=== PATIENT | female | born 1955 | race African-American/Black ===

== ENCOUNTER 2018-07-20 06:11 | Day surgery (SDC) | payer MEDICARE ==
--- NOTE | 2018-07-17 10:44 | HP ---
HISTORY OF PRESENT ILLNESS: A 63-year-old black female, dialyzes at [facility] on Friday, Friday, and Friday. She was dialyzed utilizing a right IJ hemodialysis catheter. In 2016, I placed a right arm fistula on 05/24/2016 and subsequently, a graft 10/30/2016. This worked a short while and thrombosed. She went to [place], interventions performed, could not salvage it. She had a left arm graft placed that failed. Her veins were too small. She had a hemodialysis catheter placed in right IJ in [place]. She is here to see me regarding peritoneal dialysis. MEDICATIONS: 1. Trazodone 50 mg a day. 2. Tramadol p.r.n. 3. Carvedilol 12.5 mg a day. 4. Calcium daily. 5. Atorvastatin daily. 6. Magnesium oxide daily. 7. Sensipar with meals. 8. Vitamin D3 supplements. PAST MEDICAL HISTORY: End-stage renal disease, chronic anemia, hypertension, and insulin-dependent diabetes mellitus, takes insulin 4 times a day. PAST SURGICAL HISTORY: Hysterectomy, infraumbilical midline incision, bilateral salpingo-oophorectomy, right arm fistula, right arm graft, left arm graft, and hemodialysis catheter placement. FAMILY HISTORY: Noncontributory. SOCIAL HISTORY: Tobacco, none. Alcohol, none. ALLERGIES: SULFA. REVIEW OF SYSTEMS: Noncontributory. PHYSICAL EXAMINATION: VITAL SIGNS: Weight 202 pounds, 5 feet 6 inches. 141/67, 74 heart rate, 97 degrees, followed by Dr. Jose G Stapleton in [place] and Dr. Barreto. The patient is , lives with her son. She dialyzes Friday, Friday, and Friday at 1:30 p.m. [facility]. HEAD, EARS, EYES, NOSE, AND THROAT: Unremarkable. LUNGS: Clear to auscultation. CARDIAC: Regular rate and rhythm without murmur or gallop. ABDOMEN: Soft and nontender. Infraumbilical scar without hernias. No umbilical hernias. No groin hernias. ABDOMEN: Soft and nontender, without masses. EXTREMITIES: Without edema. Venous stasis changes both legs with the wound right leg chronic venous stasis. NEUROLOGIC: No neurological Deficits. Neurologically intact. GCS 15. No lymphadenopathy. ASSESSMENT AND PLAN: 1. Inadequate veins to support dialysis fistulas or grafts, both arm grafts failed. Currently dialyzing right IJ hemodialysis catheter. We will plan placement of a laparoscopic peritoneal dialysis catheter as an outpatient. She understands risks and benefits and consents. She understands she will need to see the peritoneal dialysis nurse in 3 to 7 days post peritoneal dialysis catheter placement to have that nurse flush the catheter, change the dressings, and begin instruction. She can begin using her PD catheter 2 to 3 weeks postoperatively. She understands risks and benefits of the procedure and consents. 2. Diabetes mellitus. 3. Hypertension. 4. Obesity. Job ID: [id number]
[2018-07-17 11:03] VITALS: BMI 33.3
[2018-07-20] MEDS ORDERED: Bupivacaine HCl 0.5%/Epinephrine 1:200,000/PF 30 ml Vial ONE (06:39)
[2018-07-20] MEDS ORDERED: Bupivacaine/Epinephrine 0.25% 30 ML VIAL ONE (06:39)
[2018-07-20] MEDS ORDERED: Heparin 10,000 UNITS/1 ML VIAL ONE (06:39)
[2018-07-20] MEDS ORDERED: Lidocaine 2% PF 5 ML VIAL ONE ×2 (06:39→06:54)
[2018-07-20] MEDS ORDERED: Fentanyl 100 MCG/2 ML VIAL ONE ×2 (06:49→09:34)
[2018-07-20 07:25] LABS: Anion Gap 15 mmol/L (10-20); BUN (Urea Nitrogen) 47 mg/dL (9.8-20.1); Calc. Creatinine Clearance 14 mL/min (70-130); Calcium 8.9 mg/dL (7.8-10.44); Carbon Dioxide 27 mmol/L (23-31); Chloride 101 mmol/L (98-107); Estimated GFR-MDRD 9; Glucose 173 mg/dL (80-115); Potassium 3.6 mmol/L (3.5-5.1); Sodium 139 mmol/L (136-145)
[2018-07-20 07:43] LABS: #Eosinphils 0.4 thou/uL (0.0-0.7); #Monocytes 0.6 thou/uL (0.11-0.59); #Neutrophils 5.5 thou/uL (1.40-6.50); %Basophils 0.5 % (0.0-1.0); %Eosinophils 4.7 % (0.0-10.0); %Lymphocytes 13.4 % (21.0-51.0); %Monocytes 8.3 % (0.0-10.0); %Neutrophils 73.1 % (42.0-75.0); Hemoglobin 11.4 g/dL (12.0-16.0); Mean Corpuscular HGB CONC 31.3 g/dL (32.0-36.0); Mean Corpuscular Hemoglobin 29.2 pg (27.0-31.0); Mean Corpuscular Volume 93.3 fL (78.0-98.0); Mean Platelet Volume 8.6 fL (7.4-10.4); Platelet Count 302 thou/uL (130-400); RBC Distribution Width 13.1 % (11.5-14.5); Red Blood Cell (RBC) Count 3.89 mill/uL (4.20-5.40); White Blood Cell (WBC) Count 7.5 thou/uL (4.8-10.8)
[2018-07-20] MEDS ORDERED: hydrALAZINE 20 MG/ML VIAL ONE (09:06)
[2018-07-20] MEDS ORDERED: Lidocaine 1% PF 5 ML VIAL ONE (09:56)
[2018-07-20] MEDS ORDERED: ePHEDrine 50 MG/ML VIAL ONE (09:56)
[2018-07-20] MEDS ORDERED: Glycopyrrolate 0.2 MG/ML 5 ML SYRINGE ONE (09:56)
[2018-07-20] MEDS ORDERED: Ondansetron PF 4 MG/2 ML Vial ONE (09:56)
[2018-07-20] MEDS ORDERED: PROPOFOL 200 MG/20 ML VIAL ONE (09:56)
[2018-07-20] MEDS ORDERED: Rocuronium Bromide 10 MG/ML (10ML VIAL) ONE (09:56)
[2018-07-20] MEDS ORDERED: Heparin 10,000 UNITS/ 10 ML VIAL ONE (10:45)
--- NOTE | 2018-07-20 12:37 | OP ---
DATE OF PROCEDURE: 07/20/2018 PREOPERATIVE DIAGNOSIS: End-stage renal disease, exhausted dialysis access upper extremities due to too small veins depending on hemodialysis catheter currently. POSTOPERATIVE DIAGNOSIS: End-stage renal disease, exhausted dialysis access upper extremities due to too small veins depending on hemodialysis catheter currently. PROCEDURES PERFORMED: 1. Laparoscopic adhesiolysis (omentum adherent to the sigmoid colon and to the suprapubic area from previous hysterectomy). 2. Laparoscopic omentopexy. 3. Laparoscopic double-cuffed pigtail peritoneal dialysis catheter. ANESTHESIA: General, local of 0.5% Marcaine with epinephrine 30 mL mixed with 2% Xylocaine 10 mL, total volume mixture used. DESCRIPTION OF PROCEDURE: The patient was taken to the operating room, where under general anesthesia, abdomen was prepared with ChloraPrep and draped in routine fashion. Local anesthetic mixture was infiltrated into the skin and subcutaneous tissue about all port sites. Bilateral subcostal far lateral incision was made. Pneumoperitoneum to 15 mmHg obtained with a Veress needle, replacing the Veress needle with a 5 mm port, and video laparoscope inserted and the contralateral 5 mm port placed under laparoscopic visualization. There were omental adhesions in the pelvis adjacent to the sigmoid colon and lower abdominal wall to the pubis. For this reason, another 5 mm port was placed in left lateral abdomen. A left lateral mid abdominal incision was made under laparoscopic visualization and another 5 mm port was placed. Omental adhesions into the pelvis from prior hysterectomy noted with omentum adherent to the sigmoid colon and suprapubic midline area from previous hysterectomy. Adhesions were taken down with LigaSure, mobilizing the lower portion of the adhesions, leaving adhesions in the supraumbilical area intact. Incision was made in the left lower quadrant at the planned exit site and a counter incision was made at left paraumbilical. An 8-mm port was placed through this paraumbilical incision and the subcutaneous tissue was directed caudally, visualized laparoscopically passed through the rectus sheath and caudally the catheter penetrated the abdominal cavity toward the pelvis and a double-cuffed pigtail catheter was passed. This port was placed in the internal cuff in the rectus sheath, grasping the catheter, stabilizing it and removing the port. [place] dissector was placed through the planned exit site. Small incision was directed towards the counterincision, grasping the catheter and stabilizing the catheter intraperitoneally with a grasper. Catheter was placed such that the external cuff was in the subcutaneous tissue beneath the skin exit site. The catheter was then flushed with heparinized saline solution and cap applied. Omentopexy then performed with a GraNee needle pexing the omentum with 2-0 Vicryl suture to the upper abdomen, left upper quadrant with a transabdominal wall fixation, suture visualized laparoscopically. Once this was completed, omentum was well out of the pelvis and would not interfere with the catheter. As all counts were correct, pneumoperitoneum reduced. All instruments removed as good hemostasis noted. All skin incisions were approximated with interrupted subdermal 4-0 Monocryl and at the counter incision, the subcutaneous tissues were approximated with an extra subcutaneous tissue approximation of 4-0 Monocryl. Dermabond, Mastisol, and sterile dressings were applied. The patient tolerated the procedure well. Job ID: [id number]
--- NOTE | 2018-07-21 09:32 | EKG ---
Test Reason : PREOP Blood Pressure : / mmHG Vent. Rate : 073 BPM Atrial Rate : 073 BPM P-R Int : 244 ms QRS Dur : 092 ms QT Int : 448 ms P-R-T Axes : 083 002 011 degrees QTc Int : 493 ms Sinus rhythm with 1st degree A-V block with Premature atrial complexes Prolonged QT Abnormal ECG Confirmed by DR. Diogenes MUNSON ([id number]) on 07/21/2018 9:32:24 AM Referred By: MICHAEL Confirmed By:DR. Diogenes MUNSON
== END 2018-07-20 11:18 | disposition home or self-care (01) ==
LOC: SDC 06:11
PROVIDERS: ATTEND Specialist
PROC: 0WHG43Z Insertion of Infusion Device into Peritoneal Cavity, Percutaneous Endoscopic Approach (ICD-10-PCS; principal; 2018-07-20)
PROC: 0DUU47Z Supplement Omentum with Autologous Tissue Substitute, Percutaneous Endoscopic Approach (ICD-10-PCS; 2018-07-20)
DX: I12.0 Hypertensive chronic kidney disease with stage 5 chronic kidney disease or end stage renal disease (principal); E11.22 Type 2 diabetes mellitus with diabetic chronic kidney disease; N18.6 End stage renal disease; D63.1 Anemia in chronic kidney disease; E66.9 Obesity, unspecified; Z68.33 Body mass index [BMI] 33.0-33.9, adult; Z99.2 Dependence on renal dialysis; Z79.4 Long term (current) use of insulin; Z79.899 Other long term (current) drug therapy; Z88.2 Allergy status to sulfonamides; Z91.040 Latex allergy status
CPT/HCPCS: 36416; 80048; 85025; 93005; 93010; J0131; J0360; J0670; J1644; J2001; J2405; J2704; J3010; J3490

== ENCOUNTER 2019-01-14 23:15 | Inpatient (IN) | payer MEDICARE ==
[2019-01-15] MEDS ORDERED: Acetaminophen 325 MG TAB ONE (00:17)
[2019-01-15] MEDS ORDERED: Ondansetron PF 4 MG/2 ML Vial IVP PRN (00:53)
[2019-01-15 00:56] LABS: Troponin I 0.109 ng/mL (< 0.028)
--- NOTE | 2019-01-15 01:16 | PDOC.EVN ---
Event Note - Event Note Event Note: [facility] dictated [id number]
[2019-01-15 02:04] VITALS: BMI 33.3
[2019-01-15] MEDS: cefTRIAXone\\ROCEPHIN 1 GM in Sodium Chloride 0.9% 100 ML IVPB SCH (02:34)
--- NOTE | 2019-01-15 05:19 | HP ---
CHIEF COMPLAINT: Nausea and vomiting. HISTORY OF PRESENT ILLNESS: Ms. Earl is a 63-year-old female with past medical history of end-stage renal disease, on peritoneal dialysis; diabetes; hypertension; seizures; bronchitis. Transferred from [facility] after she presented there with nausea and vomiting that started around noon. The patient also has been feeling weak for the last 2 days. The patient also is feeling lightheaded, which has been going on for the last few days. Workup in [facility]; the patient had elevated WBC count of 13,000. The patient was also found to have urinary tract infection. Initial lactic acid was 3, but after fluid bolus, her lactic acid is 1.8. The patient was given IV Zosyn. The patient is usually tired after block. Troponin is 0.1, but she denies chest pain. The patient has been admitted to the hospital for further management. PAST MEDICAL HISTORY: 1. End-stage renal disease, on peritoneal dialysis. 2. Diabetes. 3. Hypertension. 4. Seizures. PAST SURGICAL HISTORY: 1. Dialysis catheter replacement. 2. Hysterectomy. SOCIAL HISTORY: Denies smoking, alcohol drinking, or drug abuse. ALLERGIES: THE PATIENT IS ALLERGIC TO BACTRIM, POTASSIUM, SULFA, AND TRIMETHOPRIM. FAMILY HISTORY: Reviewed and noncontributory. HOME MEDICATIONS: Please see home medication reconciliation form for updated medications. REVIEW OF SYSTEMS: Review of 14-systems negative except what was mentioned in the history of present illness. PHYSICAL EXAMINATION: GENERAL: The patient is awake, alert, does not appear to be in acute distress. VITAL SIGNS: Blood pressure 108/80, pulse rate 82, respiratory rate is 16, temperature is 98.2, pulse oximetry is 100% on room air. HEAD AND NECK: Normocephalic and atraumatic. Neck is supple. CHEST: Fair bilateral air entry. HEART: S1 and S2, regular. ABDOMEN: Obese, soft. Peritoneal catheter also is present. NEURO: Awake, alert, and oriented x3. PSYCH: Normal mood. EXTREMITIES: Both legs are wrapped in dressing. LABORATORY DATA: As mentioned above in the history of present illness. ASSESSMENT: 1. Nausea and vomiting. 2. Acute urinary tract infection. 3. Elevated troponin, denies chest pain. 4. End-stage renal disease, on peritoneal dialysis. 5. Diabetes mellitus. 6. Hypertension. 7. Seizures. PLAN: 1. Admit. 2. Septic workup including urine cultures. 3. IV antibiotics. 4. We will get serial cardiac enzymes. 5. Consult the patient's sound printer for evaluation and further management. 6. Reconcile home medications. 7. DVT prophylaxis, low-dose heparin. Job ID: [id number]
[2019-01-15 05:25] LABS: #Eosinphils 0.3 thou/uL (0.0-0.7); #Lymphocytes 1.2 thou/uL (1.20-3.40); #Monocytes 0.7 thou/uL (0.11-0.59); #Neutrophils 8.3 thou/uL (1.40-6.50); %Basophils 0.4 % (0.0-1.0); %Eosinophils 3.1 % (0.0-10.0); %Lymphocytes 11.2 % (21.0-51.0); %Monocytes 6.9 % (0.0-10.0); %Neutrophils 78.4 % (42.0-75.0); Hemoglobin 7.6 g/dL (12.0-16.0); Mean Corpuscular HGB CONC 31.8 g/dL (32.0-36.0); Mean Corpuscular Hemoglobin 27.9 pg (27.0-31.0); Mean Corpuscular Volume 87.9 fL (78.0-98.0); Mean Platelet Volume 7.6 fL (7.4-10.4); Platelet Count 274 thou/uL (130-400); RBC Distribution Width 14.6 % (11.5-14.5); Red Blood Cell (RBC) Count 2.73 mill/uL (4.20-5.40); White Blood Cell (WBC) Count 10.6 thou/uL (4.8-10.8)
[2019-01-15 05:38] LABS: Anion Gap 23 mmol/L (10-20); BUN (Urea Nitrogen) 67 mg/dL (9.8-20.1); Calc. Creatinine Clearance 7 mL/min (70-130); Calcium 8.3 mg/dL (7.8-10.44); Carbon Dioxide 21 mmol/L (23-31); Chloride 94 mmol/L (98-107); Estimated GFR-MDRD 4; Glucose 141 mg/dL (80-115); Potassium 3.5 mmol/L (3.5-5.1); Sodium 134 mmol/L (136-145)
[2019-01-15 05:55] LABS: Troponin I 0.104 ng/mL (< 0.028)
[2019-01-15] MEDS: Heparin 5,000 UNITS/ML VIAL SC SCH ×3 (09:09→21:06)
[2019-01-15] MEDS: Acetaminophen 325 MG TAB PO PRN ×3 (09:09→21:14)
[2019-01-15] MEDS: Famotidine/PF 20 mg/2ml Vial SLOW IVP SCH ×2 (09:09→21:06)
--- NOTE | 2019-01-15 10:48 | CON ---
DATE OF CONSULTATION: 01/15/2019 REASON FOR CONSULTATION: End-stage renal disease, on maintenance dialysis. HISTORY OF PRESENTING ILLNESS: This is a very pleasant 63-year-old female, who presented to the hospital with nausea and vomiting. The patient denies any headache, numbness, tingling, or weakness. Denies any chest pain. PAST MEDICAL HISTORY: Significant for end-stage renal disease, diabetes mellitus, hypertension, peritoneal dialysis, AV fistula, tunneled catheter, and hysterectomy. SOCIAL HISTORY: No alcohol or drug use. ALLERGIES: REVIEWED. HOME MEDICATIONS: List reviewed. HOSPITAL MEDICATIONS: Reviewed. REVIEW OF SYSTEMS: Fifteen-point review of system was performed, negative except for positives noted above. GENERAL: HEAD: NECK: No swelling or lumps. NOSE: No epistaxis or discharge. EYES: No diplopia or pain. 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 NEUROPSYCHIATIC SYSTEMS: No suicidal ideation. No ideation. SKIN: Denies any rash or ulcer. CONSTITUTIONAL: No fever or chills. PHYSICAL EXAMINATION: See above. The patient is awake and alert. VITAL SIGNS: Afebrile, pulse 75, breathing 16, and blood pressure 123/58. GENERAL APPEARANCE AND MENTAL STATUS: Fair. HEAD/NECK: Normocephalic. Atraumatic. EYES: EOMI. No deformity. EARS: Clear. No ulcers. NOSE: Intact. No lesions. MOUTH: Clear. No discharge. THROAT: Clear. No exudate. LUNGS: Clear. No crackles. CARDIAC: S1, S2. No rub. ABDOMEN: Benign. Bowel sounds positive. GENITALIA/RECTUM: Childers absent. BACK/EXTREMITIES: Edema 0+. NEUROLOGICAL: Alert and motor intact. SKIN: LYMPHATICS: LABORATORY DATA: Reviewed. ASSESSMENT AND PLAN: 1. Stage 6 chronic kidney disease. Continue peritoneal dialysis. 2. Anemia. Recommend transfusion. 3. Medication based on GFR appropriate. Job ID: [id number]
[2019-01-15] MEDS ORDERED: Dextrose 50% Abboject 50 ML SYRINGE SLOW IVP PRN (11:31)
[2019-01-15] MEDS ORDERED: Dextrose 5% in Water 1,000 ML IV PRN (11:31)
--- NOTE | 2019-01-15 11:40 | PDOC.HOSPP ---
- Subjective Encounter Date: 01/15/19 Encounter Time: 11:00 Subjective: Patient reports mild discomfort in her heels. Otherwise, states she feels slightly better than yesterday. Denies chest pain, SOB. Patient states she is hungry and is waiting on lunch. - Objective Vital Signs & Weight: Vital Signs (12 hours) Temp Pulse Resp BP Pulse Ox 01/15/19 07:36 97.9 F 74 16 123/58 L 98 01/15/19 03:28 98.1 F 77 16 122/60 98 01/15/19 01:45 98.2 F 80 20 139/65 100 Weight Weight 93.6 kg I&O: 01/14/19 01/15/19 01/16/19 06:59 06:59 06:59 Intake Total 680 Balance 680 Result Diagrams: 01/15/19 05:12 01/15/19 05:12 Additional Labs: Accuchecks 01/15/19 01/15/19 04:58 01:59 POC Glucose 156 H 60 L Hospitalist ROS - Review of Systems Constitutional: reports: weakness, malaise Eyes: denies: pain, vision change, conjunctivae inflammation, eyelid inflammation, redness, other ENT: denies: ear pain, ear discharge, nose pain, nose discharge, nose congestion , mouth pain, mouth swelling, throat pain, throat swelling, other Respiratory: reports: SOB with excertion Cardiovascular: reports: edema, light headedness Gastrointestinal: denies: nausea, vomiting, abdominal pain, diarrhea, constipation, melena, hematochezia, other Genitourinary: denies: dysuria, frequency, incontinence, hematuria, retention, other Skin: reports: other (bilateral heel pain) Neurological: reports: weakness. denies: change in speech, confusion - Medication Medications: Active Medications Generic Name Dose Route Start Last Admin Trade Name Freq PRN Reason Stop Dose Admin Acetaminophen 650 mg 01/15/19 00:53 01/15/19 09:09 Tylenol PO 650 mg Q4H PRN Administration Headache/Fever/Mild Pain (1-3) Famotidine 20 mg 01/15/19 09:00 01/15/19 09:09 Pepcid SLOW IVP 20 mg Q12HR ANURAG Administration Heparin Sodium (Porcine) 5,000 units 01/15/19 09:00 01/15/19 09:09 Heparin SC 5,000 units TID ANURAG Administration Ceftriaxone Sodium 1 gm/ 100 mls @ 200 mls/hr 01/15/19 02:00 01/15/19 02:34 Sodium Chloride IVPB 100 mls Q24HR ANURAG Administration - Exam Eye: PERRL ENT: normocephalic atraumatic, moist mucosa Neck: supple, no lymphadenopathy Heart: RRR, normal peripheral pulses Respiratory: CTAB, normal chest expansion Gastrointestinal: soft, non-tender, normal bowel sounds Extremities: 2+ LE edema Skin: normal turgor Neurological: cranial nerve grossly intact Musculoskeletal: normal strength, generalized weakness Musculoskeletal - other findings: tenderness to bilateral heels, no S/S of infection, mild erythema, Hosp A/P (1) CHF (congestive heart failure) Code(s): I50.9 - HEART FAILURE, UNSPECIFIED Status: Chronic (2) Volume overload Code(s): E87.70 - FLUID OVERLOAD, UNSPECIFIED Status: Acute (3) Microcytic anemia Code(s): D50.9 - IRON DEFICIENCY ANEMIA, UNSPECIFIED Status: Chronic (4) DM2 (diabetes mellitus, type 2) Status: Chronic Qualifiers: 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 insulin use: with skilled nursing use Diabetes mellitus complication status: with kidney complications Diabetes mellitus complication detail: with chronic kidney disease Chronic kidney disease stage : stage 4 (severe) Qualified Code(s): E11.22 - Type 2 diabetes mellitus with diabetic chronic kidney disease; N18.4 - Chronic kidney disease, stage 4 (severe ); Z79.4 - [facility] (current) use of insulin (5) HTN (hypertension) Code(s): I10 - ESSENTIAL (PRIMARY) HYPERTENSION Status: Chronic Qualifiers: Hypertension type: essential hypertension Qualified Code(s): I10 - Essential (primary) hypertension (6) Hyponatremia Code(s): E87.1 - HYPO-OSMOLALITY AND HYPONATREMIA Status: Acute (7) Symptomatic anemia Code(s): D64.9 - ANEMIA, UNSPECIFIED Status: Acute (8) ESRD on peritoneal dialysis Code(s): N18.6 - END STAGE RENAL DISEASE; Z99.2 - DEPENDENCE ON RENAL DIALYSIS Status: Chronic - Plan old records reviewed/req, continue antibiotics, DVT proph w/heparin Will continue IV ABX, await culture results Dr. Mensah recommended blood transfusion, Hbg 7.6, has symptomatic anemia He will set up peritoneal dialysis for tonight Will recheck labs in AM Wound care ordered for wounds to bilateral legs, heel pain Further recommendations per Nephrology, will DC when cleared
[2019-01-15] MEDS: Insulin Glargine 10 UNITS in Pre-Filled Syringe 1 EACH SC SCH (12:40)
[2019-01-15] MEDS: Atorvastatin Calcium 20 MG TAB PO SCH (21:05)
[2019-01-15] MEDS: traZODone HCl 50 MG TAB PO SCH (21:05)
[2019-01-15] MEDS: Cinacalcet HCl 30 MG TAB PO SCH (21:06)
[2019-01-15] MEDS: Carvedilol 25 MG TAB PO SCH (21:06)
[2019-01-15] MEDS: Insulin Regular 300 UNITS/3 ML VIAL SC PRN (21:13)
[2019-01-16] MEDS: Acetaminophen 325 MG TAB PO PRN ×4 (00:55→21:01)
[2019-01-16] MEDS: cefTRIAXone\\ROCEPHIN 1 GM in Sodium Chloride 0.9% 100 ML IVPB SCH (02:07)
[2019-01-16 04:39] LABS: #Eosinphils 0.3 thou/uL (0.0-0.7); #Lymphocytes 1.4 thou/uL (1.20-3.40); #Monocytes 0.7 thou/uL (0.11-0.59); #Neutrophils 8.2 thou/uL (1.40-6.50); %Basophils 0.2 % (0.0-1.0); %Eosinophils 3.2 % (0.0-10.0); %Lymphocytes 12.9 % (21.0-51.0); %Monocytes 6.4 % (0.0-10.0); %Neutrophils 77.4 % (42.0-75.0); Hemoglobin 8.6 g/dL (12.0-16.0); Mean Corpuscular HGB CONC 32.5 g/dL (32.0-36.0); Mean Corpuscular Hemoglobin 28.1 pg (27.0-31.0); Mean Corpuscular Volume 86.4 fL (78.0-98.0); Mean Platelet Volume 7.6 fL (7.4-10.4); Platelet Count 291 thou/uL (130-400); RBC Distribution Width 14.3 % (11.5-14.5); Red Blood Cell (RBC) Count 3.06 mill/uL (4.20-5.40); White Blood Cell (WBC) Count 10.5 thou/uL (4.8-10.8)
[2019-01-16 05:05] LABS: Anion Gap 19 mmol/L (10-20); BUN (Urea Nitrogen) 58 mg/dL (9.8-20.1); Calc. Creatinine Clearance 8 mL/min (70-130); Calcium 7.4 mg/dL (7.8-10.44); Carbon Dioxide 22 mmol/L (23-31); Chloride 96 mmol/L (98-107); Estimated GFR-MDRD 4; Glucose 230 mg/dL (80-115); Sodium 134 mmol/L (136-145)
[2019-01-16] MEDS: Insulin Regular 300 UNITS/3 ML VIAL SC PRN (05:26)
[2019-01-16] MEDS: Carvedilol 25 MG TAB PO SCH ×2 (08:55→21:01)
[2019-01-16] MEDS: Escitalopram Oxalate 10 mg Tablet PO SCH (08:55)
[2019-01-16] MEDS: Insulin Glargine 10 UNITS in Pre-Filled Syringe 1 EACH SC SCH (08:55)
[2019-01-16] MEDS: Famotidine/PF 20 mg/2ml Vial SLOW IVP SCH (08:55)
[2019-01-16] MEDS: Heparin 5,000 UNITS/ML VIAL SC SCH ×3 (08:56→21:01)
[2019-01-16] MEDS ORDERED: Non-Formulary Item 1 EACH (Insulin Glargine,Hum.Rec.Anlog [Lantus Solostar] 10 UNIT) SQ SCH (09:00)
[2019-01-16 10:54] LABS: Troponin I 0.097 ng/mL (< 0.028)
[2019-01-16] MEDS ORDERED: Potassium Chloride 20 MEQ TAB PO SCH (11:00)
--- NOTE | 2019-01-16 11:08 | PRG ---
DATE OF SERVICE: 01/16/2019 SUBJECTIVE: The patient is seen and examined at the bedside. She complains about the left heel pain. Otherwise, she feels okay. OBJECTIVE: VITAL SIGNS: Blood pressure is 147/64, pulse is 73, temperature is 98.1, respirations are 16, O2 saturation is 99% on room air. HEENT: Head is atraumatic and normocephalic. Eyes are PERRLA. Sclerae are nonicteric. Oral mucosa is moist. NECK: Supple. LUNGS: Clear. HEART: S1, S2 normal. No S3. No S4. ABDOMEN: Soft, nontender, obese. EXTREMITIES: Both lower extremities about the ankles, below the knees, wrapped in the Mik wraps. NEUROLOGICAL: She follows my commands. She moves all 4 extremities. There are no any motor deficits. LABORATORY DATA: Labs showed a white count of 10.5, hemoglobin is 8.6, hematocrit is 26.4, platelet count is 291,000. Sodium is 134, potassium is 3.0, chloride is 96, CO2 is 22, creatinine is 10.7, BUN is 58, glycemia is ranging from 130 to 292, calcium is 7.4. Troponin 0.104 from yesterday. IMPRESSION: 1. Suspected urinary tract infection. We will obtain urine culture from [place] [facility]. We will continue Rocephin. 2. Left heel pain. We will obtain the 2-view x-ray of the left foot. 3. Diabetes mellitus type 2. 4. Anemia. 5. Nausea and vomiting, resolved. 6. Elevated troponin x1. The patient denied any chest pain. We will recheck her troponin this morning. 7. End-stage renal disease, on peritoneal dialysis. 8. Hypokalemia. We will talk to product lead regarding the dose of KCl, she wants to use. 9. History of seizures. 10. Bilateral lower extremities venous stasis ulcers on Mik wraps. The plan is to obtain left foot x-ray. Continue her peritoneal dialysis. Check with [facility] about her urine cultures and continue PT. She should be able to go home in the next 24 hours. Job ID: [id number]
--- NOTE | 2019-01-16 13:01 | RAD ---
LEFT FOOT 2 VIEWS: Date: 01/16/19 HISTORY: Heel pain. FINDINGS: Tarsals, metatarsals, and phalanges appear intact. There is mild osteopenia and degenerative change. Prominent arterial calcification. No lytic or destructive process. IMPRESSION: No acute abnormality identified. POS: OFF
--- NOTE | 2019-01-16 13:31 | PRG ---
DATE OF SERVICE: 01/16/2019 SUBJECTIVE: This is a 63-year-old female being seen for end-stage renal disease. The patient denied any nausea, vomiting, or chest pain. OBJECTIVE: GENERAL: The patient is awake and alert. VITAL SIGNS: Afebrile, pulse 72, breathing 16, and blood pressure 109/52. GENERAL APPEARANCE AND MENTAL STATUS: Fair. HEAD/NECK: Normocephalic. Atraumatic. EYES: EOMI. No deformity. EARS: Clear. No ulcers. NOSE: Intact. No lesions. MOUTH: Clear. No discharge. THROAT: Clear. No exudate. LUNGS: Clear. No crackles. CARDIAC: S1, S2. No rub. ABDOMEN: Benign. Bowel sounds positive. GENITALIA/RECTUM: Childers absent. BACK/EXTREMITIES: Edema 0+. NEUROLOGICAL: Alert and motor intact. SKIN: LYMPHATICS: LABORATORY DATA: Reviewed. ASSESSMENT: 1. Chronic kidney disease, stage 6. 2. Stable hypertension. 3. Stable anemia. 4. Stable hypokalemia. Recommend 20 mEq of potassium. Job ID: [id number]
[2019-01-16] MEDS: Cinacalcet HCl 30 MG TAB PO SCH (21:01)
[2019-01-16] MEDS: traZODone HCl 50 MG TAB PO SCH (21:01)
[2019-01-16] MEDS: Atorvastatin Calcium 20 MG TAB PO SCH (21:01)
[2019-01-17] MEDS: cefTRIAXone\\ROCEPHIN 1 GM in Sodium Chloride 0.9% 100 ML IVPB SCH (01:30)
[2019-01-17] MEDS: Acetaminophen 325 MG TAB PO PRN ×2 (03:28→20:59)
[2019-01-17] MEDS: HumaLOG 300 UNITS/3 ML VIAL SC PRN (06:21)
[2019-01-17 06:29] LABS: #Eosinphils 0.3 thou/uL (0.0-0.7); #Lymphocytes 1.3 thou/uL (1.20-3.40); #Monocytes 0.6 thou/uL (0.11-0.59); #Neutrophils 7.6 thou/uL (1.40-6.50); %Basophils 0.2 % (0.0-1.0); %Eosinophils 2.8 % (0.0-10.0); %Lymphocytes 13.2 % (21.0-51.0); %Monocytes 6.2 % (0.0-10.0); %Neutrophils 77.6 % (42.0-75.0); Hemoglobin 8.5 g/dL (12.0-16.0); Mean Corpuscular HGB CONC 32.5 g/dL (32.0-36.0); Mean Corpuscular Hemoglobin 28.4 pg (27.0-31.0); Mean Corpuscular Volume 87.2 fL (78.0-98.0); Mean Platelet Volume 7.4 fL (7.4-10.4); Platelet Count 283 thou/uL (130-400); RBC Distribution Width 14.2 % (11.5-14.5); Red Blood Cell (RBC) Count 2.99 mill/uL (4.20-5.40); White Blood Cell (WBC) Count 9.8 thou/uL (4.8-10.8)
[2019-01-17 06:49] LABS: Anion Gap 16 mmol/L (10-20); BUN (Urea Nitrogen) 57 mg/dL (9.8-20.1); Calc. Creatinine Clearance 8 mL/min (70-130); Carbon Dioxide 23 mmol/L (23-31); Chloride 96 mmol/L (98-107); Estimated GFR-MDRD 4; Glucose 297 mg/dL (80-115); Potassium 3.3 mmol/L (3.5-5.1); Sodium 132 mmol/L (136-145)
[2019-01-17] MEDS: Insulin Glargine 10 UNITS in Pre-Filled Syringe 1 EACH SC SCH (09:34)
[2019-01-17] MEDS: Heparin 5,000 UNITS/ML VIAL SC SCH ×3 (09:34→21:01)
[2019-01-17] MEDS: Escitalopram Oxalate 10 mg Tablet PO SCH (09:34)
[2019-01-17] MEDS: Carvedilol 25 MG TAB PO SCH ×2 (09:34→20:59)
[2019-01-17] MEDS: Famotidine/PF 20 mg/2ml Vial SLOW IVP SCH (09:34)
--- NOTE | 2019-01-17 13:09 | PRG ---
DATE OF SERVICE: 01/17/2019 SUBJECTIVE: A 63-year-old female being seen for end-stage kidney disease. The patient denied any nausea, vomiting, or chest pain. OBJECTIVE: CONSTITUTIONAL: On exam, the patient is awake and alert. VITAL SIGNS: Afebrile, pulse 70, breathing 16, and blood pressure 137/60. GENERAL APPEARANCE AND MENTAL STATUS: Fair. HEAD/NECK: Normocephalic. Atraumatic. EYES: EOMI. No deformity. EARS: Clear. No ulcers. NOSE: Intact. No lesions. MOUTH: Clear. No discharge. THROAT: Clear. No exudate. LUNGS: Clear. No crackles. CARDIAC: S1, S2. No rub. ABDOMEN: Benign. Bowel sounds positive. GENITALIA/RECTUM: Childers absent. BACK/EXTREMITIES: Edema 0+. NEUROLOGICAL: Alert and motor intact. SKIN: LYMPHATICS: LABORATORY DATA: Hemoglobin 8.5. Potassium is 3.3. ASSESSMENT AND PLAN: 1. Chronic kidney disease, stage 6. Continue peritoneal dialysis. Hypokalemia, recommend high potassium diet. 1. Anemia, stable. 2. Medications based on glomerular filtration rate are appropriate. Job ID: [id number]
[2019-01-17] MEDS ORDERED: Potassium Chloride 20 MEQ TAB PO SCH (15:45)
--- NOTE | 2019-01-17 16:23 | PRG ---
DATE OF SERVICE: 01/17/2019 SUBJECTIVE: The patient is seen and examined at the bedside. She seems to be doing better. We just received a fax from her wound cultures done in the [facility], which is growing MRSA from her right buttock. OBJECTIVE: VITAL SIGNS: Blood pressure is 137/60, pulse is 70, temperature is 97.7, respirations 20, and O2 saturation is 98% on room air. HEENT: Her sclerae are nonicteric. Oral mucosa is moist. NECK: Supple. LUNGS: Clear. HEART: S1 and S2, somewhat irregular. No S3. No S4. ABDOMEN: Obese and nontender. There is a peritoneal catheter in place. EXTREMITIES: No clubbing or cyanosis. There is 1+ peripheral edema similar bilaterally on the lower extremities. PELVIC: She has several wounds that are labially and on the right buttock area, which are not looking to be ready for any debridement. NEUROLOGIC: She follows my commands. She moves all 4 extremities, but she is very immobile, I would say. LABORATORY DATA: Labs showed a white count of 9.8, hemoglobin 8.5, hematocrit 26.1, and platelet count 283. Sodium of 132, potassium 3.3, chloride 96, CO2 of 23, BUN 57, creatinine 10.55, and glucose 297. Wound culture from her right buttock/thigh came back positive 4+ for Staphylococcus aures MRSA, which is sensitive to tetracycline, trimethoprim sulfa, and vancomycin and resistant to clindamycin and erythromycin. We are still waiting for urine culture to come from the previous facility. The place was contacted, but they are not able to give us good answers. IMPRESSION: 1. Suspect urinary tract infection, still waiting for the urine culture. 2. Methicillin-resistant Staphylococcus aureus of wounds of her right buttock. 3. Left heel pain, resolved. X-ray negative. 4. Diabetes mellitus type 2. We will put her back on her full dose of insulin, which is long-acting insulin 50 units twice a day since she is still running in her 200s and 300s. 5. Anemia. 6. Nausea and vomiting, resolved. 7. End-stage renal disease, on peritoneal dialysis managed by Dr. Mensah. 8. Hypokalemia. She will have additional KCl 20 mEq x1 today. 9. History of seizures. 10. Bilateral lower extremity venous stasis ulcers on the Mik wraps. PLAN: So, plan is to continue her peritoneal dialysis. We will start her on Bactroban topically for her wounds. We will get ID consult since there is high-risk of infection for peritoneal dialysis catheter, which is seen in abdominal cavity and some proximity to the infected once. We are going to hold her discharge for now until we address all those issues. Job ID: [id number]
[2019-01-17] MEDS: Cinacalcet HCl 30 MG TAB PO SCH (20:59)
[2019-01-17] MEDS: Insulin Regular 300 UNITS/3 ML VIAL SC PRN (20:59)
[2019-01-17] MEDS: traZODone HCl 50 MG TAB PO SCH (20:59)
[2019-01-17] MEDS: Atorvastatin Calcium 20 MG TAB PO SCH (21:01)
[2019-01-17] MEDS: Mupirocin 2% Ointment 22 GM Tube TOP SCH (21:11)
[2019-01-18] MEDS: Acetaminophen 325 MG TAB PO PRN ×3 (01:36→10:21)
[2019-01-18] MEDS: cefTRIAXone\\ROCEPHIN 1 GM in Sodium Chloride 0.9% 100 ML IVPB SCH (01:36)
[2019-01-18 04:53] LABS: Anion Gap 17 mmol/L (10-20); BUN (Urea Nitrogen) 48 mg/dL (9.8-20.1); Calc. Creatinine Clearance 9 mL/min (70-130); Calcium 7.1 mg/dL (7.8-10.44); Carbon Dioxide 22 mmol/L (23-31); Chloride 97 mmol/L (98-107); Estimated GFR-MDRD 5; Glucose 232 mg/dL (80-115); Potassium 3.5 mmol/L (3.5-5.1); Sodium 132 mmol/L (136-145)
[2019-01-18] MEDS: HumaLOG 300 UNITS/3 ML VIAL SC PRN (05:58)
[2019-01-18] MEDS: Escitalopram Oxalate 10 mg Tablet PO SCH (10:19)
[2019-01-18] MEDS: Carvedilol 25 MG TAB PO SCH ×2 (10:19→21:34)
[2019-01-18] MEDS: Famotidine/PF 20 mg/2ml Vial SLOW IVP SCH (10:20)
[2019-01-18] MEDS: Heparin 5,000 UNITS/ML VIAL SC SCH ×3 (10:20→21:36)
[2019-01-18] MEDS: Mupirocin 2% Ointment 22 GM Tube TOP SCH ×3 (10:21→21:36)
[2019-01-18] MEDS: Insulin Glargine 10 UNITS in Pre-Filled Syringe 1 EACH SC SCH (10:30)
--- NOTE | 2019-01-18 14:11 | PRG ---
DATE OF SERVICE: 01/18/2019 SUBJECTIVE: The patient is seen and examined at the bedside. She complains about the pain in her both lower extremities, where her legs are wrapped with Mik wraps. Apparently, her dressings were changed by Wound Care Team today, and she is asking for something more than Tylenol for the pain. OBJECTIVE: VITAL SIGNS: Blood pressure is 173/69, pulse is 83, temperature is 98.6, respirations 16, O2 saturation is 100% on room air. HEENT: Her head is atraumatic and normocephalic. Eyes are PERRLA. Sclerae are nonicteric. Oral mucosa is moist. LUNGS: Clear. HEART: S1 and S2 normal. No S3. No S4. No any murmur. ABDOMEN: Soft, nontender, and nondistended. EXTREMITIES: 1+ peripheral edema. Both calves are wrapped with Mik wraps. Skin changes present as described before. NEUROLOGIC: She follows my commands. She moves her all 4 extremities, but she is very deconditioned and not able to even sit up by herself in the bed. LABORATORY DATA: Showed sodium of 132, potassium 3.5, chloride 97, CO2 of 22, creatinine 9.42, calcium 7.1. Glycemia is ranging from 134 to 248. IMPRESSION: 1. Suspect urinary tract infection. We contacted [facility] yesterday, and they were not able to provide us with culture results yesterday. We will try to get this information today. We will continue her Rocephin coverage for now until we have final report on this. 2. Methicillin-resistant Staphylococcus aureus positive growth on her wounds from her right buttock from previous facility she came from, but surprisingly, our wound cultures are growing gram-negative rods. We will continue Bactroban for now until we have final report, and Infectious Disease specialist, Dr. Lamb was consulted for further recommendation. 3. Left heel pain, resolved. X-ray is negative. 4. Diabetes mellitus, type 2, uncontrolled. Her glycemia is still elevated despite of high dose of long-acting and short-acting insulin. We will make some additional recommendation to improve her glycemia. 5. Anemia, that is most likely secondary to her renal failure. 6. End-stage renal disease, on peritoneal dialysis managed by Dr. Mensah. 7. Hypokalemia, resolved with supplementation. 8. History of seizures. 9. Bilateral lower extremity venous stasis ulcers, on Mik wraps. DISCUSSION: The Wound Care Team recommends surgical debridement of some of those skin wounds. We will get general surgeon. We will continue Bactroban for now until we have ID consultant intern's recommendations. As I mentioned above, we are going to get [facility] to finally send us a report on her urinalysis, and in the meantime, we are going to continue her Rocephin. We will continue also PT on her, and I think she would qualify to be full admission at this point. She is very deconditioned. She is not able to sit up in the bed by herself, and she will need most likely some skilled and prolonged PT. Job ID: [id number]
[2019-01-18] MEDS: Acetaminophen/Codeine 30-300mg Tablet PO PRN ×2 (16:04→21:35)
--- NOTE | 2019-01-18 17:22 | PRG ---
DATE OF SERVICE: 01/18/2019 SUBJECTIVE: Patient was seen and examined at bedside and overnight events noted. Patient denies any shortness of breath or chest pain or palpitation. No history of nausea or vomiting or diarrhea or fever or chills or cramps. OBJECTIVE: GENERAL: This is a well-built female, in no acute distress. VITAL SIGNS: Temperature 97.9. Heart rate 73. Respiratory rate 16. Blood pressure 148/81. HEENT: Atraumatic, normocephalic. Oral mucosa is moist NECK: Supple. CARDIOVASCULAR: S1, S2 heard. Rate and rhythm regular. RESPIRATORY: Clear to auscultation. GASTROINTESTINAL: Abdomen is soft. MUSCULOSKELETAL: No tenderness. No edema. DERMATOLOGIC: No skin rash. NEUROLOGIC: Alert and awake and oriented X3. No focal neurologic deficits. Moving all the extremities. PSYCHIATRIC: Mood and affect normal. LABORATORY DATA: Potassium 3.5, BUN is 48, and creatinine is 9.4. ASSESSMENT AND PLAN: 1. End-stage renal disease. Continue on peritoneal dialysis as tolerated. 2. Hypokalemia, monitor. 3. Anemia. 4. Edema, controlled. PLAN: To continue on peritoneal dialysis as tolerated. Job ID: [id number]
--- NOTE | 2019-01-18 20:14 | CON ---
DATE OF CONSULTATION: 01/18/2019 GENERAL SURGEON: Dr. Hester. CONSULTING PROVIDER: HECTOR Grewal HISTORY OF PRESENT ILLNESS: The patient is a 63-year-old female, who presented on January 15 to the emergency department, complaining of nausea and vomiting. The patient was also found to have UTI and elevated lactic acid. She was admitted to the Hospitalist Service. The patient was also noted to have bilateral lower extremity venous stasis ulcers as well as a chronic lower buttock wound. Surgery was consulted today for concern for a gluteal abscess with drainage. At the time of my evaluation, the patient reported that she had had drainage from her wounds for over a year and she is not currently seeing any coding and reimbursement specialist. The patient has been afebrile, hemodynamically stable, and not tachycardic. Cultures completed from the wound have grown back gram-negative rods. REVIEW OF SYSTEMS: All additional 10-point review of systems negative except as indicated above. PAST MEDICAL HISTORY: End-stage renal disease, on dialysis; diabetes; hypertension; seizures. PAST SURGICAL HISTORY: Dialysis catheter placement and hysterectomy. SOCIAL HISTORY: The patient denies drug, alcohol, or tobacco use. MEDICATIONS: 1. Januvia. 2. Lipitor. 3. Carvedilol. 4. Sensipar. 5. Lexapro. 6. NovoLog. 7. Lantus. 8. Protonix. 9. Trazodone. ALLERGIES: LATEX AND BACTRIM. PHYSICAL EXAMINATION: VITAL SIGNS: Temperature 98 degrees, pulse 69, respirations 16, oxygen saturation 100% on room air, blood pressure 148/79. GENERAL: Well-appearing, elderly female, sitting up in bed with no signs of acute distress. PULMONARY: Equal chest rise and fall, clear breath sounds bilaterally. No signs of acute respiratory distress. CARDIAC: Regular rate and rhythm. No murmurs, gallops, or rubs. GI: Abdomen is soft, nontender, nondistended. EXTREMITIES: Bilateral lower extremities with dressings in place for chronic venous stasis ulcers. BUTTOCK/SKIN: The patient has a chronic wound on her lower buttock, which was dry at the time of my evaluation. There are also other healed chronic wounds that do not have any drainage or signs of purulence. NEUROLOGIC: GCS is 15. LABORATORY FINDINGS: White count 9.8, hemoglobin 8.5, hematocrit 26.1, platelets 283. Sodium 134, potassium 3.5, chloride 97, carbon dioxide 22, BUN 48, creatinine 9.42, glucose 232, calcium 7.1. DIAGNOSTIC FINDINGS: There are no diagnostic findings to report. ASSESSMENT AND PLAN: The patient has a chronic wound to her buttock area for the past year. There is no surgical indication for this chronic wound. Surgery will sign off at this time. If you have new concerns, please reconsult Dr. Hester. The patient was seen and examined by Dr. Hesetr and myself this afternoon. Job ID: [id number] MTDD
[2019-01-18] MEDS: Cinacalcet HCl 30 MG TAB PO SCH (21:34)
[2019-01-18] MEDS: Atorvastatin Calcium 20 MG TAB PO SCH (21:35)
[2019-01-18] MEDS: traZODone HCl 50 MG TAB PO SCH (21:35)
[2019-01-18] MEDS: Insulin Regular 300 UNITS/3 ML VIAL SC PRN (21:36)
--- NOTE | 2019-01-19 00:22 | CON ---
DATE OF CONSULTATION: 01/18/2019 REASON FOR CONSULTATION: Fever and hidradenitis. HISTORY OF PRESENT ILLNESS: This is a 63-year-old patient, whom I had seen a few years ago, when she presented with a history of hidradenitis suppurativa in axillary, groin, and thigh regions, associated with type 2 diabetes. She also had a progression of her CKD and ended up with end-stage renal disease. When I saw her in May 2016, she was being readied for Humira treatment, but she does not recall having ever been started on Humira, but she may have had treatment because now her lesions are for the most part resolved with the exception of one or two spots in her perineal and thigh region. In May, she presented with fever, had some respiratory symptoms. Her hidradenitis was not very active at the time. My followup note in June 21 was not clear as to the origin of the fever. She was continued on ciprofloxacin. Then, she has not had any admission since, she was started on peritoneal dialysis, had an AV fistula placed for hemodialysis just in case, she has been on PD now for 2.5 months and is doing by herself without any difficulty. At this time, she developed nausea, vomiting, weakness, was seen at [facility] in [place] and was transferred over here because of neutrophilia. She had a slightly elevated lactic acid as well, given IV Zosyn. Initial findings here in the hospital with BP 108/80, pulse rate 82, respirations 16, and temperature 98.2. The exam was remarkable for those ulcerated areas in the legs. She had a peritoneal dialysis catheter exit site, which appeared within normal limits, and there was a perineal area of hidradenitis, which was pretty much healed, quite superficial, nothing really very active. She has remained afebrile through the hospital stay. BP has remained slightly elevated, systolic, and the white cell count remained stable, now is 9.8. Currently, Ms. Earl is feeling well. 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 She is able to see images with the right. She denies headaches. No sore throat, odynophagia or dysphagia. No cough, sputum production or chest pain. No abdominal pain. She does not have urinary output. No diarrhea. No bleeding. No problems with the peritoneal dialysis. PAST MEDICAL HISTORY: Hidradenitis suppurativa; type 2 diabetes; end-stage renal disease, on peritoneal dialysis; hypertension; seizure activity. PAST SURGICAL HISTORY: Dialysis catheter placement for peritoneal dialysis, AV fistula placement, and hysterectomy. SOCIAL HISTORY: Never smoker. ALLERGIES: BACTRIM. FAMILY HISTORY: Noncontributory. CURRENT MEDICATIONS: 1. Tylenol. 2. Lipitor. 3. Coreg. 4. Ceftriaxone. 5. Dextrose. 6. Pepcid. 7. Insulin. 8. Zofran. 9. Pantoprazole. PHYSICAL EXAMINATION: VITAL SIGNS: T-max 99.1. Other vital signs are normal except slight elevation of systolic blood pressure. SKIN: She has this area of shallow ulcerated area which corresponds to one of the previous hidradenitis lesions in the medial aspect of the right thigh close to the perineal area, and she had shallow ulcerations in the legs, which have fresh red tissue at the base, irregular shaped, measuring about 8 cm x 2. No inflammatory changes or significant drainage noted. The patient has no lymphadenopathy. HEENT: Ocular movements are conjugate. She has no light perception in left eye. In the right eye, she can count fingers. Oral cavity was not remarkable. NECK: Supple. LUNGS: Symmetric. Clear breath sounds. HEART: S1 and S2, regular rate. No S3 or S4. ABDOMEN: Soft, not distended or tender. Peritoneal dialysis exit site appears normal. No organomegaly. No bladder distention. EXTREMITIES: No joint inflammatory activity. Pulses are 1+ in popliteal and dorsalis pedis. The ulcerated areas in the leg are quite painful. They have been there for a few weeks according to the patient. NEUROLOGIC: She is able to move extremities. Cognitive function appears to be quite well or good. Recollection is good. Speech is good. LABORATORY DATA: White cell count is 9.8, hemoglobin 8.5, MCV 87, and platelets 283. Sodium 132, creatinine 9.42, and carbon dioxide 22. We have cultures from the thigh with gram-negative delilah identified. ASSESSMENT: 1. Chronic hidradenitis suppurativa. 2. Type 2 diabetes. 3. End-stage renal disease, on peritoneal dialysis. DISCUSSION: Her lesions of hidradenitis for most part are in remission and the ones in the perineal area are quite shallow. I think that the organisms isolated are colonization of the surface and do not merit with antimicrobial therapy treatment. I will go ahead and discontinue antimicrobials at this point in time. The ulcers in the leg are probably of different pathophysiology, most likely vascular in nature, a combination of arterial and venous insufficiency. I would start workup with vascular ultrasound evaluating the arterial supply to the extremities. Another possibility would be calciphylaxis, but typically in those cases there is evidence of skin necrosis which is not obvious in her case. Job ID: [id number] MTDD
[2019-01-19] MEDS: Acetaminophen/Codeine 30-300mg Tablet PO PRN ×4 (02:05→20:36)
[2019-01-19] MEDS: Insulin Regular 300 UNITS/3 ML VIAL SC PRN (06:09)
[2019-01-19] MEDS: Heparin 5,000 UNITS/ML VIAL SC SCH ×3 (08:42→20:33)
[2019-01-19] MEDS: Carvedilol 25 MG TAB PO SCH ×2 (08:42→20:31)
[2019-01-19] MEDS: Escitalopram Oxalate 10 mg Tablet PO SCH (08:42)
[2019-01-19] MEDS: Mupirocin 2% Ointment 22 GM Tube TOP SCH (08:43)
[2019-01-19] MEDS: Famotidine/PF 20 mg/2ml Vial SLOW IVP SCH (08:43)
[2019-01-19] MEDS: Insulin Glargine 10 UNITS in Pre-Filled Syringe 1 EACH SC SCH (08:43)
--- NOTE | 2019-01-19 11:15 | ULT ---
BILATERAL LOWER EXTREMITY ARTERIAL DOPPLER ULTRASOUND: 01/19/2019 HISTORY: Leg ulcers. Diminished pulses. COMPARISON: None. TECHNIQUE: Multiplanar bejarano-scale sonographic imaging of the arterial structures of the bilateral lower extremit ies obtained with color-flow and spectral analysis. FINDINGS: Bilateral common femoral arteries are patent and demonstrate an abnormal monophasic wave-form. The p rofunda femoral artery is patent bilaterally, demonstrating a biphasic wave-form on the right and a monophasic wave-form on the left. There is an abnormal monophasic wave-form within the proximal SFA bilaterally and in the distal SFA b ilaterally with a biphasic wave-form noted within the mid SFA bilaterally. There is a monophasic wave-form noted within the popliteal artery, HOT ROLL INSPECTOR and DPA bilaterally. Neither anterior tibial artery is visualized, suggesting occlusion. RIGHT LOWER EXTREMITY: VESSEL PEAK SYSTOLIC VELOCITY (cm per second) UNCLAIMED PROPERTY MANAGER 99 PROFUNDA FEMORAL ARTERY 76 SFA PROXIMAL 92 SFA MID 92 SFA DISTAL 85 POPLITEAL ARTERY 80 JANELLE Nonvisualized HOT ROLL INSPECTOR 55 DPA 145 LEFT LOWER EXTREMITY: VESSEL PEAK SYSTOLIC VELOCITY (cm per second) UNCLAIMED PROPERTY MANAGER 86 PROFUNDA FEMORAL ARTERY 70 SFA PROXIMAL 103 SFA MID 85 SFA DISTAL 134 POPLITEAL ARTERY 95 JANELLE Nonvisualized HOT ROLL INSPECTOR 75 DPA 12 IMPRESSION: Extensive abnormal arterial wave-forms throughout the bilateral lower extremities, suggesting multifo willa hemodynamically significant disease, which includes probable hemodynamically significant disease proximally, either within the pelvis and/or involving the abdominal aorta. Bilateral anterio r tibial arteries are likely occluded. Recommend further assessment with CT angiogram of the abdomen, pelvis, and bilateral lower extremitie s utilizing a runoff protocol. Transcribed Date/Time: 01/19/2019 12:00 PM
--- NOTE | 2019-01-19 15:30 | PRG ---
DATE OF SERVICE: 01/19/2019 SUBJECTIVE: The patient is seen and examined at bedside. She does not have much complaints to offer. Only some on and off pains in her calves. Her appetite is fair. She continues her peritoneal dialysis daily. OBJECTIVE: VITAL SIGNS: Blood pressure is 110/68, pulse is 67, temperature is 98.1, respirations 18, O2 saturation is 98% on room air. HEENT: Head is atraumatic and normocephalic. Eyes are PERRLA. Sclerae are nonicteric. Oral mucosa is moist. NECK: Supple. LUNGS: Clear. HEART: S1 and S2 normal. No S3. No S4. ABDOMEN: Obese, soft, nontender. The peritoneal dialysis catheter is in place. EXTREMITIES: 1+ peripheral edema similar on both lower extremities. NEUROLOGICAL: She follows my commands. She moves her all 4 extremities, but her decondition is profound. She is not even able to sit up by herself in the bed. LABORATORY DATA: Labs showed glycemia is ranging from 94 to 304. Microbiology is growing E. coli from skin wounds, which is sensitive to levofloxacin, ceftriaxone, and Bactrim along with meropenem, Zosyn, gentamicin, and ciprofloxacin. IMAGING STUDIES: Bilateral lower extremity arterial Doppler ultrasound showed so extensive abnormal arterial waveforms throughout the bilateral lower extremities suggesting multifocal hemodynamically significant disease and bilateral anterior tibial arteries likely occluded. Recommendation from radiologist was to do CT angiogram of the abdomen, pelvis, and bilateral with lower extremities utilizing a run of protocol, but the patient is a renal failure patient, which would be devastating probably for her kidney function. IMPRESSION: 1. Suspected urinary tract infection based on urinalysis, and apparently there was no urine culture done. The patient received several days of IV Rocephin, which should be enough for her treatment. 2. Conflicting findings. The wound cultures from [facility] came back positive for methicillin-resistant Staphylococcus aureus, but our wound cultures came back positive for gram-negative organisms, which is Escherichia coli, and ID specialist, Dr. Lamb thinks this is just a contamination, so Bactroban is stopped. 3. Left heel pain, resolved. 4. Diabetes mellitus type 2, uncontrolled, improving. 5. Anemia, most likely secondary to renal disease. 6. End-stage renal disease, on peritoneal dialysis managed by Dr. Ruth and Dr. Barreto. 7. Hypokalemia, resolved with supplementation. 8. History of seizures. 9. Perineal ulcers, felt to be form of a hidradenitis suppurativa per ID diagnosis and several chronic ulcers on both legs. The patient was seen by general surgeon and they did not recommend any debridement. Arterial Doppler showed significant blockages in her both lower extremities, but because of her poor kidney function and very advanced process, most likely she would not be able to gain any value from additional diagnostic workup. We will try to get her to longterm unit for PT since she is very deconditioned and wound care since she has bilateral venous stasis ulcers. Job ID: [id number]
--- NOTE | 2019-01-19 18:26 | PRG ---
DATE OF SERVICE: 01/19/2019 SUBJECTIVE: Patient was seen and examined at bedside and overnight events noted. Patient denies any shortness of breath or chest pain or palpitation. No history of nausea or vomiting or diarrhea or fever or chills or cramps. OBJECTIVE: GENERAL: This is a well-built female, in no acute distress. VITAL SIGNS: Temperature 98.1. Heart rate 67. Respiratory rate 18. Blood pressure 110/68. HEENT: Atraumatic, normocephalic. Oral mucosa is moist NECK: Supple. CARDIOVASCULAR: S1, S2 heard. Rate and rhythm regular. RESPIRATORY: Clear to auscultation. GASTROINTESTINAL: Abdomen is soft. MUSCULOSKELETAL: No tenderness. No edema. DERMATOLOGIC: No skin rash. NEUROLOGIC: Alert and awake and oriented X3. No focal neurologic deficits. Moving all the extremities. PSYCHIATRIC: Mood and affect normal. LABORATORY DATA: Not done today. ASSESSMENT AND PLAN: 1. End-stage renal disease. Continue on peritoneal dialysis as tolerated. 2. Hypokalemia. 3. Anemia. 4. Edema. 5. History of hypertension. We will continue on peritoneal dialysis as tolerated. Job ID: [id number]
[2019-01-19] MEDS: traZODone HCl 50 MG TAB PO SCH (20:31)
[2019-01-19] MEDS: Cinacalcet HCl 30 MG TAB PO SCH (20:31)
[2019-01-19] MEDS: Atorvastatin Calcium 20 MG TAB PO SCH (20:31)
[2019-01-20] MEDS: Acetaminophen/Codeine 30-300mg Tablet PO PRN ×3 (01:18→20:46)
[2019-01-20] MEDS: HumaLOG 300 UNITS/3 ML VIAL SC PRN (06:15)
[2019-01-20] MEDS: Carvedilol 25 MG TAB PO SCH ×2 (08:44→20:47)
[2019-01-20] MEDS: Heparin 5,000 UNITS/ML VIAL SC SCH ×3 (08:45→20:48)
[2019-01-20] MEDS: Escitalopram Oxalate 10 mg Tablet PO SCH (08:45)
[2019-01-20] MEDS: Insulin Glargine 10 UNITS in Pre-Filled Syringe 1 EACH SC SCH (09:49)
--- NOTE | 2019-01-20 14:10 | PRG ---
DATE OF SERVICE: 01/20/2019 SUBJECTIVE: Patient was seen and examined at bedside and overnight events noted. Patient denies any shortness of breath or chest pain or palpitation. No history of nausea or vomiting or diarrhea or fever or chills or cramps. OBJECTIVE: GENERAL: This is a well-built female, in no apparent distress. VITAL SIGNS: Temperature 98.0. Pulse 73. Respiratory rate 20. Blood pressure 131/61. HEENT: Atraumatic, normocephalic. Oral mucosa is moist NECK: Supple. CARDIOVASCULAR: S1, S2 heard. Rate and rhythm regular. RESPIRATORY: Clear to auscultation. GASTROINTESTINAL: Abdomen is soft. MUSCULOSKELETAL: No tenderness. No edema. DERMATOLOGIC: No skin rash. NEUROLOGIC: Alert and awake and oriented X3. No focal neurologic deficits. Moving all the extremities. PSYCHIATRIC: Mood and affect normal. LABORATORY DATA: Not done today. ASSESSMENT AND PLAN: 1. End-stage renal disease. Continue on peritoneal dialysis as tolerated. No issues reported. 2. Hypokalemia. Replace and monitor. 3. Anemia. 4. Edema. 5. Hypertension, stable. 6. Tolerating peritoneal dialysis well. We will continue on dialysis as tolerated. Job ID: [id number]
--- NOTE | 2019-01-20 17:58 | PRG ---
DATE OF SERVICE: 01/20/2019 SUBJECTIVE: The patient was seen and examined at bedside. She does not have much complaints to offer. She feels better. Her appetite is fair. OBJECTIVE: VITAL SIGNS: Blood pressure is 131/68, pulse is 73, respirations 20, O2 saturation is 99%, and temperature is 98.0. HEENT: Head is atraumatic and normocephalic. Sclerae are nonicteric. Oral mucosa is moist. NECK: Supple, obese. LUNGS: Clear. HEART: S1 and S2, normal. No S3. No S4. ABDOMEN: Obese, soft, nontender, nondistended. EXTREMITIES: 1+ peripheral edema. Both calves are wrapped in Mik wraps. NEUROLOGIC: She follows my commands. She moves her all 4 extremities. There are no any sensory or motor deficits present. Cranial nerves are intact. LABORATORY DATA: None today. IMPRESSION: 1. Presumed urinary tract infection based on urinalysis without any urine culture. The patient received IV Rocephin and the treatment is completed. 2. Several skin ulcerations, felt to be superficial and not required any debridement per General Surgery. 3. Diabetes mellitus, type 2, uncontrolled, improved. 4. Anemia, most likely renal etiology. 5. End-stage renal disease, on peritoneal dialysis. 6. Hypokalemia, resolved. 7. History of seizures. 8. Hidradenitis suppurativa. 9. Chronic venous stasis ulcers on both lower extremities. 10. Possible peripheral vascular disease. The patient is continuing on her peritoneal dialysis without any complications. She seems to be doing well. We are waiting for fpc acceptance and transfer for her generalized weakness. At this point, we will continue her PT and continue current regimen. Job ID: [id number]
[2019-01-20] MEDS: traZODone HCl 50 MG TAB PO SCH (20:46)
[2019-01-20] MEDS: Cinacalcet HCl 30 MG TAB PO SCH (20:46)
[2019-01-20] MEDS: Atorvastatin Calcium 20 MG TAB PO SCH (20:47)
[2019-01-21] MEDS: Carvedilol 25 MG TAB PO SCH ×2 (09:33→20:12)
[2019-01-21] MEDS: Escitalopram Oxalate 10 mg Tablet PO SCH (09:33)
[2019-01-21] MEDS: Acetaminophen/Codeine 30-300mg Tablet PO PRN ×3 (09:34→20:13)
[2019-01-21] MEDS: Heparin 5,000 UNITS/ML VIAL SC SCH ×3 (09:34→20:20)
[2019-01-21] MEDS: Insulin Glargine 10 UNITS in Pre-Filled Syringe 1 EACH SC SCH (09:38)
[2019-01-21] MEDS: HumaLOG 300 UNITS/3 ML VIAL SC PRN ×3 (12:39→20:23)
--- NOTE | 2019-01-21 16:49 | PRG ---
DATE OF SERVICE: 01/21/2019 SUBJECTIVE: The patient is seen and examined at the bedside. The patient is doing well. She does not have much complaints to offer. She is getting physical therapy. She is able to sit on the edge of the bed, that is the most she could do so far. OBJECTIVE: VITAL SIGNS: Blood pressure is 100/64, pulse is 82, temperature is 97.8, respiratory rate is 20, O2 saturation is 100% on room air. HEENT: Her head is atraumatic and normocephalic. Eyes are PERRLA. Sclerae are nonicteric. Oral mucosa is moist. NECK: Supple. LUNGS: Clear. HEART: S1 and S2 are normal. ABDOMEN: Obese. EXTREMITIES: No clubbing, cyanosis, or edema. She has both calves wrapped with Mik wraps. NEUROLOGICAL: She follows my commands. She moves her all 4 extremities, but she is still very weak. LABORATORY DATA: Glycemia is ranging from 135 to 269. IMPRESSION: 1. Presumed urinary tract infection, status post complete treatment with antibiotic. 2. Several skin ulcerations, felt to be superficial and not requiring any debridement per General Surgery. 3. Diabetes mellitus, type 2, improved. 4. Anemia, most likely renal etiology. 5. End-stage renal disease, on peritoneal dialysis. 6. Hypokalemia, resolved. 7. History of seizures. 8. Hidradenitis suppurativa. 9. Chronic venous stasis ulcers on both lower extremities. 10. Possible peripheral vascular disease. PLAN: To continue her peritoneal dialysis. Continue PT. Transfer to half-way facility when this is arranged for PT. Job ID: [id number]
--- NOTE | 2019-01-21 18:34 | PRG ---
DATE OF SERVICE: 01/21/2019 SUBJECTIVE: Patient was seen and examined at bedside and overnight events noted. Patient denies any shortness of breath or chest pain or palpitation. No history of nausea or vomiting or diarrhea or fever or chills or cramps. OBJECTIVE: GENERAL: This is a well-built female, in no apparent distress. VITAL SIGNS: Temperature 97.8. Heart rate 82. Respiratory rate 20. Blood pressure 100/64. HEENT: Atraumatic, normocephalic. Oral mucosa is moist NECK: Supple. CARDIOVASCULAR: S1, S2 heard. Rate and rhythm regular. RESPIRATORY: Clear to auscultation. GASTROINTESTINAL: Abdomen is soft. MUSCULOSKELETAL: No tenderness. No edema. DERMATOLOGIC: No skin rash. NEUROLOGIC: Alert and awake and oriented X3. No focal neurologic deficits. Moving all the extremities. PSYCHIATRIC: Mood and affect normal. LABORATORY DATA: Not done today. ASSESSMENT AND PLAN: 1. End-stage renal disease. Continue on peritoneal dialysis as tolerated. 2. Hypokalemia. Replace and monitor. 3. Edema, controlled. 4. Anemia of chronic disease. 5. Hypertension. We will recheck labs in the morning and continue peritoneal dialysis as tolerated. Job ID: [id number]
[2019-01-21] MEDS: Atorvastatin Calcium 20 MG TAB PO SCH (20:13)
[2019-01-21] MEDS: Cinacalcet HCl 30 MG TAB PO SCH (20:13)
[2019-01-22] MEDS: traZODone HCl 50 MG TAB PO SCH (00:36)
[2019-01-22] MEDS: Acetaminophen/Codeine 30-300mg Tablet PO PRN ×2 (05:49→12:47)
[2019-01-22] MEDS: HumaLOG 300 UNITS/3 ML VIAL SC PRN ×2 (05:52→12:42)
[2019-01-22 06:52] LABS: #Eosinphils 0.3 thou/uL (0.0-0.7); #Lymphocytes 1.3 thou/uL (1.20-3.40); #Monocytes 0.7 thou/uL (0.11-0.59); #Neutrophils 6.8 thou/uL (1.40-6.50); %Basophils 0.1 % (0.0-1.0); %Eosinophils 3.1 % (0.0-10.0); %Lymphocytes 14.2 % (21.0-51.0); %Monocytes 7.9 % (0.0-10.0); %Neutrophils 74.7 % (42.0-75.0); Hemoglobin 8.7 g/dL (12.0-16.0); Mean Corpuscular HGB CONC 32.1 g/dL (32.0-36.0); Mean Corpuscular Hemoglobin 28.2 pg (27.0-31.0); Mean Corpuscular Volume 87.9 fL (78.0-98.0); Mean Platelet Volume 7.4 fL (7.4-10.4); Platelet Count 296 thou/uL (130-400); RBC Distribution Width 13.8 % (11.5-14.5); Red Blood Cell (RBC) Count 3.09 mill/uL (4.20-5.40); White Blood Cell (WBC) Count 9.1 thou/uL (4.8-10.8)
[2019-01-22 07:12] LABS: Anion Gap 19 mmol/L (10-20); BUN (Urea Nitrogen) 45 mg/dL (9.8-20.1); Calc. Creatinine Clearance 10 mL/min (70-130); Calcium 7.4 mg/dL (7.8-10.44); Carbon Dioxide 22 mmol/L (23-31); Chloride 98 mmol/L (98-107); Estimated GFR-MDRD 5; Glucose 292 mg/dL (80-115); Potassium 3.6 mmol/L (3.5-5.1); Sodium 135 mmol/L (136-145)
[2019-01-22] MEDS ORDERED: EPOETIN ALFA-EPBX (ESRD) 10,000 UNIT/ML VIAL SC SCH (09:15)
[2019-01-22] MEDS: Carvedilol 25 MG TAB PO SCH (09:29)
[2019-01-22] MEDS: Escitalopram Oxalate 10 mg Tablet PO SCH (09:30)
[2019-01-22] MEDS: Heparin 5,000 UNITS/ML VIAL SC SCH ×2 (09:33→15:00)
[2019-01-22] MEDS: Insulin Glargine 10 UNITS in Pre-Filled Syringe 1 EACH SC SCH (09:40)
--- NOTE | 2019-01-22 11:15 | PRG ---
DATE OF SERVICE: 01/22/2019 SUBJECTIVE: Patient was seen and examined at bedside and overnight events noted. Patient denies any shortness of breath or chest pain or palpitation. No history of nausea or vomiting or diarrhea or fever or chills or cramps. OBJECTIVE: GENERAL: This is a well-built female, in no apparent distress. VITAL SIGNS: Temperature . Heart rate 69. Respiratory rate 16. Blood pressure 159/67. HEENT: Atraumatic, normocephalic. Oral mucosa is moist NECK: Supple. CARDIOVASCULAR: S1, S2 heard. Rate and rhythm regular. RESPIRATORY: Clear to auscultation. GASTROINTESTINAL: Abdomen is soft. MUSCULOSKELETAL: No tenderness. No edema. DERMATOLOGIC: No skin rash. NEUROLOGIC: Alert and awake and oriented X3. No focal neurologic deficits. Moving all the extremities. PSYCHIATRIC: Mood and affect normal. LABORATORY DATA: Potassium is 3.6, BUN is 45, and creatinine is 9. ASSESSMENT AND PLAN: 1. End-stage renal disease. Continue on peritoneal dialysis. 2. Anemia of chronic disease. We will have Epogen dose one dose today. 3. Hyperkalemia, stable. 4. Edema, controlled. 5. History of hypertension. Labs are stable, and I will continue PD as tolerated. Job ID: [id number]
[2019-01-22 15:45] VITALS: BP 121/71; TEMP 98
--- NOTE | 2019-01-24 12:33 | DIS ---
DATE OF ADMISSION: 01/19/2019 DATE OF DISCHARGE: 01/22/2019 DIAGNOSES AT THE TIME OF DISCHARGE: 1. Urinary tract infection, status post completion of antibiotic treatment. 2. Diabetes mellitus not controlled, type 2. 3. Anemia, most likely renal etiology. 4. End-stage renal disease, on peritoneal dialysis. 5. Hypokalemia. 6. Profound deconditioning. 7. History of seizures. 8. Hidradenitis suppurativa. 9. Skin ulcerations. 10. Chronic venous stasis ulcers on both lower extremities. 11. Possible peripheral vascular disease. CONSULTANTS: 1. Bibiana Barreto MD, Nephrology Service. 2. Zen Mensah MD, Nephrology Service. HOSPITAL COURSE: The patient is a 63-year-old female, who was sent from [facility] Emergency Room, where she presented with nausea and vomiting and feeling weak for approximately couple of days, also she felt [place]. [place] [address]. She was found to have urinary tract infection. Lactic acid was up to 3. She was given IV fluid bolus and lactic acid went down to 1.8. She was started on IV Zosyn and she was transferred to [facility], where she was evaluated and admitted to the hospital for further workup and treatment. Her hemoglobin at the time of admission was 7.6, hematocrit 24.0, platelet count 274. Sodium of 134, potassium 3.5, chloride 94, CO2 of 21, BUN 67, creatinine was 12.49. Her troponin was 0.109 and another one was 0.104. The patient was treated with IV antibiotics. She was started on peritoneal dialysis and hat measurer was called to supervise that. She was transfused with 1 unit of packed red blood cells and her followup hemoglobin level was 8.6. Also, it turned out that [facility] did not do urine cultures and we ended up on treating her for presumed UTI without urine cultures, but cultures on her leg wounds came back positive for MRSA, which was different because our cultures showed E coli from wounds on her thighs. She was treated with Mik wraps for her both calves since she has venous stasis ulcers. She completed her antibiotic for urinary tract infection. Ultrasound of the lower extremity was done, which showed possible peripheral vascular disease but because of her renal failure and peritoneal dialysis, we chose not to do any other diagnostic workup. The patient started physical therapy, but she was very deconditioned and we [facility] for continuation of her PT and wound care. She is discharged to penitent[facility] unit. Her blood pressure at the time of discharge is 159/67, pulse is 69, temperature is 97.6, respirations 16, O2 saturation is 100% on room air. She is seen and examined before she is discharged. She is going to stay on diabetic diet. MEDICATIONS: At the time of discharge: 1. Atorvastatin 20 mg at bedtime. 2. Lexapro 5 mg once a day. 3. Sensipar 30 mg at bedtime. 4. Carvedilol 12.5 mg twice a day. 5. Sitagliptin, which is Januvia 25 mg once a day. 6. Pantoprazole 40 mg daily. 7. Lantus 10 mg every morning. 8. Trazodone 50 mg at bedtime. 9. Tylenol p.r.n. for pain. 10. Cocoa Powder Mixer Operator recommends Retacrit, which is epoetin 10,000 units every 7 days. FOLLOWUP: She is going to follow up with the primary care physician after discharge from [facility]. She will receive PT once there and she will also follow up with hat measurer after she is discharged. While in the penitentiary facility, she will continue her peritoneal dialysis as she always does daily and she will have Accu-Cheks done. Job ID: [id number]
--- NOTE | 2019-01-26 04:47 | PQF ---
SAP Grease Renderer Crystal Reports Winform ViewerDONNA MCNEAL MOHAMED S MD [id number] [id number] CLINICAL DOCUMENTATION CLARIFICATION FORM: POST DISCHARGE Addendum to original discharge summary date: ____ Late entry note date: __ DATE: 01/26/19 ATTN: Mike White Please exercise your independent, professional judgment in responding to the clarification form. Clinical indicators are provided on the bottom of this form for your review Kindly clarify regarding ruled in/ruled out sepsis Please check appropriate box(s) to clarify if the following diagnosis has been ruled in or ruled out: Sepsis [ ] Ruled in diagnosis [ ] Continue to treat [ ] Resolved [ ] Ruled out diagnosis [ ] Cannot rule out diagnosis [ ] Other diagnosis [ ] Unable to determine In addition, please specify: Present on Admission (POA): [ ] Yes [ ] No [ ] Unable to determine For continuity of documentation, please document condition throughout progress notes and discharge summary. Thank You. CLINICAL INDICATORS - SIGNS / SYMPTOMS / LABS ED impression is sepsis - ED report Septic workup including urine cultures - H and P Lactic acid was up to 3. She was given IV fluids bolus and lactic acid went down to 1.8 - discharge summary RISK FACTORS UTI - Discharge summary ESRD, on pertineal dialysis - discharge summary Chronic venous stasis ulcers - Discharge summary TREATMENTS IV Rocephin - from 01/15 to 01/18 Septic workup - H and P SAP Grease Renderer Crystal Reports Winform Viewer (This form is maintained as a part of the permanent medical record) 2014 [employer]. All Rights Reserved [email or web address] [phone] [email or web address]
== END 2019-01-22 16:10 | DRG 871 ==
LOC: ERS 23:15 → 2SW 01-15 00:18 → T4-A 01-18 13:43 → OBSVTOIN 01-19 08:21
PROVIDERS: ADMIT Internal Medicine; ATTEND Internal Medicine
PROC: 30233N1 Transfusion of Nonautologous Red Blood Cells into Peripheral Vein, Percutaneous Approach (ICD-10-PCS; principal; 2019-01-15)
PROC: 3E1M39Z Irrigation of Peritoneal Cavity using Dialysate, Percutaneous Approach (ICD-10-PCS; 2019-01-21)
DX: A41.9 Sepsis, unspecified organism (principal); N18.6 End stage renal disease; N39.0 Urinary tract infection, site not specified; E87.1 Hypo-osmolality and hyponatremia; I12.0 Hypertensive chronic kidney disease with stage 5 chronic kidney disease or end stage renal disease; E11.22 Type 2 diabetes mellitus with diabetic chronic kidney disease; E87.70 Fluid overload, unspecified; D50.9 Iron deficiency anemia, unspecified; M79.672 Pain in left foot; R79.89 Other specified abnormal findings of blood chemistry; E87.6 Hypokalemia; B95.62 Methicillin resistant Staphylococcus aureus infection as the cause of diseases classified elsewhere; I87.2 Venous insufficiency (chronic) (peripheral); D63.1 Anemia in chronic kidney disease; L73.2 Hidradenitis suppurativa; I73.9 Peripheral vascular disease, unspecified; R53.81 Other malaise; G40.909 Epilepsy, unspecified, not intractable, without status epilepticus; Z99.2 Dependence on renal dialysis; Z90.710 Acquired absence of both cervix and uterus; Z88.1 Allergy status to other antibiotic agents; Z88.2 Allergy status to sulfonamides; Z88.8 Allergy status to other drugs, medicaments and biological substances
CPT/HCPCS: 36415; 36416; 36430; 80048; 84484; 85025; 86850; 86870; 86880; 86900; 86901; 86922; 87070; 87077; 87186; 87205; 90945; 93923; 99285; G0257; J0696; J1610; J1644; J1815; J3490; P9016; Q5105; S0028

== ENCOUNTER 2019-02-11 15:22 | Inpatient (IN) | payer MEDICARE ==
[2019-02-11] MEDS ORDERED: Acetaminophen 500 MG TAB ONE (16:31)
--- NOTE | 2019-02-11 17:49 | CON ---
DATE OF CONSULTATION: REASON FOR CONSULTATION: Stage 6 chronic kidney disease for maintenance hemodialysis. HISTORY OF PRESENT ILLNESS: A very pleasant 63-year-old female, who was recently discharged from the hospital, presented to the hospital for sudden onset of seizures. The patient did not do peritoneal dialysis last night. The patient denies any nausea, vomiting, or chest pain. PAST MEDICAL HISTORY: Significant for hypertension, anemia, end-stage renal disease, history of hidradenitis suppurativa, history of PD, AV fistula, tunneled dialysis catheter, hysterectomy, and diabetes mellitus. PAST SURGICAL HISTORY: Reviewed. SOCIAL HISTORY: No alcohol or drug use. FAMILY HISTORY: Negative for ESRD. ALLERGIES: REVIEWED. HOME MEDICATIONS: List reviewed. REVIEW OF SYSTEMS: Fifteen-point review of systems was performed, negative, except for positives noted above. GENERAL: HEAD: NECK: No swelling or lumps. NOSE: No epistaxis or discharge. EYES: No diplopia or pain. RESPIRATORY: CARDIOVASCULAR: GASTROINTESTINAL: /KIER HAND: MUSCULOSKELETAL: No joint pain. NEUROPSYCHIATIC SYSTEMS: No suicidal ideation. No ideation. SKIN: Denies any rash or ulcer. CONSTITUTIONAL: No fever or chills. PHYSICAL EXAMINATION: CONSTITUTIONAL: The patient is awake and alert. VITAL SIGNS: Afebrile, pulse 75, breathing 16, and blood pressure 124/77. GENERAL APPEARANCE AND MENTAL STATUS: Fair. HEAD/NECK: Normocephalic. Atraumatic. EYES: EOMI. No deformity. EARS: Clear. No ulcers. NOSE: Intact. No lesions. MOUTH: Clear. No discharge. THROAT: Clear. No exudate. LUNGS: Clear. No crackles. CARDIAC: S1, S2. No rub. ABDOMEN: Benign. Bowel sounds positive. GENITALIA/RECTUM: Childers absent. BACK/EXTREMITIES: Edema 0+. NEUROLOGICAL: Alert and motor intact. SKIN: LYMPHATICS: LABORATORY DATA: Labs reviewed. ASSESSMENT AND PLAN: Stage 6 chronic kidney disease, continue peritoneal dialysis. Hypertension, stable. Anemia, stable. Seizure disorder, management per primary team. Job ID: [id number]
[2019-02-11] MEDS ORDERED: Dextrose 50% Abboject 50 ML SYRINGE SLOW IVP PRN (21:14)
[2019-02-11] MEDS ORDERED: hydrALAZINE 20 MG/ML VIAL SLOW IVP PRN (21:14)
[2019-02-11] MEDS ORDERED: Lorazepam 2 MG/ML VIAL SLOW IVP PRN (21:14)
[2019-02-11] MEDS ORDERED: HumaLOG 300 UNITS/3 ML VIAL SC PRN (21:14)
[2019-02-11] MEDS ORDERED: Dextrose 5% in Water 1,000 ML IV PRN (21:14)
[2019-02-11 21:24] VITALS: BMI 29.7
[2019-02-11] MEDS: Acetaminophen 325 MG TAB PO PRN (21:41)
[2019-02-11] MEDS: Heparin 5,000 UNITS/ML VIAL SC SCH ×2 (21:41→21:52)
[2019-02-11] MEDS ORDERED: cefTRIAXone\\ROCEPHIN 1 GM in Sodium Chloride 0.9% 100 ML IVPB SCH ×2 (21:45→22:00)
[2019-02-11] MEDS ORDERED: FLU VACC QS2019-20(6MOS UP)/PF 60 MCG/0.5 ML SYRINGE IM ONE (22:00)
--- NOTE | 2019-02-11 22:07 | HP ---
PRIMARY CARE PHYSICIAN: Dr. Ledesma. CHIEF COMPLAINT: "Someone found me on the floor." HISTORY OF PRESENT ILLNESS: Ms. Earl is a pleasant 63-year-old female who has a history of diabetes mellitus, end-stage renal disease, and seizures. She was brought to the hospital after she was found by family on the ground. There is concern that she may have suffered a seizure. She does have a history of seizure disorder and she says she is not really sure what her seizures are like when she has one, but she had been on medications well in the past when she was in her "20s." She says since then she has not had a recurrent seizure and is currently not on any medications for seizures. She says prior to this event, she does not remember having any illnesses such as feeling sick; she denies any fevers, chills, cough, congestion; and again as stated, she is currently not on any seizure medication. After she was found on the floor, she admits that she was kind of foggy and disoriented and does not remember anything until after noontime. Currently, she is a little bit irritable and at times does not want to answer questions and feels like these have already been asked of her. Her only other complaint is that of some pain on her leg and her buttocks region. She also does have some chronic wounds, which she says are being treated by a home health nurse who comes out to visit her. REVIEW OF SYSTEMS: Essentially unobtainable as the patient does not really feel like talking about her symptoms. PAST MEDICAL HISTORY: Significant for diabetes mellitus, end-stage renal disease on peritoneal dialysis, anemia and renal disease, hidradenitis, seizure disorder and peripheral vascular disease. PAST SURGICAL HISTORY: She has had a hysterectomy and a dialysis catheter placed. ALLERGIES: TO BACTRIM AND TRIMETHOPRIM. SOCIAL HISTORY: She is a nonsmoker and nondrinker. She is . She lives with her son, Jaqui. I am not able to reliably get a code status; therefore, we will make her a full code for now, this will need to be clarified with family later. FAMILY HISTORY: Significant for diabetes and hypertension. CURRENT MEDICATIONS: Unobtainable. She says her son has these and will bring them with him. PHYSICAL EXAMINATION: GENERAL: She is alert, but she is little bit disoriented when it comes to place and time. VITAL SIGNS: The blood pressure was 106/72, heart rate 69, respiratory rate of 18, temperature is 98.3, and O2 saturation 96% on room air. HEENT: Pupils are equal, round, and reactive. Extraocular muscles are intact. Throat, she has poor dentition. There is no erythema. NECK: There is no adenopathy, no bruits. LUNGS: Essentially clear to auscultation with some decreased breath sounds at the bases. CARDIOVASCULAR: She has a normal S1, S2. There was a grade 2/6 systolic murmur. No clicks, no rubs. ABDOMEN: Obese. It is soft, nontender, and nondistended. Positive for bowel sounds. There is no rebound, no guarding, no organomegaly. EXTREMITIES: She has no calf tenderness. No joint effusions. NEUROLOGIC: Her cranial nerves are grossly intact. Muscle strength is intact. SKIN AND INTEGUMENT: She does have a stage II decubitus in the sacral region right above the rectal vault. She also has some ulcerative lesions on both lower extremities with some area of surrounding hyperpigmentation. She does have 1+ dorsalis pedis pulses. LABORATORY RESULTS: White blood cell count is 18, hemoglobin is 9.8, hematocrit is 31.5, and platelet count is 380. Sodium is 139, potassium 4.6, chloride is 93, CO2 is 28, BUN of 51, creatinine 12.86. She had a CT scan of the brain which was negative. Her chest x-ray was read as showing no evidence of pleural effusions. The lungs are grossly clear. ASSESSMENT: This is a pleasant 63-year-old female who presents to the emergency room after having a fall. It is unclear whether or not this was a seizure or if it was a syncopal episode. We will need to talk with family to see whether or not this was witnessed. She also has an elevated white blood cell count, the source of which is unknown. It could be related to the seizure; however, since she is a dialysis patient and a peritoneal dialysis, she is at risk for potentially having peritonitis and she also has open wounds on her legs which could have become infected. 1. With regard to the seizure disorder, she will be placed in the hospital. We will place her on Ativan p.r.n. We will hold off on any antiseizure medication for now as she has already been loaded with Cerebyx at the [facility] and await further recommendations from Neurology in the a.m. Should she have any further seizures through the night, then we may start her on Keppra. 2. Elevated white blood cell count. This will need to be repeated again in the a.m. We will get blood cultures as well as ask the PD nurse to aspirate and obtain a peritoneal sample to send for culture to rule out peritonitis. We will go ahead and place her on empiric antibiotics and we will treat with Rocephin empirically. 3. End-stage renal disease, on peritoneal dialysis. We will consult her endodontist for continued peritoneal dialysis. 4. Diabetes mellitus. We will need to reconcile and restart her home medications and place her on a sliding scale. 5. Sacral decubitus and open lower extremity wounds. We will be consulting Wound Care for continued treatment and additional recommendations. 6. She will be placed on deep venous thrombosis and gastrointestinal prophylaxis. Job ID: [id number]
[2019-02-12 06:04] LABS: #Eosinphils 0.5 thou/uL (0.0-0.7); #Lymphocytes 1.5 thou/uL (1.20-3.40); #Monocytes 1.1 thou/uL (0.11-0.59); %Basophils 0.2 % (0.0-1.0); %Eosinophils 3.9 % (0.0-10.0); %Lymphocytes 12.1 % (21.0-51.0); %Monocytes 9.3 % (0.0-10.0); %Neutrophils 74.6 % (42.0-75.0); Mean Corpuscular Hemoglobin 28.1 pg (27.0-31.0); Mean Corpuscular Volume 87.8 fL (78.0-98.0); Mean Platelet Volume 6.8 fL (7.4-10.4); Platelet Count 334 thou/uL (130-400); RBC Distribution Width 13.3 % (11.5-14.5); White Blood Cell (WBC) Count 12.1 thou/uL (4.8-10.8)
[2019-02-12 06:35] LABS: Anion Gap 22 mmol/L (10-20); BUN (Urea Nitrogen) 50 mg/dL (9.8-20.1); Calc. Creatinine Clearance 7 mL/min (70-130); Calcium 7.1 mg/dL (7.8-10.44); Carbon Dioxide 22 mmol/L (23-31); Chloride 93 mmol/L (98-107); Estimated GFR-MDRD 4; Glucose 125 mg/dL (80-115); Potassium 3.6 mmol/L (3.5-5.1); Sodium 133 mmol/L (136-145)
[2019-02-12] MEDS: Heparin 5,000 UNITS/ML VIAL SC SCH ×3 (09:51→21:19)
[2019-02-12] MEDS: Acetaminophen 325 MG TAB PO PRN (10:12)
--- NOTE | 2019-02-12 11:01 | PRG ---
DATE OF SERVICE: 02/12/2019 SUBJECTIVE: This is a 63-year-old female being seen for end-stage renal disease. The patient denied nausea, vomiting or chest pain. OBJECTIVE: See above. The patient is awake, alert. VITAL SIGNS: Pulse 75, breathing 16, blood pressure 100/49 GENERAL APPEARANCE AND MENTAL STATUS: Fair. HEAD/NECK: Normocephalic. Atraumatic. EYES: EOMI. No deformity. EARS: Clear. No ulcers. NOSE: Intact. No lesions. MOUTH: Clear. No discharge. THROAT: Clear. No exudate. LUNGS: Clear. No crackles. CARDIAC: S1, S2. No rub. ABDOMEN: Benign. Bowel sounds positive. GENITALIA/RECTUM: Childers absent. BACK/EXTREMITIES: Edema 0+. NEUROLOGICAL: Alert and motor intact. SKIN: LYMPHATICS: LABORATORY DATA: Reviewed. ASSESSMENT AND PLAN: 1. Stage 6 chronic kidney disease. Continue peritoneal dialysis. 2. Hypertension, stable. 3. Anemia, stable. 4. Medication based on GFR appropriate. Job ID: [id number]
--- NOTE | 2019-02-12 12:11 | CON ---
DATE OF CONSULTATION: 02/12/2019 CONSULTING PHYSICIAN: Hospitalist Service. IMPRESSION: Seizure, probably induced by tramadol. PLAN: 1. Discontinue tramadol. 2. Tylenol with Codeine as needed for pain. HISTORY OF PRESENT ILLNESS: Ms. Earl is a 63-year-old black female with a past history of diabetes and end-stage renal disease. She had been suffering from some wounds on her lower legs. She reports she has been taking about 8 tramadol a day for the pain. She suddenly lost consciousness without any warning. When she awoke, she was in the emergency room. She reports having history of seizures when she was in her 20s, but has not had any problems for many years. Upon arrival to the ER, vital signs have been stable and she has been afebrile. Her laboratory studies show azotemia secondary to a renal failure. White blood cell count was 12.1, hemoglobin was 9. Prolactin level was 79. She is back to her baseline today. She denies any lateralized weakness or numbness. PAST MEDICAL HISTORY: As listed above. ALLERGIES: CEPHALEXIN, LATEX, POTASSIUM, AND SULFA. SOCIAL HISTORY: No tobacco or alcohol. FAMILY HISTORY: Unremarkable. REVIEW OF SYSTEMS: Ten-system review of systems is otherwise negative. MEDICATIONS: Reviewed. PHYSICAL EXAMINATION: VITAL SIGNS: Blood pressure 100/49, pulse 66, respirations 16, and temperature 98.6. HEENT: Pupils are equal. Conjunctivae are clear. Oropharynx clear. Cranium; normocephalic and atraumatic. EXTREMITIES: No cyanosis or edema. She has wounds on both lower legs that are wrapped. NEUROLOGIC: She was alert and cooperative. Her speech is fluent and clear. Cranial nerves were intact throughout. Motor exam showed good antigravity strength in all 4 extremities. She had some asterixis on postural extension. Gait was not tested. Sensations intact to light touch. SUMMARY: This is a 63-year-old woman, who has been taking fairly high doses of tramadol, which can reduce thresholds for seizures. She more than likely had an unwitnessed seizure. Given her history, I would switch around to Tylenol with Codeine. She can be discharged at your discretion. Job ID: [id number]
[2019-02-12] MEDS ORDERED: Polyethylene Glycol 3350 17 GM Packet PO PRN (17:20)
[2019-02-12] MEDS: HumaLOG 300 UNITS/3 ML VIAL SC PRN (18:24)
--- NOTE | 2019-02-12 18:41 | RAD ---
EXAM: Left knee 4 views: HISTORY: Left lower extremity pain, unable to move COMPARISON: None FINDINGS: Bony demineralization. Marked vascular calcifications. Degenerative changes. No acute fracture or dislocation or other significant acute osseous abnormality. IMPRESSION: No significant acute process.
--- NOTE | 2019-02-12 18:42 | RAD ---
EXAM: Left hip 2 views: HISTORY: Left lower extremity pain, unable to move COMPARISON: None FINDINGS: Prominent bony demineralization. Arthrosis changes left hip joint. Prominent vascular calcifications. Degenerative changes. No acute fracture or dislocation or other significant acute osseous abnormality. IMPRESSION: No significant acute process.
[2019-02-12] MEDS ORDERED: Promethazine 25 MG TAB PO PRN (20:52)
[2019-02-12] MEDS: Atorvastatin Calcium 20 MG TAB PO SCH (21:17)
[2019-02-12] MEDS: traZODone HCl 50 MG TAB PO SCH (21:19)
[2019-02-12] MEDS: Cinacalcet HCl 30 MG TAB PO SCH (21:19)
--- NOTE | 2019-02-12 21:33 | PRG ---
DATE OF SERVICE: 02/12/2019 SUBJECTIVE: A 63-year-old female with end-stage renal disease, on peritoneal dialysis with recent hospitalization for UTI, presented to the hospital with a syncopal episode. She has a history of seizure disorder. However, she is currently not on antiepileptic drugs. Her prolactin in the emergency room was 79.4. She denies any headache, double vision, blurring of vision, or facial asymmetry. She complains of inability to move her left leg due to pain. OBJECTIVE: VITAL SIGNS: Temperature 97.9, pulse 71, respirations 18, blood pressure 111/57, O2 saturation 96% on room air. Telemetry monitoring by my review showed sinus rhythm. GENERAL: A 63-year-old female, in no apparent distress. LUNGS: Show diminished air entry at bilateral bases. No wheezing, rales, or rhonchi. HEART: S1 and S2 present. Regular rate and rhythm. No rubs or gallops. ABDOMEN: Soft, nontender. Bowel sounds present. Peritoneal dialysis catheter noted. EXTREMITIES: No calf tenderness. NEUROLOGIC: Grossly nonfocal. Power was 5/5 in all extremities. PSYCHIATRIC: Alert, awake, and oriented x3. Normal affect. MEDICATIONS: Current medications were reviewed. The patient is currently on ciprofloxacin as well as heparin for DVT prophylaxis. LABORATORY FINDINGS: Sodium 133, potassium 3.6 with a chloride of 93, BUN 50, creatinine 11.7. Hemoglobin 9.0. DIAGNOSTIC DATA: Chest x-ray was negative for infiltrate. IMPRESSION: 1. Syncopal episode, probably precipitated by tramadol use per Dr. Romeo. 2. Toxic-metabolic encephalopathy secondary to syncopal episode. 3. Diabetes mellitus, type 2. 4. End-stage renal disease, on peritoneal dialysis. 5. Physical deconditioning. 6. Chronic venous stasis ulceration. 7. Recent hospitalization for urinary tract infection. 8. Anemia secondary to renal insufficiency. 9. Hyponatremia. PLAN: EEG has been ordered. Blood culture so far has been negative. Peritoneal dialysis fluid Gram stain is negative. We will recheck labs in a.m. We will consult Physical Therapy. Due to leg pain, we will get an x-ray of the leg to rule out fractures. Nephrology is following for peritoneal dialysis maintenance. We will discontinue ciprofloxacin. We will resume all other home medications. Plan of care was discussed with the patient in detail. She stated understanding. Job ID: [id number]
[2019-02-13 04:37] LABS: #Eosinphils 0.5 thou/uL (0.0-0.7); #Lymphocytes 1.7 thou/uL (1.20-3.40); #Monocytes 1.1 thou/uL (0.11-0.59); #Neutrophils 8.4 thou/uL (1.40-6.50); %Basophils 0.4 % (0.0-1.0); %Eosinophils 4.2 % (0.0-10.0); %Lymphocytes 14.2 % (21.0-51.0); %Monocytes 9.4 % (0.0-10.0); %Neutrophils 71.7 % (42.0-75.0); Hemoglobin 9.7 g/dL (12.0-16.0); Mean Corpuscular Hemoglobin 27.1 pg (27.0-31.0); Mean Corpuscular Volume 87.3 fL (78.0-98.0); Mean Platelet Volume 6.8 fL (7.4-10.4); Platelet Count 301 thou/uL (130-400); RBC Distribution Width 13.2 % (11.5-14.5); Red Blood Cell (RBC) Count 3.57 mill/uL (4.20-5.40); White Blood Cell (WBC) Count 11.7 thou/uL (4.8-10.8)
[2019-02-13 04:56] LABS: Anion Gap 23 mmol/L (10-20); BUN (Urea Nitrogen) 44 mg/dL (9.8-20.1); Calc. Creatinine Clearance 7 mL/min (70-130); Calcium 7.2 mg/dL (7.8-10.44); Carbon Dioxide 24 mmol/L (23-31); Chloride 93 mmol/L (98-107); Estimated GFR-MDRD 4; Glucose 161 mg/dL (80-115); Potassium 3.8 mmol/L (3.5-5.1); Sodium 136 mmol/L (136-145)
[2019-02-13] MEDS: HumaLOG 300 UNITS/3 ML VIAL SC PRN (06:46)
[2019-02-13] MEDS: Sevelamer Carbonate 800 MG TAB PO SCH ×3 (09:02→17:46)
[2019-02-13] MEDS: Escitalopram Oxalate 10 mg Tablet PO SCH (09:02)
[2019-02-13] MEDS: Heparin 5,000 UNITS/ML VIAL SC SCH ×3 (09:05→21:08)
--- NOTE | 2019-02-13 11:48 | PRG ---
DATE OF SERVICE: 02/13/2019 SUBJECTIVE: A 63-year-old female is being seen for end-stage renal disease. The patient denied nausea, vomiting, or chest pain. OBJECTIVE: GENERAL: The patient is awake and alert. VITAL SIGNS: Pulse 75, breathing 16, blood pressure 113/60. GENERAL APPEARANCE AND MENTAL STATUS: Fair. HEAD/NECK: Normocephalic. Atraumatic. EYES: EOMI. No deformity. EARS: Clear. No ulcers. NOSE: Intact. No lesions. MOUTH: Clear. No discharge. THROAT: Clear. No exudate. LUNGS: Clear. No crackles. CARDIAC: S1, S2. No rub. ABDOMEN: Benign. Bowel sounds positive. GENITALIA/RECTUM: Childers absent. BACK/EXTREMITIES: Edema 0+. NEUROLOGICAL: Alert and motor intact. LABORATORY DATA: Hemoglobin 9.7. ASSESSMENT: 1. Stage 6 chronic kidney disease. Continue PD. 2. Hypertension, stable. 3. Anemia, stable. 4. Medication based on GFR appropriate. Job ID: [id number]
[2019-02-13] MEDS: HYDROcodone/Acetaminophen 5/325 mg Tablet PO PRN (13:16)
--- NOTE | 2019-02-13 16:24 | PDOC.HOSPP ---
- Subjective Encounter Date: 02/13/19 Encounter Time: 14:00 Subjective: Patient seen and examined for syncope vs seizure. Hypoglycemic earlier. RN reported positive orthostatic vitals. Feels gen weak. No CP or SOB. No new focal deficits. No other complaints. No overnight events - Objective Vital Signs & Weight: Vital Signs (12 hours) Temp Pulse Pulse Pulse Pulse Resp BP 02/13/19 15:47 98.4 F 76 16 02/13/19 11:53 98 F 81 17 02/13/19 10:45 02/13/19 10:30 65 75 86 101/56 L 02/13/19 10:16 02/13/19 07:43 98.2 F 69 16 BP BP BP BP BP BP Pulse Ox 02/13/19 15:47 95/51 L 96 02/13/19 11:53 101/66 98 02/13/19 10:45 121/85 101/66 101/56 L 02/13/19 10:30 121/84 101/66 02/13/19 10:16 113/60 02/13/19 07:43 83/54 L 98 Weight Admit Weight 184 lb 6.4 oz Weight 184 lb 6.4 oz I&O: 02/12/19 02/13/19 02/14/19 06:59 06:59 06:59 Intake Total 872 850 600 Output Total 0 100 Balance 872 750 600 Result Diagrams: 02/13/19 04:30 02/13/19 04:30 Additional Labs: Accuchecks 02/13/19 02/13/19 02/13/19 11:43 10:43 05:46 POC Glucose 107 57 L* 171 H 02/12/19 02/12/19 19:16 16:50 POC Glucose 137 H 163 H Microbiology 02/12/19 11:57 Dialysate fluid Body Fluid Culture - Preliminary 02/11/19 21:48 Venous blood - Right Hand Blood Culture - Preliminary NO GROWTH AT 48 HOURS 02/11/19 21:47 Venous blood - Left Hand Blood Culture - Preliminary NO GROWTH AT 48 HOURS Laboratory Tests 02/13/19 02/13/19 10:43 11:43 POC Glucose 57 L* 107 EKG Reviewed by me: Yes (Tele SR) Hospitalist ROS - Review of Systems Respiratory: denies: cough, dry, shortness of breath, hemoptysis, SOB with excertion, pleuritic pain, sputum, wheezing, other Cardiovascular: denies: chest pain, palpitations, orthopnea, paroxysmal noc. dyspnea, edema, light headedness, other Gastrointestinal: denies: nausea, vomiting, abdominal pain, diarrhea, constipation, melena, hematochezia, other - Medication Medications: Active Medications Generic Name Dose Route Start Last Admin Trade Name Freq PRN Reason Stop Dose Admin Acetaminophen 650 mg 02/11/19 21:14 02/12/19 10:12 Tylenol PO 650 mg Q4H PRN Administration Headache/Fever/Mild Pain (1-3) Hydrocodone Bitart/Acetaminophen 1 tab 02/12/19 20:52 02/13/19 13:16 [place] 5/325 PO 1 tab Q8HR PRN Administration Moderate Pain (4-6) Atorvastatin Calcium 20 mg 02/12/19 21:00 02/12/19 21:17 Lipitor PO 20 mg HS ANURAG Administration Cinacalcet 30 mg 02/12/19 21:00 02/12/19 21:19 Sensipar PO 30 mg HS ANURAG Administration Escitalopram Oxalate 5 mg 02/13/19 09:00 02/13/19 09:02 Lexapro PO 5 mg DAILY ANURAG Administration Heparin Sodium (Porcine) 5,000 units 02/11/19 21:00 02/13/19 09:05 Heparin SC Not Given TID ANURAG Pantoprazole Sodium 40 mg 02/13/19 09:00 02/13/19 09:04 Protonix PO 40 mg DAILY ANURAG Administration Promethazine HCl 25 mg 02/12/19 20:52 02/12/19 21:19 Phenergan PO 25 mg Q6HR PRN Administration Nausea Sevelamer Carbonate 800 mg 02/13/19 08:00 02/13/19 13:16 Renvela PO 800 mg TID-WM ANURAG Administration Trazodone HCl 50 mg 02/12/19 21:00 02/12/19 21:19 Desyrel PO 50 mg HS ANURAG Administration - Exam General Appearance: NAD Neck: supple Heart: RRR, no gallops, no rubs Respiratory: CTAB, no wheezes, no ronchi Respiratory - other findings: dec AE at bases Gastrointestinal: soft, non-tender, non-distended, normal bowel sounds Extremities: no cyanosis Neurological: no new deficit Psychiatric: normal affect, A&O x 3 Hosp A/P - Plan PT/OT, DVT proph w/heparin IMPRESSION: 1. Syncope probably due to Orthostatic hypotension vs Seizure. Orthostatic vitals positive today 2. Toxic-metabolic encephalopathy secondary to syncopal episode. 3. Diabetes mellitus, type 2 with hypoglycemia - r/o adrenal insufficiency 4. End-stage renal disease, on peritoneal dialysis. 5. Physical deconditioning. 6. Chronic venous stasis ulceration. 7. Recent hospitalization for urinary tract infection. 8. Anemia secondary to renal insufficiency. 9. Hyponatremia. PLAN: Await Echo DC Sliding scale Check Cortisol Monitor Orthostatic vitals Cont PT AM labs LLE XR - negative for fracture Cont other meds
[2019-02-13] MEDS: Acetaminophen 325 MG TAB PO PRN (21:06)
[2019-02-13] MEDS: traZODone HCl 50 MG TAB PO SCH (21:07)
[2019-02-13] MEDS: Cinacalcet HCl 30 MG TAB PO SCH (21:07)
[2019-02-13] MEDS: Atorvastatin Calcium 20 MG TAB PO SCH (21:07)
[2019-02-13] MEDS: Insulin Regular 300 UNITS/3 ML VIAL SC PRN (21:17)
[2019-02-14 03:00] LABS: #Basophils 0.1 thou/uL (0.0-0.2); #Eosinphils 0.5 thou/uL (0.0-0.7); #Lymphocytes 1.6 thou/uL (1.20-3.40); #Monocytes 1.2 thou/uL (0.11-0.59); #Neutrophils 8.4 thou/uL (1.40-6.50); %Basophils 0.5 % (0.0-1.0); %Eosinophils 4.1 % (0.0-10.0); %Lymphocytes 13.5 % (21.0-51.0); %Monocytes 9.9 % (0.0-10.0); Hemoglobin 9.1 g/dL (12.0-16.0); Mean Corpuscular HGB CONC 32.2 g/dL (32.0-36.0); Mean Corpuscular Hemoglobin 28.2 pg (27.0-31.0); Mean Corpuscular Volume 87.6 fL (78.0-98.0); Mean Platelet Volume 6.9 fL (7.4-10.4); Platelet Count 281 thou/uL (130-400); RBC Distribution Width 12.9 % (11.5-14.5); Red Blood Cell (RBC) Count 3.23 mill/uL (4.20-5.40); White Blood Cell (WBC) Count 11.6 thou/uL (4.8-10.8)
[2019-02-14 03:17] LABS: Magnesium 1.8 mg/dL (1.6-2.6)
[2019-02-14 03:22] LABS: Albumin 2.3 g/dL (3.4-4.8); Anion Gap 22 mmol/L (10-20); BUN (Urea Nitrogen) 45 mg/dL (9.8-20.1); BUN/Creatinine Ratio 3.88; Calc. Creatinine Clearance 7 mL/min (70-130); Carbon Dioxide 24 mmol/L (23-31); Chloride 93 mmol/L (98-107); Estimated GFR-MDRD 4; Glucose 138 mg/dL (80-115); Potassium 3.9 mmol/L (3.5-5.1); Sodium 135 mmol/L (136-145)
[2019-02-14] MEDS: Sevelamer Carbonate 800 MG TAB PO SCH ×3 (08:51→18:02)
[2019-02-14] MEDS: Heparin 5,000 UNITS/ML VIAL SC SCH ×3 (08:51→21:55)
[2019-02-14] MEDS: Escitalopram Oxalate 10 mg Tablet PO SCH (08:51)
[2019-02-14] MEDS: HYDROcodone/Acetaminophen 5/325 mg Tablet PO PRN ×2 (08:52→19:50)
[2019-02-14] MEDS: Insulin Regular 300 UNITS/3 ML VIAL SC PRN (11:22)
--- NOTE | 2019-02-14 13:04 | PRG ---
DATE OF SERVICE: 02/14/2019 SUBJECTIVE: A 63-year-old lady being seen for end-stage renal disease. The patient denied nausea, vomiting, or chest pain. OBJECTIVE: CONSTITUTIONAL: The patient is awake and alert. VITAL SIGNS: Pulse 75, breathing 16, and blood pressure was 118/56. GENERAL APPEARANCE AND MENTAL STATUS: Fair. HEAD/NECK: Normocephalic. Atraumatic. EYES: EOMI. No deformity. EARS: Clear. No ulcers. NOSE: Intact. No lesions. MOUTH: Clear. No discharge. THROAT: Clear. No exudate. LUNGS: Clear. No crackles. CARDIAC: S1, S2. No rub. ABDOMEN: Benign. Bowel sounds positive. GENITALIA/RECTUM: Childers absent. BACK/EXTREMITIES: Edema 0+. NEUROLOGICAL: Alert and motor intact. SKIN: LYMPHATICS: LABORATORY DATA: Labs reviewed. ASSESSMENT AND PLAN: Stage 6 chronic kidney disease, continue peritoneal dialysis. Hypertension, stable. Anemia, stable. Medications based on GFR appropriate. Job ID: [id number]
--- NOTE | 2019-02-14 15:27 | PDOC.HOSPP ---
- Subjective Encounter Date: 02/14/19 Encounter Time: 15:20 Subjective: f/u for syncope/seizure and hypoglycemia in context of ESRD with PD. Feels ok overall and thinks near baseline. Appetite improved. - Objective Vital Signs & Weight: Vital Signs (12 hours) Temp Pulse Resp BP BP Pulse Ox 02/14/19 11:36 99.4 F 79 20 91/53 L 100 02/14/19 08:00 98.2 F 76 20 118/56 L 95 02/14/19 05:06 95/51 L 02/14/19 04:00 98.3 F 74 14 82/53 L 100 Weight Admit Weight 184 lb 6.4 oz Weight 184 lb 6.4 oz I&O: 02/13/19 02/14/19 02/15/19 06:59 06:59 06:59 Intake Total 850 1210 240 Output Total 100 51 Balance 750 1210 189 Result Diagrams: 02/14/19 02:43 02/14/19 02:44 Additional Labs: Accuchecks 02/14/19 02/14/19 02/13/19 10:31 06:37 19:53 POC Glucose 168 H 147 H 240 H 02/13/19 17:09 POC Glucose 238 H Microbiology 02/12/19 11:57 Dialysate fluid Body Fluid Culture - Preliminary 02/11/19 21:48 Venous blood - Right Hand Blood Culture - Preliminary NO GROWTH AT 48 HOURS 02/11/19 21:47 Venous blood - Left Hand Blood Culture - Preliminary NO GROWTH AT 48 HOURS Laboratory Tests 02/12/19 02/13/19 02/14/19 05:47 04:30 02:44 WBC 12.1 H 11.7 H Phosphorus 7.0 H Magnesium Albumin 2.3 L 02/14/19 02:44 WBC Phosphorus Magnesium 1.8 Albumin Radiology Reviewed by me: Yes (2D echo - EF 65-70%) EKG Reviewed by me: Yes (Tele - SR) Hospitalist ROS - Medication Medications: Active Medications Generic Name Dose Route Start Last Admin Trade Name Freq PRN Reason Stop Dose Admin Acetaminophen 650 mg 02/11/19 21:14 02/13/19 21:06 Tylenol PO 650 mg Q4H PRN Administration Headache/Fever/Mild Pain (1-3) Hydrocodone Bitart/Acetaminophen 1 tab 02/12/19 20:52 02/14/19 08:52 [place] 5/325 PO 1 tab Q8HR PRN Administration Moderate Pain (4-6) Atorvastatin Calcium 20 mg 02/12/19 21:00 02/13/19 21:07 Lipitor PO 20 mg HS ANURAG Administration Cinacalcet 30 mg 02/12/19 21:00 02/13/19 21:07 Sensipar PO 30 mg HS ANURAG Administration Escitalopram Oxalate 5 mg 02/13/19 09:00 02/14/19 08:51 Lexapro PO 5 mg DAILY ANURAG Administration Heparin Sodium (Porcine) 5,000 units 02/11/19 21:00 02/14/19 14:56 Heparin SC Not Given TID ANURAG Insulin Human Regular 0 units 02/13/19 21:08 02/14/19 11:22 Humulin R SC 2 unit .MILD SLIDING SCALE PRN Administration Mild Correctional Scale Pantoprazole Sodium 40 mg 02/13/19 09:00 02/14/19 08:51 Protonix PO 40 mg DAILY ANURAG Administration Promethazine HCl 25 mg 02/12/19 20:52 02/12/19 21:19 Phenergan PO 25 mg Q6HR PRN Administration Nausea Sevelamer Carbonate 800 mg 02/13/19 08:00 02/14/19 13:01 Renvela PO 800 mg TID-WM ANURAG Administration Trazodone HCl 50 mg 02/12/19 21:00 02/13/19 21:07 Desyrel PO 50 mg HS ANURAG Administration - Exam General Appearance: NAD, awake alert Eye: PERRL, anicteric sclera ENT: normocephalic atraumatic, no oropharyngeal lesions Neck: supple, symmetric, no JVD, no thyromegaly, no lymphadenopathy Heart: RRR, no gallops, no rubs, normal peripheral pulses Respiratory: CTAB, no wheezes, no rales, no ronchi Gastrointestinal: soft, non-tender, non-distended, normal bowel sounds, no palpable masses Extremities: no cyanosis Extremities - other findings: mild LE edema, heel protectors in place Skin: normal turgor Neurological: cranial nerve grossly intact, no new deficit Musculoskeletal: normal tone, generalized weakness Psychiatric: normal affect, A&O x 3 Hosp A/P (1) Toxic metabolic encephalopathy Code(s): G92 - TOXIC ENCEPHALOPATHY Status: Acute Plan: Likely multifactorial given hypoglycemia, hypotension and ESRD, stable currently (2) Orthostatic hypotension Code(s): I95.1 - ORTHOSTATIC HYPOTENSION Status: Acute Plan: Multifactorial, hold BP regimen, modify BP meds for home (3) Hypoglycemia Code(s): E16.2 - HYPOGLYCEMIA, UNSPECIFIED Status: Acute Plan: Resume home insulin regimen except for meal coverage, serial accuchecks (4) ESRD (end stage renal disease) on dialysis Code(s): N18.6 - END STAGE RENAL DISEASE; Z99.2 - DEPENDENCE ON RENAL DIALYSIS Status: Chronic Plan: Continue peritioneal dialysis per Renal service (5) Physical deconditioning Code(s): R53.81 - OTHER MALAISE Status: Chronic Plan: PT for mobilization, may benefit from home PT - Plan PT/OT, 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
[2019-02-14] MEDS: Cinacalcet HCl 30 MG TAB PO SCH (21:55)
[2019-02-14] MEDS: traZODone HCl 50 MG TAB PO SCH (21:55)
[2019-02-14] MEDS: Atorvastatin Calcium 20 MG TAB PO SCH (21:55)
[2019-02-14] MEDS: Acetaminophen 325 MG TAB PO PRN (23:55)
[2019-02-15 05:50] LABS: ALT (SGPT) 7 U/L (8-55); AST (SGOT) 16 U/L (5-34); Albumin 2.3 g/dL (3.4-4.8); Alkaline Phosphatase 172 U/L (40-110); Anion Gap 21 mmol/L (10-20); BUN (Urea Nitrogen) 29 mg/dL (9.8-20.1); Bilirubin, Total 0.4 mg/dL (0.2-1.2); Calc. Creatinine Clearance 7 mL/min (70-130); Calcium 7.2 mg/dL (7.8-10.44); Carbon Dioxide 23 mmol/L (23-31); Chloride 94 mmol/L (98-107); Estimated GFR-MDRD 4; Globulin 6.1 g/dL (2.4-3.5); Glucose 155 mg/dL (80-115); Magnesium 1.6 mg/dL (1.6-2.6); Phosphorus 6.1 mg/dL (2.3-4.7); Potassium 3.9 mmol/L (3.5-5.1); Protein, Total 8.4 g/dL (6.0-8.3); Sodium 134 mmol/L (136-145)
[2019-02-15] MEDS: Insulin Regular 300 UNITS/3 ML VIAL SC PRN (07:08)
--- NOTE | 2019-02-15 08:48 | EEG ---
Referring Physician: Richard CHURCHILL EEG # [id number] TEST TYPE: ROUTINE PORTABLE INPATIENT REPORT: AN EEG USING THE INTERNATIONAL TEN-TWENTY SYSTEM OF ELECTRODE PLACEMENT WAS PERFORMED. The best waking background is an 8 hertz alpha frequency. There is intermixed medium to high amplitude theta frequencies and some delta frequencies seen over both hemispheres. Photic stimulation was unremarkable. No epileptiform features were present. IMPRESSION: THIS IS AN ABNORMAL STUDY FOR THE FINDINGS OF SOME DIFFUSE SLOWING WITHOUT EPILEPTIFORM FEATURES, Slat Basket Maker Machine: GUSTAVO Business Controller: [email or web address] TAYLOR
[2019-02-15] MEDS: Sevelamer Carbonate 800 MG TAB PO SCH ×3 (08:51→17:29)
[2019-02-15] MEDS: Heparin 5,000 UNITS/ML VIAL SC SCH (08:52)
[2019-02-15] MEDS: Escitalopram Oxalate 10 mg Tablet PO SCH (08:52)
[2019-02-15] MEDS: HYDROcodone/Acetaminophen 5/325 mg Tablet PO PRN ×2 (08:56→18:00)
[2019-02-15] MEDS ORDERED: Insulin Glargine 100 UNITS in Pre-Filled Syringe 1 EACH SC SCH (09:00)
[2019-02-15] MEDS ORDERED: Calcium Carbonate 600 MG TAB PO SCH (09:00)
[2019-02-15] MEDS ORDERED: Non-Formulary Item 1 EACH (Insulin Degludec [Tresiba Flextouch U-100] 100 UNIT) SQ SCH (09:00)
[2019-02-15] MEDS ORDERED: EPOETIN ALFA-EPBX (ESRD) 10,000 UNIT/ML VIAL SC SCH (10:45)
--- NOTE | 2019-02-15 10:58 | PRG ---
DATE OF SERVICE: 02/15/2019 SUBJECTIVE: Patient was seen and examined at bedside and overnight events noted. Patient denies any shortness of breath or chest pain or palpitation. No history of nausea or vomiting or diarrhea or fever or chills or cramps. OBJECTIVE: GENERAL: This is a well-built female, in no apparent distress. VITAL SIGNS: Temperature 98.4. Heart rate 74. Respiratory rate 16. Blood pressure 125/65. HEENT: Atraumatic, normocephalic. Oral mucosa is moist NECK: Supple. CARDIOVASCULAR: S1, S2 heard. Rate and rhythm regular. RESPIRATORY: Clear to auscultation. GASTROINTESTINAL: Abdomen is soft. MUSCULOSKELETAL: No tenderness. No edema. DERMATOLOGIC: No skin rash. NEUROLOGIC: Alert and awake and oriented X3. No focal neurologic deficits. Moving all the extremities. PSYCHIATRIC: Mood and affect normal. LABORATORY DATA: Potassium 3.9, BUN is 29, and creatinine is 11.2. ASSESSMENT AND PLAN: 1. End-stage renal disease, currently on peritoneal dialysis, tolerating well. 2. Hypocalcemia. We will add calcium and stop Sensipar. 3. Hypertension, stable. 4. Anemia, monitor hemoglobin. We will give a dose of Epogen while she is here and we will stop Sensipar for now. Continue calcium and vitamin D. We will check PTH if she is here. We change heparin to 5000 b.i.d. Job ID: [id number]
[2019-02-15] MEDS ORDERED: Insulin Glargine 50 UNITS in Pre-Filled Syringe 1 EACH SC SCH (11:00)
[2019-02-15] MEDS: Acetaminophen 325 MG TAB PO PRN (14:21)
[2019-02-15 16:08] VITALS: BP 126/69; TEMP 98.2
[2019-02-15] MEDS ORDERED: Heparin 5,000 UNITS/ML VIAL SC SCH (21:00)
--- NOTE | 2019-02-16 07:59 | DIS ---
DATE OF ADMISSION: 02/13/2019 DATE OF DISCHARGE: 02/15/2019 DISCHARGE DIAGNOSES: 1. Toxic metabolic encephalopathy, multifactorial including hypoglycemia, hypotension, and end-stage renal disease. 2. Orthostatic hypotension, mild, improved. 3. Hypoglycemia, iatrogenic. 4. End-stage renal disease, on peritoneal dialysis. 5. Physical deconditioning. 6. Diabetes mellitus, type 2, insulin requiring. 7. Decubitus ulceration of the sacrum, buttocks, and bilateral heels. CONSULTATIONS: 1. Dr. Barreto and Dr. Mensah with Nephrology Service. 2. Dr. Romeo with Neurology Service. PERTINENT LABORATORY AND X-RAY FINDINGS: Creatinine ranged between 11.21 to 11.78. Estimated GFR 4. Phosphorus ranged between 6.1 to 7.0, magnesium 1.6, AST 16, ALT of 7, alkaline phosphatase 172, and albumin 2.3. Prolactin level 79.5. Serum cortisol level 6.8. CBC showed a white blood cell count ranging between 11.6 to 12.1, hemoglobin ranged between 9.0 to 9.7. Blood cultures x2 dated 02/11/2019, showed no growth at 48 hours. Peritoneal fluid culture dated 02/12/2019, showed no growth at 3 days. Two views of the left hip dated 02/12/2019, showed no acute process. Four views of the left knee dated 02/12/2019, showed no acute process. 2D transthoracic echocardiogram dated 02/13/2019, showed ejection fraction of 65% to 70%. Moderate left atrial enlargement. No aortic stenosis. HOSPITAL COURSE: The patient was initially admitted after being found down. Questionable seizure activity versus syncopal event. The patient underwent extensive evaluation with mild orthostatic changes noted on orthostatic vital sign assessment. The patient was held on all antihypertensive medications and monitored for clinical response. The patient also underwent CT imaging of the brain showing no acute intracranial process and portable chest imaging showed no evidence of an acute process. Metabolic workup showed multiple derangements including metabolic acidosis in the context of end-stage renal disease on peritoneal dialysis. The patient was also noted with hypoglycemia, improving with adjustments to her diabetic regimen and holding insulin. The patient's mental status improved with correction of electrolyte abnormalities in addition to hypoglycemia. The patient was also evaluated by the Neurology Service with recommendations to undergo EEG monitoring, which did not show any evidence of seizure activity. No epileptiform features were noted; however, the overall study was interpreted as abnormal due to diffuse slowing of the tracing. Questionable seizure activity was suspicious given the patient's presentation and using home tramadol. No specific seizure activity was identified on EEG monitoring and the patient exhibited no recurrent seizure-like activity during the hospital course. No anti-seizure medication was recommended per Neurology evaluation. The patient continued to receive peritoneal dialysis through the remainder of the hospital course, tolerating without difficulty. I have examined the patient at the time of discharge and discussed followup instructions. The patient overall clinically stable and ready for discharge on 02/15/2019. The patient did receive local wound care services for multiple skin breakdown of the buttocks, sacrum and perineal area as well as bilateral heels. Current recommendations are for ongoing home health care with wound care services and offloading the sites with frequent turning and more mobility at home. DISCHARGE MEDICATIONS: 1. Lipitor 20 mg p.o. at bedtime. 2. Carvedilol 12.5 mg p.o. b.i.d. 3. Vitamin D3 of 2000 units p.o. daily. 4. Lexapro 5 mg p.o. daily. 5. Hydralazine 50 mg p.o. t.i.d. 6. [place] 5/325 mg one tablet p.o. q.8 hours p.r.n. pain. 7. Bactroban 2% ointment apply to affected area t.i.d. 8. Protonix 40 mg p.o. daily. 9. Phenergan 25 mg p.o. q.6 hours p.r.n. nausea and vomiting. 10. Renvela 800 mg p.o. t.i.d. 11. Trazodone 50 mg p.o. at bedtime. 12. NovoLog 5 units subcutaneously t.i.d. with meals. 13. Tresiba FlexTouch 20 units subcutaneously daily. FOLLOWUP: The patient may follow up with her primary care provider, Dr. Anselmo Ledesma within 7 days of discharge. The patient may follow up with Dr. Barreto with Nephrology Service. CONDITION ON DISCHARGE: Fair. ACTIVITY: Ad emi, rolling walker with standby/contact guard assistance with high fall risk precautions. DIET: ADA and renal. CODE STATUS: Full. DISPOSITION: Home with [facility] including physical therapy, wound care, and jail on 02/15/2019. TIME SPENT: Total time preparing and coordinating discharge, 37 minutes. Job ID: [id number]
[2019-02-16] MEDS ORDERED: Insulin Glargine 50 UNITS in Pre-Filled Syringe 1 EACH SC SCH (09:00)
== END 2019-02-15 19:05 | disposition home health service (06) | DRG 682 ==
LOC: ERS 15:22 → 2SE 16:25 → OBSVTOIN 02-13 23:33
PROVIDERS: ADMIT Internal Medicine; ATTEND Internal Medicine
PROC: 3E1M39Z Irrigation of Peritoneal Cavity using Dialysate, Percutaneous Approach (ICD-10-PCS; principal; 2019-02-11)
PROC: 5A1D70Z Performance of Urinary Filtration, Intermittent, Less than 6 Hours Per Day (ICD-10-PCS; 2019-02-11)
DX: I12.0 Hypertensive chronic kidney disease with stage 5 chronic kidney disease or end stage renal disease (principal); G92 Toxic encephalopathy; L89.323 Pressure ulcer of left buttock, stage 3; N18.6 End stage renal disease; E87.2 Acidosis; E87.1 Hypo-osmolality and hyponatremia; I95.1 Orthostatic hypotension; E11.649 Type 2 diabetes mellitus with hypoglycemia without coma; R53.81 Other malaise; E11.51 Type 2 diabetes mellitus with diabetic peripheral angiopathy without gangrene; E11.22 Type 2 diabetes mellitus with diabetic chronic kidney disease; L89.622 Pressure ulcer of left heel, stage 2; L89.612 Pressure ulcer of right heel, stage 2; T40.4X5A Adverse effect of other synthetic narcotics, initial encounter; W18.30XA Fall on same level, unspecified, initial encounter; L89.152 Pressure ulcer of sacral region, stage 2; G40.909 Epilepsy, unspecified, not intractable, without status epilepticus; Z90.710 Acquired absence of both cervix and uterus; Z79.4 Long term (current) use of insulin; Z99.2 Dependence on renal dialysis; Z79.84 Long term (current) use of oral hypoglycemic drugs; Z88.2 Allergy status to sulfonamides; Z88.8 Allergy status to other drugs, medicaments and biological substances; Z88.1 Allergy status to other antibiotic agents; Z91.040 Latex allergy status; E83.51 Hypocalcemia
CPT/HCPCS: 36415; 36416; 80048; 80053; 80069; 82533; 83735; 84100; 84146; 85025; 87040; 87070; 87205; 90471; 90732; 90945; 93005; 93306; 95816; 95819; G0009; G0257; J0744; J1644; J1815; Q0169; Q5105

== ENCOUNTER 2019-03-10 14:19 | Inpatient (IN) | payer MEDICARE ==
[~2019-03-10 14:19] MED LIST: Heparin 10,000 UNITS/ 10 ML VIAL ONE
--- NOTE | 2019-03-10 15:10 | RAD ---
EXAM: Chest one view: HISTORY: Shortness of breath COMPARISON: 11/14/2016 FINDINGS: Bilateral alveolar parenchymal changes in the perihilar regions and lower lobe somewhat more confluen t in the right lower lobe. Possibilities include that of asymmetric edema versus bilateral pneumonia. No significant pleural effusion. Heart size: Borderline cardiomegaly. No significant pleural effusion or pneumothorax. IMPRESSION: Borderline cardiomegaly with bilateral perihilar and infrahilar alveolar parenchymal changes with [place] ewhat more prominent confluence in the right lower lobe with concern for pneumonia versus asymmetric edema.
[2019-03-10 16:02] LABS: #Eosinphils 0.1 thou/uL (0.0-0.7); #Lymphocytes 1.2 thou/uL (1.20-3.40); #Monocytes 0.7 thou/uL (0.11-0.59); #Neutrophils 15.8 thou/uL (1.40-6.50); %Basophils 0.1 % (0.0-1.0); %Eosinophils 0.4 % (0.0-10.0); %Lymphocytes 6.6 % (21.0-51.0); %Monocytes 3.9 % (0.0-10.0); Hemoglobin 9.4 g/dL (12.0-16.0); Mean Corpuscular HGB CONC 31.2 g/dL (32.0-36.0); Mean Corpuscular Hemoglobin 27.6 pg (27.0-31.0); Mean Corpuscular Volume 88.5 fL (78.0-98.0); Mean Platelet Volume 7.6 fL (7.4-10.4); Platelet Count 317 thou/uL (130-400); RBC Distribution Width 13.7 % (11.5-14.5); Red Blood Cell (RBC) Count 3.39 mill/uL (4.20-5.40); White Blood Cell (WBC) Count 17.8 thou/uL (4.8-10.8)
[2019-03-10 16:11] LABS: INR-International Normal Ratio 1.3; Prothrombin Time 15.7 SEC (12.0-14.7)
[2019-03-10 16:12] LABS: PTT 46.2 SEC (22.9-36.1)
[2019-03-10 16:34] LABS: ALT (SGPT) 36 U/L (8-55); AST (SGOT) 69 U/L (5-34); Albumin 2.5 g/dL (3.4-4.8); Alkaline Phosphatase 422 U/L (40-110); Anion Gap 18 mmol/L (10-20); BUN (Urea Nitrogen) 54 mg/dL (9.8-20.1); Bilirubin, Total 0.4 mg/dL (0.2-1.2); CK (CPK) 135 U/L (29-168); Calc. Creatinine Clearance 0 mL/min (70-130); Calcium 7.7 mg/dL (7.8-10.44); Carbon Dioxide 25 mmol/L (23-31); Chloride 100 mmol/L (98-107); Estimated GFR-MDRD 5; Globulin 6.2 g/dL (2.4-3.5); Potassium 4.2 mmol/L (3.5-5.1); Protein, Total 8.7 g/dL (6.0-8.3); Sodium 139 mmol/L (136-145)
[2019-03-10 16:40] LABS: Glucose 50 mg/dL (80-115)
[2019-03-10 17:00] LABS: CKMB 9.5 ng/mL (0-6.6)
[2019-03-10] MEDS ORDERED: Dextrose 5% in Water 1,000 ML IV PRN (18:56)
[2019-03-10] MEDS ORDERED: Dextrose 50% Abboject 50 ML SYRINGE SLOW IVP PRN (18:56)
[2019-03-10 19:22] LABS: Troponin I 3.171 ng/mL (< 0.028)
--- NOTE | 2019-03-10 19:51 | CON ---
DATE OF CONSULTATION: REASON FOR CONSULTATION: Congestive heart failure and pulmonary edema. HISTORY OF PRESENT ILLNESS: This is a 64-year-old female presented to the hospital with increasing dyspnea. The patient does peritoneal dialysis at home, but recently has been rehospitalized on multiple occasions for volume overload. The patient has had an elevated white count as well. The patient denies any nausea, vomiting, or chest pain. PAST MEDICAL HISTORY: Significant for hypertension, anemia, end-stage renal disease, history of hidradenitis suppurativa, history of diabetes mellitus, PD, seizure disorder, tunneled dialysis catheter, AV fistula, and PD catheter. SOCIAL HISTORY: No alcohol or drug use. FAMILY HISTORY: Negative for ESRD. ALLERGIES: REVIEWED. HOME MEDICATION: List reviewed. HOSPITAL MEDICATION: List reviewed. REVIEW OF SYSTEMS: Fifteen point review of system was performed, negative except as noted above. PHYSICAL EXAMINATION: GENERAL: The patient is awake and alert. VITAL SIGNS: Afebrile, pulse 75, breathing 16, in [id number] distress. GENERAL APPEARANCE AND MENTAL STATUS: Fair. HEAD/NECK: Normocephalic. Atraumatic. EYES: EOMI. No deformity. EARS: Clear. No ulcers. NOSE: Intact. No lesions. MOUTH: Clear. No discharge. THROAT: Clear. No exudate. LUNGS: Clear. No crackles. CARDIAC: S1, S2. No rub. ABDOMEN: Benign. Bowel sounds positive. GENITALIA/RECTUM: Childers absent. BACK/EXTREMITIES: Edema 0+. NEUROLOGICAL: Alert and motor intact. SKIN: LYMPHATICS: LABORATORY DATA: Labs show potassium 4.3, creatinine 9.9. Hemoglobin is 9.4. ASSESSMENT AND PLAN: 1. Chronic kidney disease, stage 6. We will plan urgent hemodialysis. 2. Hypertension, stable. 3. Anemia, stable. 4. Congestive heart failure, plan dialysis. 5. Elevated troponins. 6. Non-ST myocardial infarction, management per primary team. Overall prognosis is poor. Job ID: [id number]
--- NOTE | 2019-03-10 20:39 | HP ---
CHIEF COMPLAINT: Shortness of breath. HISTORY OF PRESENT ILLNESS: This patient is a 64-year-old female, who presented via the emergency department. The patient originally presented to the [facility] in [place]. The patient presented there with fairly abrupt onset of shortness of breath. Workup there was consistent with some pulmonary edema and acute hypoxic respiratory failure. She was placed on BiPAP. She was given 90 mg of Lovenox and aspirin suppository, Lasix 40 mg, and started on a nitroglycerin drip, and subsequently transferred here. The patient reports she is feeling substantially better being on the BiPAP. The patient's workup there also was notable for an EKG concerning for possible atrial fibrillation with rapid ventricular response of 156 beats per minute. Subsequent EKG appears to show an irregular rhythm and read out as atrial fibrillation, but appears to have some intermittent P-waves. Also of note, at that facility, her troponin was 2.02, and BNP was 1248. Initial blood pressure was 177/131. Other labs notable for a BUN of 55, creatinine of 9.71, CO2 is 21, calcium 7.8, alkaline phosphatase 430, AST 83, ALT 43, albumin 2.4. Lipase was normal. Magnesium 1.5, phosphorus 6.0. Lactic acid was 3.1. INR 1.2. White count 17.6, hemoglobin 9.4, platelets 338. Chest x-ray showed vascular congestion and small pleural effusions. The patient has been seen in consultation here by Dr. Mensah, who believes that the patient is essentially failing peritoneal dialysis for her end-stage renal disease and has become significantly volume overloaded and will have a catheter placed tonight to start peritoneal dialysis. Dr. Espinosa was made aware of the patient's troponins. It is suspected she has a type 2 NSTEMI. He will continue to follow the patient as well. Again, currently the patient reports she is feeling significantly better on the BiPAP. PAST MEDICAL HISTORY: Notable for coronary artery disease; hypertension; hyperlipidemia; congestive heart failure; anemia; prior TIA; obesity; prior NSTEMI in 2017; end-stage renal disease, on peritoneal dialysis; hyperparathyroidism due to renal failure; type 2 diabetes; history of hidradenitis suppurativa. PAST SURGICAL HISTORY: Appendectomy, inguinal hidradenitis excision, prior eye surgery, hysterectomy, tubal ligation, and peritoneal dialysis catheter placement. SOCIAL HISTORY: The patient is a nonsmoker, nondrinker, nondrug user. FAMILY HISTORY: Reviewed and noncontributory. ALLERGIES: BACTRIM, CEPHALEXIN, POTASSIUM. HOME MEDICATIONS: 1. Aspirin 81 mg p.o. daily. 2. Atorvastatin 20 mg daily. 3. Carvedilol 12.5 b.i.d. 4. Calcium with vitamin D 2000 units daily. 5. Sensipar 30 mg daily. 6. Lexapro 5 mg daily. 7. Monurol 3 g x1 given previously. 8. Hydralazine 50 mg p.o. t.i.d. 9. [facility] p.r.n. 5/325. 10. Tresiba and NovoLog sliding scale t.i.d. 11. Pantoprazole 40 mg daily. 12. Phenergan 25 mg q.6 p.r.n. 13. Renvela 800 mg t.i.d. 14. Januvia 25 mg daily. 15. Trazodone 50 mg at bedtime. PHYSICAL EXAMINATION: VITAL SIGNS: Blood pressure 147/83, pulse 96, respirations 23, O2 saturation 100% on BiPAP. GENERAL APPEARANCE: Age-appropriate female, obese, in no distress. Awake, alert, oriented, pleasant, cooperative. HEENT: PERRL. No OP lesions. NECK: Supple and symmetric. HEART: Currently is regular rate and rhythm without murmurs. Monitor reveals a regular rhythm with P waves present. LUNGS: Diminished bilaterally. Exam somewhat compromised by body habitus and via BiPAP. ABDOMEN: Soft, nontender, and nondistended with positive bowel sounds. No masses. No organomegaly. EXTREMITIES: 1+ to 2+ pitting edema pretibially bilaterally to the level of the knee. PSYCH: Very pleasant, normal affect and behavior. NEUROLOGIC: Appears to have normal cognition, cranial nerve function, and spontaneous movement of all extremities. LABORATORY DATA: White count 17.8, hemoglobin 9.4, platelets 317. INR is 1.3, PTT 46.2. Sodium 139, potassium 4.2, chloride 100, CO2 of 25, BUN 54, creatinine 9.95, glucose was 50, lactic acid 1.4, calcium 7.7. AST 69, ALT 36, alkaline phosphatase 422. Troponin 2.8. Albumin 2.5. TSH 1.59. Chest x-ray shows borderline cardiomegaly with bilateral perihilar and hilar alveolar parenchymal changes with somewhat more prominent confluence in the right lower lobe with concern for pneumonia versus asymmetric edema. IMPRESSION AND PLAN: 1. Acute hypoxic respiratory failure, likely due to volume overload. She is currently on BiPAP. We will continue that as needed and wean down to nasal cannula oxygen when possible. 2. Volume overload. Again, discussed with Dr. Mensah. He believes the patient is failing peritoneal dialysis. She is to have a Trialysis catheter placed tonight, and we will get hemodialysis for some volume removal. 3. End-stage renal disease as above. We will convert to hemodialysis from peritoneal dialysis. 4. Uam-PG-jqnuefgyh myocardial infarction. Dr. Espinosa was made aware by the ER physician, she has had a dose of Lovenox in [place]. She is on a nitroglycerin drip, which we will continue. 5. Possible atrial fibrillation. Her initial EKG at the other facility appeared to be consistent with some atrial fibrillation, although it does appear that some P waves may have been present. She is currently anticoagulated appropriately. She will have a cardiology consult. At this time, she appears to be in sinus rhythm. 6. Pneumonia. Chest x-ray is equivocal for pneumonia versus congestive heart failure. She does have a leukocytosis concerning for possible pneumonia. Therefore, we will cover with Levaquin. 7. Possible urinary tract infection. The patient reported she was recently diagnosed with that. We will check UA, however, should be covered with Levaquin. 8. Anemia of chronic kidney disease, stable at her baseline hemoglobin. 9. Hypoglycemia. The patient did receive a dose of dextrose in the emergency department. We will need to continue with Accu-Cheks. Job ID: [id number]
--- NOTE | 2019-03-10 22:10 | PDOC.OP ---
Operative Note - Operative Note Operative Note: After informed consent was obtained the patient was prepped and draped in standard sterile fashion and placed in supine position. A sterile ultrasound probe was used to identify the patent femoral vein and local anesthesia was infused the skin and subcutaneous tissues overlying this. The vein was accessed under direct ultrasound guidance and a wire threaded through the needle. The needle was removed leaving the wire in place which was confirmed by ultrasound to be within the patent compressible vein. The skin was incised and the tract was dilated. A hemodialysis catheter was placed over the wire and secured to the skin with suture. A Biopatch and Tegaderm dressing was placed. All ports easily aspirated dark venous nonpulsatile blood and easily flushed without resistance. There were no immediate complications. Estimated blood loss is minimal. There were no specimens. The inpatient dialysis nurse was alerted that the patient had dialysis access in place.
[2019-03-11 00:34] LABS: BF Color Yellow; Body Fluid Source Peritoneal Fluid; Clarity Clear (Clear); RBC Count-Automated (BF) 0 /cumm; Tube # EDTA; WBC/Nucleated-Auto (BF) 114 uL
[2019-03-11 00:36] LABS: BF Segmented Neutrophils 41 %; Cell Count Non Hematic 7 %; Lymphocytes 52 %
[2019-03-11] MEDS: Acetaminophen 325 MG TAB PO PRN ×2 (01:18→12:52)
[2019-03-11] MEDS: hydrALAZINE 25 MG TAB PO SCH ×4 (01:19→21:59)
[2019-03-11 03:51] LABS: #Eosinphils 0.2 thou/uL (0.0-0.7); #Lymphocytes 1.2 thou/uL (1.20-3.40); #Monocytes 0.8 thou/uL (0.11-0.59); #Neutrophils 9.5 thou/uL (1.40-6.50); %Basophils 0.3 % (0.0-1.0); %Eosinophils 2.1 % (0.0-10.0); %Lymphocytes 9.8 % (21.0-51.0); %Neutrophils 80.9 % (42.0-75.0); Hemoglobin 8.3 g/dL (12.0-16.0); Mean Corpuscular HGB CONC 31.8 g/dL (32.0-36.0); Mean Corpuscular Hemoglobin 27.9 pg (27.0-31.0); Mean Corpuscular Volume 87.7 fL (78.0-98.0); Mean Platelet Volume 7.9 fL (7.4-10.4); Platelet Count 243 thou/uL (130-400); RBC Distribution Width 13.9 % (11.5-14.5); Red Blood Cell (RBC) Count 2.98 mill/uL (4.20-5.40); White Blood Cell (WBC) Count 11.7 thou/uL (4.8-10.8)
[2019-03-11 04:07] LABS: Anion Gap 12 mmol/L (10-20); BUN (Urea Nitrogen) 25 mg/dL (9.8-20.1); Calc. Creatinine Clearance 16 mL/min (70-130); Calcium 7.7 mg/dL (7.8-10.44); Carbon Dioxide 29 mmol/L (23-31); Chloride 99 mmol/L (98-107); Estimated GFR-MDRD 9; Glucose 139 mg/dL (80-115); Potassium 3.9 mmol/L (3.5-5.1); Sodium 136 mmol/L (136-145)
--- NOTE | 2019-03-11 08:42 | ULT ---
EXAM: US Vessel Mapping Dialysis Acc PROVIDED CLINICAL HISTORY: End-stage renal disease. Patient needs dialysis access. COMPARISON: None FINDINGS: Grayscale and spectral Doppler evaluation of the bilateral internal jugular, subclavian, and axillary veins is performed. There is normal flow demonstrated within these venous structures. Incidental note is made of calcified atherosclerotic plaque within the common carotid arteries bilaterally much greater on the left. Partially thrombosed bilateral upper extremity arteriovenous dialysis fistula are seen in each upper arm partially imaged. Right upper extremity cephalic vein diameters: Upper arm-3.8 mm Mid arm-3 mm Left forearm-2.4 mm Antecubital fossa-2.3 mm Proximal forearm-3.2 mm Mid forearm-2.3 mm Distal forearm 1 mm Right upper extremity basilic vein diameters: Upper arm-5 mm Mid arm-4.8 mm Distal arm-5.3 mm Antecubital fossa-4.3 mm Proximal forearm-3.8 mm Mid forearm-2 mm Distal forearm-2 mm Left upper extremity cephalic vein diameters: Upper arm-2.9 mm Mid arm-2.5 mm Distal arm-2.7 mm Antecubital fossa-1.6 mm Proximal forearm-2.3 mm Mid forearm-2.5 mm Distal forearm-1.6 mm Left upper extremity basilic vein diameters: Upper arm-1.5 mm Mid arm-1.5 mm Distal arm-1.9 mm Antecubital fossa-3.5 mm Proximal forearm-1.6 mm Mid forearm-1.5 mm Distal forearm-1.4 mm Right upper extremity arterial diameters: Brachial artery-3.7 mm Radial artery-3.1 mm Ulnar artery-2.8 mm Left upper extremity arterial diameters: Brachial artery-3.9 mm Radial artery-1.1 mm Ulnar artery-1.2 mm IMPRESSION: 1. Venous diameters of the cephalic and basilic veins are as described above. 2. Partial imaging of thrombosed arteriovenous dialysis fistula in each upper arm.
[2019-03-11] MEDS: Sevelamer Carbonate 800 MG TAB PO SCH ×3 (09:03→17:28)
[2019-03-11] MEDS: Carvedilol 6.25 MG TAB PO SCH ×2 (09:07→17:28)
--- NOTE | 2019-03-11 10:04 | PDOC.HOSPP ---
- Subjective Encounter Date: 03/11/19 Encounter Time: 10:00 Subjective: Doing much better. Breathing comfortably. No SOB, CP. Tolerated HD well. - Objective Vital Signs & Weight: Vital Signs (12 hours) Temp Pulse BP 03/11/19 09:07 143/80 H 03/11/19 09:03 84 143/80 H 03/11/19 04:00 98.7 F 03/11/19 00:00 98.9 F Weight Weight 210 lb 8.663 oz Most Recent Monitor Data Heart Rate from ECG 86 NIBP 96/47 NIBP BP-Mean 63 Respiration from ECG 17 SpO2 98 I&O: 03/10/19 03/11/19 03/12/19 06:59 06:59 06:59 Intake Total 440 Output Total 405 Balance 35 Result Diagrams: 03/11/19 03:38 03/11/19 03:38 Additional Labs: Accuchecks 03/11/19 03/11/19 07:57 03:40 POC Glucose 122 H 134 H Hospitalist ROS - Medication Medications: Active Medications Generic Name Dose Route Start Last Admin Trade Name Freq PRN Reason Stop Dose Admin Acetaminophen 650 mg 03/10/19 18:47 03/11/19 01:18 Tylenol PO 650 mg Q4H PRN Administration Headache/Fever/Mild Pain (1-3) Carvedilol 12.5 mg 03/11/19 08:00 03/11/19 09:07 Coreg PO 12.5 mg BID-WM ANURAG Administration Hydralazine HCl 50 mg 03/10/19 21:00 03/11/19 09:03 Apresoline PO 50 mg TID ANURAG Administration Levofloxacin 500 mg/ Device 100 mls @ 100 mls/hr 03/10/19 20:00 03/10/19 21: 07 IVPB Not Given Q2DAYS ANURAG Sevelamer Carbonate 800 mg 03/11/19 08:00 03/11/19 09:03 Renvela PO 800 mg TID-WM ANURAG Administration - Exam General Appearance: NAD, awake alert Heart: RRR, no murmur, no gallops, no rubs, normal peripheral pulses Respiratory: CTAB, no wheezes, no rales, no ronchi, normal chest expansion, no tachypnea, normal percussion Gastrointestinal: soft, non-tender, non-distended, normal bowel sounds, no palpable masses, no hepatomegaly, no splenomegaly, no bruit Skin: normal turgor Musculoskeletal: normal tone Psychiatric: normal affect, normal behavior, A&O x 3 Hosp A/P (1) Acute respiratory failure with hypoxia Code(s): J96.01 - ACUTE RESPIRATORY FAILURE WITH HYPOXIA Status: Acute (2) Myocardial infarction Code(s): I21.9 - ACUTE MYOCARDIAL INFARCTION, UNSPECIFIED Status: Acute Qualifiers: Myocardial infarction type: type 2 Qualified Code(s): I21.A1 - Myocardial infarction type 2 (3) Secondary hyperparathyroidism of renal origin Code(s): N25.81 - SECONDARY HYPERPARATHYROIDISM OF RENAL ORIGIN Status: Acute (4) CHF (congestive heart failure) Code(s): I50.9 - HEART FAILURE, UNSPECIFIED Status: Chronic (5) Volume overload Code(s): E87.70 - FLUID OVERLOAD, UNSPECIFIED Status: Acute (6) Chronic anemia Code(s): D64.9 - ANEMIA, UNSPECIFIED Status: Chronic (7) DM2 (diabetes mellitus, type 2) Status: Chronic Qualifiers: Diabetes mellitus manager terminal insulin use: with manager terminal use Diabetes mellitus complication status: with kidney complications Diabetes mellitus complication detail: with chronic kidney disease Chronic kidney disease stage : stage 4 (severe) Qualified Code(s): E11.22 - Type 2 diabetes mellitus with diabetic chronic kidney disease; N18.4 - Chronic kidney disease, stage 4 (severe ); Z79.4 - assisted (current) use of insulin (8) HTN (hypertension) Code(s): I10 - ESSENTIAL (PRIMARY) HYPERTENSION Status: Chronic Qualifiers: Hypertension type: essential hypertension Qualified Code(s): I10 - Essential (primary) hypertension (9) Obesity (BMI 30.0-34.9) Code(s): E66.9 - OBESITY, UNSPECIFIED Status: Chronic - Plan Volume overload due to failure of PD. Converted to HD after catheter placed last night. Had resp failure and hypoxia which resulted in NSTEMI II. Much improved. Cardiology consulted. Nephrology following. Looks look better.
[2019-03-11] MEDS ORDERED: Communication Order-Pharmacy FS SCH (10:30)
--- NOTE | 2019-03-11 11:20 | CON ---
DATE OF CONSULTATION: HISTORY: Belinda Earl is a pleasant 64-year-old black female with end-stage renal disease, who presented to the [facility] with shortness of breath and was transferred here. She does state that in the , she underwent cardiac catheterization at [facility] and was told that she had some coronary artery disease, but apparently no intervention was performed. She has had multiple admissions here related to her renal failure. She is on home peritoneal dialysis, but has had problems with difficulty controlling volume and apparently will be switched over to hemodialysis. She presented to [facility] on March 10, 2019, with increased shortness of breath. She had chest x-ray findings consistent with pulmonary edema and she had acute hypoxic respiratory failure and was placed on BiPAP. She was given 90 mg of Lovenox, and aspirin, Lasix 40 mg IV, and started on nitroglycerin drip. Initial EKG showed a heart rate of 156 per minute, probable atrial fibrillation. Followup EKG showed sinus rhythm with PACs. She has had elevated troponin-I and Cardiology consultation was requested. She denies any chest discomfort with any of this episode. She also denied any palpitations. She has undergone hemodialysis for volume removal and has had improvement in her symptoms. PAST MEDICAL HISTORY: Coronary artery disease from catheterization in the at [facility]; hypertension; hyperlipidemia; diastolic heart failure; history of TIA; obesity; end-stage renal disease, on peritoneal dialysis, switching to hemodialysis; hyperparathyroidism; diabetes; and hidradenitis suppurativa. PAST SURGICAL HISTORY: Appendectomy, hysterectomy, tubal ligation, peritoneal dialysis catheter placement, inguinal hidradenitis excision. MEDICATIONS: 1. Aspirin 81 daily. 2. Atorvastatin 20 mg daily. 3. Carvedilol 12.5 b.i.d. 4. Sensipar 30 mg daily. 5. Lexapro 5 mg daily. 6. Hydralazine 50 t.i.d. 7. [place] p.r.n. 8. Tresiba sliding scale t.i.d. 9. Pantoprazole 40 daily. 10. Phenergan 25 mg q.6 hours p.r.n. 11. Renvela 800 mg t.i.d. 12. Januvia 25 mg daily. 13. Trazodone 50 at bedtime. ALLERGIES: BACTRIM, CEPHALEXIN, AND POTASSIUM. SOCIAL HISTORY: She does not smoke or drink. REVIEW OF SYSTEMS: A 12-point review of systems is otherwise unremarkable. PHYSICAL EXAMINATION: VITAL SIGNS: Blood pressure 143/80, pulse of 84 (nitroglycerin drip has been weaned and discontinued). HEENT: PERRL. NECK: Supple. CHEST: Fairly clear. CARDIAC: S1 and S2 are normal without any S3, S4, or murmurs. ABDOMEN: Normal bowel sounds without tenderness or organomegaly. EXTREMITIES: Reveal 1+ pretibial edema. NEUROLOGIC: Grossly intact. SKIN: Warm and dry. LABORATORY DATA: EKG on presentation in [place] revealed atrial fibrillation with rate of 156 per minute. EKG here reveals sinus rhythm with premature atrial complexes, nonspecific ST and T-wave changes. Echocardiogram revealed moderate concentric left ventricular hypertrophy with ejection fraction of 65% to 70%, moderate left atrial enlargement, mild mitral regurgitation, aortic valvular sclerosis. Hemoglobin 8.3, hematocrit 26.2, white count 11,700, platelets 243, 000. INR 1.3. Sodium 139, potassium 4.2, chloride 100, carbon dioxide 25, BUN 54, creatinine 9.95. CK-MB 9.5, troponin-I is up to 3.340. TSH is normal. AST 69 , ALT 36, alkaline phosphatase 422. IMPRESSION: 1. Probable dqa-TO-[id number] myocardial infarction, type 1, although this certainly could be type 2. She did not have any chest discomfort, but has history of diabetes. 2. History of coronary artery disease from catheterization in the . 3. Acute hypoxic respiratory failure, secondary to volume overload and diastolic heart failure. 4. End-stage renal disease, transitioning from peritoneal dialysis to hemodialysis. 5. Atrial fibrillation on presentation in [place], which since converted to sinus rhythm. 6. Possible pneumonia - chest x-ray reveals somewhat of a mid right lung infiltrate. This also could be due to pulmonary edema. 7. Anemia of chronic disease. 8. Hypertension. 9. Diabetes. 10. Hypercholesterolemia. PLAN: Fasting lipid profile will be performed. It is recommended that she undergo cardiac catheterization with her current troponin-I levels. Risks of catheterization were discussed with the patient including , myocardial infarction, dye reaction, vascular injury, CVA, transfusion, limb loss, etc. She already is on dialysis. Risks of intervention with stent placement were discussed including , myocardial infarction, emergent CABG, restenosis, stent thrombosis, vessel perforation, etc. With her chronic illnesses as well as chronic anemia, I would only place a bare-metal stent if needed. She has no history of gastrointestinal bleeding. Job ID: [id number] [facility] HOSPITALGuillermina
--- NOTE | 2019-03-11 11:51 | PRG ---
DATE OF SERVICE: 03/11/2019 SUBJECTIVE: A 64-year-old female is being seen for end-stage renal disease. The patient denied any nausea, vomiting, or chest pain. OBJECTIVE: See above. The patient is awake and alert. VITAL SIGNS: Afebrile, breathing 16, and blood pressure 151/61. GENERAL APPEARANCE AND MENTAL STATUS: Fair. HEAD/NECK: Normocephalic. Atraumatic. EYES: EOMI. No deformity. EARS: Clear. No ulcers. NOSE: Intact. No lesions. MOUTH: Clear. No discharge. THROAT: Clear. No exudate. LUNGS: Clear. No crackles. CARDIAC: S1, S2. No rub. ABDOMEN: Benign. Bowel sounds positive. GENITALIA/RECTUM: Childers absent. BACK/EXTREMITIES: Edema 0+. NEUROLOGICAL: Alert and motor intact. SKIN: LYMPHATICS: LABORATORY DATA: Labs reviewed. ASSESSMENT AND PLAN: 1. Stage 6 chronic kidney disease. Continue peritoneal dialysis. 2. Hypertension, stable. 3. Anemia, stable. 4. Modality changes. If the patient does not have any ultrafiltration with 2% solution, we will change to permanent hemodialysis. Job ID: [id number]
--- NOTE | 2019-03-11 14:46 | CON ---
DATE OF CONSULTATION: HISTORY OF PRESENT ILLNESS: Ms. Earl is a 64-year-old female. She presented with complaints of shortness of breath. She had originally presented at [facility]. She had pulmonary edema there and was placed on BiPAP. She was given Lovenox, aspirin, and Lasix, started on nitroglycerin and transferred here. She was noted to be in atrial fibrillation with a rate of 150 plus. Chest radiograph showed pulmonary edema. She is a peritoneal dialysis patient. Her gospel worker, Dr. Mensah, has been made aware of her presence. She says she feels 100% better. PAST MEDICAL HISTORY: 1. Remarkable for coronary artery disease. 2. Hypertension. 3. Lipid disorder. 4. History of TIA. 5. History of anemia of chronic disease. 6. History of [id number] NM in 2017. 7. End-stage renal disease, on peritoneal dialysis, failing this. 8. Hyperparathyroidism, secondary. Secondary to renal failure. 9. Diabetes. 10. History of an appendectomy. 11. History of hidradenitis surgery. 12. History of a hysterectomy. 13. History of vascular access procedures in the past. SOCIAL HISTORY: Nonsmoker, nondrinker, and nondrug user. FAMILY HISTORY: Negative for lung disease in early age. She says she feels great, feels like she is back to her baseline. PHYSICAL EXAMINATION: GENERAL: She is in no distress. VITAL SIGNS: Blood pressure 114/64, heart rate 82, respiratory rate is 20, oximetry is 100% on room air. HEENT: Pupils are equal. Sclerae are anicteric. She has a left exotropia. NECK: Supple. No lymphadenopathy. LUNGS: Remarkable for fine crackles at her bases. HEART: Regular rhythm. S1 and S2 are normal. ABDOMEN: Soft and nontender. EXTREMITIES: Without clubbing, cyanosis, or edema. IMPRESSION: Volume overload, failing peritoneal dialysis, resolved with hemodialysis. She has been worked up for vascular access placement. She is stable at this time and back to her baseline on room air per her report. Job ID: [id number]
[2019-03-11] MEDS: HumaLOG 300 UNITS/3 ML VIAL SC PRN ×2 (17:29→22:30)
[2019-03-11] MEDS ORDERED: Vancomycin HCl 1 GM in Premix Bag 1 BAG IVPB SCH (23:15)
[2019-03-12] MEDS: Acetaminophen 325 MG TAB PO PRN (06:05)
[2019-03-12] MEDS: Carvedilol 6.25 MG TAB PO SCH ×2 (06:05→17:46)
[2019-03-12] MEDS ORDERED: Lidocaine 1% (PF) 30 ML VIAL ONE (06:33)
[2019-03-12] MEDS ORDERED: Heparin 10,000 UNITS/1 ML VIAL ONE (06:33)
[2019-03-12] MEDS ORDERED: Heparin (Artline) 1,000 ML ONE (06:33)
[2019-03-12 06:47] LABS: Cardiac Risk 3.5 (Less than 4.5)
[2019-03-12] MEDS ORDERED: Fentanyl 100 MCG/2 ML VIAL ONE (07:15)
[2019-03-12] MEDS ORDERED: Midazolam HCl 2 mg/2 ml Vial ONE (07:15)
[2019-03-12] MEDS ORDERED: Protamine Sulfate 50 MG/5 ML VIAL ONE (07:41)
[2019-03-12] MEDS ORDERED: Nitroglycerin 0.4 MG TAB (25 Tab Bottle) SL PRN (07:59)
[2019-03-12] MEDS ORDERED: Sodium Chloride 0.9% 200 ML IV PRN (07:59)
--- NOTE | 2019-03-12 08:14 | PRG ---
DATE OF SERVICE: 03/12/2019 SUBJECTIVE: Belinda Earl did well overnight. She had no complaints of shortness of breath. She was being peritoneal dialyzed when I evaluated earlier this morning. OBJECTIVE: VITAL SIGNS: Blood pressure is 146/76, heart rate is in the 80s, respiratory rates in the teens. She is on room air, oximetry is in the high 90s. LUNGS: Clear. HEART: Regular rhythm. ABDOMEN: Soft. IMPRESSION: Volume overload. Initially, was told that she was failing peritoneal dialysis, but it has been relayed to me that her peritoneal dialysis machine is malfunctioning, so this may have contributed to her shortness of breath. Rapid atrial fibrillation likely contributed to this as well. She has coronary artery disease. She is tentatively on the schedule until for cardiac catheterization. We will follow with the other physicians as long as she is in the Critical Care Unit. Job ID: [id number]
[2019-03-12] MEDS: hydrALAZINE 25 MG TAB PO SCH ×3 (09:37→21:00)
[2019-03-12] MEDS: Sevelamer Carbonate 800 MG TAB PO SCH ×3 (09:37→17:46)
[2019-03-12] MEDS ORDERED: Heparin 10,000 UNITS/ 10 ML VIAL ONE (10:00)
[2019-03-12] MEDS ORDERED: Aspirin 81 mg Enteric Coated Tablet PO SCH (10:15)
--- NOTE | 2019-03-12 12:11 | PRG ---
DATE OF SERVICE: 03/12/2019 SUBJECTIVE: A 64-year-old female being seen for end-stage renal disease. The patient denied any nausea, vomiting, chest pain. OBJECTIVE: GENERAL: The patient is awake and alert. VITAL SIGNS: Pulse 77, breathing 16, blood pressure 128/51. GENERAL APPEARANCE AND MENTAL STATUS: Fair. HEAD/NECK: Normocephalic. Atraumatic. EYES: EOMI. No deformity. EARS: Clear. No ulcers. NOSE: Intact. No lesions. MOUTH: Clear. No discharge. THROAT: Clear. No exudate. LUNGS: Clear. No crackles. CARDIAC: S1, S2. No rub. ABDOMEN: Benign. Bowel sounds positive. GENITALIA/RECTUM: Childers absent. BACK/EXTREMITIES: Edema 0+. NEUROLOGICAL: Alert and motor intact. SKIN: LYMPHATICS: LABORATORY DATA: Labs reviewed. ASSESSMENT AND PLAN: 1. Stage 6 chronic kidney disease. Plan hemodialysis. 2. Hypertension, stable. 3. Anemia, stable. 4. Medication based on GFR is appropriate. 5. Peritonitis. We will consult Infectious Disease and we will plan removal of catheter. Job ID: [id number]
--- NOTE | 2019-03-12 13:56 | CON ---
DATE OF CONSULTATION: 03/12/2019 REASON FOR CONSULTATION: Possible CAPD associated peritonitis. HISTORY OF PRESENT ILLNESS: A 64-year-old, familiar to me from prior visits, who has a history of type 2 diabetes, hidradenitis suppurativa, and end-stage renal disease, previously on peritoneal dialysis. Last admission was in January because of fever and hidradenitis. We felt that the hidradenitis was in remission, and antimicrobial therapy was discontinued at that time. Now, she presents with worsening dyspnea and signs of volume overload. She has been receiving hemodialysis since admission through a dialysis catheter in the groin, placed by Dr. Lovelace. We were asked to see the patient, because she had a positive culture from a PD fluid sample. Currently, Ms. Earl is not in distress. She denies any headaches. No change in visual symptoms. She is blind in the left eye. She has no sore throat. Mild dyspnea. No chest pain. No abdominal pain. She has had some dysuria lately and has had episodes of cystitis in the past. No joint symptoms or back pain. The patient denies any abdominal pain again. PAST MEDICAL HISTORY: Type 2 diabetes, end-stage renal disease, hidradenitis suppurativa, CHF, hypertension, coronary artery disease, blindness left eye due to glaucoma. PAST SURGICAL HISTORY: Appendectomy, dialysis, AV fistula placement in the left upper extremity which is nonfunctional, peritoneal dialysis placement which is still functional, prior hysterectomy. SOCIAL HISTORY: Never smoker. Lives with family in [place]. No alcoholic beverage use. She is not employed at this time. ALLERGIES: BACTRIM, CEPHALEXIN, LATEX, SULFA DRUGS. CURRENT MEDICATIONS: 1. Tylenol. 2. Ecotrin. 3. Coreg. 4. Apresoline. 5. Insulin. 6. Imdur. 7. Levofloxacin. PHYSICAL EXAMINATION: VITAL SIGNS: Temperature has been normal. Blood pressure 120/60, pulse 91. SKIN: Skin exam shows the groin Trialysis catheter. She has one area of breakdown of the skin in the thigh and in the left heel and in the right perineal area. Hyperkeratosis noted in the ankle. Peripheral IV access. HEENT: No lymphadenopathy. Dysconjugate eye movements. No light perception in left eye. She is able to count fingers in the right. Oral cavity with artificial dentures, otherwise normal. No jugular vein distention. LUNGS: Symmetric. Clear breath sounds. HEART: S1 and S2. Regular rate. Diminished heart sounds. Soft aortic murmur. [place] impulse is not displaced. ABDOMEN: Not distended, not tender, and no ascites. Peritoneal dialysis catheter with normal exit site appearance. No evidence of tunnel inflammatory change. EXTREMITIES: 1+ edema in the lower extremities. Pulses are diminished in dorsalis pedis. The patient is able to move all extremities equally. NEUROLOGIC: Sensory perception is intact. She is awake and oriented. Follows commands. Recall is normal. Speech appears to be normal. LABORATORY STUDIES: White cell count 17.8 and now 11.7, hemoglobin 9.4, platelets 317, with 89% neutrophils. Bilirubin 0.4, AST 69, ALT 36, alkaline phosphatase 42, albumin 2.5. Peritoneal fluid with 114 wbc's with predominance of lymphocytes. The peritoneal fluid culture with gram-positive delilah. This is in VersaTREK bottle only. ASSESSMENT: 1. Type 2 diabetes with end-stage renal disease, on peritoneal dialysis. 2. Volume overload, having been switched to hemodialysis through catheter for this admission. 3. Findings in the peritoneal dialysis fluid effluent with concern for peritonitis. DISCUSSION: The clinical exam and cell count in the PD fluid argue against peritonitis at this point in time. The organism retrieved is growing only in the VersaTREK bottle, which is the more nutritious fluid culture media, and could reflect contamination of the sample rather than a true pathogen. The patient has been given vancomycin, and we will go ahead and discontinue levofloxacin. Wait for final identification of the organism, probably we will not have to treat this finding. Job ID: [id number] [facility]
[2019-03-12] MEDS ORDERED: Iopamidol 370 76% 100 ML VIAL ONE (15:24)
[2019-03-12] MEDS ORDERED: Iopamidol 370 76% 50 ML VIAL FS ONE (15:24)
--- NOTE | 2019-03-12 16:36 | PDOC.HOSPP ---
- Subjective Subjective: Feels ok. No complaints. - Objective Vital Signs & Weight: Vital Signs (12 hours) Temp Pulse BP Pulse Ox 03/12/19 14:53 79 119/65 03/12/19 12:00 97.8 F 03/12/19 10:14 98 03/12/19 09:37 91 114/61 03/12/19 08:00 98.1 F 96 03/12/19 06:05 146/76 H Weight Admit Weight 210 lb Weight 218 lb 14.704 oz Most Recent Monitor Data Heart Rate from ECG 80 NIBP 119/65 NIBP BP-Mean 83 Respiration from ECG 12 SpO2 98 I&O: 03/11/19 03/12/19 03/13/19 06:59 06:59 06:59 Intake Total 440 445 320 Output Total 405 201 51 Balance 35 244 269 Result Diagrams: 03/11/19 03:38 03/11/19 03:38 Additional Labs: Accuchecks 03/12/19 03/12/19 03/11/19 11:22 06:15 22:27 POC Glucose 144 H 134 H 229 H 03/11/19 17:20 POC Glucose 249 H Hospitalist ROS - Medication Medications: Active Medications Generic Name Dose Route Start Last Admin Trade Name Freq PRN Reason Stop Dose Admin Acetaminophen 650 mg 03/10/19 18:47 03/12/19 06:05 Tylenol PO 650 mg Q4H PRN Administration Headache/Fever/Mild Pain (1-3) Carvedilol 12.5 mg 03/11/19 08:00 03/12/19 06:05 Coreg PO 12.5 mg BID-WM ANURAG Administration Hydralazine HCl 50 mg 03/10/19 21:00 03/12/19 14:53 Apresoline PO 50 mg TID ANURAG Administration Levofloxacin 500 mg/ Device 100 mls @ 100 mls/hr 03/12/19 16:00 03/12/19 16: 26 IVPB 100 mls Q2DAYS ANURAG Administration Insulin Human Lispro 0 units 03/10/19 18:56 03/11/19 22:30 Humalog SC 3 unit .MILD SLIDING SCALE PRN Administration Mild Correctional Scale Isosorbide Mononitrate 60 mg 03/12/19 09:00 03/12/19 09:42 Imdur PO 60 mg DAILY ANURAG Administration Sevelamer Carbonate 800 mg 03/11/19 08:00 03/12/19 11:16 Renvela PO 800 mg TID- ANURAG Administration - Exam General Appearance: NAD, awake alert Heart: RRR, no murmur, no gallops, no rubs, normal peripheral pulses Respiratory: CTAB, no wheezes, no rales, no ronchi, normal chest expansion, no tachypnea, normal percussion Gastrointestinal: soft, non-tender, non-distended, normal bowel sounds, no palpable masses, no hepatomegaly, no splenomegaly, no bruit Skin: normal turgor, no lesions, no rashes Musculoskeletal: normal tone, normal strength, no muscle wasting Psychiatric: normal affect, normal behavior Hosp A/P (1) Acute respiratory failure with hypoxia Code(s): J96.01 - ACUTE RESPIRATORY FAILURE WITH HYPOXIA Status: Acute (2) Myocardial infarction Code(s): I21.9 - ACUTE MYOCARDIAL INFARCTION, UNSPECIFIED Status: Acute Qualifiers: Myocardial infarction type: type 2 Qualified Code(s): I21.A1 - Myocardial infarction type 2 (3) Secondary hyperparathyroidism of renal origin Code(s): N25.81 - SECONDARY HYPERPARATHYROIDISM OF RENAL ORIGIN Status: Acute (4) CHF (congestive heart failure) Code(s): I50.9 - HEART FAILURE, UNSPECIFIED Status: Chronic (5) Volume overload Code(s): E87.70 - FLUID OVERLOAD, UNSPECIFIED Status: Acute (6) Chronic anemia Code(s): D64.9 - ANEMIA, UNSPECIFIED Status: Chronic (7) DM2 (diabetes mellitus, type 2) Status: Chronic Qualifiers: Diabetes mellitus nursing home insulin use: with adjunct faculty for medical terminology use Diabetes mellitus complication status: with kidney complications Diabetes mellitus complication detail: with chronic kidney disease Chronic kidney disease stage : stage 4 (severe) Qualified Code(s): E11.22 - Type 2 diabetes mellitus with diabetic chronic kidney disease; N18.4 - Chronic kidney disease, stage 4 (severe ); Z79.4 - adjunct faculty for medical terminology (current) use of insulin (8) HTN (hypertension) Code(s): I10 - ESSENTIAL (PRIMARY) HYPERTENSION Status: Chronic Qualifiers: Hypertension type: essential hypertension Qualified Code(s): I10 - Essential (primary) hypertension (9) Obesity (BMI 30.0-34.9) Code(s): E66.9 - OBESITY, UNSPECIFIED Status: Chronic (10) Atrial fibrillation with rapid ventricular response Code(s): I48.91 - UNSPECIFIED ATRIAL FIBRILLATION Status: Resolved - Plan Volume overload due to failure of PD. Converted to HD after catheter placed. Had resp failure and hypoxia which resulted in NSTEMI II. Baseline respiratory status now. Cardiology performed cath today. - No occlusive dz. Had episode of afib with RVR at outside ER. Converted to NSR. Did receive Lovenox at that time, but did not receive repeat dosing as she need the dialysis catheter placed. Subsequently converted to NSR. Nephrology following. Transfer to floor.
[2019-03-12] MEDS: Acetaminophen/Codeine 30-300mg Tablet PO PRN (21:01)
[2019-03-13] MEDS ORDERED: Loperamide HCl 2 MG CAP PO SCH (01:00)
[2019-03-13] MEDS: Acetaminophen/Codeine 30-300mg Tablet PO PRN ×2 (01:26→12:40)
[2019-03-13] MEDS ORDERED: Ondansetron PF 4 MG/2 ML Vial SLOW IVP PRN (05:42)
[2019-03-13] MEDS: Sevelamer Carbonate 800 MG TAB PO SCH ×3 (09:11→17:48)
[2019-03-13] MEDS: hydrALAZINE 25 MG TAB PO SCH ×3 (09:11→20:55)
[2019-03-13] MEDS: Aspirin 81 mg Enteric Coated Tablet PO SCH (09:11)
[2019-03-13] MEDS: Carvedilol 6.25 MG TAB PO SCH ×2 (09:11→17:48)
--- NOTE | 2019-03-13 12:38 | PRG ---
DATE OF SERVICE: 03/13/2019 SUBJECTIVE: This is a 64-year-old female being seen for end-stage renal disease. The patient denied any nausea, vomiting, chest pain. OBJECTIVE: CONSTITUTIONAL: The patient is awake and alert. VITAL SIGNS: Pulse 75, breathing 16, and blood pressure 130/70. GENERAL APPEARANCE AND MENTAL STATUS: Fair. HEAD/NECK: Normocephalic. Atraumatic. EYES: EOMI. No deformity. EARS: Clear. No ulcers. NOSE: Intact. No lesions. MOUTH: Clear. No discharge. THROAT: Clear. No exudate. LUNGS: Clear. No crackles. CARDIAC: S1, S2. No rub. ABDOMEN: Benign. Bowel sounds positive. GENITALIA/RECTUM: Childers absent. BACK/EXTREMITIES: Edema 0+. NEUROLOGICAL: Alert and motor intact. SKIN: LYMPHATICS: LABORATORY DATA: Labs reviewed. ASSESSMENT AND PLAN: Stage 6 chronic kidney disease, continue hemodialysis. Hypertension, stable. Anemia, stable. Access, we will have tunneled dialysis catheter and fistula on Friday. Job ID: [id number]
--- NOTE | 2019-03-13 15:19 | PDOC.HOSPP ---
- Subjective Encounter Date: 03/13/19 Encounter Time: 15:10 Subjective: f/u for dyspnea, volume overload, NSTEMI and initiation of HD. No new complaints. - Objective Vital Signs & Weight: Vital Signs (12 hours) Temp Pulse Pulse Pulse Resp BP BP 03/13/19 11:37 97.9 F 77 18 03/13/19 10:57 71 73 117/79 130/61 03/13/19 07:32 97.9 F 70 18 03/13/19 07:31 BP Pulse Ox 03/13/19 11:37 130/61 100 03/13/19 10:57 03/13/19 07:32 121/58 L 98 03/13/19 07:31 100 Weight Admit Weight 210 lb Weight 209 lb Most Recent Monitor Data Heart Rate from ECG 80 NIBP 112/63 NIBP BP-Mean 79 Respiration from ECG 13 SpO2 94 I&O: 03/12/19 03/13/19 03/14/19 06:59 06:59 06:59 Intake Total 445 690 Output Total 201 309 Balance 244 381 Result Diagrams: 03/11/19 03:38 03/11/19 03:38 Additional Labs: Accuchecks 03/13/19 03/13/19 03/13/19 10:44 05:32 00:02 POC Glucose 193 H 194 H 184 H 03/12/19 17:21 POC Glucose 148 H Microbiology 03/11/19 03:30 Buttock - Abscess Bacterial Culture - Final 03/11/19 03:30 Vulva - Abscess Bacterial Culture - Preliminary 03/11/19 03:30 Labia - Abscess Bacterial Culture - Preliminary 03/10/19 23:00 Peritoneal effluent Body Fluid Culture - Preliminary Gram Positive Rick Coagulase Neg Staphylococcus 02/12/19 11:57 Dialysate fluid Body Fluid Culture - Preliminary 02/11/19 21:48 Venous blood - Right Hand Blood Culture - Preliminary NO GROWTH AT 48 HOURS 02/11/19 21:47 Venous blood - Left Hand Blood Culture - Preliminary NO GROWTH AT 48 HOURS Laboratory Tests 02/12/19 02/13/19 02/14/19 05:47 04:30 02:44 WBC 12.1 H 11.7 H Hgb Phosphorus 7.0 H Magnesium Albumin 2.3 L 02/14/19 03/10/19 02:44 15:52 WBC 17.8 H Hgb 9.4 L Phosphorus Magnesium 1.8 Albumin EKG Reviewed by me: Yes (Tele - SR) Hospitalist ROS - Medication Medications: Active Medications Generic Name Dose Route Start Last Admin Trade Name Kendellq PRN Reason Stop Dose Admin Acetaminophen 650 mg 03/10/19 18:47 03/12/19 06:05 Tylenol PO 650 mg Q4H PRN Administration Headache/Fever/Mild Pain (1-3) Acetaminophen/Codeine Phosphate 1 tab 03/12/19 07:59 03/13/19 01:26 Tylenol #3 PO 1 tab Q4H PRN Administration Mild Pain (1-3) Acetaminophen/Codeine Phosphate 2 tab 03/12/19 07:59 03/13/19 12:40 Tylenol #3 PO 2 tab Q4H PRN Administration Moderate Pain (4-6) Aspirin 81 mg 03/13/19 09:00 03/13/19 09:11 Ecotrin PO 81 mg DAILY ANURAG Administration Carvedilol 12.5 mg 03/11/19 08:00 03/13/19 09:11 Coreg PO 12.5 mg BID-WM ANURAG Administration Hydralazine HCl 50 mg 03/10/19 21:00 03/13/19 09:11 Apresoline PO 50 mg TID ANURAG Administration Levofloxacin 500 mg/ Device 100 mls @ 100 mls/hr 03/12/19 16:00 03/12/19 16: 26 IVPB 100 mls Q2DAYS ANURAG Administration Insulin Human Lispro 0 units 03/10/19 18:56 03/11/19 22:30 Humalog SC 3 unit .MILD SLIDING SCALE PRN Administration Mild Correctional Scale Isosorbide Mononitrate 60 mg 03/12/19 09:00 03/13/19 09:12 Imdur PO 60 mg DAILY ANURAG Administration Ondansetron HCl 4 mg 03/13/19 05:42 03/13/19 06:15 Zofran SLOW IVP 4 mg DAILYPRN PRN Administration Nausea/Vomiting Sevelamer Carbonate 800 mg 03/11/19 08:00 03/13/19 12:40 Renvela PO 800 mg TID-WM ANURAG Administration - Exam General Appearance: NAD, awake alert Eye: PERRL, anicteric sclera ENT: normocephalic atraumatic, no oropharyngeal lesions Neck: supple, symmetric, no JVD, no thyromegaly Heart: RRR, no gallops, no rubs, normal peripheral pulses Respiratory: CTAB, no wheezes, no rales, no ronchi Gastrointestinal: soft, non-tender, non-distended, normal bowel sounds Extremities: no cyanosis, no clubbing Extremities - other findings: AV fistulas in bilat UE's Skin: normal turgor Neurological: cranial nerve grossly intact, no new deficit Musculoskeletal: normal tone Psychiatric: normal affect, A&O x 3 Hosp A/P (1) Acute respiratory failure with hypoxia Code(s): J96.01 - ACUTE RESPIRATORY FAILURE WITH HYPOXIA Status: Acute Plan: Resolved with HD and volume removal, currently on RA (2) Volume overload Code(s): E87.70 - FLUID OVERLOAD, UNSPECIFIED Status: Acute Plan: Secondary to ESRD, improved with initiation of HD (3) NSTEMI (non-ST elevated myocardial infarction) Code(s): I21.4 - NON-ST ELEVATION (NSTEMI) MYOCARDIAL INFARCTION Status: Acute Plan: Type II due to demand ischemia, continue ASA, Lipitor, Coreg, Nitrates (4) ESRD (end stage renal disease) on dialysis Code(s): N18.6 - END STAGE RENAL DISEASE; Z99.2 - DEPENDENCE ON RENAL DIALYSIS Status: Chronic Plan: HD initiated this admit, plan for tunneled HD catheter and AV fistula placement (5) HTN (hypertension) Code(s): I10 - ESSENTIAL (PRIMARY) HYPERTENSION Status: Chronic Qualifiers: Hypertension type: essential hypertension Qualified Code(s): I10 - Essential (primary) hypertension Plan: Continue current BP regimen, serial monitoring (6) Physical deconditioning Code(s): R53.81 - OTHER MALAISE Status: Chronic Plan: OOB with Cardiac rehab team - Plan continue antibiotics, PT/OT, social worker palliative care, out of bed/ambulate, DVT proph w/ SCDs Stable currently Continue HD per Renal service Plan for tunneled HD catheter/AV fistula 03/15 OOB with cardiac rehab AM lab: CBC
--- NOTE | 2019-03-13 18:09 | PDOC.CPN ---
- Subjective Date: 03/13/19 Time: 18:08 Interval history: Doing well. No new issues. Breathing better. - Review of Systems General: denies: fever/chills, weight/appetite/sleep changes, night sweats, fatigue Respiratory: denies: cough, congestion, shortness of breath, exercise intolerance Cardiovascular: denies: chest pain, palpitation, edema, paroxysmal nocturnal dyspnea, orthopnea Gastrointestinal: denies: nausea, vomiting, diarrhea, constipation, abd pain, GI bleeding Musculoskeletal: denies: pain, tenderness, stiffness, swelling, arthritis/ arthralgias Neurological: denies: numbness, syncope, seizure, weakness - Objective Allergies/Adverse Reactions: Allergies Allergy/AdvReac Type Severity Reaction Status Date / Time cephalexin Allergy Verified 03/10/19 22:32 latex Allergy Rash Verified 03/10/19 22:32 potassium Allergy Verified 03/10/19 22:32 sulfamethoxazole Allergy Verified 03/10/19 22:32 [From Bactrim] trimethoprim [From Bactrim] Allergy Verified 03/10/19 22:32 Visit Medications: Current Medications Acetaminophen (Tylenol) 650 mg PO Q4H PRN PRN Reason: Headache/Fever/Mild Pain (1-3) Last Admin: 03/12/19 06:05 Dose: 650 mg Acetaminophen/Codeine Phosphate (Tylenol #3) 1 tab PO Q4H PRN PRN Reason: Mild Pain (1-3) Last Admin: 03/13/19 01:26 Dose: 1 tab Acetaminophen/Codeine Phosphate (Tylenol #3) 2 tab PO Q4H PRN PRN Reason: Moderate Pain (4-6) Last Admin: 03/13/19 12:40 Dose: 2 tab Aspirin (Ecotrin) 81 mg PO DAILY [facility] Last Admin: 03/13/19 09:11 Dose: 81 mg Carvedilol (Coreg) 12.5 mg PO BID-[facility] Last Admin: 03/13/19 17:48 Dose: 12.5 mg Dextrose/Water (Dextrose 50%) 25 gm SLOW IVP PRN PRN PRN Reason: Hypoglycemia Glucagon (Glucagon) 1 mg IM PRN PRN PRN Reason: Hypoglycemia Hydralazine HCl (Apresoline) 50 mg PO TID [facility] Last Admin: 03/13/19 16:15 Dose: 50 mg Dextrose/Water (D5w) 1,000 mls @ 0 mls/hr IV .Q0M PRN PRN Reason: Hypoglycemia Levofloxacin 500 mg/ Device 100 mls @ 100 mls/hr IVPB Q2DAYS [facility] Last Admin: 03/12/19 16:26 Dose: 100 mls Insulin Human Lispro (Humalog) 0 units SC .MILD SLIDING SCALE PRN PRN Reason: Mild Correctional Scale Last Admin: 03/11/19 22:30 Dose: 3 unit Isosorbide Mononitrate (Imdur) 60 mg PO DAILY [facility] Last Admin: 03/13/19 09:12 Dose: 60 mg Miscellaneous Medication (Pharmacy To Dose) 1 each IVPB PRN PRN PRN Reason: Pharmacy to dose Nitroglycerin (Nitrostat) 0.4 mg SL Q5MIN PRN PRN Reason: Chest Pain Ondansetron HCl (Zofran) 4 mg SLOW IVP DAILYPRN PRN PRN Reason: Nausea/Vomiting Last Admin: 03/13/19 06:15 Dose: 4 mg Sevelamer Carbonate (Renvela) 800 mg PO TID-[facility] Last Admin: 03/13/19 17:48 Dose: 800 mg Vital Signs & Weight: Vital Signs Temp Pulse Pulse Pulse Resp BP BP 03/13/19 16:15 97.9 F 75 18 03/13/19 11:37 97.9 F 77 18 03/13/19 10:57 71 73 117/79 130/61 03/13/19 07:32 97.9 F 70 18 03/13/19 07:31 BP Pulse Ox 03/13/19 16:15 121/55 L 95 03/13/19 11:37 130/61 100 03/13/19 10:57 03/13/19 07:32 121/58 L 98 03/13/19 07:31 100 Admit Weight 210 lb Weight 209 lb - Physical Exam General: alert & oriented x3 HEENT: mucus membranes moist Neck: supple neck Cardiac: regular rate and rhythm, no murmur Lungs: clear to auscultation Neuro: grossly intact Abdomen: active bowel sounds, soft, non-tender Extremities: 1+ LE edema Skin: clear Musculoskeletal: no pain - Labs Result Diagrams: 03/11/19 03:38 03/11/19 03:38 Troponin/CKMB CK-MB (CK-2) 9.5 ng/mL (0-6.6) H* 03/10/19 15:52 Troponin I 3.340 ng/mL (< 0.028) H* 03/10/19 21:52 - Telemetry Sinus rhythms and dysrhythmias: sinus rhythm - Assessment/Plan Assessment/Plan: 1. NSTEMI, Type 2 [place] demand ischemia 2. Mild CAD 3. ESRD PLAN - Continue conservative therapy from cardiac perspective. - Will add statin to regimen.
[2019-03-13] MEDS: HumaLOG 300 UNITS/3 ML VIAL SC PRN (18:10)
[2019-03-13] MEDS: Atorvastatin Calcium 10 MG TAB PO SCH (20:56)
[2019-03-14 06:06] LABS: Band 1 % (5-11); Eosinophils 4 % (0-10); Hemoglobin 8.5 g/dL (12.0-16.0); Hypochromia SLIGHT = 6-15 cells (100X) (0-5/hpf); Lymphocytes 14 % (21-51); MDiff Complete? YES; Mean Corpuscular HGB CONC 30.8 g/dL (32.0-36.0); Mean Corpuscular Hemoglobin 27.6 pg (27.0-31.0); Mean Corpuscular Volume 89.4 fL (78.0-98.0); Mean Platelet Volume 8.4 fL (7.4-10.4); Monocytes 8 % (0-10); Neutrophil 73 % (42-75); Platelet Count 235 thou/uL (130-400); Platelet Morphology Comment Appears Adequate; RBC Distribution Width 13.6 % (11.5-14.5); Red Blood Cell (RBC) Count 3.07 mill/uL (4.20-5.40); White Blood Cell (WBC) Count 9.7 thou/uL (4.8-10.8)
[2019-03-14] MEDS: Carvedilol 6.25 MG TAB PO SCH ×2 (08:42→17:27)
[2019-03-14] MEDS: Aspirin 81 mg Enteric Coated Tablet PO SCH (08:43)
[2019-03-14] MEDS: hydrALAZINE 25 MG TAB PO SCH ×3 (08:43→21:11)
[2019-03-14] MEDS: Sevelamer Carbonate 800 MG TAB PO SCH ×3 (08:43→17:29)
[2019-03-14] MEDS ORDERED: Diltiazem 125 MG in Sodium Chloride 0.9% 100 ML IVPB SCH (09:30)
[2019-03-14] MEDS: Acetaminophen/Codeine 30-300mg Tablet PO PRN ×2 (11:51→23:52)
[2019-03-14] MEDS: HumaLOG 300 UNITS/3 ML VIAL SC PRN (11:53)
--- NOTE | 2019-03-14 13:49 | PRG ---
DATE OF SERVICE: 03/14/2019 SUBJECTIVE: This is a 64-year-old female being seen for end-stage renal disease. The patient denied nausea, vomiting or chest pain. OBJECTIVE: The patient is awake and alert. VITAL SIGNS: Pulse 76, breathing 16, blood pressure 113/56. GENERAL APPEARANCE AND MENTAL STATUS: Fair. HEAD/NECK: Normocephalic. Atraumatic. EYES: EOMI. No deformity. EARS: Clear. No ulcers. NOSE: Intact. No lesions. MOUTH: Clear. No discharge. THROAT: Clear. No exudate. LUNGS: Clear. No crackles. CARDIAC: S1, S2. No rub. ABDOMEN: Benign. Bowel sounds positive. GENITALIA/RECTUM: Childers absent. BACK/EXTREMITIES: Edema 0+. NEUROLOGICAL: Alert and motor intact. SKIN: LYMPHATICS: LABORATORY DATA: Labs reviewed. ASSESSMENT AND PLAN: 1. Stage 6 chronic kidney disease. Continue hemodialysis. 2. Hypertension, stable. 3. Anemia, stable. 4. Medication based on GFR appropriate. will be planned after Dr. Bronson's visit. Job ID: [id number]
--- NOTE | 2019-03-14 18:41 | PDOC.CPN ---
- Subjective Date: 03/14/19 Time: 18:40 Interval history: No new issues. - Review of Systems General: denies: fever/chills, weight/appetite/sleep changes, night sweats, fatigue Respiratory: denies: cough, congestion, shortness of breath, exercise intolerance Cardiovascular: denies: chest pain, palpitation, edema, paroxysmal nocturnal dyspnea, orthopnea Gastrointestinal: denies: nausea, vomiting, diarrhea, constipation, abd pain, GI bleeding Musculoskeletal: denies: pain, tenderness, stiffness, swelling, arthritis/ arthralgias Neurological: denies: numbness, syncope, seizure, weakness - Objective Allergies/Adverse Reactions: Allergies Allergy/AdvReac Type Severity Reaction Status Date / Time cephalexin Allergy Verified 03/10/19 22:32 latex Allergy Rash Verified 03/10/19 22:32 potassium Allergy Verified 03/10/19 22:32 sulfamethoxazole Allergy Verified 03/10/19 22:32 [From Bactrim] trimethoprim [From Bactrim] Allergy Verified 03/10/19 22:32 Visit Medications: Current Medications Acetaminophen (Tylenol) 650 mg PO Q4H PRN PRN Reason: Headache/Fever/Mild Pain (1-3) Last Admin: 03/12/19 06:05 Dose: 650 mg Acetaminophen/Codeine Phosphate (Tylenol #3) 1 tab PO Q4H PRN PRN Reason: Mild Pain (1-3) Last Admin: 03/13/19 01:26 Dose: 1 tab Acetaminophen/Codeine Phosphate (Tylenol #3) 2 tab PO Q4H PRN PRN Reason: Moderate Pain (4-6) Last Admin: 03/14/19 11:51 Dose: 2 tab Aspirin (Ecotrin) 81 mg PO DAILY [facility] Last Admin: 03/14/19 08:43 Dose: 81 mg Atorvastatin Calcium (Lipitor) 10 mg PO HS [facility] Last Admin: 03/13/19 20:56 Dose: 10 mg Carvedilol (Coreg) 12.5 mg PO BID-[facility] Last Admin: 03/14/19 17:27 Dose: 12.5 mg Dextrose/Water (Dextrose 50%) 25 gm SLOW IVP PRN PRN PRN Reason: Hypoglycemia Glucagon (Glucagon) 1 mg IM PRN PRN PRN Reason: Hypoglycemia Hydralazine HCl (Apresoline) 50 mg PO TID [facility] Last Admin: 03/14/19 15:10 Dose: 50 mg Dextrose/Water (D5w) 1,000 mls @ 0 mls/hr IV .Q0M PRN PRN Reason: Hypoglycemia Levofloxacin 500 mg/ Device 100 mls @ 100 mls/hr IVPB Q2DAYS [facility] Last Admin: 03/14/19 15:13 Dose: 100 mls Insulin Human Lispro (Humalog) 0 units SC .MILD SLIDING SCALE PRN PRN Reason: Mild Correctional Scale Last Admin: 03/14/19 11:53 Dose: 3 unit Isosorbide Mononitrate (Imdur) 60 mg PO DAILY [facility] Last Admin: 03/14/19 08:43 Dose: 60 mg Miscellaneous Medication (Pharmacy To Dose) 1 each IVPB PRN PRN PRN Reason: Pharmacy to dose Nitroglycerin (Nitrostat) 0.4 mg SL Q5MIN PRN PRN Reason: Chest Pain Ondansetron HCl (Zofran) 4 mg SLOW IVP DAILYPRN PRN PRN Reason: Nausea/Vomiting Last Admin: 03/13/19 06:15 Dose: 4 mg Sevelamer Carbonate (Renvela) 800 mg PO TID-[facility] Last Admin: 03/14/19 17:29 Dose: 800 mg Vital Signs & Weight: Vital Signs Temp Pulse Pulse Pulse Resp BP BP 03/14/19 17:27 147/66 H 03/14/19 15:10 78 03/14/19 15:04 97.8 F 78 16 03/14/19 12:00 97.7 F 76 13 03/14/19 11:10 78 75 131/63 03/14/19 08:43 76 03/14/19 08:42 122/59 L 03/14/19 08:30 03/14/19 08:27 97.5 F L 76 16 03/14/19 07:23 BP BP BP Pulse Ox 03/14/19 17:27 03/14/19 15:10 03/14/19 15:04 148/79 H 99 03/14/19 12:00 113/56 L 97 03/14/19 11:10 113/56 L 03/14/19 08:43 03/14/19 08:42 03/14/19 08:30 100 03/14/19 08:27 142/65 H 100 03/14/19 07:23 100 Admit Weight 210 lb Weight 207 lb - Physical Exam General: alert & oriented x3 HEENT: mucus membranes moist Neck: supple neck Cardiac: regular rate and rhythm Lungs: clear to auscultation Neuro: grossly intact Abdomen: active bowel sounds Extremities: no edema Skin: clear Musculoskeletal: no pain - Labs Result Diagrams: 03/14/19 04:37 03/11/19 03:38 Troponin/CKMB CK-MB (CK-2) 9.5 ng/mL (0-6.6) H* 03/10/19 15:52 Troponin I 3.340 ng/mL (< 0.028) H* 03/10/19 21:52 - Telemetry Sinus rhythms and dysrhythmias: sinus rhythm - Assessment/Plan Assessment/Plan: 1. NSTEMI, Type 2 [place] demand ischemia 2. Mild CAD 3. ESRD PLAN - Continue conservative therapy from cardiac perspective. - No new recs.
[2019-03-14] MEDS ORDERED: Promethazine HCl 25 MG/ML VIAL IM/IV PRN (20:02)
[2019-03-14] MEDS: Atorvastatin Calcium 10 MG TAB PO SCH (21:11)
[2019-03-14] MEDS: Ondansetron ODT 4 MG TAB PO PRN (21:11)
[2019-03-14] MEDS ORDERED: Doxycycline 100 MG CAP PO SCH (21:45)
[2019-03-15 05:22] LABS: #Eosinphils 0.5 thou/uL (0.0-0.7); #Lymphocytes 1.5 thou/uL (1.20-3.40); #Monocytes 1.1 thou/uL (0.11-0.59); #Neutrophils 8.1 thou/uL (1.40-6.50); %Basophils 0.1 % (0.0-1.0); %Eosinophils 4.4 % (0.0-10.0); %Monocytes 10.1 % (0.0-10.0); %Neutrophils 72.4 % (42.0-75.0); Hemoglobin 8.8 g/dL (12.0-16.0); Mean Corpuscular HGB CONC 31.4 g/dL (32.0-36.0); Mean Corpuscular Hemoglobin 27.5 pg (27.0-31.0); Mean Corpuscular Volume 87.7 fL (78.0-98.0); Mean Platelet Volume 9.2 fL (7.4-10.4); Platelet Count 206 thou/uL (130-400); RBC Distribution Width 13.4 % (11.5-14.5); Red Blood Cell (RBC) Count 3.21 mill/uL (4.20-5.40); White Blood Cell (WBC) Count 11.2 thou/uL (4.8-10.8)
[2019-03-15 05:28] LABS: Anion Gap 14 mmol/L (10-20); BUN (Urea Nitrogen) 27 mg/dL (9.8-20.1); Calc. Creatinine Clearance 13 mL/min (70-130); Calcium 8.3 mg/dL (7.8-10.44); Carbon Dioxide 25 mmol/L (23-31); Chloride 100 mmol/L (98-107); Estimated GFR-MDRD 8; Glucose 97 mg/dL (80-115); Potassium 4.8 mmol/L (3.5-5.1); Sodium 134 mmol/L (136-145)
--- NOTE | 2019-03-15 08:38 | PDOC.HOSPP ---
- Subjective Encounter Date: 03/14/19 Encounter Time: 10:00 Subjective: Patient seen and examined for resp failure. No CP. SOB improving. No new complaints. No overnight events - Objective Vital Signs & Weight: Vital Signs (12 hours) Temp Pulse Resp BP BP Pulse Ox 03/15/19 07:31 98.1 F 72 16 134/58 L 100 03/15/19 04:00 97.9 F 73 14 120/58 L 97 03/14/19 23:50 98.2 F 82 14 114/52 L 98 03/14/19 21:11 81 149/65 H Weight Admit Weight 210 lb Weight 214 lb 7 oz Most Recent Monitor Data Heart Rate from ECG 80 NIBP 112/63 NIBP BP-Mean 79 Respiration from ECG 13 SpO2 94 I&O: 03/14/19 03/15/19 03/16/19 06:59 06:59 06:59 Intake Total 770 720 Output Total 310 550 Balance 460 170 Result Diagrams: 03/15/19 04:26 03/15/19 04:26 Additional Labs: Accuchecks 03/15/19 03/14/19 03/14/19 06:03 20:22 16:30 POC Glucose 101 148 H 149 H 03/14/19 10:36 POC Glucose 203 H EKG Reviewed by me: Yes (Tele SR) Hospitalist ROS - Review of Systems Respiratory: denies: cough, dry, shortness of breath, hemoptysis, SOB with excertion, pleuritic pain, sputum, wheezing, other Cardiovascular: denies: chest pain, palpitations, orthopnea, paroxysmal noc. dyspnea, edema, light headedness, other - Medication Medications: Active Medications Generic Name Dose Route Start Last Admin Trade Name Freq PRN Reason Stop Dose Admin Acetaminophen 650 mg 03/10/19 18:47 03/12/19 06:05 Tylenol PO 650 mg Q4H PRN Administration Headache/Fever/Mild Pain (1-3) Acetaminophen/Codeine Phosphate 1 tab 03/12/19 07:59 03/13/19 01:26 Tylenol #3 PO 1 tab Q4H PRN Administration Mild Pain (1-3) Acetaminophen/Codeine Phosphate 2 tab 03/12/19 07:59 03/14/19 23:52 Tylenol #3 PO 2 tab Q4H PRN Administration Moderate Pain (4-6) Aspirin 81 mg 03/13/19 09:00 03/14/19 08:43 Ecotrin PO 81 mg DAILY ANURAG Administration Atorvastatin Calcium 10 mg 03/13/19 21:00 03/14/19 21:11 Lipitor PO 10 mg HS ANURAG Administration Carvedilol 12.5 mg 03/11/19 08:00 03/14/19 17:27 Coreg PO 12.5 mg BID-WM ANURAG Administration Hydralazine HCl 50 mg 03/10/19 21:00 03/14/19 21:11 Apresoline PO 50 mg TID ANURAG Administration Insulin Human Lispro 0 units 03/10/19 18:56 03/14/19 11:53 Humalog SC 3 unit .MILD SLIDING SCALE PRN Administration Mild Correctional Scale Isosorbide Mononitrate 60 mg 03/12/19 09:00 03/14/19 08:43 Imdur PO 60 mg DAILY ANURAG Administration Ondansetron HCl 4 mg 03/13/19 05:42 03/13/19 06:15 Zofran SLOW IVP 4 mg DAILYPRN PRN Administration Nausea/Vomiting Ondansetron HCl 4 mg 03/14/19 20:01 03/14/19 21:11 Zofran Odt PO 4 mg Q6H PRN Administration Nausea/Vomiting Sevelamer Carbonate 800 mg 03/11/19 08:00 03/14/19 17:29 Renvela PO 800 mg TID-WM ANURAG Administration - Exam General Appearance: NAD Heart: RRR, no gallops Respiratory: no rales, rhonchi Gastrointestinal: soft, non-distended Extremities: no cyanosis Neurological: no new deficit Hosp A/P - Plan Acute hypoxic resp failure s/p NIPPV / Volume overload Acute on chronic systolic / diastolic HF - EF 45% NSTEMI CAD ESRD on PD - started on HD Obesity BMI 34.6 HTN PLAN: NPO past MN for possible dialysis catheter Dialysis per Nephrology Cont ASA/Hydralazine/Nitrates/Coreg DC Levaquin
--- NOTE | 2019-03-15 11:35 | PRG ---
DATE OF SERVICE: 03/15/2019 SUBJECTIVE: Patient was seen and examined at bedside and overnight events noted. Patient denies any shortness of breath or chest pain or palpitation. No history of nausea or vomiting or diarrhea or fever or chills or cramps. OBJECTIVE: GENERAL: This is a well-built female, in no apparent distress. VITAL SIGNS: Temperature 98.1. Heart rate 72. Respiratory rate 16. Blood pressure 134/58. HEENT: Atraumatic, normocephalic. Oral mucosa is moist NECK: Supple. CARDIOVASCULAR: S1, S2 heard. Rate and rhythm regular. RESPIRATORY: Clear to auscultation. GASTROINTESTINAL: Abdomen is soft. MUSCULOSKELETAL: No tenderness. No edema. DERMATOLOGIC: No skin rash. NEUROLOGIC: Alert and awake and oriented X3. No focal neurologic deficits. Moving all the extremities. PSYCHIATRIC: Mood and affect normal. LABORATORY DATA: Potassium is 4.8, BUN is 27, and creatinine is 6.6. ASSESSMENT AND PLAN: 1. End-stage renal disease. Continue dialysis as tolerated. 2. Hypertension, stable. 3. Anemia, stable. 4. Edema . The patient was seen during dialysis. The patient wants just a PD and PD is getting harder for her to do and also difficult access. I did contact Dr. Bronson and plan is to remove PD catheter and place tunneled dialysis catheter with a fistula or graft. The patient did have difficult access in the past and multiple failed accesses in the past. Dr. Bronson is aware and is going to check on it. We will continue hemodialysis as tolerated. A Case Management consult for outpatient placement. Job ID: [id number]
[2019-03-15] MEDS: Sevelamer Carbonate 800 MG TAB PO SCH ×3 (12:46→17:14)
[2019-03-15] MEDS: Carvedilol 6.25 MG TAB PO SCH ×2 (12:46→17:14)
[2019-03-15] MEDS: Doxycycline 100 MG CAP PO SCH ×2 (12:47→20:10)
[2019-03-15] MEDS: Aspirin 81 mg Enteric Coated Tablet PO SCH (12:47)
[2019-03-15] MEDS: hydrALAZINE 25 MG TAB PO SCH ×3 (12:48→20:25)
[2019-03-15] MEDS: Acetaminophen/Codeine 30-300mg Tablet PO PRN (12:53)
--- NOTE | 2019-03-15 15:26 | ULT ---
UPPER EXTREMITY VASCULAR MAPPING ULTRASOUND: DATE: 03/15/2019. HISTORY: Vascular mapping requested for dialysis access, end-stage renal disease. TECHNIQUE: Multiplanar grayscale sonographic imaging of the vascular structures of bilateral upper extremities o btained as detailed below. FINDINGS: There is a thrombosed dialysis access within bilateral upper extremities above the elbow. VESSEL DIAMETER (MM) Right brachial artery 4 Right radial artery 0.5 Right ulnar artery 0.9 Left brachial artery 3.4 Left radial artery 2.1 Left ulnar artery 1.6 The internal jugular vein and the axillary vein are patent bilaterally. Bilateral subclavian veins ar e patent. Left axillary vein measures 4.6 mm in diameter. RIGHT CEPHALIC VEIN: Above elbow proximal 1.3 mm Mid elbow 1.6 mm Elbow distal 1.1 mm At elbow 2.8 mm Below elbow proximal 2.0 mm Below elbow mid 1.2 mm Below elbow distal 0.8 mm RIGHT BASILIC VEIN: Above elbow proximal 2.6 mm Mid elbow 2.3 mm Elbow distal 1.7 mm At elbow 1.5 mm Below elbow proximal 0.5 mm Below elbow mid 1.5 mm Below elbow distal 1.0 mm LEFT BASILIC VEIN: Above elbow proximal 2.8 mm Mid elbow 1.6 mm Elbow distal 1.4 mm At elbow 3.1 mm Below elbow proximal 2.4 mm Below elbow mid 1.6 mm Below elbow distal 1.3 mm LEFT CEPHALIC VEIN: Above elbow proximal 1.9 mm Mid elbow 2.1 mm Elbow distal 1.2 mm At elbow 1.9 mm Below elbow proximal 1.6 mm Below elbow mid 1.5 mm Below elbow distal 1.2 mm IMPRESSION: Upper extremity vascular mapping as detailed above. Transcribed Date/Time: 03/15/2019 4:04 PM
--- NOTE | 2019-03-15 15:49 | CON ---
DATE OF CONSULTATION: HISTORY OF PRESENT ILLNESS: Belinda Earl is a 64-year-old female, who is on peritoneal dialysis, but inadequately dialyzed. She this hospitalization has had a temporary femoral vein dialysis catheter placed to initiate hemodialysis. Apparently, she was having problems dialyzing at home using peritoneal dialysis. I have been asked to see her today regarding permanent dialysis access. She has had a Leandra fistula in the right arm. She has had a proximal right arm fistula, but had stenosis in her cephalic vein and had a prosthetic graft placed on the right. This has since thrombosed. I placed a left arm fistula and that thrombosed. She was referred to [facility]. They placed a left upper arm dialysis graft, inflow brachial artery above the antecubital fossa, outflow brachial vein upper medial arm, but this thrombosed. Then, we proceeded with peritoneal dialysis. At this point, she has had hemodialysis catheters in both IJs. Recent ultrasound vein mapping in both arms has been obtained. She has had a PICC line in 2013, when her creatinine was 1.9, placed. Plan at this time is to perform left axillary vein ultrasound evaluation as that was not reported on her ultrasound vein mapping. Consideration of left upper arm graft could be given. Also consideration is a HERO graft. To consider her for this, we would need to obtain a contrast venogram of both internal jugular veins to see which might be patent with outflow to support a HERO graft. We would recommend that we resume her diet today, obtain the studies described, and make plans to place a cuffed tunneled hemodialysis catheter, which might require to be replaced into the thigh depending on the vein patency and consideration of a left upper arm graft or a HERO graft. The patient this hospitalization had an NSTEMI type 2 from demand ischemia. She had a cardiac cath with mild coronary artery disease and plan was to treat her conservatively. No other cardiac interventional procedures were planned. ALLERGIES: CEPHALEXIN, LATEX, POTASSIUM, SULFA. HABITS: Tobacco, none. Alcohol, none. MEDICATIONS AT HOME: 1. Trazodone 50 at bedtime. 2. Renvela 800 mg t.i.d. with meals. 3. Phenergan p.r.n. 4. Protonix 40 mg daily. 5. Insulin 20 units subcu daily and 5 units subcu t.i.d. insulin NovoLog. 6. Hydrocodone p.r.n. t.i.d. 7. Atorvastatin. 8. Lexapro. PAST SURGICAL HISTORY: 1. Multiple dialysis access as noted above. 2. Hysterectomy. 3. Infraumbilical midline incision. 4. Bilateral salpingo-oophorectomy. 5. Right arm fistula. 6. Right arm graft. 7. Left arm graft. 8. Hemodialysis catheter placement. PAST MEDICAL HISTORY: 1. End-stage renal disease. 2. Obesity. 3. Anemia. 4. Hypertension. 5. Insulin-dependent diabetes mellitus. 6. Coronary artery disease. 7. Recent NSTEMI. REVIEW OF SYSTEMS: Noncontributory. PHYSICAL EXAMINATION: VITAL SIGNS: Height 5 foot 6 inches, 314 pounds, 34 BMI, temperature 98.3 degrees, heart rate 78, and blood pressure 145/66. HEAD, EARS, EYES, NOSE, AND THROAT: Unremarkable. LUNGS: Clear to auscultation. CARDIAC: Regular rate and rhythm without murmur or gallop. ABDOMEN: Soft and nontender. Peritoneal dialysis catheter in place in the left lower quadrant. EXTREMITIES: Thrombosed graft, right upper arm. Thrombosed graft left upper arm with outflow proximal brachial vein. No axillary incision. Prior hidradenitis suppurativa resection scars. Palpable radial pulses. Good hand function. LABORATORY DATA: Sodium 134, potassium 4.8, BUN 27, creatinine 6.67, and GFR 8. White count 11 and hemoglobin 8. ASSESSMENT: Thrombosed grafts, peritoneal dialysis dependent, now hemodialysis dependent on a temporary hemodialysis femoral catheter. PLAN: Studies as outlined above and make further recommendations pending these studies. Remove her peritoneal dialysis this hospitalization. Job ID: [id number]
[2019-03-15] MEDS: HumaLOG 300 UNITS/3 ML VIAL SC PRN (17:58)
--- NOTE | 2019-03-15 18:25 | PDOC.HOSPP ---
- Subjective Encounter Date: 03/15/19 Encounter Time: 18:22 Subjective: Patient seen and examined for NSTEMI. No CP. Feels better. No new complaints. No overnight events - Objective Vital Signs & Weight: Vital Signs (12 hours) Temp Pulse Resp BP BP Pulse Ox 03/15/19 17:14 118/59 L 03/15/19 15:39 98.1 F 76 17 112/55 L 99 03/15/19 14:33 75 102/50 L 03/15/19 12:46 145/66 H 03/15/19 12:44 98.3 F 78 16 145/66 H 100 03/15/19 07:31 98.1 F 72 16 134/58 L 100 Weight Admit Weight 210 lb Weight 214 lb 7 oz Most Recent Monitor Data Heart Rate from ECG 80 NIBP 112/63 NIBP BP-Mean 79 Respiration from ECG 13 SpO2 94 I&O: 03/14/19 03/15/19 03/16/19 06:59 06:59 06:59 Intake Total 770 720 Output Total 310 550 Balance 460 170 Result Diagrams: 03/15/19 04:26 03/15/19 04:26 Additional Labs: Accuchecks 03/15/19 03/15/19 03/15/19 17:02 09:55 06:03 POC Glucose 157 H 96 101 03/14/19 20:22 POC Glucose 148 H EKG Reviewed by me: Yes (Tele SR) Hospitalist ROS - Review of Systems Respiratory: reports: SOB with excertion. denies: cough, dry, shortness of breath, hemoptysis, pleuritic pain, sputum, wheezing, other Cardiovascular: denies: chest pain, palpitations, orthopnea, paroxysmal noc. dyspnea, edema, light headedness, other - Medication Medications: Active Medications Generic Name Dose Route Start Last Admin Trade Name Freq PRN Reason Stop Dose Admin Acetaminophen 650 mg 03/10/19 18:47 03/12/19 06:05 Tylenol PO 650 mg Q4H PRN Administration Headache/Fever/Mild Pain (1-3) Acetaminophen/Codeine Phosphate 1 tab 03/12/19 07:59 03/13/19 01:26 Tylenol #3 PO 1 tab Q4H PRN Administration Mild Pain (1-3) Acetaminophen/Codeine Phosphate 2 tab 03/12/19 07:59 03/15/19 12:53 Tylenol #3 PO 2 tab Q4H PRN Administration Moderate Pain (4-6) Aspirin 81 mg 03/13/19 09:00 03/15/19 12:47 Ecotrin PO 81 mg DAILY ANURAG Administration Atorvastatin Calcium 10 mg 03/13/19 21:00 03/14/19 21:11 Lipitor PO 10 mg HS ANURAG Administration Carvedilol 12.5 mg 03/11/19 08:00 03/15/19 17:14 Coreg PO 12.5 mg BID-WM ANURAG Administration Doxycycline Hyclate 100 mg 03/15/19 09:00 03/15/19 12:47 Vibramycin PO 100 mg BID ANURAG Administration Hydralazine HCl 50 mg 03/10/19 21:00 03/15/19 14:33 Apresoline PO Not Given TID [facility] Insulin Human Lispro 0 units 03/10/19 18:56 03/15/19 17:58 Humalog SC 2 unit .MILD SLIDING SCALE PRN Administration Mild Correctional Scale Isosorbide Mononitrate 60 mg 03/12/19 09:00 03/15/19 12:47 Imdur PO 60 mg DAILY ANURAG Administration Ondansetron HCl 4 mg 03/13/19 05:42 03/13/19 06:15 Zofran SLOW IVP 4 mg DAILYPRN PRN Administration Nausea/Vomiting Ondansetron HCl 4 mg 03/14/19 20:01 03/14/19 21:11 Zofran Odt PO 4 mg Q6H PRN Administration Nausea/Vomiting Sevelamer Carbonate 800 mg 03/11/19 08:00 03/15/19 17:14 Renvela PO 800 mg TID-WM ANURAG Administration - Exam General Appearance: NAD Neck: supple, no JVD Heart: RRR, no gallops Respiratory: CTAB, no rales Gastrointestinal: soft, non-distended Hosp A/P - Plan DVT proph w/SCDs Acute hypoxic resp failure s/p NIPPV / Volume overload Acute on chronic systolic / diastolic HF - EF 45% NSTEMI CAD Transient Afib at [place] - not a candidate for anticoag per Cardiology ESRD on PD - started on HD Obesity BMI 34.6 HTN HLD PLAN: Vein mapping today Cardiac Rehab Cont ASA Cont Hydralazine/Nitrates/Coreg Dialysis per Nephrology
[2019-03-15] MEDS: Atorvastatin Calcium 10 MG TAB PO SCH (20:10)
[2019-03-16] MEDS: Carvedilol 6.25 MG TAB PO SCH ×2 (07:19→16:49)
[2019-03-16] MEDS: Sevelamer Carbonate 800 MG TAB PO SCH ×3 (07:19→16:49)
--- NOTE | 2019-03-16 08:31 | PRG ---
DATE OF SERVICE: 03/16/2019 SUBJECTIVE: Patient was seen and examined at bedside and overnight events noted. Patient denies any shortness of breath or chest pain or palpitation. No history of nausea or vomiting or diarrhea or fever or chills or cramps. OBJECTIVE: GENERAL: This is a well developed female in no apparent distress. VITAL SIGNS: Temperature 98.3. Heart rate 74. Respiratory rate 18. Blood pressure 152/63. HEENT: Atraumatic, normocephalic. Oral mucosa is moist NECK: Supple. CARDIOVASCULAR: S1, S2 heard. Rate and rhythm regular. RESPIRATORY: Clear to auscultation. GASTROINTESTINAL: Abdomen is soft. MUSCULOSKELETAL: No tenderness. No edema. DERMATOLOGIC: No skin rash. NEUROLOGIC: Alert and awake and oriented X3. No focal neurologic deficits. Moving all the extremities. PSYCHIATRIC: Mood and affect normal. LABORATORY DATA: Not done today. ASSESSMENT AND PLAN: 1. End-stage renal disease. Continue dialysis Friday, Friday, Friday. 2. Edema, controlled. 3. Hypertension. 4. History of anemia. 5. Dialysis access issues. The patient is switching from peritoneal dialysis to hemodialysis. Plan is to remove peritoneal dialysis catheter plus place a tunneled dialysis catheter. The patient did have multiple failed grafts and fistulas in the past and we will defer to surgery. Prognosis guarded. We will continue on dialysis as tolerated. Job ID: [id number]
[2019-03-16] MEDS: Aspirin 81 mg Enteric Coated Tablet PO SCH (09:57)
[2019-03-16] MEDS: Doxycycline 100 MG CAP PO SCH ×2 (09:57→21:11)
[2019-03-16] MEDS: hydrALAZINE 25 MG TAB PO SCH ×3 (09:57→21:10)
[2019-03-16] MEDS ORDERED: Polyethylene Glycol 3350 17 GM Packet PO SCH (10:45)
[2019-03-16] MEDS ORDERED: Heparin 10,000 UNITS/ 10 ML VIAL ONE (11:11)
[2019-03-16] MEDS: HumaLOG 300 UNITS/3 ML VIAL SC PRN ×2 (12:39→16:46)
[2019-03-16] MEDS ORDERED: Iopamidol 300 61% 50 ML VIAL FS ONE (13:35)
--- NOTE | 2019-03-16 14:39 | SPC ---
EXAM: SPC INJECTION FOR VENORGRAPHY PROVIDED CLINICAL HISTORY: End-stage renal disease. Evaluate patency of the internal jugular veins. COMPARISON: None Fluoroscopy: Total fluoroscopy time is 0.3 minutes with total dose of 19,808 mGy centimeter squared TECHNIQUE: After informed consent was obtained, the patient was placed on the angiography table in the supine po sition. Limited sonographic evaluation of each internal jugular vein was performed which demonstrated normal luminal compressibility of each internal jugular vein. The left neck was meticulously prepped and draped in usual sterile fashion. Skin and subcutaneous tis sues were infiltrated with buffered 1% lidocaine for local anesthesia. Utilizing concurrent real time ultrasound guidance, the left internal jugular vein was accessed utilizing micropuncture techniq ue, and a 4 Polish introducer sheath was placed. Venography was performed. The introducer sheath was removed, and hemostasis was achieved with direct pressure. Dry sterile dressing was placed. The right neck was then meticulously prepped and draped in usual sterile fashion. Skin and subcutaneo us tissues were infiltrated with buffered 1% lidocaine for local anesthesia. Utilizing concurrent real time ultrasound guidance, the right internal jugular vein was accessed utilizing micropuncture t echnique, and a 4 Polish introducer sheath was placed. Venography was performed. The introducer sheath was removed, and hemostasis was achieved with direct pressure. Dry sterile dressing was placed . The patient tolerated the procedure well and without immediate complication. IMPRESSION: 1. Focal moderate to severe narrowing involving the distal right internal jugular vein. 2. Mild narrowing involving the distal aspect of the left internal jugular vein. 3. Patent left innominate vein and patent SVC.
--- NOTE | 2019-03-16 14:39 | PRG ---
DATE OF SERVICE: 03/16/2019 Belinda Earl is doing well today. She had bilateral contrast studies of internal jugular veins and they are open and patent. She has a large collateral on the right. Repeat ultrasound of left axilla reveals adequate size axillary vein, previous graft left arm placed in the mid brachial vein. Plan at this time is as requested by Nephrology, removal of her PD catheter, left upper arm dialysis graft, and placement of a hemodialysis catheter. These procedures were reviewed with the patient. Questions answered. We will plan this tomorrow. Job ID: [id number]
--- NOTE | 2019-03-16 14:42 | PRG ---
DATE OF SERVICE: 03/16/2019 Belinda Earl's planned operation was discussed with lap runner, Dr. Chevy Boyle. The patient has had a non-STEMI, normal echocardiogram, minimal mitral regurgitation with cardiac catheterization with disease. Plan to treat medically. I have discussed with Dr. Boyle, who states she is stable to undergo the planned operative procedure. We will see her as needed. Job ID: [id number]
--- NOTE | 2019-03-16 20:18 | PDOC.HOSPP ---
- Subjective Encounter Date: 03/16/19 Encounter Time: 12:00 Subjective: Patient seen and examined for Resp failure. Feeling better. No fever/CP/N/V. No new complaints. No overnight events - Objective Vital Signs & Weight: Vital Signs (12 hours) Temp Pulse Resp BP BP Pulse Ox 03/16/19 19:39 98.0 F 79 16 109/53 L 99 03/16/19 16:49 102/50 L 03/16/19 15:33 98.2 F 73 17 99/50 L 100 03/16/19 14:05 71 122/58 L 03/16/19 12:37 98.5 F 72 16 124/58 L 100 03/16/19 09:57 69 145/67 H Weight Admit Weight 214 lb 1.102 oz Weight 212 lb 11.937 oz Most Recent Monitor Data Heart Rate from ECG 80 NIBP 112/63 NIBP BP-Mean 79 Respiration from ECG 13 SpO2 94 I&O: 03/15/19 03/16/19 03/17/19 06:59 06:59 06:59 Intake Total 720 720 Output Total 550 220 100 Balance 170 500 -100 Result Diagrams: 03/15/19 04:26 03/15/19 04:26 Additional Labs: Accuchecks 03/16/19 03/16/19 03/16/19 16:41 12:39 05:39 POC Glucose 237 H 165 H 137 H 03/15/19 20:12 POC Glucose 157 H EKG Reviewed by me: Yes (Tele SR) Hospitalist ROS - Review of Systems Respiratory: denies: cough, dry, shortness of breath, hemoptysis, SOB with excertion, pleuritic pain, sputum, wheezing, other Cardiovascular: denies: chest pain, palpitations, orthopnea, paroxysmal noc. dyspnea, edema, light headedness, other - Medication Medications: Active Medications Generic Name Dose Route Start Last Admin Trade Name Freq PRN Reason Stop Dose Admin Acetaminophen 650 mg 03/10/19 18:47 03/12/19 06:05 Tylenol PO 650 mg Q4H PRN Administration Headache/Fever/Mild Pain (1-3) Acetaminophen/Codeine Phosphate 1 tab 03/12/19 07:59 03/13/19 01:26 Tylenol #3 PO 1 tab Q4H PRN Administration Mild Pain (1-3) Acetaminophen/Codeine Phosphate 2 tab 03/12/19 07:59 03/15/19 12:53 Tylenol #3 PO 2 tab Q4H PRN Administration Moderate Pain (4-6) Aspirin 81 mg 03/13/19 09:00 03/16/19 09:57 Ecotrin PO 81 mg DAILY ANURAG Administration Atorvastatin Calcium 10 mg 03/13/19 21:00 03/15/19 20:10 Lipitor PO 10 mg HS ANURAG Administration Carvedilol 12.5 mg 03/11/19 08:00 03/16/19 16:49 Coreg PO 12.5 mg BID-WM ANURAG Administration Doxycycline Hyclate 100 mg 03/15/19 09:00 03/16/19 09:57 Vibramycin PO 100 mg BID ANURAG Administration Hydralazine HCl 50 mg 03/10/19 21:00 03/16/19 14:05 Apresoline PO 50 mg TID ANURAG Administration Insulin Human Lispro 0 units 03/10/19 18:56 03/16/19 16:46 Humalog SC 3 unit .MILD SLIDING SCALE PRN Administration Mild Correctional Scale Isosorbide Mononitrate 60 mg 03/12/19 09:00 03/16/19 10:00 Imdur PO 60 mg DAILY ANURAG Administration Ondansetron HCl 4 mg 03/13/19 05:42 03/13/19 06:15 Zofran SLOW IVP 4 mg DAILYPRN PRN Administration Nausea/Vomiting Ondansetron HCl 4 mg 03/14/19 20:01 03/14/19 21:11 Zofran Odt PO 4 mg Q6H PRN Administration Nausea/Vomiting Sevelamer Carbonate 800 mg 03/11/19 08:00 03/16/19 16:49 Renvela PO 800 mg TID-WM ANURAG Administration - Exam General Appearance: NAD Neck: supple, no JVD Heart: RRR, no gallops Respiratory: CTAB, no rales Gastrointestinal: soft, non-distended Extremities: no cyanosis Hosp A/P - Plan DVT proph w/heparin, DVT proph w/SCDs Acute hypoxic resp failure s/p NIPPV / Volume overload Acute on chronic systolic / diastolic HF - EF 45% NSTEMI CAD Transient Afib at [place] - not a candidate for anticoag per Cardiology ESRD on PD - started on HD Obesity BMI 34.6 HTN HLD PLAN: Dialysis access in AM Cardiac Rehab Cont ASA/Coreg/Statins Cont Hydralazine/Nitrates Await outpt dialysis setup Cont other meds BMP in AM
[2019-03-16] MEDS ORDERED: Heparin 5,000 UNITS/ML VIAL SC SCH (21:00)
[2019-03-16] MEDS: Atorvastatin Calcium 10 MG TAB PO SCH (21:10)
[2019-03-16] MEDS: Senokot S 8.6-50 MG TAB PO SCH (21:10)
[2019-03-17 07:10] LABS: Anion Gap 15 mmol/L (10-20); BUN (Urea Nitrogen) 26 mg/dL (9.8-20.1); Calc. Creatinine Clearance 15 mL/min (70-130); Calcium 8.1 mg/dL (7.8-10.44); Carbon Dioxide 25 mmol/L (23-31); Chloride 100 mmol/L (98-107); Estimated GFR-MDRD 9; Glucose 154 mg/dL (80-115); Sodium 135 mmol/L (136-145)
[2019-03-17] MEDS ORDERED: Heparin 10,000 UNITS/ 10 ML VIAL ONE (09:00)
[2019-03-17] MEDS: Acetaminophen 325 MG TAB PO PRN (09:53)
[2019-03-17] MEDS ORDERED: Bupivacaine HCl 0.5%/Epinephrine 1:200,000/PF 30 ml Vial ONE ×3 (09:54→15:35)
[2019-03-17] MEDS ORDERED: ePHEDrine/0.9% NaCl/PF SYRINGE 50 mg/10 ml ONE ×2 (09:54→18:26)
[2019-03-17] MEDS ORDERED: PHENYLEPHRINE-NS 100 MCG/ML 10 ML SYRINGE ONE (09:54)
--- NOTE | 2019-03-17 10:53 | PRG ---
DATE OF SERVICE: 03/17/2019 SUBJECTIVE: Patient was seen and examined at bedside and overnight events noted. Patient denies any shortness of breath or chest pain or palpitation. No history of nausea or vomiting or diarrhea or fever or chills or cramps. OBJECTIVE: GENERAL: This is a well-built female, in no apparent distress. VITAL SIGNS: Temperature 98.2. Heart rate 72. Respiratory rate 14. Blood pressure 109/51. HEENT: Atraumatic, normocephalic. Oral mucosa is moist NECK: Supple. CARDIOVASCULAR: S1, S2 heard. Rate and rhythm regular. RESPIRATORY: Clear to auscultation. GASTROINTESTINAL: Abdomen is soft. MUSCULOSKELETAL: No tenderness. No edema. DERMATOLOGIC: No skin rash. NEUROLOGIC: Alert and awake and oriented X3. No focal neurologic deficits. Moving all the extremities. PSYCHIATRIC: Mood and affect normal. LABORATORY DATA: Potassium 5.0, BUN is 26, and creatinine is 5.9. ASSESSMENT AND PLAN: 1. End-stage renal disease. Continue on dialysis, Friday, Friday, Friday. Plan to remove peritoneal dialysis catheter and appreciate help from Surgery. 2. Edema. 3. Hypertension. 4. Anemia. 5. Dialysis access issues. Plan to remove peritoneal dialysis catheter and place a new catheter as a dialysis access. The patient does have multiple failed grafts. Will have thrombosis workup too. Job ID: [id number]
[2019-03-17] MEDS: Carvedilol 6.25 MG TAB PO SCH ×2 (11:04→21:01)
[2019-03-17] MEDS: Doxycycline 100 MG CAP PO SCH ×2 (11:05→21:02)
[2019-03-17] MEDS: hydrALAZINE 25 MG TAB PO SCH ×3 (11:15→21:03)
[2019-03-17] MEDS: Senokot S 8.6-50 MG TAB PO SCH ×2 (11:16→21:02)
[2019-03-17] MEDS: Polyethylene Glycol 3350 17 GM Packet PO SCH (11:16)
[2019-03-17] MEDS: Sevelamer Carbonate 800 MG TAB PO SCH ×3 (11:16→18:27)
[2019-03-17] MEDS ORDERED: Levofloxacin 500 mg/D5W 100 ml Premix Bag ONE (11:39)
[2019-03-17] MEDS ORDERED: Ioversol 68 % 50 ML VIAL ONE ×2 (12:25→15:36)
[2019-03-17] MEDS ORDERED: Heparin 5,000 UNITS/ML VIAL ONE ×2 (12:25→15:35)
[2019-03-17] MEDS ORDERED: Lidocaine 2% w/Epinephrine 1:200K 20 ML VIAL ONE (12:25)
[2019-03-17] MEDS ORDERED: Protamine Sulfate 50 MG/5 ML VIAL ONE ×2 (12:25→15:35)
[2019-03-17] MEDS: Aspirin 81 mg Enteric Coated Tablet PO SCH (12:37)
[2019-03-17] MEDS ORDERED: Fentanyl 100 MCG/2 ML VIAL ONE (15:20)
[2019-03-17] MEDS ORDERED: Midazolam HCl 2 mg/2 ml Vial ONE (15:20)
[2019-03-17] MEDS ORDERED: Propofol 500 MG/50 ML VIAL ONE (15:20)
[2019-03-17] MEDS ORDERED: Heparin (Artline) 0 ML ONE (15:36)
[2019-03-17] MEDS ORDERED: Lidocaine 2% PF 5 ML VIAL ONE (15:36)
[2019-03-17] MEDS ORDERED: Heparin 10,000 UNITS/1 ML VIAL ONE (15:38)
[2019-03-17] MEDS ORDERED: Sodium Chloride 0.9% 20 ML ONE (16:02)
[2019-03-17] MEDS ORDERED: Phenylephrine HCL 10 MG/ML VIAL ONE (16:35)
[2019-03-17] MEDS ORDERED: Promethazine HCl 25 MG/ML VIAL SLOW IVP PRN (18:28)
[2019-03-17] MEDS ORDERED: Promethazine HCl 25 MG/ML VIAL IM PRN (18:28)
[2019-03-17] MEDS ORDERED: Ondansetron HCl/PF 4 MG/2 ML Vial IVP PRN (18:28)
--- NOTE | 2019-03-17 18:54 | RAD ---
Chest one view HISTORY: Central line placement. COMPARISON: 03/10/2019. FINDINGS: Cardiac silhouette is magnified by projection. Pulmonary vasculature upper limits of normal . Mild widespread hazy reticular opacity. Mediastinum is midline. Tip of a left internal jugular central venous catheter overlies the right atrium. Right internal jugular dialysis type catheter in p lace. No pneumothorax. Bilateral upper arm vascular stents. IMPRESSION: Bilateral internal jugular catheters in good radiographic position.
--- NOTE | 2019-03-17 19:59 | PDOC.HOSPP ---
- Subjective Encounter Date: 03/17/19 Encounter Time: 09:00 Subjective: Patient seen and examined for Resp failure. Dialysis access today. No new complaints. No overnight events - Objective Vital Signs & Weight: Vital Signs (12 hours) BP 03/17/19 18:27 102/50 L 03/17/19 11:15 102/50 L 03/17/19 11:04 102/50 L Weight Admit Weight 214 lb 1.102 oz Weight 210 lb 12.191 oz Most Recent Monitor Data Heart Rate from ECG 80 NIBP 112/63 NIBP BP-Mean 79 Respiration from ECG 13 SpO2 94 I&O: 03/16/19 03/17/19 03/18/19 06:59 06:59 06:59 Intake Total 720 Output Total 220 100 Balance 500 -100 Result Diagrams: 03/15/19 04:26 03/17/19 06:26 Additional Labs: Accuchecks 03/17/19 03/17/19 03/17/19 18:52 11:47 05:25 POC Glucose 137 H 109 183 H 03/16/19 20:21 POC Glucose 229 H EKG Reviewed by me: Yes (Tele SR) Hospitalist ROS - Review of Systems Respiratory: denies: cough, dry, shortness of breath, hemoptysis, SOB with excertion, pleuritic pain, sputum, wheezing, other Cardiovascular: denies: chest pain, palpitations, orthopnea, paroxysmal noc. dyspnea, edema, light headedness, other - Medication Medications: Active Medications Generic Name Dose Route Start Last Admin Trade Name Freq PRN Reason Stop Dose Admin Acetaminophen 650 mg 03/10/19 18:47 03/17/19 09:53 Tylenol PO 650 mg Q4H PRN Administration Headache/Fever/Mild Pain (1-3) Acetaminophen/Codeine Phosphate 1 tab 03/12/19 07:59 03/13/19 01:26 Tylenol #3 PO 1 tab Q4H PRN Administration Mild Pain (1-3) Acetaminophen/Codeine Phosphate 2 tab 03/12/19 07:59 03/15/19 12:53 Tylenol #3 PO 2 tab Q4H PRN Administration Moderate Pain (4-6) Aspirin 81 mg 03/13/19 09:00 03/17/19 12:37 Ecotrin PO Not Given DAILY ANURAG Atorvastatin Calcium 10 mg 03/13/19 21:00 03/16/19 21:10 Lipitor PO 10 mg HS ANURAG Administration Carvedilol 12.5 mg 03/11/19 08:00 03/17/19 11:04 Coreg PO 12.5 mg BID-WM ANURAG Administration Doxycycline Hyclate 100 mg 03/15/19 09:00 03/17/19 11:05 Vibramycin PO 100 mg BID ANURAG Administration Hydralazine HCl 50 mg 03/10/19 21:00 03/17/19 18:27 Apresoline PO Not Given TID [facility] Insulin Human Lispro 0 units 03/10/19 18:56 03/16/19 16:46 Humalog SC 3 unit .MILD SLIDING SCALE PRN Administration Mild Correctional Scale Isosorbide Mononitrate 60 mg 03/12/19 09:00 03/17/19 12:39 Imdur PO Not Given DAILY [facility] Ondansetron HCl 4 mg 03/13/19 05:42 03/13/19 06:15 Zofran SLOW IVP 4 mg DAILYPRN PRN Administration Nausea/Vomiting Ondansetron HCl 4 mg 03/14/19 20:01 03/14/19 21:11 Zofran Odt PO 4 mg Q6H PRN Administration Nausea/Vomiting Polyethylene Glycol 17 gm 03/17/19 09:00 03/17/19 11:16 Miralax PO Not Given DAILY [facility] Senna/Docusate Sodium 2 tab 03/16/19 21:00 03/17/19 11:16 Senokot S PO Not Given BID [facility] Sevelamer Carbonate 800 mg 03/11/19 08:00 03/17/19 18:27 Renvela PO Not Given TID[facility] - Exam General Appearance: NAD Heart: RRR, no gallops Respiratory: CTAB, no rales Gastrointestinal: soft, non-tender, normal bowel sounds Extremities: no edema Hosp A/P - Plan DVT proph w/SCDs Acute hypoxic resp failure s/p NIPPV / Volume overload Acute on chronic systolic / diastolic HF - EF 45% NSTEMI CAD Transient Afib at [place] - not a candidate for anticoag per Cardiology ESRD on PD - started on HD Obesity BMI 34.6 HTN HLD PLAN: Dialysis access today Cont ASA/Coreg/Statins Cont Hydralazine/Nitrates Await outpt dialysis setup Cont other meds AM labs
--- NOTE | 2019-03-17 20:01 | OP ---
DATE OF PROCEDURE: 03/17/2019 PREOPERATIVE DIAGNOSES: End-stage renal disease, previously thrombosed dialysis fistula of right arm, fistula left arm, dialysis graft right arm, dialysis graft left arm, inadequate peritoneal dialysis, poor IV access. POSTOPERATIVE DIAGNOSES: End-stage renal disease, previously thrombosed dialysis fistula of right arm, fistula left arm, dialysis graft right arm, dialysis graft left arm, inadequate peritoneal dialysis, poor IV access. PROCEDURES PERFORMED: Left arm dialysis graft tapered 4T07 brachial artery to axillary vein of good caliber, right internal jugular cuffed tunneled hemodialysis catheter AngioDynamics, left internal jugular central line triple lumen, and removal of peritoneal dialysis catheter. ANESTHESIA: Regional, TIVA, local 0.5% Marcaine with epinephrine 30 mL mixed with 1% Xylocaine with epinephrine 30 mL. DESCRIPTION OF PROCEDURE: The patient was taken to the operating room, where under intravenous sedation and regional anesthesia, left upper extremity, neck, chest, and abdomen were prepared with ChloraPrep and draped in routine fashion. Incision was made in the left axillary, carried down to the skin, subcutaneous tissue in a good size. Axillary vein identified, dissected free, controlled proximally. This was silastic and Jackson loops. Incision was made above the antecubital fossa just distal of previous graft anastomosis and brachial artery dissected free. The brachial artery was of good caliber and surrounded with a silastic vessel loop. A Shirley-Wick tunneler was used to create a tunnel between the two incisions using a 7 mm head. A tapered graft as described above was used to tunnel, securing the tunneler with a 2-0 silk and then it maintained proper orientation. After adequate heparin 6000 units was administered by Anesthesia circulation time, brachial artery was clamped proximally and distally and longitudinal arteriotomy was made sharply in the right arm elongated with Jackson scissors. Graft tailored to length and a 2 cm anastomosis was made between the 4 mm end of the graft in the brachial artery kit with continuous suture of 6-0 Prolene. After completing the anastomosis, vascular clamps were released. There was good flow in the graft, which was clamped and then attention turned to the axilla. Axillary vein controlled with silastic and Jackson loops proximally and distally. Longitudinal venotomy made for a 3 cm length and stay sutures of 6-0 Prolene placed. Graft tailored to length on the 7 mm and for cobra-head anastomosis with continuous suture of 6-0 Prolene used for the anastomosis. Completing the anastomosis, recent vascular outflow noting good flow and then, venous outflow and inflow, removing the silastic loops. There was a good Doppler signal in the venous outflow in the axillary vein. Good hemostasis was noted. The patient was given 25 mg protamine by Anesthesia. Subcutaneous tissue was approximated with 3-0 Monocryl, skin with subdermal 4-0 Monocryl and [place] glue applied on all incisions. Attention was then turned to the neck, where under ultrasound guidance, the right and left internal jugular veins were cannulated with a trocar catheter, J-wire threaded, trocar catheter removed. Skin site enlarged sharply on both sides. Seldinger technique used to place a triple-lumen catheter, left IJ secured with 3-0 nylon suture. Sterile dressings applied. Each port aspirated blood and flushed with saline solution. On the right side, a stab incision was made in the right chest. Using a tunneling device, pre-curved AngioDynamics cuffed-tunneled hemodialysis catheter tunneled between two incisions, placed the fabric cuff beneath the skin access site and small and medium size dilators placed with J-wire into the internal jugular vein and removed. Dilator and Peel-Away sheath placed with J-wire in superior vena cava. Dilator and J-wire were removed. Catheter placed through the Peel-Away sheath, which was removed and platysma was approximated with 4-0 Monocryl, skin with subdermal 4-0 Monocryl and [place] glue. Sterile dressings applied. Each port aspirated blood and flushed with saline solution and heparinized saline solution 1000 units heparin per mL indicating volume of the port. Fluoroscopic images revealed good line placement. Then, attention was turned to the PD catheter, left lower quadrant, where local anesthetic was infiltrated in the skin and subcutaneous tissue and catheter and both cuffs dissected free and catheter removed intact and dressings applied. The patient tolerated the procedure well as her right groin dialysis catheter was removed and pressure held hemostatic. Job ID: [id number]
[2019-03-17] MEDS: Dextrose 5 % And 0.9 % NaCl 1,000 ML IV SCH (21:01)
[2019-03-17] MEDS: Atorvastatin Calcium 10 MG TAB PO SCH (21:02)
[2019-03-17] MEDS: Acetaminophen 500 MG TAB PO PRN (22:42)
[2019-03-18] MEDS: traMADol HCl 50 MG TAB PO PRN (03:37)
[2019-03-18 05:24] LABS: Hemoglobin 7.7 g/dL (12.0-16.0); Platelet Count 222 thou/uL (130-400)
[2019-03-18] MEDS: Morphine 2 MG/ML SYRINGE SLOW IVP PRN ×5 (05:25→20:12)
[2019-03-18 05:53] LABS: Anion Gap 10 mmol/L (10-20); BUN (Urea Nitrogen) 13 mg/dL (9.8-20.1); Calc. Creatinine Clearance 24 mL/min (70-130); Calcium 8.6 mg/dL (7.8-10.44); Carbon Dioxide 28 mmol/L (23-31); Chloride 101 mmol/L (98-107); Estimated GFR-MDRD 15; Glucose 147 mg/dL (80-115); Potassium 4.1 mmol/L (3.5-5.1); Sodium 135 mmol/L (136-145)
[2019-03-18 05:58] LABS: INR-International Normal Ratio 1.2; PTT 35.8 SEC (22.9-36.1); Prothrombin Time 15.1 SEC (12.0-14.7)
[2019-03-18 05:59] LABS: D-Dimer Test 3.83 *mcg/mL (0.27-0.43)
[2019-03-18 06:06] LABS: Hep C IgG Ab Non-Reactive (NonReactive); Hep C Index 0.15 S/CO (0-0.79)
[2019-03-18] MEDS: Sevelamer Carbonate 800 MG TAB PO SCH ×3 (07:52→15:35)
[2019-03-18] MEDS: Carvedilol 6.25 MG TAB PO SCH ×2 (07:52→15:35)
[2019-03-18] MEDS: Doxycycline 100 MG CAP PO SCH ×2 (07:52→20:12)
[2019-03-18] MEDS: Aspirin 81 mg Enteric Coated Tablet PO SCH (07:52)
[2019-03-18] MEDS: Polyethylene Glycol 3350 17 GM Packet PO SCH (07:53)
[2019-03-18] MEDS: Senokot S 8.6-50 MG TAB PO SCH ×2 (07:53→20:12)
[2019-03-18 08:02] LABS: HBSAB Concentration 127.53 mIU/mL; HBSAg Index 1.39 S/CO (0-0.99)
[2019-03-18 08:03] LABS: Hep B Core Total Index 3.44 S/CO (0-0.79)
[2019-03-18 08:04] LABS: Hep B Surf AB Reactive (NonReactive)
[2019-03-18 08:05] LABS: Hep B Core Total Ab Reactive (NonReactive)
[2019-03-18] MEDS: hydrALAZINE 25 MG TAB PO SCH ×3 (08:14→20:12)
--- NOTE | 2019-03-18 09:00 | PRG ---
DATE OF SERVICE: 03/18/2019 SUBJECTIVE: Ms. Earl is doing well today. OBJECTIVE: VITAL SIGNS: Temperature 98 degrees, heart rate 77, and blood pressure 119/58. HEENT: Good thrill and bruit in her left arm graft. She does have some mild discomfort over her small and ring finger, but none over the lateral aspect of her hand. She has good cone machine feeder strength in her hand. She has dopplerable pulses . This may increase with occlusion of her graft. PD catheter has been removed. Those dressings are dry. LUNGS: Clear to auscultation. CARDIAC: Regular rate and rhythm without murmur or gallop. ABDOMEN: Soft and nontender. ASSESSMENT AND PLAN: The patient is doing well. From a surgical standpoint, she can be discharged home at any time. We would recommend she follow up in my office in 2 to 3 weeks. She can then begin changing the dressings in left lower quadrant daily, washing with soap and water, and place a Band-Aid antibiotic ointment. Job ID: [id number]
[2019-03-18 09:14] LABS: Hep B Surf Ag Reflx Confirmation S/CO (NonReactive)
[2019-03-18] MEDS: Ondansetron ODT 4 MG TAB PO PRN ×2 (09:37→14:45)
[2019-03-18] MEDS: Acetaminophen/Codeine 30-300mg Tablet PO PRN (09:37)
--- NOTE | 2019-03-18 10:06 | PRG ---
DATE OF SERVICE: 03/18/2019 SUBJECTIVE: Patient was seen and examined at bedside and overnight events noted. Patient denies any shortness of breath or chest pain or palpitation. No history of nausea or vomiting or diarrhea or fever or chills or cramps. OBJECTIVE: GENERAL: This is a well-built female, in no apparent distress. VITAL SIGNS: Temperature 98, heart rate 77, respiratory rate 20, blood pressure 119/58. HEENT: Atraumatic, normocephalic. Oral mucosa is moist NECK: Supple. CARDIOVASCULAR: S1, S2 heard. Rate and rhythm regular. RESPIRATORY: Clear to auscultation. GASTROINTESTINAL: Abdomen is soft. MUSCULOSKELETAL: No tenderness. No edema. DERMATOLOGIC: No skin rash. NEUROLOGIC: Alert and awake and oriented X3. No focal neurologic deficits. Moving all the extremities. PSYCHIATRIC: Mood and affect normal. LABORATORY DATA: Potassium is 4.1, BUN is 13, and creatinine is 3.6. ASSESSMENT AND PLAN: 1. End-stage renal disease. Continue dialysis on Friday, Friday, and Friday. 2. Edema, remove fluid. 3. Hypertension. 4. Anemia. 5. Dialysis access issues. Appreciate input from Surgery. Job ID: [id number]
[2019-03-18] MEDS ORDERED: Gabapentin 100 MG CAP PO SCH (11:00)
[2019-03-18] MEDS: HumaLOG 300 UNITS/3 ML VIAL SC PRN ×2 (11:52→18:29)
[2019-03-18 14:04] VITALS: BMI 32.8
[2019-03-18] MEDS: Dextrose 5 % And 0.9 % NaCl 1,000 ML IV SCH (15:34)
[2019-03-18] MEDS: Atorvastatin Calcium 10 MG TAB PO SCH (20:12)
--- NOTE | 2019-03-18 21:21 | PDOC.HOSPP ---
- Subjective Encounter Date: 03/18/19 Encounter Time: 11:45 Subjective: Patient seen and examined for Resp failure/ME. s/p tunnelled catheter. No new complaints. No overnight events - Objective Vital Signs & Weight: Vital Signs (12 hours) Temp Pulse Resp BP Pulse Ox 03/18/19 20:12 81 03/18/19 19:20 99.0 F 81 16 111/46 L 99 03/18/19 15:33 78 03/18/19 15:31 98.2 F 78 18 104/51 L 98 03/18/19 11:38 98.5 F 76 16 108/51 L 97 Weight Admit Weight 214 lb 1.102 oz Weight 203 lb 7.787 oz Most Recent Monitor Data Heart Rate from ECG 80 NIBP 112/63 NIBP BP-Mean 79 Respiration from ECG 13 SpO2 94 I&O: 03/17/19 03/18/19 03/19/19 06:59 06:59 06:59 Intake Total 850 Output Total 100 Balance -100 850 Result Diagrams: 03/18/19 04:55 03/18/19 04:55 Additional Labs: Accuchecks 03/18/19 03/18/19 03/18/19 20:13 18:32 10:58 POC Glucose 251 H 196 H 245 H 03/18/19 05:48 POC Glucose 162 H EKG Reviewed by me: Yes (Tele SR) Hospitalist ROS - Review of Systems Respiratory: denies: cough, dry, shortness of breath, hemoptysis, SOB with excertion, pleuritic pain, sputum, wheezing, other Cardiovascular: denies: chest pain, palpitations, orthopnea, paroxysmal noc. dyspnea, edema, light headedness, other - Medication Medications: Active Medications Generic Name Dose Route Start Last Admin Trade Name Freq PRN Reason Stop Dose Admin Acetaminophen 650 mg 03/10/19 18:47 03/17/19 09:53 Tylenol PO 650 mg Q4H PRN Administration Headache/Fever/Mild Pain (1-3) Acetaminophen 1,000 mg 03/17/19 17:41 03/17/19 22:42 Tylenol PO 1,000 mg Q6H PRN Administration Moderate to Severe Pain (6-10) Acetaminophen/Codeine Phosphate 1 tab 03/12/19 07:59 03/13/19 01:26 Tylenol #3 PO 1 tab Q4H PRN Administration Mild Pain (1-3) Acetaminophen/Codeine Phosphate 2 tab 03/12/19 07:59 03/18/19 09:37 Tylenol #3 PO 2 tab Q4H PRN Administration Moderate Pain (4-6) Aspirin 81 mg 03/13/19 09:00 03/18/19 07:52 Ecotrin PO 81 mg DAILY ANURAG Administration Atorvastatin Calcium 10 mg 03/13/19 21:00 03/18/19 20:12 Lipitor PO 10 mg HS ANURAG Administration Carvedilol 12.5 mg 03/11/19 08:00 03/18/19 15:35 Coreg PO 12.5 mg BID-WM ANURAG Administration Doxycycline Hyclate 100 mg 03/15/19 09:00 03/18/19 20:12 Vibramycin PO 100 mg BID ANURAG Administration Hydralazine HCl 50 mg 03/10/19 21:00 03/18/19 20:12 Apresoline PO 50 mg TID ANURAG Administration Insulin Human Lispro 0 units 03/10/19 18:56 03/18/19 18:29 Humalog SC 2 unit .MILD SLIDING SCALE PRN Administration Mild Correctional Scale Isosorbide Mononitrate 60 mg 03/12/19 09:00 03/18/19 08:14 Imdur PO Not Given DAILY [facility] Morphine Sulfate 2 mg 03/18/19 05:22 03/18/19 20:12 Morphine SLOW IVP 2 mg Q2H PRN Administration Severe Pain (7-10) Ondansetron HCl 4 mg 03/13/19 05:42 03/13/19 06:15 Zofran SLOW IVP 4 mg DAILYPRN PRN Administration Nausea/Vomiting Ondansetron HCl 4 mg 03/14/19 20:01 03/18/19 14:45 Zofran Odt PO 4 mg Q6H PRN Administration Nausea/Vomiting Polyethylene Glycol 17 gm 03/17/19 09:00 03/18/19 07:53 Miralax PO 17 gm DAILY ANURAG Administration Senna/Docusate Sodium 2 tab 03/16/19 21:00 03/18/19 20:12 Senokot S PO 2 tab BID ANURAG Administration Sevelamer Carbonate 800 mg 03/11/19 08:00 03/18/19 15:35 Renvela PO 800 mg TID-WM ANURAG Administration Sodium Chloride 10 ml 03/17/19 21:00 03/18/19 20:38 Flush - Normal Saline IVF 10 ml Q12HR ANURAG Administration Tramadol HCl 50 mg 03/17/19 17:41 03/18/19 03:37 Ultram PO 50 mg Q4H PRN Administration Pain - Exam General Appearance: NAD Heart: RRR, no gallops Respiratory: CTAB, no rales Gastrointestinal: soft, non-distended Extremities: no cyanosis Hosp A/P - Plan DVT proph w/heparin, DVT proph w/SCDs Acute hypoxic resp failure s/p NIPPV / Volume overload Acute on chronic systolic / diastolic HF - EF 45% NSTEMI CAD Transient Afib at [place] - not a candidate for anticoag per Cardiology ESRD on PD - started on HD Obesity BMI 34.6 HTN HLD PLAN: Await outpt dialysis setup SNF eval Cont ASA/Coreg/Statins/Hydralazine/Nitrates Await outpt dialysis setup Cont other meds AM labs
[2019-03-19] MEDS: Acetaminophen/Codeine 30-300mg Tablet PO PRN (01:28)
[2019-03-19] MEDS: Morphine 2 MG/ML SYRINGE SLOW IVP PRN (05:30)
[2019-03-19 06:19] LABS: Hemoglobin 7.3 g/dL (12.0-16.0); Mean Corpuscular HGB CONC 31.3 g/dL (32.0-36.0); Mean Corpuscular Hemoglobin 27.4 pg (27.0-31.0); Mean Corpuscular Volume 87.6 fL (78.0-98.0); Mean Platelet Volume 8.5 fL (7.4-10.4); Platelet Count 200 thou/uL (130-400); RBC Distribution Width 13.2 % (11.5-14.5); Red Blood Cell (RBC) Count 2.66 mill/uL (4.20-5.40); White Blood Cell (WBC) Count 12.8 thou/uL (4.8-10.8)
[2019-03-19 06:26] LABS: Anion Gap 12 mmol/L (10-20); BUN (Urea Nitrogen) 22 mg/dL (9.8-20.1); Calc. Creatinine Clearance 17 mL/min (70-130); Calcium 8.4 mg/dL (7.8-10.44); Carbon Dioxide 26 mmol/L (23-31); Chloride 99 mmol/L (98-107); Estimated GFR-MDRD 10; Glucose 188 mg/dL (80-115); Potassium 4.5 mmol/L (3.5-5.1); Sodium 132 mmol/L (136-145)
[2019-03-19 08:11] LABS: Hep B Surface AG-Rflx Sendout Negative (Negative)
[2019-03-19 08:20] LABS: Band 8 % (5-11); Eosinophils 1 % (0-10); Lymphocytes 8 % (21-51); MDiff Complete? YES; Monocytes 6 % (0-10); Neutrophil 77 % (42-75); Platelet Morphology Comment Appears Adequate; Polychromasia SLIGHT = 2-3 cells (100X) (0-2/hpf); Reflex for Review?? YES; Rouleaux Formation MODERATE= 6-15 cells (100X) (None Seen)
[2019-03-19] MEDS: Sevelamer Carbonate 800 MG TAB PO SCH ×2 (08:45→13:16)
[2019-03-19] MEDS: Doxycycline 100 MG CAP PO SCH (08:45)
[2019-03-19] MEDS: Senokot S 8.6-50 MG TAB PO SCH (08:46)
[2019-03-19] MEDS: HumaLOG 300 UNITS/3 ML VIAL SC PRN (08:47)
[2019-03-19] MEDS: hydrALAZINE 25 MG TAB PO SCH ×2 (08:54→14:09)
[2019-03-19] MEDS: Carvedilol 6.25 MG TAB PO SCH ×2 (08:54→13:15)
[2019-03-19] MEDS ORDERED: Gabapentin 100 MG CAP PO SCH (09:00)
[2019-03-19] MEDS ORDERED: Heparin 5,000 UNITS/ML VIAL SC SCH (09:00)
--- NOTE | 2019-03-19 10:48 | PRG ---
DATE OF SERVICE: 03/19/2019 SUBJECTIVE: Patient was seen and examined at bedside and overnight events noted. Patient denies any shortness of breath or chest pain or palpitation. No history of nausea or vomiting or diarrhea or fever or chills or cramps. OBJECTIVE: GENERAL: This is a well-built female, in no apparent distress. VITAL SIGNS: Temperature 98.2. Heart rate 85. Respiratory rate 16. Blood pressure 126/53. HEENT: Atraumatic, normocephalic. Oral mucosa is moist NECK: Supple. CARDIOVASCULAR: S1, S2 heard. Rate and rhythm regular. RESPIRATORY: Clear to auscultation. GASTROINTESTINAL: Abdomen is soft. MUSCULOSKELETAL: No tenderness. No edema. DERMATOLOGIC: No skin rash. NEUROLOGIC: Alert and awake and oriented X3. No focal neurologic deficits. Moving all the extremities. PSYCHIATRIC: Mood and affect normal. LABORATORY DATA: Potassium 4.5, BUN is 22, and creatinine is 5.08. ASSESSMENT AND PLAN: 1. End-stage renal disease. Continue on dialysis Friday, Friday, and Friday. The patient is seen during dialysis. 2. Edema. We will remove fluid. 3. Hypertension. 4. Anemia. Plan to continue on dialysis as tolerated. Job ID: [id number]
[2019-03-19] MEDS ORDERED: Heparin 1,000 UNITS/ML VIAL ONE (11:11)
[2019-03-19] MEDS: Acetaminophen 500 MG TAB PO PRN (11:49)
[2019-03-19] MEDS: Aspirin 81 mg Enteric Coated Tablet PO SCH (13:15)
[2019-03-19] MEDS: traMADol HCl 50 MG TAB PO PRN (13:16)
[2019-03-19] MEDS: Polyethylene Glycol 3350 17 GM Packet PO SCH (13:18)
[2019-03-19 13:38] VITALS: TEMP 97.8
[2019-03-19 14:03] VITALS: BP 113/53
--- NOTE | 2019-03-20 01:51 | DIS ---
DATE OF ADMISSION: 03/10/2019 DATE OF DISCHARGE: 03/19/2019 DISCHARGE DISPOSITION: To [facility]. DISCHARGE MEDICATIONS: 1. Aspirin 81 mg daily. 2. Lipitor 10 mg at bedtime. 3. Carvedilol 12.5 mg b.i.d. 4. Humalog sliding scale. 5. Hydralazine 25 mg 3 times a day. 6. Imdur 60 mg daily. 7. MiraLAX 17 g daily. All other home medications were left unchanged. The patient was seen and examined on the day of discharge. Denies any new complaints. No chest pain, shortness of breath, or palpitations reported. BRIEF HOSPITAL COURSE: The patient is a 64-year-old female with end-stage renal disease, on peritoneal dialysis; coronary artery disease; hypertension; and hyperlipidemia, presented to the hospital on March 10, 2019 with shortness of breath. A workup was consistent with acute hypoxic respiratory failure requiring noninvasive positive-pressure ventilation. Due to significant volume overload, she underwent emergent hemodialysis after placement of a Trialysis catheter in the groin. Please refer to the history and physical dated March 10, [address] Wall for further details. The patient was monitored in the intensive care unit with the above diagnosis. She showed good improvement after emergent dialysis as well as noninvasive positive-pressure ventilation. She was found to have a troponin of 3.34 with elevated CK-MB. Cardiac catheterization was performed on March 12, 2019 that showed 95% lesion in the first diagonal branch of the LAD. Otherwise, it showed 20% lesion in the proximal LAD, 20% lesion in the proximal circumflex, 20% lesion in the first obtuse marginal, 20% lesion in the proximal RCA, 30% lesion in the mid RCA, and 40% lesion in the right PDA. She has been started on aspirin along with statins. The patient underwent several studies to evaluate for dialysis access. On March 17, 2019, patient underwent left arm dialysis graft, brachial artery to axillary vein along with right internal jugular cuffed tunneled hemodialysis catheter. Peritoneal dialysis catheter was removed. She has been cleared by consultants for discharge. FINAL DIAGNOSES: 1. Acute hypoxic respiratory failure status post noninvasive positive-pressure ventilation/volume overload. 2. Acute on chronic systolic/diastolic heart failure exacerbation, ejection fraction 45%. 3. [id number] myocardial infarction. 4. Coronary artery disease. 5. Transient atrial fibrillation at [facility]. The patient is not a candidate for anticoagulation. 6. End-stage renal disease, on peritoneal dialysis on admission. She has been started on hemodialysis. 7. Obesity with a body mass index of 34.6. 8. Hypertension. 9. Hyperlipidemia. 10. Anemia secondary to renal insufficiency. 11. History of transient ischemic attack. 12. Secondary hyperparathyroidism. 13. History of hidradenitis suppurativa. Plan of care was discussed with the patient in detail; she stated understanding. Total time coordinating the discharge of this patient was 33 minutes. Job ID: [id number]
[2019-03-22 12:05] LABS: Protein C Activity 96 % (78-152)
[2019-03-22 12:07] LABS: Factor VIII Test 564.7 % ACTIVE (56-157)
[2019-03-22 13:36] LABS: Cardiolipin IgA Ab 6.5 APL-U/mL (<14 Negative); Cardiolipin IgG Ab 2.6 GPL-U/mL (<10 Negative); Cardiolipin IgM Ab 4.2 MPL-U/mL (<10 Negative); EliA APS New Method **** NEW METHOD ****
[2019-03-22 14:17] LABS: HEX PHOS LA Tube 1 57.6 SEC; HEX PHOS LA Tube 2 48.3 SEC; Hexagonal Phospholipid Neut 9.3 SEC (0-8.0)
== END 2019-03-19 15:37 | DRG 907 ==
LOC: ERS 14:19 → CCU 20:54 → 2NO 03-12 23:09
PROVIDERS: ADMIT Internal Medicine; ATTEND Internal Medicine
PROC: 06HY33Z Insertion of Infusion Device into Lower Vein, Percutaneous Approach (ICD-10-PCS; 2019-03-10)
PROC: 5A1D70Z Performance of Urinary Filtration, Intermittent, Less than 6 Hours Per Day (ICD-10-PCS; 2019-03-10)
PROC: 4A023N7 Measurement of Cardiac Sampling and Pressure, Left Heart, Percutaneous Approach (ICD-10-PCS; principal; 2019-03-12)
PROC: B2111ZZ Fluoroscopy of Multiple Coronary Arteries using Low Osmolar Contrast (ICD-10-PCS; 2019-03-12)
PROC: 03180ZD Bypass Left Brachial Artery to Upper Arm Vein, Open Approach (ICD-10-PCS; 2019-03-17)
PROC: 0WPGX3Z Removal of Infusion Device from Peritoneal Cavity, External Approach (ICD-10-PCS; 2019-03-17)
PROC: 0JH63XZ Insertion of Tunneled Vascular Access Device into Chest Subcutaneous Tissue and Fascia, Percutaneous Approach (ICD-10-PCS; 2019-03-17)
PROC: 05HM33Z Insertion of Infusion Device into Right Internal Jugular Vein, Percutaneous Approach (ICD-10-PCS; 2019-03-17)
DX: T85.611A Breakdown (mechanical) of intraperitoneal dialysis catheter, initial encounter (principal); N18.6 End stage renal disease; J96.01 Acute respiratory failure with hypoxia; I21.A1 Myocardial infarction type 2; I50.43 Acute on chronic combined systolic (congestive) and diastolic (congestive) heart failure; I13.2 Hypertensive heart and chronic kidney disease with heart failure and with stage 5 chronic kidney disease, or end stage renal disease; N25.81 Secondary hyperparathyroidism of renal origin; E87.70 Fluid overload, unspecified; D63.1 Anemia in chronic kidney disease; E11.22 Type 2 diabetes mellitus with diabetic chronic kidney disease; G40.909 Epilepsy, unspecified, not intractable, without status epilepticus; I25.10 Atherosclerotic heart disease of native coronary artery without angina pectoris; E78.5 Hyperlipidemia, unspecified; E66.9 Obesity, unspecified; E11.649 Type 2 diabetes mellitus with hypoglycemia without coma; I48.91 Unspecified atrial fibrillation; E78.00 Pure hypercholesterolemia, unspecified; H54.40 Blindness, one eye, unspecified eye; I34.0 Nonrheumatic mitral (valve) insufficiency; T85.868A Thrombosis due to other internal prosthetic devices, implants and grafts, initial encounter; Y83.2 Surgical operation with anastomosis, bypass or graft as the cause of abnormal reaction of the patient, or of later complication, without mention of misadventure at the time of the procedure; Z99.2 Dependence on renal dialysis; Z86.73 Personal history of transient ischemic attack (TIA), and cerebral infarction without residual deficits; Z68.32 Body mass index [BMI] 32.0-32.9, adult; I25.2 Old myocardial infarction; Z90.49 Acquired absence of other specified parts of digestive tract; Z90.710 Acquired absence of both cervix and uterus; Z98.51 Tubal ligation status; Z88.1 Allergy status to other antibiotic agents; Z88.8 Allergy status to other drugs, medicaments and biological substances; Z79.84 Long term (current) use of oral hypoglycemic drugs; Z79.82 Long term (current) use of aspirin; Z79.899 Other long term (current) drug therapy; Z88.2 Allergy status to sulfonamides; Z91.040 Latex allergy status
CPT/HCPCS: 36005; 36415; 36416; 71045; 75822; 76000; 76942; 80048; 80053; 80061; 81240; 81241; 82550; 82553; 83090; 83605; 84443; 84484; 85007; 85014; 85018; 85025; 85027; 85049; 85060; 85240; 85300; 85303; 85305; 85307; 85347; 85379; 85598; 85610; 85730; 86147; 86704; 86706; 86803; 86850; 86900; 86901; 87070; 87076; 87205; 87340; 89051; 90935; 90945; 93005; 93458; 93798; 93970; 94660; 94760; 96365; 96366; 96368; 96375; 99152; C1752; C1769; G0257; G0365; J0670; J1644; J1956; J2001; J2250; J2270; J2370; J2405; J2550; J2704; J2720; J3010; J3370; L8670; Q0162; Q9967

== ENCOUNTER 2019-04-12 10:47 | Inpatient (IN) | payer MEDICARE ==
[2019-04-12] MEDS ORDERED: Heparin 10,000 UNITS/ 10 ML VIAL ONE (10:49)
[2019-04-12 12:12] LABS: #Eosinphils 0.3 thou/uL (0.0-0.7); #Lymphocytes 1.3 thou/uL (1.20-3.40); #Monocytes 0.9 thou/uL (0.11-0.59); %Basophils 0.2 % (0.0-1.0); %Eosinophils 2.7 % (0.0-10.0); %Lymphocytes 11.3 % (21.0-51.0); %Monocytes 7.6 % (0.0-10.0); %Neutrophils 78.2 % (42.0-75.0); Hemoglobin 7.1 g/dL (12.0-16.0); Mean Corpuscular Hemoglobin 27.7 pg (27.0-31.0); Mean Corpuscular Volume 89.3 fL (78.0-98.0); Mean Platelet Volume 7.6 fL (7.4-10.4); Platelet Count 293 thou/uL (130-400); RBC Distribution Width 13.4 % (11.5-14.5); Red Blood Cell (RBC) Count 2.55 mill/uL (4.20-5.40); White Blood Cell (WBC) Count 11.5 thou/uL (4.8-10.8)
[2019-04-12 12:18] LABS: INR-International Normal Ratio 1.2; PTT 36.2 SEC (22.9-36.1); Prothrombin Time 15.4 SEC (12.0-14.7)
[2019-04-12] MEDS ORDERED: CEFAZOLIN 1 GM VIAL ONE (12:19)
[2019-04-12 12:32] LABS: ALT (SGPT) Less than 7 U/L (8-55); AST (SGOT) 17 U/L (5-34); Albumin 2.7 g/dL (3.4-4.8); Alkaline Phosphatase 169 U/L (40-110); Anion Gap 11 mmol/L (10-20); BUN (Urea Nitrogen) 34 mg/dL (9.8-20.1); Bilirubin, Total 0.5 mg/dL (0.2-1.2); Calc. Creatinine Clearance 0 mL/min (70-130); Calcium 9.7 mg/dL (7.8-10.44); Carbon Dioxide 31 mmol/L (23-31); Chloride 97 mmol/L (98-107); Estimated GFR-MDRD 7; Globulin 5.9 g/dL (2.4-3.5); Glucose 164 mg/dL (80-115); Potassium 3.9 mmol/L (3.5-5.1); Protein, Total 8.6 g/dL (6.0-8.3); Sodium 135 mmol/L (136-145)
[2019-04-12] MEDS ORDERED: Morphine 4 MG/ML VIAL ONE (12:32)
[2019-04-12] MEDS ORDERED: Senokot S 8.6-50 MG TAB PO PRN (18:37)
[2019-04-12] MEDS ORDERED: Calcium Carbonate 500 MG ChewTAB PO PRN (18:37)
[2019-04-12] MEDS ORDERED: Dextrose 5% in Water 1,000 ML IV PRN (18:39)
[2019-04-12] MEDS ORDERED: Insulin Regular 300 UNITS/3 ML VIAL SC PRN (18:39)
[2019-04-12] MEDS ORDERED: Dextrose 50% Abboject 50 ML SYRINGE SLOW IVP PRN (18:39)
[2019-04-12] MEDS ORDERED: hydrALAZINE 20 MG/ML VIAL SLOW IVP PRN (18:40)
--- NOTE | 2019-04-12 19:07 | HP ---
PRIMARY CARE PHYSICIAN: Dr. Ledesma. PRIMARY MANAGER HOTEL: Dr. Mensah. CHIEF COMPLAINT: Left hand pain. HISTORY OF PRESENT ILLNESS: The patient is a 64-year-old female with end-stage renal disease, on hemodialysis; coronary artery disease; hypertension, presented to the emergency room with above complaints. The patient was admitted at this facility from March 10, 2019, to March 19, 2019, with shortness of breath. A workup was consistent with acute hypoxic respiratory failure requiring noninvasive positive pressure ventilation. A peritoneal dialysis was transitioned to hemodialysis. She also had left arm dialysis graft by Dr. Bronson. [facility] was [facility]. The patient was admitted from March 21, 2019, to March 30, 2019, at [facility] for perineal abscess. On March 23, 2019, the patient underwent an incision and drainage of the abscess. The operative findings were consistent with multiple sinuses and tracts along bilateral labia majora with minimal purulent discharge. She was then discharged back to the rehab. Over the last 1 week or so, the patient had some discomfort in the left hand. Since yesterday, the patient noticed some swelling and discoloration of the left third finger along with significant pain. Her current pain is 5/10. She denies any aggravating or relieving factor. No fever, chills, or injury reported. She is compliant with all of her medications including aspirin. She was evaluated by her PCP earlier today and was referred to the emergency room for evaluation. She is currently undergoing hemodialysis. PAST MEDICAL HISTORY: 1. End-stage renal disease, on hemodialysis. 2. Chronic anemia. 3. Chronic systolic and diastolic heart failure, ejection fraction 45% range. 4. Recent hospitalization for volume overload/respiratory failure as well as [id number] NC. 5. Coronary artery disease with 95% lesion in the first diagonal branch of the LAD. 6. Obesity with a BMI of 34. 7. Hypertension. 8. Hyperlipidemia. 9. Anemia secondary to renal insufficiency. 10. History of TIA. 11. Secondary hyperparathyroidism. 12. Hidradenitis suppurativa with recent perineal abscess at [facility]. PAST SURGICAL HISTORY: 1. Recent incision and drainage. 2. Multiple dialysis access. 3. Appendectomy. 4. Eye surgery. 5. Hysterectomy. 6. Tubal ligation. 7. Peritoneal dialysis catheter placement. CURRENT MEDICATIONS: At [facility]: 1. Aspirin 81 mg daily. 2. Carvedilol 12.5 mg b.i.d. 3. Cholecalciferol 2000 units daily. 4. Doxycycline 100 mg twice daily to be completed today. 5. Escitalopram 5 mg daily. 6. Humalog sliding scale. 7. Hydralazine 50 mg 3 times a day. 8. [place] as needed for pain. 9. Imdur 60 mg daily. 10. Lipitor 40 mg daily. 11. Protonix 40 mg daily. 12. MiraLAX daily. 13. Renvela 800 mg 3 times daily with meals. 14. Tramadol as needed. SOCIAL HISTORY: The patient currently lives at [facility]. She is full code and makes her own decision with the help of her family. She denies any smoking, alcohol, or drug use. FAMILY HISTORY: Negative for heart disease. REVIEW OF SYSTEMS: All other review of systems was reviewed and was found negative. PHYSICAL EXAMINATION: VITAL SIGNS: In the emergency room showed temperature 98.5 with respirations of 16, pulse rate of 78, blood pressure of 141/46 with O2 saturation 100% on room air. GENERAL: A 64-year-old female, in no apparent distress. Currently undergoing hemodialysis. HEENT: Head, atraumatic and normocephalic. Sclerae anicteric. Dry mucous membranes. No oral lesion. NECK: Supple. No JVD. No neck stiffness. LUNGS: Show diminished air entry at bilateral bases. No wheezing, rhonchi, or rales. HEART: S1 and S2 present. Regular rate and rhythm. No rubs or gallops. ABDOMEN: Soft, nontender. Bowel sounds present. No rebound or guarding. EXTREMITIES: No edema in bilateral lower extremity or calf tenderness. Radial pulses were partially diminished. There is blackish discoloration of the third finger, which is cool to touch without any capillary refill. The dialysis graft in the left arm was healing well with bruit. SKIN: Warm and dry. LYMPH NODES: No palpable lymph nodes in the neck. PERIPHERAL VASCULAR: Radial pulses palpable bilaterally. MUSCULOSKELETAL: No joint swelling tenderness. SKIN: As discussed above. NEUROLOGIC: Grossly nonfocal. Moves all 4 extremities PSYCHIATRY: Alert, awake, and oriented x3. LABORATORY FINDINGS: CBC showed WBC 11.5 with hemoglobin 7.1, hematocrit 22.8, platelet of 293. PT of 15.4, INR 1.2. Chemistry showed sodium 135, potassium 3.9, chloride 97, bicarbonate of 31, BUN 34, creatinine 7.5. Albumin 2.7. EKG by my review showed sinus rhythm with nonspecific ST-T wave changes in the lateral leads. Chest x-ray by my review from last admission was negative for infiltrate. IMPRESSION: 1. Ischemia of the left third finger causing significant pain. 2. End-stage renal disease, on hemodialysis. 3. Diabetes mellitus, type 2. 4. Hypertension. 5. Hyperlipidemia. 6. Chronic anemia secondary to renal insufficiency. 7. History of transient ischemic attack, on aspirin. 8. History of hidradenitis suppurativa with recent perineal abscess requiring incision and drainage. 9. Coronary artery disease, status post recent [id number] myocardial infarction. 10. Chronic systolic/diastolic heart failure, ejection fraction 45%. 11. Hyponatremia. 12. Moderate protein-calorie malnutrition. 13. Sulfa and Keflex allergy. PLAN: The patient will be monitored on the surgical floor. We will consult cardiovascular as well as hand surgeon. Nephrology consult for dialysis. We will start insulin sliding scale. We will continue aspirin. The patient is probably not a candidate for anticoagulation due to significant anemia requiring blood transfusion. We will check one set of troponin due to some nonspecific ST-T wave changes. We will resume selected home medications. Continue statins. Pain control. Recheck labs in a.m. Dialysis per Nephrology. Plan of care was discussed with the patient in detail. She stated understanding. Job ID: [id number]
[2019-04-12] MEDS: Atorvastatin Calcium 40 MG TAB PO SCH (22:21)
[2019-04-12] MEDS: HYDROcodone/Acetaminophen 5/325 mg Tablet PO PRN (22:22)
[2019-04-12] MEDS: hydrALAZINE 25 MG TAB PO SCH (22:22)
--- NOTE | 2019-04-12 22:59 | CON ---
DATE OF CONSULTATION: 04/12/2019 CONSULTING PHYSICIAN: José Bautista MD REASON FOR CONSULTATION: End-stage renal disease evaluation and care. REASON FOR ADMISSION: Right arm pain and poor circulation. HISTORY OF PRESENT ILLNESS: This is a 64-year-old female with history of coronary artery disease, hypertension, hyperlipidemia, CHF, and end-stage renal disease, came to the hospital with right arm pain and blackening and was found to have poor circulation. She is getting evaluated. She gets dialysis Friday, Friday, Friday, due for dialysis today and Nephrology consulted. No chest pain or palpitation. No nausea or vomiting. The patient was seen in the ER. PAST MEDICAL HISTORY: Positive for coronary artery disease, hypertension, hyperlipidemia, CHF, anemia, end-stage renal disease, and hyperparathyroidism. PAST SURGICAL HISTORY: Appendectomy, hysterectomy, tubal ligation, peritoneal dialysis catheter placement, dialysis access surgery. HOME MEDICATIONS: 1. Aspirin. 2. Atorvastatin. 3. Carvedilol. 4. Calcium with vitamin D. 5. Sensipar. 6. Lexapro. 7. Monurol. 8. Hydralazine. 9. [place]. 10. Tresiba. 11. Pantoprazole. 12. Phenergan. 13. Renvela. 14. Januvia. 15. Trazodone. ALLERGIES: TO BACTRIM, CEPHALEXIN, POTASSIUM. SOCIAL HISTORY: No smoking, alcohol, or illicit drug use. FAMILY HISTORY: No history of kidney disease. REVIEW OF SYSTEMS: CONSTITUTIONAL: Negative for weight loss or gain, ability to conduct usual activities. SKIN: Negative for rash, itching. EYES: Negative for double vision, pain. ENT/MOUTH: Negative for nose bleeding, neck stiffness, pain, tenderness. CARDIOVASCULAR: Negative for palpitations, dyspnea on exertion, orthopnea. RESPIRATORY: Negative for shortness of breath, wheezing, cough, hemoptysis, fever or night sweats. GASTROINTESTINAL: Negative for poor appetite, abdominal pain, heartburn, nausea , vomiting, constipation, or diarrhea. GENITOURINARY: Negative for urgency, frequency, dysuria, nocturia. MUSCULOSKELETAL: Negative for pain, swelling. NEUROLOGIC/PSYCHIATRIC: Negative for anxiety, depression. ALLERGY/IMMUNOLOGIC: Negative for skin rash, bleeding tendency. PHYSICAL EXAMINATION: GENERAL: This is a well-built female, in no apparent distress. VITAL SIGNS: Temperature 98.5, pulse 76, respiratory rate 18, and blood pressure 128/59. HEENT: Atraumatic, normocephalic. Oral mucosa is moist. NECK: Supple. CVS: S1 and S2 heard, rate and rhythm regular. RESPIRATORY: Clear. GI: Abdomen is soft. MUSCULOSKELETAL: 1+ edema. DERMATOLOGIC: Left third finger with black discoloration. NEUROLOGIC: Alert and awake. PSYCHIATRIC: Mood and affect normal. LABORATORY DATA: Hemoglobin is 7.1, potassium is 3.9, BUN is 34, creatinine is 7.5. ASSESSMENT AND PLAN: 1. End-stage renal disease. We will continue dialysis as tolerated. 2. Edema, controlled. 3. History of hypertension. 4. Chronic anemia. 5. Dialysis access issues. Follow with Surgery for further plan. Agree with evaluation of the right arm. We will continue dialysis as tolerated. Prognosis guarded. 6. Moderate protein energy malnutrition with hypoalbuminemia. We will continue to follow. Thank you for the consult. Job ID: [id number] MTDD
--- NOTE | 2019-04-12 23:55 | CON ---
DATE OF CONSULTATION: HISTORY OF PRESENT ILLNESS: Ms. Earl is a 64-year-old woman who underwent a left arm brachial-axillary vein tapered graft on 03/17. Since that time, she has noted that she has had left hand numbness and inability to extend her fingers. Since Friday, she has noted that she has a darkened left middle finger. Dr. Bronson asked me to evaluate her for potential vascular steal of her hand after having dialysis graft placement. She has been seen by Dr. Ann over the concern of her middle finger and its potential need for amputation. PAST MEDICAL HISTORY: 1. End-stage renal disease, on hemodialysis. 2. Obesity. 3. Anemia. 4. Hypertension. 5. Insulin-dependent diabetes mellitus. 6. Coronary artery disease. 7. Non-STEMI recently. PAST SURGICAL HISTORY: 1. Multiple dialysis accesses. 2. Hysterectomy. 3. Bilateral salpingo-oophorectomy. CURRENT MEDICATIONS: . ALLERGIES: CEPHALEXIN, LATEX, POTASSIUM, SULFA. PHYSICAL EXAMINATION: GENERAL: This is a delightful woman resting fairly comfortably on dialysis in the dialysis unit. On evaluation of her left hand, she has a palpable thrill in the dialysis fistula in her upper arm. She has a palpable brachial and radial pulse. There are good triphasic Doppler signals in the brachial and a biphasic signal in her radial. She has a Doppler signal in her hand arch. The middle finger is dusky to the MIP. LUNGS: Clear bilaterally. HEART: Rhythm is regular without murmur. ABDOMEN: Soft. LABORATORY DATA: Of note, hemoglobin is 7.1, platelet count is 293,000. Most recent creatinine is 7.5, potassium is 3.9. PT/INR is 1.2, PTT is 36.2. PLAN: She needs angiograms for evaluation of her dialysis graft and potential steal. I discussed this with her and she is agreeable to proceed tomorrow with angios. Job ID: [id number]
[2019-04-13 00:30] VITALS: BMI 34.8
[2019-04-13] MEDS: traMADol HCl 50 MG TAB PO PRN ×2 (01:24→20:45)
[2019-04-13] MEDS: Acetaminophen 325 MG TAB PO PRN (05:20)
[2019-04-13] MEDS: Insulin Regular 300 UNITS/3 ML VIAL SC PRN (05:20)
[2019-04-13 05:43] LABS: #Eosinphils 0.2 thou/uL (0.0-0.7); #Lymphocytes 1.2 thou/uL (1.20-3.40); #Monocytes 0.8 thou/uL (0.11-0.59); #Neutrophils 7.2 thou/uL (1.40-6.50); %Basophils 0.1 % (0.0-1.0); %Eosinophils 2.6 % (0.0-10.0); %Lymphocytes 12.9 % (21.0-51.0); %Monocytes 8.1 % (0.0-10.0); %Neutrophils 76.3 % (42.0-75.0); Hemoglobin 7.4 g/dL (12.0-16.0); Mean Corpuscular HGB CONC 31.9 g/dL (32.0-36.0); Mean Corpuscular Hemoglobin 28.5 pg (27.0-31.0); Mean Corpuscular Volume 89.3 fL (78.0-98.0); Mean Platelet Volume 7.7 fL (7.4-10.4); Platelet Count 287 thou/uL (130-400); RBC Distribution Width 13.5 % (11.5-14.5); Red Blood Cell (RBC) Count 2.61 mill/uL (4.20-5.40); White Blood Cell (WBC) Count 9.4 thou/uL (4.8-10.8)
[2019-04-13 06:31] LABS: Anion Gap 12 mmol/L (10-20); BUN (Urea Nitrogen) 15 mg/dL (9.8-20.1); Calc. Creatinine Clearance 21 mL/min (70-130); Calcium 8.9 mg/dL (7.8-10.44); Carbon Dioxide 29 mmol/L (23-31); Chloride 101 mmol/L (98-107); Estimated GFR-MDRD 13; Glucose 169 mg/dL (80-115); Sodium 138 mmol/L (136-145)
[2019-04-13] MEDS ORDERED: Heparin (Artline) 500 ML ONE (06:37)
[2019-04-13] MEDS: Carvedilol 6.25 MG TAB PO SCH ×2 (08:00→15:21)
[2019-04-13] MEDS: Sevelamer Carbonate 800 MG TAB PO SCH ×3 (08:00→15:23)
[2019-04-13] MEDS: Escitalopram Oxalate 10 mg Tablet PO SCH (09:00)
[2019-04-13] MEDS: hydrALAZINE 25 MG TAB PO SCH ×3 (09:00→20:49)
[2019-04-13] MEDS ORDERED: FLU VACC QS2019-20(6MOS UP)/PF 60 MCG/0.5 ML SYRINGE IM ONE (09:00)
[2019-04-13] MEDS: Polyethylene Glycol 3350 17 GM Packet PO SCH (09:00)
[2019-04-13] MEDS: Aspirin 81 mg Enteric Coated Tablet PO SCH (09:00)
--- NOTE | 2019-04-13 09:25 | PRG ---
DATE OF SERVICE: 04/13/2019 SUBJECTIVE: Patient was seen and examined at bedside and overnight events noted. Patient denies any shortness of breath or chest pain or palpitation. No history of nausea or vomiting or diarrhea or fever or chills or cramps. OBJECTIVE: GENERAL: This is a well-built female, in no apparent distress. VITAL SIGNS: Temperature 98.2. Heart rate 84. Respiratory rate 16. Blood pressure 110/72. HEENT: Atraumatic, normocephalic. Oral mucosa is moist NECK: Supple. CARDIOVASCULAR: S1, S2 heard. Rate and rhythm regular. RESPIRATORY: Clear to auscultation. GASTROINTESTINAL: Abdomen is soft. MUSCULOSKELETAL: No tenderness. No edema. DERMATOLOGIC: No skin rash. NEUROLOGIC: Alert and awake and oriented X3. No focal neurologic deficits. Moving all the extremities. PSYCHIATRIC: Mood and affect normal. EXTREMITIES: Left third finger with blackish discoloration. LABORATORY DATA: Potassium 4.0, BUN is 15, and creatinine is 4.1. ASSESSMENT AND PLAN: 1. End-stage renal disease. Continue dialysis as tolerated. 2. Edema, controlled. 3. History of hypertension. 4. Chronic anemia. Dialysis access issue with possible steal syndrome. Follow with Surgery. We will follow. Job ID: [id number] [facility]
[2019-04-13] MEDS ORDERED: HYDROcodone/Acetaminophen 5/325 mg Tablet ONE (09:47)
--- NOTE | 2019-04-13 10:28 | OP ---
DATE OF PROCEDURE: 04/13/2019 PREOPERATIVE DIAGNOSIS: Left hand ischemia, status post left brachiocephalic fistula. POSTOPERATIVE DIAGNOSIS: Left hand ischemia, status post left brachiocephalic fistula. PROCEDURES PERFORMED: 1. Ultrasound-guided right femoral artery access. 2. Arch aortogram. 3. Left subclavian angiogram. 4. Left axillary artery angiogram. 5. Left brachial artery angiogram both with and without compression of the fistula. TOTAL CONTRAST: 35. TOTAL FLUORO TIME: 5.7 minutes. DESCRIPTION OF PROCEDURE: After consent was obtained, the patient was brought to the confectionery laboratory manager and placed in supine position on confectionery laboratory manager table. Appropriate monitoring was placed. Right groin was anesthetized with 1% lidocaine utilizing ultrasound guidance. Using ultrasound guidance, the right common femoral artery was punctured and a micropuncture sheath was placed. This was exchanged for an Amplatz wire and 5-Montserratian sheath. A Vert catheter and angled Glidewire were used to traverse the thoracic aorta into the arch. Using an angled view, the arch aortogram was performed, this laid out the arch anatomy. The left subclavian artery was then accessed. Hand-injected arteriogram was performed, and this laid out the subclavian anatomy. This showed no evidence of any stenosis. The angled Glidewire was used to traverse the proximal subclavian artery into the axillary artery. Hand-injected arteriogram was performed showing no stenosis within the axillary system. Again, the Glidewire was used to guide the Vert down in the axillary artery into the brachial artery. Hand-injected arteriogram was performed showing no stenosis in the brachial system. There was complete filling of the graft. There was an old venous stent present. The graft when patent took all the blood flow away from the stebbins circulation distally. With compression of the graft and hand injection, the radial and ulnar arteries were patent, but small down into the hand. There was no patent arch. With noncompression of the graft, all of the blood was stolen into the graft and into the venous system. Catheters, wires, and sheaths were removed and manual pressure held for hemostasis. The patient tolerated the procedure well. Will be discussed with Dr. Bronson. Job ID: [id number]
[2019-04-13] MEDS ORDERED: Iopamidol 370 76% 50 ML VIAL FS ONE (10:45)
[2019-04-13] MEDS: HYDROcodone/Acetaminophen 5/325 mg Tablet PO PRN ×2 (15:24→23:21)
--- NOTE | 2019-04-13 16:14 | CON ---
DATE OF CONSULTATION: HISTORY OF PRESENT ILLNESS: Belinda Earl is a 64-year-old female, dialyzes Friday, Friday, and Friday, has had difficult dialysis access. In 2012, Dr. Fritz saw her for hidradenitis and multiple draining sinuses, perform a debridement. I subsequently saw her in May 2016 for left arm primary fistula antecubital vein to proximal radial artery outflow cephalic vein calibrated to 3.5 coronary dilator. I subsequently saw her on December 11, 2016, for a thrombosed fistula. At that time, she is not interested in peritoneal dialysis. She developed a stricture in the cephalic vein upper arm counting for occlusion. The patient underwent a right arm dialysis tapered graft on 12/11/2016. This apparently served her well for dialysis for a period of time until she presented with thrombosed graft and at that time, she underwent a laparoscopic adhesiolysis, omentopexy, and placement of a peritoneal dialysis catheter. She presented on March 10 and a temporary dialysis catheter had to be placed due to problems related to dialysis and then on 03/17/2019, I placed a left arm dialysis graft tapered for T07, brachial artery axillary vein, left arm and placed around the internal jugular vein cuffed tunneled dialysis catheter and a central line and removal of her PD catheter. She did have a PICC line placed in 2013, when her creatinine was 1.9. Last hospitalization, we did evaluate her internal jugular veins and although there was some stenotic outflow, they were patent. She was to follow up with me 2 to 3 weeks postoperatively. She was hospitalized in the interim in [place] for perineal abscesses requiring drainage. She subsequently was transferred from [place] to this facility yesterday, complained left hand pain. She was not able to move her hand well and her left third finger was ischemic. Dr. Ann saw her. I received a call yesterday when I was out of town. Dr. Menjivar saw her and performed arteriogram revealing steal from her left upper arm graft. With occlusion of the graft, she did have runoff in the radial ulnar arteries into her hand. Plan at this time is to perform a DRIL procedure using a saphenous vein from her leg. This will prioritize blood flow to her hand, we will try attempt to salvage her dialysis graft. She understands risks and benefits and consents. PAST MEDICAL HISTORY: End-stage renal disease on dialysis, chronic anemia, chronic systolic/diastolic heart failure and 45% ejection fraction, coronary artery disease, obesity, hypertension, metabolic syndrome, history of TIA, history of secondary hyperparathyroidism, history of hidradenitis suppurativa with recent perineal abscess drainage at [facility]. PAST SURGICAL HISTORY: As noted above. Past surgery; hysterectomy, tubal ligation, peritoneal dialysis catheter placement and removal. MEDICATIONS: 1. Aspirin. 2. Carvedilol. 3. Cholecalciferol. 4. Doxycycline. 5. Insulin. 6. Hydralazine. 7. [place] as needed. 8. Imdur. 9. Lipitor. 10. Protonix. 11. MiraLAX. 12. Renvela. SOCIAL HISTORY: The patient lives in [facility]. She is full code. PHYSICAL EXAMINATION: VITAL SIGNS: Height 5 feet 5 inches, 209 pounds, and 34 BMI. 98.9, 82, and 169/70. LUNGS: Clear to auscultation. CARDIAC: Regular rate and rhythm without murmur or gallop. ABDOMEN: Soft and nontender. EXTREMITIES: Left upper extremity dialysis graft, good thrill and bruit and well-healed wounds from placement. Left hand is ischemic. She cannot move her fingers well at all. 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 Her finger as indicated is ischemic. LABORATORY DATA: Hemoglobin 7.4 and white count 9.4. Basic metabolic profile changes consistent with end-stage renal disease. ASSESSMENT AND PLAN: End-stage renal disease, recent placement of a dialysis graft. She has an ischemic left hand, plan distal revascularization and interval ligation procedure using saphenous vein from her leg. She understands risks and benefits, consents. We will plan this tomorrow. She may need future amputation of her finger, but we will see how this does after revascularization. Job ID: [id number]
[2019-04-13] MEDS: Atorvastatin Calcium 40 MG TAB PO SCH (20:45)
[2019-04-13] MEDS: Nitroglycerin 2% Ointment 1 INCH/1 GM Packet TOP SCH (20:47)
--- NOTE | 2019-04-13 21:59 | PDOC.HOSPP ---
- Subjective Encounter Date: 04/13/19 Encounter Time: 14:30 Subjective: Patient seen and examined for ischemic finger. Pain controlled. No new complaints. No overnight events - Objective Vital Signs & Weight: Vital Signs (12 hours) Temp Pulse Resp BP BP Pulse Ox 04/13/19 20:49 71 97/61 04/13/19 20:39 98.8 F 71 16 97/61 99 04/13/19 17:02 98.4 F 69 20 125/70 100 04/13/19 16:00 100 04/13/19 15:34 98.4 F 70 16 148/63 H 100 04/13/19 15:23 82 04/13/19 15:21 125/70 04/13/19 13:00 98.9 F 82 16 169/70 H 99 Weight Admit Weight 209 lb 7.026 oz Weight 209 lb 7.026 oz I&O: 04/12/19 04/13/19 04/14/19 06:59 06:59 06:59 Intake Total 690 Output Total 0 Balance 690 Result Diagrams: 04/13/19 05:18 04/13/19 05:18 Additional Labs: Accuchecks 04/13/19 04/13/19 04/13/19 15:40 13:43 05:14 POC Glucose 174 H 196 H 185 H 04/12/19 22:33 POC Glucose 163 H Hospitalist ROS - Review of Systems Respiratory: denies: cough, dry, shortness of breath, hemoptysis, SOB with excertion, pleuritic pain, sputum, wheezing, other Cardiovascular: denies: chest pain, palpitations, orthopnea, paroxysmal noc. dyspnea, edema, light headedness, other Gastrointestinal: denies: nausea, vomiting, abdominal pain, diarrhea, constipation, melena, hematochezia, other - Medication Medications: Active Medications Generic Name Dose Route Start Last Admin Trade Name Freq PRN Reason Stop Dose Admin Acetaminophen 650 mg 04/12/19 18:37 04/13/19 05:20 Tylenol PO 650 mg Q4H PRN Administration Headache/Fever/Mild Pain (1-3) Hydrocodone Bitart/Acetaminophen 1 tab 04/12/19 18:36 04/13/19 15:24 [place] 5/325 PO 1 tab Q8H PRN Administration Severe Pain (7-10) Aspirin 81 mg 04/13/19 09:00 04/13/19 09:00 Ecotrin PO Not Given DAILY [facility] Atorvastatin Calcium 40 mg 04/12/19 21:00 04/13/19 20:45 Lipitor PO 40 mg HS [facility] Administration Carvedilol 12.5 mg 04/13/19 08:00 04/13/19 15:21 Coreg PO 12.5 mg BID-WM [facility] Administration Cholecalciferol 2,000 units 04/13/19 09:00 04/13/19 09:00 Vitamin D3 PO Not Given DAILY [facility] Escitalopram Oxalate 5 mg 04/13/19 09:00 04/13/19 09:00 Lexapro PO Not Given DAILY [facility] Hydralazine HCl 50 mg 04/12/19 21:00 04/13/19 20:49 Apresoline PO Not Given TID [facility] Insulin Human Regular 0 units 04/12/19 18:39 04/13/19 05:20 Humulin R SC 2 unit .MILD SLIDING SCALE PRN Administration Mild Correctional Scale Isosorbide Mononitrate 60 mg 04/13/19 09:00 04/13/19 09:00 Imdur PO Not Given DAILY [facility] Nitroglycerin 0 inch 04/13/19 21:00 04/13/19 20:47 Nitro-Bid 2% Ointment TOP 1 inch BID [facility] Administration Pantoprazole Sodium 40 mg 04/13/19 09:00 04/13/19 09:00 Protonix PO Not Given DAILY [facility] Polyethylene Glycol 17 gm 04/13/19 09:00 04/13/19 09:00 Miralax PO Not Given DAILY [facility] Sevelamer Carbonate 800 mg 04/13/19 08:00 04/13/19 15:23 Renvela PO 800 mg TID-[facility] Administration Tramadol HCl 50 mg 04/12/19 18:36 04/13/19 20:45 Ultram PO 50 mg BIDPRN PRN Administration Moderate Pain (4-6) - Exam General Appearance: NAD Neck: supple, no JVD Heart: RRR, no gallops Respiratory: CTAB, no rales, no ronchi Gastrointestinal: soft, non-tender, normal bowel sounds Extremities: no cyanosis Extremities - other findings: finger unchanged Hosp A/P - Plan 1. Ischemia of the left third finger causing significant pain. 2. End-stage renal disease, on hemodialysis. 3. Diabetes mellitus, type 2. 4. Hypertension. 5. Hyperlipidemia. 6. Chronic anemia secondary to renal insufficiency. 7. History of transient ischemic attack, on aspirin. 8. History of hidradenitis suppurativa with recent perineal abscess requiring incision and drainage. 9. Coronary artery disease, status post recent [id number] myocardial infarction. 10. Chronic systolic/diastolic heart failure, ejection fraction 45%. 11. Hyponatremia. 12. Moderate protein-calorie malnutrition. 13. Sulfa and Keflex allergy. PLAN: 04/13 s/p angiogram Dialysis in AM Cont ASA Cont other meds as above AM labs
[2019-04-14] MEDS: Acetaminophen 325 MG TAB PO PRN (02:07)
[2019-04-14 06:08] LABS: #Eosinphils 0.3 thou/uL (0.0-0.7); #Lymphocytes 1.2 thou/uL (1.20-3.40); #Monocytes 0.7 thou/uL (0.11-0.59); #Neutrophils 6.4 thou/uL (1.40-6.50); %Basophils 0.6 % (0.0-1.0); %Eosinophils 3.1 % (0.0-10.0); %Lymphocytes 13.8 % (21.0-51.0); %Monocytes 8.1 % (0.0-10.0); %Neutrophils 74.5 % (42.0-75.0); Hemoglobin 7.3 g/dL (12.0-16.0); Mean Corpuscular HGB CONC 31.8 g/dL (32.0-36.0); Mean Corpuscular Hemoglobin 28.3 pg (27.0-31.0); Mean Corpuscular Volume 88.9 fL (78.0-98.0); Mean Platelet Volume 7.7 fL (7.4-10.4); Platelet Count 271 thou/uL (130-400); RBC Distribution Width 13.5 % (11.5-14.5); Red Blood Cell (RBC) Count 2.57 mill/uL (4.20-5.40); White Blood Cell (WBC) Count 8.6 thou/uL (4.8-10.8)
[2019-04-14 06:20] LABS: Anion Gap 16 mmol/L (10-20); BUN (Urea Nitrogen) 23 mg/dL (9.8-20.1); Calc. Creatinine Clearance 15 mL/min (70-130); Calcium 8.9 mg/dL (7.8-10.44); Carbon Dioxide 27 mmol/L (23-31); Chloride 99 mmol/L (98-107); Estimated GFR-MDRD 9; Glucose 116 mg/dL (80-115); Potassium 4.6 mmol/L (3.5-5.1); Sodium 137 mmol/L (136-145)
--- NOTE | 2019-04-14 06:41 | CON ---
DATE OF CONSULTATION: 04/13/2019 CHIEF COMPLAINT: Pain with discoloration at the long finger greater than the small finger on the left hand. HISTORY: The patient has history of diabetes, long-standing, possibly secondary to hypertension where she noticed after she had a shunt placed near the antecubital fossa, persistently increasing pain, aching into the palm 2 days prior to my evaluation, could not move her fingers and noticed that the central digit of the left hand was turned "black." She noted some discoloration in the other digits, but did not change color so dramatically. The patient came to the Emergency Room. I was called emergently because of possible ischemia. Other past medical history of important is cardiac disease, diabetes, high blood pressure. PHYSICAL EXAMINATION: The patient is a mildly obese, very pleasant female. Awake, alert, and oriented with excellent insight into her problem. She reports that she has pain with all motion of the digits. My evaluation of the digits has revealed she has negative Tinel's of median and ulnar wrist and median and ulnar elbow. I could palpate a faint radial pulse, but no ulnar pulse. She also had dark, but soft complete circumferential ischemic loss of blood supply at the DIP joint of the ring finger distally, the IP joint of the long finger/middle finger distally with a shadow of increasing pinkness at approximately the midportion of the joints. The patient had antalgic motion, but could achieve full extension and can almost touch the palm with the digits. The examination today compared to one just listed, showed increasing pallor at the middle finger. Now, there is a great pallor at the small finger with early ischemic changes and minimal pallor at the ring finger, none at the index and thumb. She has some tenderness over her antecubital fossa graft on the left side. ASSESSMENT/RECOMMENDATION: The patient has ischemic digits. The question is what is the etiology and whether the operation will cause her get some relief before some potential time provided since last amputation, so my recommendation would be that the patient have arterial study, which we did today and it showed may have some type of steal phenomenon going on at generally left and this will be evaluated by Dr. Bronson in the operating room. If she has full bone necrosis and gangrene of the fingers that is not reversible, then she will need an amputation at a later date. I explained all this to the patient. Job ID: [id number]
[2019-04-14] MEDS: Carvedilol 6.25 MG TAB PO SCH ×2 (08:30→17:34)
[2019-04-14] MEDS: Polyethylene Glycol 3350 17 GM Packet PO SCH (08:30)
[2019-04-14] MEDS: Aspirin 81 mg Enteric Coated Tablet PO SCH (08:30)
[2019-04-14] MEDS: Sevelamer Carbonate 800 MG TAB PO SCH ×3 (08:30→17:34)
[2019-04-14] MEDS: hydrALAZINE 25 MG TAB PO SCH ×3 (08:30→21:47)
[2019-04-14] MEDS: Nitroglycerin 2% Ointment 1 INCH/1 GM Packet TOP SCH ×2 (08:30→21:50)
[2019-04-14] MEDS: Escitalopram Oxalate 10 mg Tablet PO SCH (08:30)
[2019-04-14] MEDS ORDERED: PHENYLEPHRINE-NS 100 MCG/ML 10 ML SYRINGE ONE (10:05)
[2019-04-14] MEDS ORDERED: PROPOFOL 200 MG/20 ML VIAL ONE (10:05)
[2019-04-14] MEDS ORDERED: Lidocaine 1% PF 5 ML VIAL ONE (10:05)
--- NOTE | 2019-04-14 10:58 | PRG ---
DATE OF SERVICE: SUBJECTIVE: Patient was seen and examined at bedside and overnight events noted. Patient denies any shortness of breath or chest pain or palpitation. No history of nausea or vomiting or diarrhea or fever or chills or cramps. OBJECTIVE: GENERAL: This is a well-built female, in no apparent distress. VITAL SIGNS: Temperature 98. Heart rate 77. Respiratory rate 18. Blood pressure 101/65. HEENT: Atraumatic, normocephalic. Oral mucosa is moist NECK: Supple. CARDIOVASCULAR: S1, S2 heard. Rate and rhythm regular. RESPIRATORY: Clear to auscultation. GASTROINTESTINAL: Abdomen is soft. MUSCULOSKELETAL: No tenderness. No edema. DERMATOLOGIC: No skin rash. NEUROLOGIC: Alert and awake and oriented X3. No focal neurologic deficits. Moving all the extremities. PSYCHIATRIC: Mood and affect normal. LABORATORY DATA: Potassium 4.6, BUN is 23, and creatinine is 5.7. ASSESSMENT AND PLAN: 1. End-stage renal disease. Continue dialysis as tolerated. 2. Edema, controlled. 3. Hypertension. 4. Anemia of chronic disease. We will continue on dialysis as tolerated. Appreciate help from Surgery. Job ID: [id number]
[2019-04-14] MEDS ORDERED: Protamine Sulfate 50 MG/5 ML VIAL ONE (12:52)
[2019-04-14] MEDS ORDERED: Bupivacaine PF 0.5% 30 ML VIAL ONE (12:52)
[2019-04-14] MEDS ORDERED: Lidocaine 1% w/Epinephrine 1:100K 20 ML VIAL ONE (12:52)
[2019-04-14] MEDS ORDERED: Heparin 5,000 UNITS/ML VIAL ONE (12:52)
[2019-04-14] MEDS ORDERED: Fentanyl 100 MCG/2 ML VIAL ONE ×2 (13:03→16:11)
--- NOTE | 2019-04-14 13:28 | PQF ---
DONNA MCNEAL MALIK MD [id number] SURG [id number] CLINICAL DOCUMENTATION IMPROVEMENT CLARIFICATION FORM: ICD-10 Updated PLEASE DO AN ADDENDUM TO THE PROGRESS NOTE WITH ANY DOCUMENTATION UPDATES OR ADDITIONS AND CARRY THROUGH TO DC SUMMARY. THANK YOU. DATE: 04/14/19 ATTN: Dr. Bautista Please exercise your independent, professional judgment in responding to the clarification form. Clinical indicators are provided on the bottom of this form for your review Please check appropriate box(s): NSTEMI ONSET OF INFARCTION: [ ] Onset Less than 4 weeks of admission [ x ] Onset Greater than 4 weeks of this admission [ ] Unable to determine [ ] No NSTEMI [ ] Other diagnosis [ ] Unable to determine In addition, please specify: Present on Admission (POA): [ ] Yes [ x ] No [ ] Unable to determine CLINICAL INDICATORS - SIGNS / SYMPTOMS / LABS / RESULTS AND LOCATION IN EMR 04/12 H&P([facility]): "CAD, recent hospitalization for volume overload/respiratory failure as well as [id number] [place]." 04/12 Ann: "Non-STEMI recently" 04/12 H&P([facility]): "EKG by my review showed sinus rhythm with nonspecific ST-T wave changes in the lateral leads" RISKS / RESULTS AND LOCATION IN EMR 04/12 Ann: "Hypertension, CAD" 04/12 Vasudev: "ESRD" TREATMENTS / RESULTS AND LOCATION IN EMR Angiograms 04/13 per orders Asa 81 mg PO daily per orders 04/13 orders Coreg 12.5 mg PO BID, Imdur 60mg PO daily 04/13 orders CV surgery consult 04/12 orders (This form is maintained as a part of the permanent medical record) 2014 [employer]. All Rights Reserved MTDD
[2019-04-14] MEDS ORDERED: Levofloxacin 500 mg/D5W 100 ml Premix Bag ONE (13:50)
[2019-04-14] MEDS ORDERED: Phenylephrine HCL 10 MG/ML VIAL ONE (13:52)
[2019-04-14] MEDS ORDERED: Ondansetron HCl/PF 4 MG/2 ML Vial IVP PRN (15:06)
[2019-04-14] MEDS ORDERED: Heparin 10,000 UNITS/1 ML VIAL ONE (15:30)
[2019-04-14] MEDS ORDERED: Acetaminophen 500 MG TAB PO PRN (15:57)
[2019-04-14] MEDS ORDERED: traMADol HCl 50 MG TAB PO PRN (15:57)
[2019-04-14] MEDS: Insulin Regular 300 UNITS/3 ML VIAL SC PRN (17:36)
[2019-04-14] MEDS: HYDROcodone/Acetaminophen 5/325 mg Tablet PO PRN (17:38)
--- NOTE | 2019-04-14 17:57 | OP ---
DATE OF PROCEDURE: 04/14/2019 PREOPERATIVE DIAGNOSES: Ischemic left hand secondary to a left upper arm dialysis tapered PTFE graft. Ischemic left middle, fourth, and second finger. POSTOPERATIVE DIAGNOSES: Ischemic left hand secondary to a left upper arm dialysis tapered PTFE graft. Ischemic left middle, fourth, and second finger. PROCEDURE PERFORMED: Distal revascularization and interval ligation procedure using reverse saphenous vein harvested from the right thigh. Note, good Doppler signal, radial and ulnar at the end of the case. Good quality brachial artery. ANESTHESIA: General anesthesia, local 0.5% Marcaine 30 mL mixed with 1% Xylocaine with epinephrine, 30 mL total volume mixture used. INDICATIONS: The patient several weeks ago had a left upper arm dialysis graft. The patient was hospitalized postoperatively in [place] for a perineal infection and hidradenitis suppurativa drainage. She presented to the emergency room with hand pain. Dr. Menjivar performed arteriogram revealing arterial steal from the tapered dialysis graft upper arm. Radial and ulnar artery runoff to the hand was noted. Dr. Ann has seen her. DESCRIPTION OF PROCEDURE: The patient was taken to the operating room, where under general LMA anesthesia, right groin, thigh, and left upper extremity were prepared with ChloraPrep and draped in routine fashion. Local anesthetic mixture was infiltrated into the skin and subcutaneous tissue about the operative site. Incision was made in the medial upper arm above the graft arterial anastomosis and in the distal upper arm across the antecubital fossa distal to the graft arterial anastomosis. Brachial artery dissected free on either side and a tunnel created with a Shirley clamp. Incision was made in the right groin and medial thigh, carried down to the skin and subcutaneous tissue. Excellent caliber saphenous vein dissected free dividing branches between 4-0 silk ties and clips and ligated in the distal end with 2-0 silk tie and at the saphenofemoral junction, clamp was applied. The vein amputated and stick tie of 2-0 silk placed to secure this closure. Subcutaneous tissue was approximated with 3-0 Monocryl, skin with subdermal 4-0 Monocryl and [place] glue applied. Local anesthetic was infiltrated in the skin and subcutaneous tissue. Vein reversed, flushed with heparinized saline solution, it distended well, was of excellent caliber. It was placed in the tunnel in a reverse fashion. The patient was given 6000 units of heparin intravenously and after adequate circulation time, the brachial artery above the graft arterial anastomosis was clamped proximally and distally. Longitudinal arteriotomy made 2.5 cm and vein graft accordingly spatulated and vein graft to side of brachial artery anastomosis created with continuous suture of 6-0 Prolene releasing the clamps. Branches ligated with 4-0 silk ties. There was good hemostasis obtained. Attention was then turned to the distal anastomosis. Interval ligation performed ligating the brachial artery. Beyond the graft artery anastomosis with a 2-0 silk and just distal to this vascular clamp applied and longitudinal arteriotomy was made sharply for 2.5 cm anastomosis created between the brachial artery and the reverse saphenous vein using continuous suture of 6-0 Prolene. Once this was complete, vascular clamps were released. Excellent flow noting good Doppler signals in the radial and ulnar wrist. There was a good Doppler signal in the dialysis graft. Good hemostasis was noted. The patient was given 25 mg of protamine intravenously by Anesthesia. Subcutaneous tissue was approximated with 3-0 Monocryl, skin with subdermal 4-0 Monocryl, and [place] glue applied. The patient tolerated the procedure well. Job ID: [id number]
--- NOTE | 2019-04-14 20:01 | PDOC.HOSPP ---
- Subjective Encounter Date: 04/14/19 Encounter Time: 16:00 Subjective: Patient seen and examined for ischemic finger.. No new complaints. No overnight events - Objective Vital Signs & Weight: Vital Signs (12 hours) Temp Pulse Resp BP BP Pulse Ox 04/14/19 19:44 98.9 F 66 16 120/50 L 99 04/14/19 17:34 130/75 04/14/19 17:05 98 04/14/19 17:00 98.6 F 71 16 130/75 98 04/14/19 16:46 77 97/61 04/14/19 11:49 98.8 F 77 16 97/52 L 04/14/19 08:30 77 97/61 Weight Admit Weight 209 lb 7.026 oz Weight 209 lb 7.026 oz I&O: 04/13/19 04/14/19 04/15/19 06:59 06:59 06:59 Intake Total 690 Output Total 0 Balance 690 Result Diagrams: 04/14/19 05:40 04/14/19 05:40 Additional Labs: Accuchecks 04/14/19 04/14/19 04/13/19 17:29 06:55 22:58 POC Glucose 162 H 128 H 239 H Hospitalist ROS - Review of Systems Respiratory: denies: cough, dry, shortness of breath, hemoptysis, SOB with excertion, pleuritic pain, sputum, wheezing, other Cardiovascular: denies: chest pain, palpitations, orthopnea, paroxysmal noc. dyspnea, edema, light headedness, other - Medication Medications: Active Medications Generic Name Dose Route Start Last Admin Trade Name Freq PRN Reason Stop Dose Admin Hydrocodone Bitart/Acetaminophen 1 tab 04/12/19 18:36 04/14/19 17:38 [place] 5/325 PO 1 tab Q8H PRN Administration Severe Pain (7-10) Aspirin 81 mg 04/13/19 09:00 04/14/19 08:30 Ecotrin PO Not Given DAILY ANURAG Atorvastatin Calcium 40 mg 04/12/19 21:00 04/13/19 20:45 Lipitor PO 40 mg HS ANURAG Administration Carvedilol 12.5 mg 04/13/19 08:00 04/14/19 17:34 Coreg PO 12.5 mg BID-WM ANURAG Administration Cholecalciferol 2,000 units 04/13/19 09:00 04/14/19 08:30 Vitamin D3 PO Not Given DAILY [facility] Escitalopram Oxalate 5 mg 04/13/19 09:00 04/14/19 08:30 Lexapro PO Not Given DAILY [facility] Hydralazine HCl 50 mg 04/12/19 21:00 04/14/19 16:46 Apresoline PO Not Given TID [facility] Insulin Human Regular 0 units 04/12/19 18:39 04/14/19 17:36 Humulin R SC 2 unit .MILD SLIDING SCALE PRN Administration Mild Correctional Scale Insulin Human Regular 0 units 04/12/19 18:39 04/13/19 23:16 Humulin R SC 2 unit .BEDTIME SLIDING SC PRN Administration Bedtime Correctional Scale Isosorbide Mononitrate 60 mg 04/13/19 09:00 04/14/19 08:30 Imdur PO Not Given DAILY [facility] Nitroglycerin 0 inch 04/13/19 21:00 04/14/19 08:30 Nitro-Bid 2% Ointment TOP Not Given BID [facility] Pantoprazole Sodium 40 mg 04/13/19 09:00 04/14/19 08:30 Protonix PO Not Given DAILY [facility] Polyethylene Glycol 17 gm 04/13/19 09:00 04/14/19 08:30 Miralax PO Not Given DAILY [facility] Sevelamer Carbonate 800 mg 04/13/19 08:00 04/14/19 17:34 Renvela PO 800 mg TID-[facility] Administration - Exam General Appearance: NAD Heart: RRR, no gallops Respiratory: no wheezes, no rales Gastrointestinal: soft, non-distended Extremities: no cyanosis Psychiatric: A&O x 3 Hosp A/P - Plan 1. Ischemia of the left third finger causing significant pain. 2. End-stage renal disease, on hemodialysis. 3. Diabetes mellitus, type 2. 4. Hypertension. 5. Hyperlipidemia. 6. Chronic anemia secondary to renal insufficiency. 7. History of transient ischemic attack, on aspirin. 8. History of hidradenitis suppurativa with recent perineal abscess requiring incision and drainage. 9. Coronary artery disease, status post recent [id number] myocardial infarction. 10. Chronic systolic/diastolic heart failure, ejection fraction 45%. 11. Hyponatremia. 12. Moderate protein-calorie malnutrition. 13. Sulfa and Keflex allergy. PLAN: 04/14 s/p distal revascularization Cont ASA Cont other meds 04/13 s/p angiogram Dialysis in AM Cont ASA Cont other meds as above AM labs
[2019-04-14] MEDS: Atorvastatin Calcium 40 MG TAB PO SCH (21:50)
[2019-04-15] MEDS: HYDROcodone/Acetaminophen 5/325 mg Tablet PO PRN ×2 (01:42→12:14)
[2019-04-15 06:13] LABS: #Eosinphils 0.3 thou/uL (0.0-0.7); #Monocytes 0.9 thou/uL (0.11-0.59); %Eosinophils 3.2 % (0.0-10.0); %Lymphocytes 10.1 % (21.0-51.0); %Monocytes 8.6 % (0.0-10.0); %Neutrophils 78.2 % (42.0-75.0); Mean Corpuscular HGB CONC 31.4 g/dL (32.0-36.0); Mean Corpuscular Hemoglobin 28.2 pg (27.0-31.0); Mean Corpuscular Volume 89.6 fL (78.0-98.0); Mean Platelet Volume 7.7 fL (7.4-10.4); Platelet Count 255 thou/uL (130-400); RBC Distribution Width 13.5 % (11.5-14.5); Red Blood Cell (RBC) Count 3.21 mill/uL (4.20-5.40); White Blood Cell (WBC) Count 10.2 thou/uL (4.8-10.8)
[2019-04-15] MEDS: Insulin Regular 300 UNITS/3 ML VIAL SC PRN ×2 (06:18→12:15)
[2019-04-15] MEDS: hydrALAZINE 25 MG TAB PO SCH ×2 (08:57→15:20)
[2019-04-15] MEDS: Sevelamer Carbonate 800 MG TAB PO SCH ×2 (08:57→12:14)
[2019-04-15] MEDS: Carvedilol 6.25 MG TAB PO SCH (08:57)
[2019-04-15] MEDS: Aspirin 81 mg Enteric Coated Tablet PO SCH (08:58)
[2019-04-15] MEDS: Escitalopram Oxalate 10 mg Tablet PO SCH (08:58)
[2019-04-15] MEDS: Polyethylene Glycol 3350 17 GM Packet PO SCH (08:58)
[2019-04-15] MEDS: Nitroglycerin 2% Ointment 1 INCH/1 GM Packet TOP SCH (08:59)
--- NOTE | 2019-04-15 11:14 | PRG ---
DATE OF SERVICE: 04/15/2019 SUBJECTIVE: Ms. Earl is doing well today. She states her left hand feels better after a DRIL procedure using saphenous vein, right thigh to restore and prioritize circulation to her left hand. The patient has a good bruit in her left upper arm graft. She has better mobility in her left hand, although not normal. Physical Therapy is working with her as far as mobility. She will need a platform walker. The patient is undergoing evaluation for return to [facility]. She will need rehab prior to going home for independent function. The patient after placement of her left arm graft at [facility] was transferred from [facility] to [facility]. These operations are usually done as an outpatient. I did not see her postoperatively in the hospital, but she complained of pain in her left hand. I was not notified. She was transferred to [facility] where she continued to complain of pain in her left hand. They did not refer her for evaluation. The patient developed problems related to her chronic hidradenitis suppurativa, perineum, buttocks, and she was sent to the [facility], transferred to [facility] for care of this. She stayed several days at [facility] in [place] and she states she complained of pain in her left hand, which was not addressed. She was sent back to either [facility] or home and continued to complain of pain and had discoloration of her finger and was sent to the emergency room at this facility. The patient was to follow up with me in 2 to 3 weeks postoperatively, but of course this was entered by her stay at [facility] in [place], where she was referred from [place]. Fortunately, patient has improvement in her left hand function. Her surgical wound of saphenous vein harvest, right thigh is healthy. She has a warm left hand. Plan at this time would be to refer [facility] to [facility] and she is stable for transfer any time. I have sent a letter from my office to [facility] to start using her left upper arm dialysis graft for her next dialysis. I have notified acute dialysis at [facility] to start utilizing her left upper arm dialysis graft for dialysis access. I will see her in my office in 2 to 3 weeks hopefully to remove her IJ hemodialysis catheter as an outpatient. The patient is stable for discharge from the hospital anytime from a surgical standpoint. I will see her as needed during this hospitalization. Please call if necessary. Job ID: [id number]
[2019-04-15 15:20] VITALS: BP 107/68
[2019-04-15 15:23] VITALS: TEMP 98.4
--- NOTE | 2019-04-15 17:17 | PRG ---
DATE OF SERVICE: 04/15/2019 SUBJECTIVE: Patient was seen and examined at bedside and overnight events noted. Patient denies any shortness of breath or chest pain or palpitation. No history of nausea or vomiting or diarrhea or fever or chills or cramps. OBJECTIVE: GENERAL: This is a well-built female, in no apparent distress. VITAL SIGNS: Temperature 98.4. Heart rate 68. Respiratory rate 16. Blood pressure 107/68. HEENT: Atraumatic, normocephalic. Oral mucosa is moist NECK: Supple. CARDIOVASCULAR: S1, S2 heard. Rate and rhythm regular. RESPIRATORY: Clear to auscultation. GASTROINTESTINAL: Abdomen is soft. MUSCULOSKELETAL: No tenderness. No edema. DERMATOLOGIC: No skin rash. NEUROLOGIC: Alert and awake and oriented X3. No focal neurologic deficits. Moving all the extremities. PSYCHIATRIC: Mood and affect normal. LABORATORY DATA: Not done today. ASSESSMENT AND PLAN: 1. End-stage renal disease. Continue on dialysis Friday, Friday, and Friday. 2. Edema, controlled. 3. Hypertension. 4. Anemia of chronic disease. Plan to continue on dialysis Friday, Friday, and Friday as tolerated. The patient has pain in the arm. Job ID: [id number]
--- NOTE | 2019-04-16 09:01 | DIS ---
DATE OF ADMISSION: 04/12/2019 DATE OF DISCHARGE: 04/15/2019 DISCHARGE DISPOSITION: [facility]. The patient was seen and examined on the day of discharge. Denies any new complaints. No chest pain, shortness of breath, or palpitations reported. BRIEF HOSPITAL COURSE: The patient is a 64-year-old female with end-stage renal disease, on hemodialysis; coronary artery disease; and hypertension; presented to the hospital with left hand pain. Please refer to the history and physical for further details. The patient was admitted to the hospital with a diagnosis of ischemia of the left 3rd finger causing significant pain. She was evaluated by hand surgeon, Dr. Ann; Vascular, Dr. Arnold Menjivar; as well as General Surgery, Dr. Bronson. On 13 April, the patient underwent angiogram of the left upper extremity by Dr. Menjivar. On the next day, the patient underwent distal revascularization and interval ligation procedure using reverse saphenous vein harvested from the right thigh by Dr. Bronson. Dr. Bronson has cleared the patient for discharge. She will follow up in the office in next 2 to 3 weeks. FINAL DIAGNOSES: 1. Ischemia of the left 3rd finger. 2. End-stage renal disease, on hemodialysis. 3. Diabetes mellitus, type 2. 4. Hypertension. 5. Hyperlipidemia. 6. Chronic anemia secondary to renal insufficiency. 7. History of transient ischemic attack, on aspirin. 8. History of hidradenitis suppurativa with recent perineal abscess, requiring incision and drainage. 9. Coronary artery disease, status post [id number] myocardial infarction. 10. Chronic systolic and diastolic heart failure, ejection fraction 45%. 11. Sulfa and Keflex allergy. 12. Moderate protein-calorie malnutrition. 13. Hyponatremia. DISCHARGE MEDICATIONS: 1. Nitroglycerin ointment over all the left digits b.i.d. 2. All other home medications were left unchanged. Total time coordinating the discharge of this patient was 35 minutes. Job ID: [id number]
== END 2019-04-15 16:32 | DRG 252 ==
LOC: ERS 10:47 → SURG B 21:50
PROVIDERS: ADMIT Internal Medicine; ATTEND Internal Medicine
PROC: B31P1ZZ Fluoroscopy of Thoraco-Abdominal Aorta using Low Osmolar Contrast (ICD-10-PCS; 2019-04-13)
PROC: B3121ZZ Fluoroscopy of Left Subclavian Artery using Low Osmolar Contrast (ICD-10-PCS; 2019-04-13)
PROC: B31J1ZZ Fluoroscopy of Left Upper Extremity Arteries using Low Osmolar Contrast (ICD-10-PCS; 2019-04-13)
PROC: 0318094 Bypass Left Brachial Artery to Left Lower Arm Artery with Autologous Venous Tissue, Open Approach (ICD-10-PCS; principal; 2019-04-14)
PROC: 06BP0ZZ Excision of Right Saphenous Vein, Open Approach (ICD-10-PCS; 2019-04-14)
DX: T82.898A Other specified complication of vascular prosthetic devices, implants and grafts, initial encounter (principal); N18.6 End stage renal disease; N25.81 Secondary hyperparathyroidism of renal origin; E87.1 Hypo-osmolality and hyponatremia; E44.0 Moderate protein-calorie malnutrition; I13.0 Hypertensive heart and chronic kidney disease with heart failure and stage 1 through stage 4 chronic kidney disease, or unspecified chronic kidney disease; I50.42 Chronic combined systolic (congestive) and diastolic (congestive) heart failure; I99.8 Other disorder of circulatory system; I25.2 Old myocardial infarction; I25.10 Atherosclerotic heart disease of native coronary artery without angina pectoris; Z99.2 Dependence on renal dialysis; E66.9 Obesity, unspecified; E78.5 Hyperlipidemia, unspecified; Z86.73 Personal history of transient ischemic attack (TIA), and cerebral infarction without residual deficits; Z90.49 Acquired absence of other specified parts of digestive tract; Z98.51 Tubal ligation status; Z79.82 Long term (current) use of aspirin; Z90.710 Acquired absence of both cervix and uterus; E11.22 Type 2 diabetes mellitus with diabetic chronic kidney disease; Z88.2 Allergy status to sulfonamides; Z88.8 Allergy status to other drugs, medicaments and biological substances; D63.1 Anemia in chronic kidney disease; Z68.34 Body mass index [BMI] 34.0-34.9, adult; Z79.4 Long term (current) use of insulin; Z91.040 Latex allergy status
CPT/HCPCS: 36217; 36415; 36416; 36430; 75710; 76942; 80048; 80053; 83880; 85025; 85610; 85730; 86850; 86870; 86880; 86900; 86901; 86922; 93005; C1769; C1887; J0690; J1644; J1815; J1956; J2001; J2270; J2370; J2704; J2720; J3010; P9016; Q9967; S0020

== ENCOUNTER 2019-04-20 16:39 | Emergency (ER) | payer MEDICARE | END 2019-04-20 18:15 | disposition home or self-care (01) | LOC: ERS 16:39 | DX: I96 Gangrene, not elsewhere classified (principal); I13.2 Hypertensive heart and chronic kidney disease with heart failure and with stage 5 chronic kidney disease, or end stage renal disease; E11.22 Type 2 diabetes mellitus with diabetic chronic kidney disease; N18.6 End stage renal disease; I50.9 Heart failure, unspecified; Z99.2 Dependence on renal dialysis; Z79.82 Long term (current) use of aspirin; Z79.899 Other long term (current) drug therapy; Z79.4 Long term (current) use of insulin | CPT/HCPCS: 99284 ==

== ENCOUNTER 2019-04-21 16:44 | Inpatient (IN) | payer MEDICARE ==
--- NOTE | 2019-04-21 18:30 | RAD ---
LEFT HAND THREE VIEWS: 04/21/19 HISTORY: Gangrene of third finger. Pain in the third, fourth and fifth fingers. FINDINGS/IMPRESSION: No fracture, dislocation or bony destruction is seen. Vascular calcifications are present. POS: KIERANA
[2019-04-21] MEDS ORDERED: Morphine 4 MG/ML VIAL ONE ×3 (18:47→23:30)
[2019-04-21 19:40] LABS: #Eosinphils 0.3 thou/uL (0.0-0.7); #Lymphocytes 1.4 thou/uL (1.20-3.40); #Monocytes 0.7 thou/uL (0.11-0.59); #Neutrophils 10.1 thou/uL (1.40-6.50); %Basophils 0.2 % (0.0-1.0); %Eosinophils 2.4 % (0.0-10.0); %Lymphocytes 11.1 % (21.0-51.0); %Monocytes 5.4 % (0.0-10.0); %Neutrophils 80.8 % (42.0-75.0); Hemoglobin 10.7 g/dL (12.0-16.0); Mean Corpuscular HGB CONC 32.2 g/dL (32.0-36.0); Mean Corpuscular Hemoglobin 28.9 pg (27.0-31.0); Mean Corpuscular Volume 89.8 fL (78.0-98.0); Mean Platelet Volume 7.4 fL (7.4-10.4); Platelet Count 361 thou/uL (130-400); RBC Distribution Width 13.9 % (11.5-14.5); Red Blood Cell (RBC) Count 3.72 mill/uL (4.20-5.40); White Blood Cell (WBC) Count 12.5 thou/uL (4.8-10.8)
[2019-04-21 19:54] LABS: INR-International Normal Ratio 1.2; PTT 35.9 SEC (22.9-36.1); Prothrombin Time 14.7 SEC (12.0-14.7)
[2019-04-21 20:07] LABS: ALT (SGPT) Less than 7 U/L (8-55); AST (SGOT) 17 U/L (5-34); Albumin 2.8 g/dL (3.4-4.8); Alkaline Phosphatase 229 U/L (40-110); Anion Gap 13 mmol/L (10-20); BUN (Urea Nitrogen) 9 mg/dL (9.8-20.1); Bilirubin, Total 0.4 mg/dL (0.2-1.2); Calc. Creatinine Clearance 0 mL/min (70-130); Calcium 9.3 mg/dL (7.8-10.44); Carbon Dioxide 30 mmol/L (23-31); Chloride 97 mmol/L (98-107); Estimated GFR-MDRD 20; Globulin 6.5 g/dL (2.4-3.5); Glucose 175 mg/dL (80-115); Potassium 3.4 mmol/L (3.5-5.1); Protein, Total 9.3 g/dL (6.0-8.3); Sodium 137 mmol/L (136-145)
--- NOTE | 2019-04-21 20:08 | CT ---
CT ABDOMEN AND PELVIS WITH CONTRAST: 04/21/19 INDICATIONS: Swelling in the perianal region. Rectal bleeding. No comparison. FINDINGS: The lung bases are clear. The liver is mildly heterogeneous. Small cyst in the spleen measures 1.2 cm. Pancreas unremarkable. Small bowel loops appear normal. Stool throughout the colon. Kidneys unremarkable. Images through pelvis show evidence of hysterectomy. No evidence of perirectal fluid or abscess. No evidence of perianal fluid or abscess. The perineum is incompletely imaged. As visualized there is no evidence of subcutaneous fluid or abscess collection. IMPRESSION: 1. Mildly heterogeneous liver. Correlate with liver function test. 2. Tiny low density lesion in the spleen, probably small cyst. 3. No acute intraabdominal process identified. POS: OFF
[2019-04-21] MEDS ORDERED: Silver Sulfadiazine 1% Cream 50 GM JAR ONE (20:58)
--- NOTE | 2019-04-21 21:38 | CT ---
CT PELVIS WITHOUT CONTRAST: 04/21/19 INDICATIONS: Assess for perianal/perirectal mass. FINDINGS: There is no evidence of perirectal or perianal fluid or abscess. There is abnormal density extending into the subcutaneous region of the right buttock suggesting infl ammatory phlegmonous type density. This extends down the right inner thigh region posteriorly. Mild s ubcutaneous density/thickening in the left lower buttock and inner thigh region as well. IMPRESSION: Skin thickening and subcutaneous density suggesting inflammatory phlegmonous type change. No fluid or abscess collection. POS: OFF
[2019-04-21] MEDS ORDERED: Clindamycin/D5W 900 mg/50 ml Premix Bag ONE (23:30)
[2019-04-22] MEDS ORDERED: Ondansetron PF 4 MG/2 ML Vial IVP PRN (04:20)
[2019-04-22] MEDS ORDERED: HYDROcodone/Acetaminophen 5/325 mg Tablet PO PRN (04:20)
[2019-04-22] MEDS ORDERED: Acetaminophen 325 MG TAB PO PRN (04:20)
[2019-04-22] MEDS ORDERED: Vancomycin HCl 1 GM in Premix Bag 1 BAG IVPB SCH (04:30)
[2019-04-22] MEDS ORDERED: Dextrose 50% Abboject 50 ML SYRINGE SLOW IVP PRN (04:37)
[2019-04-22] MEDS ORDERED: Dextrose 5% in Water 1,000 ML IV PRN (04:37)
--- NOTE | 2019-04-22 04:58 | HP ---
PRESENTING COMPLAINT: Sent from dialysis for perirectal bleeding. HISTORY OF PRESENT ILLNESS: Ms. Mady Trevino is a 64-year-old female with history of ESRD on HD, CAD, hypertension, diabetes mellitus, recently noted with left hand middle digit necrosis, status post AVF revascularization with ligation done and discharged three days ago. She was also noted during that time with hidradenitis suppurativa of the perianal area status post incision and drainage. The patient was discharged back to the [facility], but was noticed to be bleeding from that incision and drainage site and was sent post dialysis to the hospital. She denies any fever or chills. PAST MEDICAL HISTORY: Hypertension, diabetes, ESRD, chronic anemia, history of TIA, history of recent perirectal and anal abscess incision and drainage, history of coronary artery disease, history of chronic systolic CHF with previous EF of 45%. HOME MEDICATIONS: See extensive medication list. ALLERGIES: CEPHALEXIN, LATEX, POTASSIUM, AND SULFA. FAMILY HISTORY: Noncontributory. SOCIAL HISTORY: The patient [place] in a [place]it[place]. No history of tobacco, alcohol, or illicit drug use. REVIEW OF SYSTEMS: All systems reviewed x14, except as mentioned above. The patient admits to weakness. PHYSICAL EXAMINATION: VITAL SIGNS: Blood pressure of 112/50, pulse of 71, respiratory rate of 17, O2 saturation is 100% on room air, temperature 98.7. GENERAL: Obese, middle-aged female, not in distress, conversant. HEENT: Head is atraumatic, normocephalic. Pupils equal and reactive to light. RESPIRATORY: Good air entry bilaterally. CARDIOVASCULAR: S1, S2. Rate and rhythm regular. GI: Abdomen is full, soft, nontender. Perirectal area, small oozing from edematous perianal cellulitis looking area. Small abrasion from area of incision and drainage. EXTREMITIES: Trace pedal edema with hyperpigmented patches. NEUROLOGIC: The patient is alert and oriented. Cranial nerves 2 through 12 grossly intact. LABORATORY DATA: Reviewed. WBC 12.5, hemoglobin 10.7, neutrophils 80%. INR 1.2. Chemistry, potassium 3.4, glucose 175. BNP 866. Lactic acid 1.6. IMPRESSION: Perirectal cellulitis, left mid finger digit necrosis, on treatment; hypertension, diabetes mellitus, mild hyperkalemia post dialysis, history of congestive heart failure. PLAN: We will admit the patient in observation. We will consult General Surgery to re-evaluate perirectal area abscess, might need repeat debridement. We will start the patient on empirical antibiotics with vancomycin. We will also consult hand surgeon to evaluate the left hand mid digital necrosis status post recent AVF revision. Continue insulin sliding scale with Accu-Cheks. We will resume home medication regimen. DVT prophylaxis with subcutaneous heparin. Advance directives, the patient is a full code. TIME SPENT: Total time spent in review of record, discussion with patient, and evaluation, greater than 55 minutes. Job ID: [id number]
[2019-04-22] MEDS: Morphine 2 MG/ML SYRINGE SLOW IVP PRN ×2 (05:36→23:21)
[2019-04-22 05:58] VITALS: BMI 30.9
--- NOTE | 2019-04-22 07:48 | CON ---
DATE OF CONSULTATION: 04/21/2019 CHIEF COMPLAINT: 1. Left hand gangrenous changes after corrective STIL episode. 2. New complaint today only for possible rectal bleeding. HISTORY: The patient reports that she was told that she had some bleeding around her rectum after dialysis and was brought to the hospital because I had considered the opportunity today to remove her gangrenous tip of the middle finger and then evaluate her for changes of revascularization versus loss of circulation after correction procedure approximately 10 days ago for her steal phenomenon. PHYSICAL EXAMINATION: She is awake, alert, oriented to who she and that she is at the hospital. Date is uncertain. She does report she knows she went to dialysis today. The patient has clearly on exam bullae indicative of reperfusion possibility over the entire dorsal small finger and ring finger, middle and proximal phalanx with the small finger distal phalanx showing gangrenous dry changes and loss of circulation to the nailbed completely. Likewise, index and thumb are unaffected. She has less pain with motion today and today, it demonstrates over 75 degrees flexion, PIP and MP joints. At her ring finger, besides the dorsal bullae, her fingers are all warm to the level of the mid to distal third of the middle phalanx and at the long finger, clear demarcation is at the PIP joint. She still has mild soft tissue swelling compared to the opposite side, but there was more warmth on the left side than the univolved right. ASSESSMENT/RECOMMENDATION: The patient has had some revascularization phenomena and therefore maybe some digit salvage even at the middle finger, so I recommend she be treated for the bullae with Silvadene, until the rectal bleeding issue is resolved and then once that is stable, consider a partial amputation of the digits in the area where there is no evidence of viability and then determining clinically the area for level of closure. We will follow the patient daily while in hospital. Job ID: [id number]
[2019-04-22] MEDS ORDERED: Aspirin 81 mg Enteric Coated Tablet PO SCH (09:00)
[2019-04-22] MEDS ORDERED: Non-Formulary Item 1 EACH (Cholecalciferol (Vitamin D3) [D3-2000] 2,000 UNIT) PO SCH (09:00)
[2019-04-22] MEDS ORDERED: Heparin 5,000 UNITS/ML VIAL SC SCH (09:00)
[2019-04-22] MEDS ORDERED: Non-Formulary Item 1 EACH (Escitalopram Oxalate [Escitalopram Oxalate] 5 MG) PO SCH (09:00)
[2019-04-22] MEDS ORDERED: Sodium Chloride 0.9% 1,000 ML IV SCH (10:45)
--- NOTE | 2019-04-22 11:09 | CON ---
DATE OF CONSULTATION: HISTORY OF PRESENT ILLNESS: Belinda Earl is a 64-year-old female with end-stage renal disease, who has a left upper arm dialysis graft placed. She was sent home from this facility the day afterwards with pain in her left hand. She is in [facility]. She had pain in her left hand at that point. She had hidradenitis suppurativa in her groins, perianal buttocks, and sent from the snf to [place], continued to have left hand pain. In [place], they drained abscesses in her thigh and perilabial area. The patient was sent back to the snf in [place]. She continued to have pain in her left hand. The patient was then sent to this facility with pain in her left hand and gangrenous left fingers. 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 She has taken the operating room recently for a DRIL procedure, harvesting saphenous vein from her right thigh, relieving the arterial steal. She still has gangrene of her middle fingers in left hand. She will probably need these amputated in the future. She states the pain in her hand is resolved since the revascularization. The snf called my office yesterday morning stating that the patient's fingers were gangrenous. We informed them that this was a known entity. She would need to follow up with Dr. Smith in the next 2 to 3 weeks. There is nothing acutely be done. The patient was sent to the emergency room last night at [facility]. I received a phone call regarding her left hand and informed them of these plans. I then received a consult this morning as she had hidradenitis suppurativa, abscesses in perianal buttocks and is admitted. She is n.p.o. Inspection revealed extensive hidradenitis suppurativa of buttocks, perianal. Plan is to drain that today. As noted above, she has end-stage renal disease, on maintenance dialysis. They have been accessed in her left upper arm dialysis graft successfully. They have not had to use her catheter. We would probably be able to remove her hemodialysis catheter this hospitalization prior to discharge. ALLERGIES: CEPHALEXIN, LATEX, POTASSIUM, AND SULFA. SOCIAL HISTORY: Tobacco, none. Alcohol, none. MEDICATIONS: 1. Vancomycin. 2. Tramadol. 3. Apresoline 50 mg t.i.d. 4. Sevelamer 800 mg with meals t.i.d. 5. Protonix 40 mg a day. 6. Nitroglycerin p.r.n. 7. Isosorbide mononitrate 60 mg a day. 8. Hydrocodone 5/325 p.r.n. pain. 9. Vitamin D3. 10. Carvedilol 12.5 mg b.i.d. with meals. 11. Lipitor 40 mg at bedtime. 12. Aspirin 81 mg a day. 13. Tylenol Extra Strength p.r.n. pain. 14. MiraLAX daily. 15. Sliding scale insulin. PAST SURGICAL HISTORY: Hysterectomy, tubal ligation, peritoneal dialysis catheter placed and removed. Past history of hidradenitis drained by Dr. Fritz in the past. Primary fistula, left arm in 2016 that I performed later thrombosed, it was revised and later a right arm tapered graft was performed in upper arm, started well for dialysis until it thrombosed and then she underwent a laparoscopic adhesiolysis, omentopexy and placement of PD catheter. Temporary dialysis catheter was placed in March of 2017. In March 2019, I placed a left upper arm dialysis graft tapered brachial artery above the antecubital fossa of the axillary vein and a cuffed tunneled dialysis catheter in right IJ. She had a history of a PICC line placed in 2013 when her creatinine was 1.9. Dr. Menjivar performed arteriogram noting a total arterial steal. The patient underwent DRIL procedure recently. PAST MEDICAL HISTORY: End-stage renal disease, chronic anemia, diastolic heart failure with 45% ejection fraction, obesity, hypertension, metabolic syndrome, TIA, history of secondary hyperparathyroidism, history of hidradenitis suppurativa with multiple debridements locally and at [facility] more recently in [place]. PHYSICAL EXAMINATION: VITAL SIGNS: Height 5 feet 5 inches, weight 189 pounds, BMI 31, temperature 97.9, pulse 69, blood pressure 127/64. LUNGS: Clear to auscultation. CARDIAC: Regular rate and rhythm. No murmur or gallop. ABDOMEN: Soft and nontender. EXTREMITIES: Unremarkable except for left hand, where she has gangrenous index, middle and ring finger. The hand is warm. Well-healed surgical incision. Left upper arm antecubital area well healed. She has had a separate vein harvest in right groin, hidradenitis suppurativa in perianal buttocks with multiple areas of induration, multiple sinuses and purulent drainage. ASSESSMENT: Hidradenitis suppurativa. PLAN: Incision and drainage and debridement today. She understands the risks and benefits. Job ID: [id number]
[2019-04-22] MEDS: Carvedilol 6.25 MG TAB PO SCH ×2 (11:55→19:02)
[2019-04-22] MEDS: Sevelamer Carbonate 800 MG TAB PO SCH ×3 (11:56→19:03)
[2019-04-22] MEDS: hydrALAZINE 25 MG TAB PO SCH ×3 (11:56→21:00)
[2019-04-22] MEDS: traMADol HCl 50 MG TAB PO PRN (12:05)
[2019-04-22] MEDS: Famotidine 20 MG TAB PO SCH (12:30)
[2019-04-22] MEDS: Escitalopram Oxalate 10 mg Tablet PO SCH (12:31)
[2019-04-22] MEDS ORDERED: PHENYLEPHRINE-NS 100 MCG/ML 10 ML SYRINGE ONE (13:52)
[2019-04-22] MEDS ORDERED: Lidocaine 1% PF 5 ML VIAL ONE (13:52)
[2019-04-22] MEDS ORDERED: PROPOFOL 200 MG/20 ML VIAL ONE (13:52)
[2019-04-22] MEDS ORDERED: ePHEDrine/0.9% NaCl/PF SYRINGE 50 mg/10 ml ONE (13:52)
--- NOTE | 2019-04-22 15:52 | CON ---
DATE OF CONSULTATION: REASON FOR CONSULTATION: Chronic kidney disease for maintenance hemodialysis. HISTORY OF PRESENT ILLNESS: A 64-year-old female, who presented to the hospital for perirectal bleeding. The patient denied nausea, vomiting, or chest pain, dialysis as well. PAST MEDICAL HISTORY: Hypertension, diabetes mellitus, TIA, history of congestive heart failure, history of PD catheter, and history of anemia. HOME MEDICATIONS: List reviewed. HOSPITAL MEDICATIONS: List reviewed. ALLERGIES: REVIEWED. REVIEW OF SYSTEMS: A 15-point review of system was performed negative except for positives noted above. GENERAL: HEAD: NECK: No swelling or lumps. NOSE: No epistaxis or discharge. EYES: No diplopia or pain. 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 NEUROPSYCHIATIC SYSTEMS: No suicidal ideation. No ideation. SKIN: Denies any rash or ulcer. CONSTITUTIONAL: No fever or chills. FAMILY HISTORY: Noncontributory. SOCIAL HISTORY: No alcohol or drug use. PHYSICAL EXAMINATION: CONSTITUTIONAL: The patient is awake and alert. VITAL SIGNS: Afebrile, pulse 75, breathing 16, and blood pressure was 106/64. GENERAL APPEARANCE AND MENTAL STATUS: Fair. HEAD/NECK: Normocephalic. Atraumatic. EYES: EOMI. No deformity. EARS: Clear. No ulcers. NOSE: Intact. No lesions. MOUTH: Clear. No discharge. THROAT: Clear. No exudate. LUNGS: Clear. No crackles. CARDIAC: S1, S2. No rub. ABDOMEN: Benign. Bowel sounds positive. GENITALIA/RECTUM: Childers absent. BACK/EXTREMITIES: Edema 0+. NEUROLOGICAL: Alert and motor intact. SKIN: LYMPHATICS: LABORATORY DATA: Labs reviewed. ASSESSMENT AND PLAN: Stage 6 chronic kidney disease, plan dialysis tomorrow. Hypertension, stable. Anemia, stable. Medication based on GFR appropriate. Job ID: [id number]
[2019-04-22] MEDS ORDERED: Fentanyl 100 MCG/2 ML VIAL ONE (16:10)
[2019-04-22] MEDS ORDERED: Bupivacaine 0.25% HCL 30 ML VIAL ONE (16:13)
[2019-04-22] MEDS ORDERED: Lidocaine 1% w/Epinephrine 1:100K 20 ML VIAL ONE (16:13)
[2019-04-22] MEDS ORDERED: Ondansetron HCl/PF 4 MG/2 ML Vial IVP PRN (18:12)
[2019-04-22] MEDS ORDERED: Promethazine HCl 25 MG/ML VIAL IM PRN (18:12)
[2019-04-22] MEDS: Silver Sulfadiazine 1% Cream 50 GM JAR TOP SCH (20:24)
[2019-04-22] MEDS: Atorvastatin Calcium 40 MG TAB PO SCH (20:24)
--- NOTE | 2019-04-22 20:26 | OP ---
DATE OF PROCEDURE: 04/22/2019 PREOPERATIVE DIAGNOSES: 1. Hidradenitis suppurativa of labia, groin, and buttocks bilaterally. 2. End-stage renal disease. ANESTHESIA: General, local 0.25% Marcaine, 60 mL mixed with 1% Xylocaine with epinephrine 30 mL total volume mixture used. PROCEDURES PERFORMED: Debridement of skin and subcutaneous tissue sharply, excisional, bilateral labia, groins and buttocks and perianal. DESCRIPTION OF PROCEDURE: The patient was taken to the operating room, where under general anesthesia in the dorsal lithotomy position, the perianal area, groins, labial and vaginal area prepped with Betadine and draped in routine fashion. Hidradenitis suppurativa involved area in both labia, groins, buttock excised extensively, excising and resecting sharply skin and subcutaneous tissue, submitted to Pathology. Hemostasis was gained with cautery. Wound Care Team arrived to place with dry dressing. Job ID: [id number]
[2019-04-22] MEDS ORDERED: Cefepime 2 GM in Sodium Chloride 0.9% 100 ML IVPB SCH (21:00)
[2019-04-22] MEDS ORDERED: Vancomycin HCl 750 MG in Sodium Chloride 0.9% 250 ML 250 ML IVPB SCH (23:00)
[2019-04-23 05:56] LABS: Anion Gap 13 mmol/L (10-20); BUN (Urea Nitrogen) 20 mg/dL (9.8-20.1); Calc. Creatinine Clearance 16 mL/min (70-130); Calcium 8.6 mg/dL (7.8-10.44); Carbon Dioxide 28 mmol/L (23-31); Chloride 98 mmol/L (98-107); Estimated GFR-MDRD 11; Glucose 153 mg/dL (80-115); Sodium 135 mmol/L (136-145)
[2019-04-23 06:01] LABS: #Eosinphils 0.3 thou/uL (0.0-0.7); #Lymphocytes 1.4 thou/uL (1.20-3.40); #Neutrophils 7.5 thou/uL (1.40-6.50); %Basophils 0.2 % (0.0-1.0); %Eosinophils 3.2 % (0.0-10.0); %Lymphocytes 13.4 % (21.0-51.0); %Monocytes 9.7 % (0.0-10.0); %Neutrophils 73.4 % (42.0-75.0); Hemoglobin 8.4 g/dL (12.0-16.0); Mean Corpuscular HGB CONC 31.7 g/dL (32.0-36.0); Mean Corpuscular Hemoglobin 28.4 pg (27.0-31.0); Mean Corpuscular Volume 89.7 fL (78.0-98.0); Mean Platelet Volume 7.3 fL (7.4-10.4); Platelet Count 344 thou/uL (130-400); RBC Distribution Width 14.2 % (11.5-14.5); Red Blood Cell (RBC) Count 2.96 mill/uL (4.20-5.40); White Blood Cell (WBC) Count 10.2 thou/uL (4.8-10.8)
[2019-04-23] MEDS: HYDROcodone/Acetaminophen 5/325 mg Tablet PO PRN ×2 (07:20→16:10)
[2019-04-23] MEDS: hydrALAZINE 25 MG TAB PO SCH ×3 (07:35→20:20)
[2019-04-23] MEDS: Carvedilol 6.25 MG TAB PO SCH ×2 (07:35→17:23)
[2019-04-23] MEDS: Sevelamer Carbonate 800 MG TAB PO SCH ×3 (08:04→17:14)
[2019-04-23] MEDS: Silver Sulfadiazine 1% Cream 50 GM JAR TOP SCH ×2 (08:08→20:21)
--- NOTE | 2019-04-23 10:04 | PRG ---
DATE OF SERVICE: 04/23/2019 SUBJECTIVE: A 64-year-old female, being seen for end-stage renal disease. The patient denied nausea, vomiting, or chest pain. OBJECTIVE: See above. Awake, alert, in no acute distress. CONSTITUTIONAL: The patient is awake, alert. VITAL SIGNS: Afebrile, pulse 69, breathing 16, blood pressure 105/68. GENERAL APPEARANCE AND MENTAL STATUS: Fair. HEAD/NECK: Normocephalic. Atraumatic. EYES: EOMI. No deformity. EARS: Clear. No ulcers. NOSE: Intact. No lesions. MOUTH: Clear. No discharge. THROAT: Clear. No exudate. LUNGS: Clear. No crackles. CARDIAC: S1, S2. No rub. ABDOMEN: Benign. Bowel sounds positive. GENITALIA/RECTUM: Childers absent. BACK/EXTREMITIES: Edema 0+. NEUROLOGICAL: Alert and motor intact. SKIN: LYMPHATICS: LABORATORY DATA: Labs reviewed. ASSESSMENT AND PLAN: 1. Stage 6 chronic kidney disease, stable. Plan on dialysis. 2. Hypertension, stable. 3. Anemia. Follow hemoglobin. Consider transfusion. 4. Medication based on GFR appropriate. Job ID: [id number]
--- NOTE | 2019-04-23 12:32 | PRG ---
DATE OF SERVICE: 04/23/2019 SUBJECTIVE: Ms. Earl is doing well today. Her pain is very well controlled. OBJECTIVE: VITAL SIGNS: Temperature 98.3 degrees, pulse 69, blood pressure 118/65. LUNGS: Clear to auscultation. CARDIAC: Regular rate and rhythm without murmur or gallop. ABDOMEN: Soft. EXTREMITIES: Left upper arm dialysis graft, good thrill and bruit. Ischemic fingers, left hand as previously noted. Open wounds, buttocks, labia. Surgical wound, right groin for saphenous vein harvest, well healed, no wound problems. LABORATORY DATA: White count 10 and hemoglobin 8.4. Basic metabolic profile is normal consistent with end-stage renal disease. ASSESSMENT/PLAN: 1. Status post excisional resection, 10 blade debridement, hidradenitis suppurativa of the groin, labia, buttocks. She has had this resected many years past, and the last few weeks ago, drained at [facility]. The wounds are clean. There is no evidence of cellulitis. She does not need intravenous antibiotics. These have been discontinued. I am not opposed to her being on oral antibiotics for 5 to 7 days, but she does not need long-term. From a surgical standpoint, the patient is ready to be discharged home. Wound management would include daily washing the wounds with soap and water in the bath or shower and place in a Kotex pad or another pad to control soilage. This will heal secondarily. I will see her in my office in the next 2 to 4 weeks. She can manage these wounds at home. She was managed these many years past and more recently. 2. Status post distal revascularization and interval ligation procedure, saphenous vein harvest in right thigh for arterial steal, left hand. She has gangrenous fingers, left hand. Dr. Ann has seen in this hospitalization. We will plan probably amputation at least one of her fingers tomorrow. She could probably be discharged home after that. 3. End-stage renal disease, on maintenance dialysis. Job ID: [id number]
[2019-04-23] MEDS: Escitalopram Oxalate 10 mg Tablet PO SCH (13:30)
[2019-04-23] MEDS: traMADol HCl 50 MG TAB PO PRN (13:31)
[2019-04-23] MEDS: Famotidine 20 MG TAB PO SCH (13:34)
--- NOTE | 2019-04-23 14:32 | PRG ---
DATE OF SERVICE: 04/23/2019 SUBJECTIVE: The patient is seen and examined at the bedside. She just came back from her hemodialysis today. She is eating lunch. She does not have much complaints to offer. Her appetite is fair. OBJECTIVE: VITAL SIGNS: Blood pressure is 105/66, pulse is 69, temperature is 98.3, respirations 18, O2 saturation 100% on room air. HEENT: Her head is atraumatic and normocephalic. Sclerae are nonicteric. Oral mucosa is moist. NECK: Supple and obese. LUNGS: Breath sounds diminished at both bases. HEART: S1 and S2 normal. No S3. No S4. ABDOMEN: Soft, obese, and nontender. EXTREMITIES: Her left hand is wrapped. Based on the taken picture, she has necrotic fingers. Her left decubitus area of the left upper extremity is showing signs of previous surgery and suture. The area looks good. Her both lower extremities showed multiple healed areas from previous skin ulcers. NEUROLOGIC: She follows my commands. She moves her all 4 extremities. She has right upper chest dialysis catheter in place. LABORATORY DATA: Showed white count of 10.2, hemoglobin 8.4, hematocrit 26.5, platelet count is 344,000. Sodium of 135, potassium 4.0, chloride 98, CO2 of 28, BUN 20, creatinine 5.0. Glycemia is ranging from 129 to 164. Calcium 8.6. Microbiology, 2 blood cultures are negative. IMPRESSION: 1. Hidradenitis suppurativa, status post incision and drainage and debridement. 2. Gangrenous left fingers. 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 3. Diabetes mellitus. 4. End-stage renal disease, on hemodialysis 3 times a week. 5. Hypertension. 6. Chronic anemia. 7. History of transient ischemic attack. 8. Chronic coronary artery disease. 9. History of chronic systolic congestive heart failure with previous ejection fraction of 45%. DISCUSSION: The patient was seen by Dr. Bronson for General Surgery evaluation, and he did debridement of her labia and infected area. Also, the patient was seen by Dr. Ann for left hand necrosis, and the plan is to re-evaluate her and make recommendation regarding when she will have to have amputation done of those necrotic fingers. The skin specimen was sent to the lab, and we are waiting for the final report. In the meantime, we are going to continue her current regimen, which includes silver sulfadiazine topically twice a day along with pain management and diabetic coverage and her atorvastatin, carvedilol, vitamin D3, Lexapro, alprazolam, morphine, Renvela, and tramadol p.r.n. for the pain. She will receive wound care, and she will receive PT. Job ID: [id number]
[2019-04-23] MEDS: HumaLOG 300 UNITS/3 ML VIAL SC PRN (17:13)
[2019-04-23] MEDS: Atorvastatin Calcium 40 MG TAB PO SCH (20:20)
[2019-04-23] MEDS: Acetaminophen 500 MG TAB PO PRN (20:21)
[2019-04-24] MEDS: traMADol HCl 50 MG TAB PO PRN ×2 (03:43→16:22)
[2019-04-24] MEDS: Acetaminophen 500 MG TAB PO PRN (03:44)
[2019-04-24] MEDS ORDERED: Fentanyl 100 MCG/2 ML VIAL ONE (07:47)
[2019-04-24] MEDS ORDERED: Bupivacaine PF 0.5% 30 ML VIAL ONE (07:49)
[2019-04-24] MEDS ORDERED: Bacitracin Zinc Ointment 30 gm TUBE ONE (07:49)
[2019-04-24] MEDS ORDERED: Sodium Chloride 0.9% 10 ML ONE (07:50)
--- NOTE | 2019-04-24 08:24 | PRG ---
DATE OF SERVICE: SUBJECTIVE: A 64-year-old female being seen for end-stage kidney disease. The patient denies any nausea, vomiting, or chest pain. OBJECTIVE: CONSTITUTIONAL: The patient is awake and alert. VITAL SIGNS: Afebrile. Pulse 75, breathing 16, blood pressure 112/65. GENERAL APPEARANCE AND MENTAL STATUS: Fair. HEAD/NECK: Normocephalic. Atraumatic. EYES: EOMI. No deformity. EARS: Clear. No ulcers. NOSE: Intact. No lesions. MOUTH: Clear. No discharge. THROAT: Clear. No exudate. LUNGS: Clear. No crackles. CARDIAC: S1, S2. No rub. ABDOMEN: Benign. Bowel sounds positive. GENITALIA/RECTUM: Childers absent. BACK/EXTREMITIES: Edema 0+. NEUROLOGICAL: Alert and motor intact. SKIN: LYMPHATICS: LABORATORY DATA: Labs reviewed. ASSESSMENT AND PLAN: 1. Stage 6 chronic kidney disease. Continue hemodialysis. 2. Hypertension, stable. 3. Anemia. Recheck hemoglobin. 4. Medication based on GFR appropriate. Job ID: [id number]
[2019-04-24] MEDS ORDERED: PROPOFOL 200 MG/20 ML VIAL ONE (09:25)
[2019-04-24] MEDS ORDERED: Lidocaine 1% PF 5 ML VIAL ONE (09:25)
[2019-04-24] MEDS ORDERED: Ondansetron PF 4 MG/2 ML Vial ONE (09:25)
[2019-04-24] MEDS: Sevelamer Carbonate 800 MG TAB PO SCH ×3 (10:01→16:22)
[2019-04-24] MEDS: Famotidine 20 MG TAB PO SCH (10:02)
[2019-04-24] MEDS: hydrALAZINE 25 MG TAB PO SCH ×3 (10:02→21:05)
[2019-04-24] MEDS ORDERED: Heparin 10,000 UNITS/ 10 ML VIAL ONE (10:03)
[2019-04-24] MEDS: Silver Sulfadiazine 1% Cream 50 GM JAR TOP SCH ×2 (10:03→21:10)
[2019-04-24] MEDS: Escitalopram Oxalate 10 mg Tablet PO SCH (11:36)
[2019-04-24] MEDS: Carvedilol 6.25 MG TAB PO SCH ×2 (11:36→16:23)
[2019-04-24] MEDS: HYDROcodone/Acetaminophen 5/325 mg Tablet PO PRN (14:40)
--- NOTE | 2019-04-24 15:16 | PRG ---
DATE OF SERVICE: 04/24/2019 SUBJECTIVE: The patient is seen and examined at the bedside. She just came back from operating room, where she had amputation of the parts of her left hand fingers done by Dr. Ann. She has some complaints of pain in this hand. Her appetite is fair. She had hemodialysis done yesterday. OBJECTIVE: VITAL SIGNS: Blood pressure is 102/58, pulse is 72, temperature is 97.7, respirations 16, O2 saturation is 97% on room air. HEENT: Head is atraumatic and normocephalic. Eyes are PERRLA. Sclerae are nonicteric. Oral mucosa is moist. NECK: Supple. LUNGS: Clear. HEART: S1, S2 normal. No S3. No S4. ABDOMEN: Soft, obese, nontender. EXTREMITIES: Left hand is wrapped, status post surgery done this morning. 1+ peripheral edema similar bilateral on both lower extremities. NEUROLOGICAL: She follows my commands. She moves her all 4 extremities. There is no any motor deficits. LABORATORY DATA: Showed glycemia is ranging from 163 to 251. IMPRESSION: 1. Hidradenitis suppurativa, status post incision and drainage and debridement per General Surgery. 2. Gangrenous left fingers, status post partial amputation of three fingers. 3. Diabetes mellitus type 2. 4. End-stage renal disease, on hemodialysis three times a week. Last hemodialysis session was yesterday. 5. Hypertension. 6. Chronic anemia. 7. History of transient ischemic attack. 8. Chronic coronary artery disease, stable. 9. History of chronic systolic congestive heart failure with previous ejection fraction of 45%. DISCUSSION: The patient is doing quite well after her surgery. She has some pain, but not much. She will continue on cefazolin 2 g every an 8 hours. Two blood cultures came back negative. We will continue her short-acting insulin and start her on 10 units of insulin Lantus for better coverage along with short-acting sliding scale, and that she will have hemodialysis done according to machine inker's recommendation three times a week, and we will see what Hand surgeon recommend for further management of her necrotic fingers of the left hand. Job ID: [id number]
[2019-04-24] MEDS: CEFAZOLIN 2 GM in Premix Bag 1 BAG IVPB SCH (16:20)
[2019-04-24] MEDS: HumaLOG 300 UNITS/3 ML VIAL SC PRN (17:05)
[2019-04-24] MEDS ORDERED: Heparin 5,000 UNITS/ML VIAL CATH PRN (19:18)
[2019-04-24] MEDS: Atorvastatin Calcium 40 MG TAB PO SCH (21:11)
[2019-04-25] MEDS: HYDROcodone/Acetaminophen 5/325 mg Tablet PO PRN ×3 (00:04→19:02)
[2019-04-25] MEDS: CEFAZOLIN 2 GM in Premix Bag 1 BAG IVPB SCH ×3 (00:05→16:18)
--- NOTE | 2019-04-25 01:26 | PRG ---
DATE OF SERVICE: 04/25/2019 SUBJECTIVE: A 64-year-old female being seen for end-stage kidney disease. The patient denied nausea, vomiting, or chest pain. OBJECTIVE: See above, CONSTITUTIONAL: The patient is awake and alert. VITAL SIGNS: breathing 16, blood pressure HEAD/NECK: Normocephalic. Atraumatic. EYES: EOMI. No deformity. EARS: Clear. No ulcers. NOSE: Intact. No lesions. MOUTH: Clear. No discharge. THROAT: Clear. No exudate. LUNGS: Clear. No crackles. CARDIAC: S1, S2. No rub. ABDOMEN: Benign. Bowel sounds positive. GENITALIA/RECTUM: Childers absent. BACK/EXTREMITIES: Edema 0+. NEUROLOGICAL: Alert and motor intact. SKIN: LYMPHATICS: LABORATORY DATA: Reviewed. ASSESSMENT AND PLAN: 1. Stage 6 chronic kidney disease. Continue hemodialysis on Friday, Friday, and Friday. 2. Hypertension, stable. 3. Anemia, stable. 4. Medication based on GFR appropriate. Job ID: [id number]
[2019-04-25] MEDS: traMADol HCl 50 MG TAB PO PRN ×2 (03:43→15:18)
[2019-04-25] MEDS: Sevelamer Carbonate 800 MG TAB PO SCH ×3 (08:19→16:19)
[2019-04-25] MEDS: Escitalopram Oxalate 10 mg Tablet PO SCH (08:19)
[2019-04-25] MEDS: Carvedilol 6.25 MG TAB PO SCH ×2 (08:19→16:19)
[2019-04-25] MEDS: Famotidine 20 MG TAB PO SCH (08:20)
[2019-04-25] MEDS: hydrALAZINE 25 MG TAB PO SCH ×3 (08:20→20:24)
[2019-04-25] MEDS: Silver Sulfadiazine 1% Cream 50 GM JAR TOP SCH ×2 (08:23→20:24)
[2019-04-25] MEDS ORDERED: Heparin 10,000 UNITS/ 10 ML VIAL CATH PRN ×2 (09:23→12:31)
[2019-04-25] MEDS ORDERED: HumaLOG 300 UNITS/3 ML VIAL SC PRN (09:25)
[2019-04-25] MEDS: HumaLOG 300 UNITS/3 ML VIAL SC PRN ×2 (12:14→17:21)
[2019-04-25 16:13] VITALS: TEMP 98.2
--- NOTE | 2019-04-25 17:16 | PDOC.HOSPP ---
- Subjective Encounter Date: 04/25/19 Encounter Time: 13:00 Subjective: Patient seen and examined for ischemic fingers with perineal cellulitis/ abscess. Left hand pain +. No new complaints. No overnight events - Objective Vital Signs & Weight: Vital Signs (12 hours) Temp Pulse Resp BP BP Pulse Ox 04/25/19 16:19 68 122/71 04/25/19 16:06 98.2 F 68 18 122/71 100 04/25/19 11:08 98.0 F 69 18 104/62 100 04/25/19 08:20 72 125/51 L 04/25/19 08:19 125/51 L 04/25/19 07:38 98.0 F 72 18 125/51 L 98 Weight Admit Weight 189 lb 1 oz Weight 189 lb 1 oz I&O: 04/24/19 04/25/19 04/26/19 06:59 06:59 06:59 Intake Total 800 240 Output Total 1700 Balance -900 240 Result Diagrams: 04/23/19 05:26 04/23/19 05:26 Additional Labs: Accuchecks 04/25/19 04/25/19 04/25/19 16:14 11:16 04:04 POC Glucose 176 H 271 H 165 H 04/24/19 20:19 POC Glucose 192 H Hospitalist ROS - Review of Systems Respiratory: denies: cough, dry, shortness of breath, hemoptysis, SOB with excertion, pleuritic pain, sputum, wheezing, other Cardiovascular: denies: chest pain, palpitations, orthopnea, paroxysmal noc. dyspnea, edema, light headedness, other - Medication Medications: Active Medications Generic Name Dose Route Start Last Admin Trade Name Freq PRN Reason Stop Dose Admin Acetaminophen 1,000 mg 04/22/19 04:24 04/24/19 03:44 Tylenol PO 1,000 mg Q6H PRN Administration Moderate to Severe Pain (6-10) Hydrocodone Bitart/Acetaminophen 1 tab 04/22/19 04:24 04/25/19 08:21 [place] 5/325 PO 1 tab Q8HR PRN Administration Moderate Pain (4-6) Atorvastatin Calcium 40 mg 04/22/19 21:00 04/24/19 21:11 Lipitor PO 40 mg HS ANURAG Administration Carvedilol 12.5 mg 04/22/19 08:00 04/25/19 16:19 Coreg PO 12.5 mg BID-[facility] Administration Cholecalciferol 2,000 units 04/22/19 09:00 04/25/19 08:21 Vitamin D3 PO 2,000 units DAILY [facility] Administration Escitalopram Oxalate 5 mg 04/22/19 09:00 04/25/19 08:19 Lexapro PO 5 mg DAILY [facility] Administration Famotidine 20 mg 04/22/19 09:00 04/25/19 08:20 Pepcid PO 20 mg 0900 [facility] Administration Hydralazine HCl 50 mg 04/22/19 09:00 04/25/19 16:19 Apresoline PO 50 mg TID [facility] Administration Insulin Human Lispro 0 units 04/22/19 04:37 04/25/19 12:14 Humalog SC 6 unit .MODERATE SLIDING SC PRN Administration Moderate [place] Scale Isosorbide Mononitrate 60 mg 04/22/19 09:00 04/25/19 08:19 Imdur PO 60 mg DAILY [facility] Administration Morphine Sulfate 2 mg 04/22/19 04:26 04/22/19 23:21 Morphine SLOW IVP 2 mg Q4H PRN Administration Pain Pantoprazole Sodium 40 mg 04/22/19 09:00 04/25/19 08:20 Protonix PO 40 mg DAILY [facility] Administration Sevelamer Carbonate 800 mg 04/22/19 08:00 04/25/19 16:19 Renvela PO 800 mg TID-[facility] Administration Silver Sulfadiazine 1 gm 04/22/19 21:00 04/25/19 08:23 Silver Sulfadiazine TOP Not Given BID [facility] Tramadol HCl 50 mg 04/22/19 04:24 04/25/19 15:18 Ultram PO 50 mg BID PRN Administration Pain - Exam General Appearance: NAD Neck: supple, no JVD Heart: RRR Respiratory: no wheezes, no rales, no ronchi Gastrointestinal: soft, non-tender, normal bowel sounds Skin: no rashes Skin - other findings: Left hand dressing Neurological: no new deficit Hosp A/P - Plan PT/OT, DVT proph w/SCDs Hidradenitis suppurativa/perineal abscess Ischemia of the fingers (left) ESRD on hemodialysis. Diabetes mellitus, type 2. Hypertension. Hyperlipidemia. Chronic anemia secondary to renal insufficiency. History of transient ischemic attack, on aspirin. CAD status post recent NSTEMI Chronic systolic/diastolic heart failure, ejection fraction 45%. Hyponatremia/Hypokalemia Moderate protein-calorie malnutrition. Sulfa and Keflex allergy. PLAN: s/p I&D and toe amputation Dialysis per Nephrology Cont wound care Resume ASA Cont other meds AM labs Treat constipation Oupt wound care Verify home meds from SNF
[2019-04-25] MEDS: Senokot S 8.6-50 MG TAB PO SCH (20:25)
[2019-04-25] MEDS: Atorvastatin Calcium 40 MG TAB PO SCH (20:25)
[2019-04-26] MEDS: traMADol HCl 50 MG TAB PO PRN (01:55)
[2019-04-26 05:52] LABS: #Eosinphils 0.4 thou/uL (0.0-0.7); #Lymphocytes 1.1 thou/uL (1.20-3.40); #Monocytes 0.8 thou/uL (0.11-0.59); #Neutrophils 7.1 thou/uL (1.40-6.50); %Basophils 0.2 % (0.0-1.0); %Eosinophils 3.9 % (0.0-10.0); %Monocytes 8.4 % (0.0-10.0); %Neutrophils 75.6 % (42.0-75.0); Hemoglobin 7.7 g/dL (12.0-16.0); Mean Corpuscular Hemoglobin 28.6 pg (27.0-31.0); Mean Corpuscular Volume 89.3 fL (78.0-98.0); Mean Platelet Volume 7.2 fL (7.4-10.4); Platelet Count 288 thou/uL (130-400); RBC Distribution Width 14.6 % (11.5-14.5); White Blood Cell (WBC) Count 9.4 thou/uL (4.8-10.8)
[2019-04-26 06:09] LABS: Anion Gap 15 mmol/L (10-20); BUN (Urea Nitrogen) 29 mg/dL (9.8-20.1); Calc. Creatinine Clearance 11 mL/min (70-130); Calcium 8.8 mg/dL (7.8-10.44); Carbon Dioxide 25 mmol/L (23-31); Chloride 98 mmol/L (98-107); Estimated GFR-MDRD 7; Glucose 119 mg/dL (80-115); Potassium 4.3 mmol/L (3.5-5.1); Sodium 134 mmol/L (136-145)
[2019-04-26] MEDS: HYDROcodone/Acetaminophen 5/325 mg Tablet PO PRN (06:36)
[2019-04-26] MEDS ORDERED: Saccharomyces boulardii 250 MG CAP PO SCH (09:00)
[2019-04-26] MEDS ORDERED: Aspirin 81 mg Enteric Coated Tablet PO SCH (09:00)
[2019-04-26] MEDS ORDERED: Polyethylene Glycol 3350 17 GM Packet PO SCH (09:00)
--- NOTE | 2019-04-26 10:41 | OP ---
DATE OF PROCEDURE: 04/24/2019 PREOPERATIVE DIAGNOSES: Ischemia with aleida distal finger gangrene and zone reperfusion, small finger, ring finger, and long finger distal half, left upper extremity. POSTOPERATIVE FINDINGS: 1. Reperfusion, partial recovery, small finger to the level of the DIPJ. 2. No recovery at the middle finger, distal to proximal aspect of the middle phalanx. 3. At the ring finger, recovery to the level of the distal 1/3 of the middle phalanx. PROCEDURES PERFORMED: Partial amputations to the level of at least some blood flow returned making the small finger amputation at proximal phalangeal joint, making the ring finger amputation distal third of the middle phalanx and, the long finger amputation at proximal phalanx level. COMPLICATIONS: None. INDICATION: The patient again had a shunt with a steal phenomenon and once treated, she only had reperfusion to the level described above. DESCRIPTION OF PROCEDURE: After successful general endotracheal anesthesia, followed by an appropriate consultation as well as well as calling one of her relatives surgery, the patient's limb was prepped and draped. She was given 10 mL of 0.5% Marcaine local block in the metacarpophalangeal joint level and then we removed the bullae to see the reperfusion phenomena. Then, approximately 1 cm proximal to the actual aleida gangrene, we made our 1st incision beginning at long finger/middle finger. Here, we could not find bleeding until we had reached the point proximal to the neck of the proximal phalanx, so she had a transphalangeal proximal phalanx amputation at bone level with skin level just distal to that. Next, we placed a bulky moist dressing here. Next, using the same technique at the ring finger, we found the perfusion level to be at the neck of the middle phalanx, so her bone level was slightly the skin level at this level. Finally, the small finger, although we had initial hope for longer limb, had problems all the way down to the base of the middle phalanx, so we had performed bone amputation at this level and skin at the level just 5 mm distal to this. At the point of irrigation before closure, there was a small amount of bleeding on the dorsal palmar aspect of all these incisions, so this became the amputation level and we closed all three amputations with interrupted 4-0 nylon without any undue tension. Bulky soft dressing was applied and the patient left the operating room without evidence of anesthetic or operative complication. Job ID: [id number]
--- NOTE | 2019-04-26 11:49 | PRG ---
DATE OF SERVICE: 04/26/2019 SUBJECTIVE: Patient was seen and examined at bedside and overnight events noted. Patient denies any shortness of breath or chest pain or palpitation. No history of nausea or vomiting or diarrhea or fever or chills or cramps. OBJECTIVE: GENERAL: This is a well-built female, in no apparent distress. VITAL SIGNS: Temperature 98.2. Heart rate 70. Respiratory rate 18. Blood pressure 109/65. HEENT: Atraumatic, normocephalic. Oral mucosa is moist NECK: Supple. CARDIOVASCULAR: S1, S2 heard. Rate and rhythm regular. RESPIRATORY: Clear to auscultation. GASTROINTESTINAL: Abdomen is soft. MUSCULOSKELETAL: No tenderness. No edema. DERMATOLOGIC: No skin rash. NEUROLOGIC: Alert and awake and oriented X3. No focal neurologic deficits. Moving all the extremities. PSYCHIATRIC: Mood and affect normal. LABORATORY DATA: Potassium is 4.3, BUN is 29, creatinine is 6.8. ASSESSMENT AND PLAN: 1. End-stage renal disease. Continue dialysis. The patient had dialysis today. 2. Hypertension. 3. Anemia of chronic disease. 4. Edema. 5. Access issues with peripheral vascular disease. Follow with Surgery. Job ID: [id number]
[2019-04-26 12:41] VITALS: BP 100/60
[2019-04-26] MEDS: Sevelamer Carbonate 800 MG TAB PO SCH (12:41)
[2019-04-26] MEDS: Carvedilol 6.25 MG TAB PO SCH (12:41)
[2019-04-26] MEDS: hydrALAZINE 25 MG TAB PO SCH (12:42)
[2019-04-26] MEDS: Famotidine 20 MG TAB PO SCH (13:40)
[2019-04-26] MEDS: Escitalopram Oxalate 10 mg Tablet PO SCH (13:41)
[2019-04-26] MEDS: Senokot S 8.6-50 MG TAB PO SCH (13:44)
[2019-04-26] MEDS: Silver Sulfadiazine 1% Cream 50 GM JAR TOP SCH (13:44)
--- NOTE | 2019-04-27 10:53 | DIS ---
DATE OF ADMISSION: 04/22/2019 DATE OF DISCHARGE: 04/26/2019 DISCHARGE DISPOSITION: [facility]. FOLLOWUP: 1. Follow up with primary care physician at the rehab. 2. Follow up with the hand surgeon, Dr. Saul Ann next week as scheduled. 3. Follow up with Dr. Gentry Bronson next week. The patient was seen and examined on the day of discharge. Denies any new complaints. No chest pain, shortness of breath, or palpitations reported. BRIEF HOSPITAL COURSE: The patient is a 64-year-old female with end-stage renal disease on hemodialysis with recent hospitalization for ischemia of the fingers of the left hand, presented to the emergency room on April 22, 2019 for bleeding from the perirectal area. The patient was admitted to the medical floor. She was evaluated by General Surgery, Dr. Bronson. She underwent debridement of the skin and the subcutaneous tissue of the perianal area, buttocks, and bilateral labia. Wound Care was following the patient during the hospital stay. Due to ischemia of the left hand, she underwent partial amputation of the middle finger, long finger, and ring finger. She will follow up with Dr. Ann as outpatient. She was also seen by Nephrology for maintenance hemodialysis. She has been started on clindamycin 150 mg every 8 hourly for [address] Ann. All other home medications were left unchanged. Please note that there was no list of medications from [facility] in the chart at the time of discharge. The patient is stable for discharge and has been cleared by consultants. FINAL DIAGNOSES: 1. Perirectal abscess status post debridement. 2. Ischemia of the fingers of the left hand, status post amputation this admission. 3. End-stage renal disease on hemodialysis. 4. Diabetes mellitus type 2. 5. Hypertension. 6. Hyperlipidemia. 7. Chronic anemia secondary to renal insufficiency. 8. History of transient ischemic attack on aspirin. 9. Coronary artery disease, status post non-ST elevation myocardial infarction earlier this year. 10. Chronic systolic and diastolic heart failure, ejection fraction 45% range. 11. Moderate protein-calorie malnutrition. 12. Sulfa and Keflex allergy. 13. Hyponatremia. 14. Hypokalemia. PLAN: Plan was discussed with the patient in detail. She stated understanding. TIME SPENT: Total time coordinating the discharge of this patient was 35 minutes. DISCHARGE INSTRUCTION: The patient was advised to return to emergency room, if she develops any complication. Job ID: [id number]
== END 2019-04-26 16:11 | DRG 570 ==
LOC: ERS 16:44 → T4-A 04-22 00:21
PROVIDERS: ADMIT Internal Medicine; ATTEND Internal Medicine
PROC: 0JB90ZZ Excision of Buttock Subcutaneous Tissue and Fascia, Open Approach (ICD-10-PCS; principal; 2019-04-22)
PROC: 0JBB0ZZ Excision of Perineum Subcutaneous Tissue and Fascia, Open Approach (ICD-10-PCS; 2019-04-22)
PROC: 0X6W0Z1 Detachment at Left Little Finger, High, Open Approach (ICD-10-PCS; 2019-04-24)
PROC: 0X6T0Z3 Detachment at Left Ring Finger, Low, Open Approach (ICD-10-PCS; 2019-04-24)
PROC: 0X6R0Z1 Detachment at Left Middle Finger, High, Open Approach (ICD-10-PCS; 2019-04-24)
DX: L73.2 Hidradenitis suppurativa (principal); N18.6 End stage renal disease; I13.2 Hypertensive heart and chronic kidney disease with heart failure and with stage 5 chronic kidney disease, or end stage renal disease; I96 Gangrene, not elsewhere classified; N25.81 Secondary hyperparathyroidism of renal origin; E87.1 Hypo-osmolality and hyponatremia; E44.0 Moderate protein-calorie malnutrition; I50.42 Chronic combined systolic (congestive) and diastolic (congestive) heart failure; E11.22 Type 2 diabetes mellitus with diabetic chronic kidney disease; Z79.4 Long term (current) use of insulin; Z79.84 Long term (current) use of oral hypoglycemic drugs; Z88.1 Allergy status to other antibiotic agents; Z88.2 Allergy status to sulfonamides; Z88.8 Allergy status to other drugs, medicaments and biological substances; Z90.710 Acquired absence of both cervix and uterus; E66.9 Obesity, unspecified; Z68.32 Body mass index [BMI] 32.0-32.9, adult; Z86.73 Personal history of transient ischemic attack (TIA), and cerebral infarction without residual deficits; D63.1 Anemia in chronic kidney disease
CPT/HCPCS: 36415; 36416; 72192; 74177; 80048; 80053; 83605; 83880; 85025; 85610; 85730; 87040; 88304; 88305; 93005; 99284; J0690; J1642; J1644; J2001; J2270; J2405; J2704; J3010; J3370; J3490; S0020

== ENCOUNTER 2019-05-03 18:56 | Inpatient (IN) | payer MEDICARE ==
[2019-05-03 21:32] LABS: ALT (SGPT) Less than 7 U/L (8-55); AST (SGOT) 13 U/L (5-34); Albumin 2.2 g/dL (3.4-4.8); Alkaline Phosphatase 138 U/L (40-110); Anion Gap 9 mmol/L (10-20); BUN (Urea Nitrogen) 8 mg/dL (9.8-20.1); Bilirubin, Total 0.3 mg/dL (0.2-1.2); Calc. Creatinine Clearance 0 mL/min (70-130); Carbon Dioxide 32 mmol/L (23-31); Chloride 98 mmol/L (98-107); Estimated GFR-MDRD 23; Globulin 5.4 g/dL (2.4-3.5); Glucose 255 mg/dL (80-115); Potassium 3.2 mmol/L (3.5-5.1); Protein, Total 7.6 g/dL (6.0-8.3); Sodium 136 mmol/L (136-145)
[2019-05-03 22:37] LABS: #Eosinphils 0.3 thou/uL (0.0-0.7); #Lymphocytes 1.3 thou/uL (1.20-3.40); #Neutrophils 6.4 thou/uL (1.40-6.50); %Basophils 0.1 % (0.0-1.0); %Eosinophils 3.3 % (0.0-10.0); %Lymphocytes 14.8 % (21.0-51.0); %Monocytes 11.3 % (0.0-10.0); %Neutrophils 70.5 % (42.0-75.0); Hemoglobin 5.9 g/dL (12.0-16.0); Mean Corpuscular HGB CONC 32.1 g/dL (32.0-36.0); Mean Corpuscular Hemoglobin 28.9 pg (27.0-31.0); Mean Corpuscular Volume 89.9 fL (78.0-98.0); Mean Platelet Volume 7.9 fL (7.4-10.4); Platelet Count 322 thou/uL (130-400); Red Blood Cell (RBC) Count 2.03 mill/uL (4.20-5.40); White Blood Cell (WBC) Count 9.1 thou/uL (4.8-10.8)
[2019-05-03] MEDS ORDERED: HYDROcodone/Acetaminophen 5/325 mg Tablet ONE (23:48)
[2019-05-04 01:28] VITALS: BMI 30.4
[2019-05-04] MEDS ORDERED: Acetaminophen/Codeine 30-300mg Tablet PO PRN (01:31)
[2019-05-04] MEDS ORDERED: Senokot S 8.6-50 MG TAB PO PRN (01:32)
[2019-05-04] MEDS ORDERED: Calcium Carbonate 500 MG ChewTAB PO PRN (01:32)
[2019-05-04] MEDS ORDERED: Acetaminophen 325 MG TAB PO PRN (01:32)
[2019-05-04] MEDS ORDERED: Bisacodyl 10 MG SUPP PR PRN (01:32)
[2019-05-04] MEDS ORDERED: traMADol HCl 50 MG TAB PO PRN (01:32)
[2019-05-04] MEDS ORDERED: Dextrose 50% Abboject 50 ML SYRINGE SLOW IVP PRN (01:32)
[2019-05-04] MEDS ORDERED: Dextrose 5% in Water 1,000 ML IV PRN (01:32)
[2019-05-04] MEDS ORDERED: Insulin Regular 300 UNITS/3 ML VIAL SC PRN (01:34)
[2019-05-04] MEDS: HYDROcodone/Acetaminophen 5/325 mg Tablet PO PRN ×2 (01:50→11:35)
--- NOTE | 2019-05-04 03:08 | HP ---
CHIEF COMPLAINT: Abnormal labs. HISTORY OF PRESENT ILLNESS: The patient is a 64-year-old female, with end-stage renal disease, on hemodialysis, presented from the dialysis center because of abnormal hemoglobin level. Her hemoglobin after dialysis was 5.9. Dr. Pederson recommended transfer to hospital for blood transfusion. The patient is also scheduled for surgical intervention later today. She denies any hematemesis, melena, or hematochezia. No fever or chills reported. She denies any nausea, vomiting, or abdominal pain. PAST MEDICAL HISTORY: 1. End-stage renal disease, on hemodialysis. 2. 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 3. Diabetes mellitus type 2. 4. Hypertension. 5. Hyperlipidemia. 6. Chronic anemia. 7. History of TIA, on aspirin. 8. Coronary artery disease, status post [id number] MA earlier this year. 9. Chronic systolic and diastolic heart failure, ejection fraction 45% range. 10. Physical deconditioning, currently residing at [facility]. 11. Secondary hyperparathyroidism. 12. Hidradenitis suppurativa with multiple perineal abscesses. PAST SURGICAL HISTORY: 1. Recent incision and drainage as well as finger amputation as discussed above. 2. Dialysis access procedures. 3. Appendectomy. 4. Hysterectomy. 5. Eye surgery. 6. Tubal ligation. 7. Peritoneal dialysis catheter placement with subsequent removal. FAMILY HISTORY: Negative for heart disease. SOCIAL HISTORY: As discussed above she is full code, makes her own decision with the help of her family. No smoking, alcohol, or drug use. CURRENT MEDICATION: Per the patient report, her medications are unchanged from last admission. We will try to obtain accurate list of medication from [facility]. REVIEW OF SYSTEMS: All other review of systems was reviewed and were found negative. PHYSICAL EXAMINATION: VITAL SIGNS: In the emergency room showed temperature 98.3, respiration 14, pulse of 85, blood pressure of 127/54, O2 saturation 100% on room air. GENERAL: A 64-year-old female, in no apparent distress. HEENT: Head, atraumatic and normocephalic. Sclerae anicteric. Moist mucous membranes. No oral lesion. NECK: Supple. No JVD. No carotid bruit. LUNGS: Showed diminished air entry at bilateral bases. No wheezing, rales, or rhonchi. HEART: S1 and S2 present. Regular rate and rhythm. No rubs or gallops. Dialysis catheter noted in the right upper chest. ABDOMEN: Soft, nontender. Bowel sounds present. EXTREMITIES: No edema or calf tenderness. Dressing over the left hand noted. SKIN: Warm and dry. LYMPH NODES: No palpable lymph nodes in the neck. PERIPHERAL VASCULAR: Radial pulses palpable bilaterally. MUSCULOSKELETAL: No joint swelling or tenderness. LABORATORY FINDINGS: WBC 9.1 with hemoglobin 5.9, hematocrit 18.3, platelet 322. Chemistry showed sodium 136, potassium 3.2, chloride 98, bicarb 32, BUN of 8, creatinine 2.55. Albumin 2.2. IMPRESSION: 1. Anemia secondary to renal insufficiency. The patient will be transfused 1 unit of PRBC. The patient is also scheduled for surgical intervention today. 2. End-stage renal disease, on hemodialysis. Nephrology, Dr. Pederson will be consulted for maintenance hemodialysis. She underwent hemodialysis yesterday (05/03). 3. Hypokalemia. We will continue to monitor. 4. Hypertension. Home medications will be resumed once verified. 5. Obesity with a BMI 34. 6. Chronic systolic and diastolic heart failure, appears to be compensated. 7. Coronary artery disease status post [id number] myocardial infarction earlier this year. We will resume aspirin probably in 24 hours if hemoglobin is stable. 8. Hyperlipidemia. 9. History of transient ischemic attack. 10. Hidradenitis suppurativa with recent perineal abscess. 11. Moderate protein-calorie mild malnutrition. 12. Ischemia of the fingers of the left hand status post amputation last admission. Plan of care was discussed with the patient in detail. She stated understanding. Job ID: [id number]
[2019-05-04] MEDS: Clindamycin 150 MG CAP PO SCH ×3 (06:35→21:01)
[2019-05-04 08:52] LABS: Hemoglobin 7.5 g/dL (12.0-16.0)
[2019-05-04] MEDS ORDERED: PHENYLEPHRINE-NS 100 MCG/ML 10 ML SYRINGE ONE ×2 (10:28→18:43)
[2019-05-04] MEDS ORDERED: Ondansetron PF 4 MG/2 ML Vial ONE (10:28)
[2019-05-04] MEDS ORDERED: Lidocaine 1% PF 5 ML VIAL ONE (10:28)
[2019-05-04] MEDS ORDERED: Dexamethasone 20 MG/5 ML VIAL ONE (10:28)
[2019-05-04] MEDS ORDERED: PROPOFOL 200 MG/20 ML VIAL ONE (10:28)
[2019-05-04] MEDS: Carvedilol 6.25 MG TAB PO SCH ×2 (11:31→18:26)
[2019-05-04] MEDS: Sevelamer Carbonate 800 MG TAB PO SCH ×2 (12:39→18:27)
[2019-05-04] MEDS: Escitalopram Oxalate 10 mg Tablet PO SCH (12:39)
[2019-05-04] MEDS: Polyethylene Glycol 3350 17 GM Packet PO SCH (12:43)
[2019-05-04] MEDS: hydrALAZINE 25 MG TAB PO SCH ×3 (12:43→20:58)
[2019-05-04] MEDS: Saccharomyces boulardii 250 MG CAP PO SCH (12:44)
--- NOTE | 2019-05-04 13:24 | PDOC.HOSPP ---
- Subjective Encounter Date: 05/04/19 Encounter Time: 10:27 Subjective: 64 y/o female with ESRD on HD, DM, HTN, CAD, CHF and left medial 3 finger gangrene related to ischemia from AVF related steal syndrome admitted due to acute on chronic anemia. S/p 1 PRBC. Denied nausea, vomiting diahrea, nausea, SOB or fever. - Objective Vital Signs & Weight: Vital Signs (12 hours) Temp Pulse Pulse Resp BP BP Pulse Ox 05/04/19 12:43 74 05/04/19 11:36 131/80 05/04/19 10:54 98.2 F 74 20 98/38 L 100 05/04/19 07:33 98.3 F 74 20 100 05/04/19 04:25 98.2 F 72 15 111/68 100 05/04/19 01:40 98.2 F 75 16 114/71 98 05/04/19 01:23 98.5 F 82 18 148/82 H 99 Weight Weight 182 lb 15.739 oz I&O: 05/03/19 05/04/19 05/05/19 06:59 06:59 06:59 Intake Total 350 Balance 350 Result Diagrams: 05/04/19 08:10 05/03/19 20:08 Additional Labs: Accuchecks 05/04/19 05/04/19 11:49 06:54 POC Glucose 186 H 191 H Hospitalist ROS - Medication Medications: Active Medications Generic Name Dose Route Start Last Admin Trade Name Freq PRN Reason Stop Dose Admin Hydrocodone Bitart/Acetaminophen 1 tab 05/04/19 01:38 05/04/19 11:35 [place] 5/325 PO 1 tab Q8HR PRN Administration Severe Pain (7-10) Carvedilol 12.5 mg 05/04/19 08:00 05/04/19 11:31 Coreg PO 12.5 mg BID-WM ANURAG Administration Clindamycin HCl 150 mg 05/04/19 06:00 05/04/19 06:35 Cleocin PO 05/10/19 22:01 150 mg Q8HR ANURAG Administration Escitalopram Oxalate 5 mg 05/04/19 09:00 05/04/19 12:39 Lexapro PO Not Given QAM ANURAG Hydralazine HCl 50 mg 05/04/19 09:00 05/04/19 12:43 Apresoline PO Not Given TID [facility] Isosorbide Mononitrate 60 mg 05/04/19 09:00 05/04/19 12:43 Imdur PO Not Given QAM ANURAG Pantoprazole Sodium 40 mg 05/04/19 09:00 05/04/19 12:43 Protonix PO Not Given QAM [facility] Polyethylene Glycol 17 gm 05/04/19 09:00 05/04/19 12:43 Miralax PO Not Given DAILY ANURAG Saccharomyces Boulardii 250 mg 05/04/19 09:00 05/04/19 12:44 Florastor PO Not Given DAILY ANURAG Sevelamer Carbonate 800 mg 05/04/19 08:00 05/04/19 12:39 Renvela PO Not Given TID-WM [facility] Sodium Chloride 10 ml 05/04/19 09:00 05/04/19 12:44 Flush - Normal Saline IVF Not Given Q12HR ANURAG - Exam General Appearance: awake alert General - other findings: chronically ill Eye: anicteric sclera ENT: normocephalic atraumatic Neck: symmetric, no JVD Heart: RRR Respiratory: no wheezes, no rales, no ronchi, normal chest expansion Gastrointestinal: soft, non-distended, normal bowel sounds Extremities: no cyanosis, no edema Extremities - other findings: left hand covered with dressing. 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 Diabetes mellitus complication status: with kidney complications Diabetes mellitus complication detail: with chronic kidney disease Chronic kidney disease stage : stage 4 (severe) Qualified Code(s): E11.22 - Type 2 diabetes mellitus with diabetic chronic kidney disease; N18.4 - Chronic kidney disease, stage 4 (severe ); 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 Monitor H/H and transfuse as needed Consult Nephrology for HD. GI Consulted contemplated. Contact Gen surgery for Left hang gangrene/wound care Get Iron chemistry
--- NOTE | 2019-05-04 14:10 | CON ---
DATE OF CONSULTATION: 05/04/2019 CONSULTING PHYSICIAN: Dr. Salu Ann. REASON FOR CONSULTATION: End-stage renal disease evaluation and care. REASON FOR ADMISSION: Anemia. HISTORY OF PRESENT ILLNESS: This is a 64-year-old female with history of end-stage renal disease, hypertension, diabetes, and hyperlipidemia, came to the hospital with above complaints, was found to have anemia and was transferred over here. She had blood transfusion. No fever or chills. No nausea or vomiting. PAST MEDICAL HISTORY: Positive for end-stage renal disease, type 2 diabetes, hypertension, hyperlipidemia, anemia, coronary artery disease, and CHF. PAST SURGICAL HISTORY: Dialysis access placement, appendectomy, and hysterectomy. HOME MEDICATIONS: Reviewed. ALLERGIES: SULFA AND CEPHALEXIN. SOCIAL HISTORY: No smoking, alcohol, or illicit drugs abuse. FAMILY HISTORY: No history of kidney disease. REVIEW OF SYSTEMS: CONSTITUTIONAL: Negative for weight loss or gain, ability to conduct usual activities. SKIN: Negative for rash, itching. EYES: Negative for double vision, pain. ENT/MOUTH: Negative for nose bleeding, neck stiffness, pain, tenderness. CARDIOVASCULAR: Negative for palpitations, dyspnea on exertion, orthopnea. RESPIRATORY: Negative for shortness of breath, wheezing, cough, hemoptysis, fever or night sweats. GASTROINTESTINAL: Negative for poor appetite, abdominal pain, heartburn, nausea, vomiting, constipation, or diarrhea. GENITOURINARY: Negative for urgency, frequency, dysuria, nocturia. MUSCULOSKELETAL: Negative for pain, swelling. NEUROLOGIC/PSYCHIATRIC: Negative for anxiety, depression. ALLERGY/IMMUNOLOGIC: Negative for skin rash, bleeding tendency. PHYSICAL EXAMINATION: GENERAL: This is a well-built female, in no apparent distress. VITAL SIGNS: Temperature 98.2, pulse 74, respiratory rate 22, and blood pressure 113/80. HEENT: Atraumatic, normocephalic. Oral mucosa is moist. NECK: Supple. CV: S1 and S2. Rate and rhythm regular. RESPIRATORY: Clear. GASTROINTESTINAL: Abdomen is soft. MUSCULOSKELETAL: DERMATOLOGIC: No skin rash. NEUROLOGIC: Alert and awake. PSYCHIATRIC: Mood and affect are normal. LABORATORY DATA: Hemoglobin is 7.5, potassium 3.2, BUN is 8, and creatinine is 2.5. ASSESSMENT AND PLAN: 1. End-stage renal disease. Continue dialysis as tolerated. 2. Edema. 3. Hypertension. 4. Anemia status post transfusion. We will add Epogen. 5. Plan to continue dialysis Friday, Friday, Friday. 6. Hypoalbuminemia. Job ID: [id number]
[2019-05-04] MEDS ORDERED: Fentanyl 100 MCG/2 ML VIAL ONE ×3 (17:12→19:45)
[2019-05-04] MEDS ORDERED: Bacitracin Zinc Ointment 30 gm TUBE ONE (17:16)
[2019-05-04] MEDS ORDERED: Bupivacaine PF 0.5% 30 ML VIAL ONE (17:16)
[2019-05-04] MEDS ORDERED: CEFAZOLIN 1 GM VIAL ONE (17:38)
[2019-05-04] MEDS ORDERED: Sodium Chloride 0.9% 100 ML ONE (17:38)
[2019-05-04] MEDS ORDERED: Ondansetron HCl/PF 4 MG/2 ML Vial IVP PRN (19:09)
[2019-05-04] MEDS ORDERED: Promethazine HCl 25 MG/ML VIAL SLOW IVP PRN (19:09)
[2019-05-04] MEDS ORDERED: Promethazine HCl 25 MG/ML VIAL IM PRN ×2 (19:09→20:40)
[2019-05-04] MEDS: traMADol HCl 50 MG TAB PO PRN (20:52)
[2019-05-04] MEDS: Morphine 2 MG/ML SYRINGE SLOW IVP PRN (20:58)
[2019-05-04] MEDS: Atorvastatin Calcium 10 MG TAB PO SCH (20:59)
[2019-05-04] MEDS: ceFAZolin 1 GM/D5W 1 GM in Premix Bag 1 BAG IVPB SCH (21:01)
[2019-05-04] MEDS: HYDROcodone/Acetaminophen 7.5/325 mg Tablet PO PRN (22:32)
[2019-05-05] MEDS: HYDROcodone/Acetaminophen 7.5/325 mg Tablet PO PRN ×3 (05:04→20:32)
[2019-05-05] MEDS: Clindamycin 150 MG CAP PO SCH ×3 (05:05→21:39)
[2019-05-05] MEDS: ceFAZolin 1 GM/D5W 1 GM in Premix Bag 1 BAG IVPB SCH ×3 (05:05→21:41)
[2019-05-05] MEDS: Insulin Regular 300 UNITS/3 ML VIAL SC PRN ×2 (06:17→11:05)
[2019-05-05 07:18] LABS: #Lymphocytes 0.6 thou/uL (1.20-3.40); #Neutrophils 5.9 thou/uL (1.40-6.50); %Basophils 0.2 % (0.0-1.0); %Eosinophils 0.1 % (0.0-10.0); %Lymphocytes 8.6 % (21.0-51.0); %Monocytes 0.7 % (0.0-10.0); %Neutrophils 90.5 % (42.0-75.0); Hemoglobin 7.5 g/dL (12.0-16.0); Mean Corpuscular HGB CONC 30.9 g/dL (32.0-36.0); Mean Corpuscular Hemoglobin 28.3 pg (27.0-31.0); Mean Corpuscular Volume 91.6 fL (78.0-98.0); Mean Platelet Volume 7.9 fL (7.4-10.4); Platelet Count 285 thou/uL (130-400); RBC Distribution Width 14.4 % (11.5-14.5); Red Blood Cell (RBC) Count 2.63 mill/uL (4.20-5.40); White Blood Cell (WBC) Count 6.5 thou/uL (4.8-10.8)
[2019-05-05 07:46] LABS: Anion Gap 16 mmol/L (10-20); BUN (Urea Nitrogen) 24 mg/dL (9.8-20.1); Calc. Creatinine Clearance 16 mL/min (70-130); Calcium 8.2 mg/dL (7.8-10.44); Carbon Dioxide 24 mmol/L (23-31); Chloride 96 mmol/L (98-107); Estimated GFR-MDRD 11; Glucose 329 mg/dL (80-115); Iron 29 ug/dL (50-170); Iron Binding Capacity, Total 145 mcg/dL (265-497); Sodium 131 mmol/L (136-145)
[2019-05-05 07:47] LABS: Anion Gap 15 mmol/L (10-20); BUN (Urea Nitrogen) 25 mg/dL (9.8-20.1); Calc. Creatinine Clearance 16 mL/min (70-130); Calcium 8.1 mg/dL (7.8-10.44); Carbon Dioxide 27 mmol/L (23-31); Chloride 96 mmol/L (98-107); Estimated GFR-MDRD 11; Glucose 331 mg/dL (80-115); Iron Binding Capacity, Total 145 mcg/dL (265-497); Potassium 4.6 mmol/L (3.5-5.1); Sodium 133 mmol/L (136-145)
[2019-05-05] MEDS: hydrALAZINE 25 MG TAB PO SCH ×2 (09:23→15:08)
[2019-05-05] MEDS: Carvedilol 6.25 MG TAB PO SCH ×2 (09:24→17:38)
[2019-05-05] MEDS: Escitalopram Oxalate 10 mg Tablet PO SCH (09:24)
[2019-05-05] MEDS: Polyethylene Glycol 3350 17 GM Packet PO SCH (09:25)
[2019-05-05] MEDS: Sevelamer Carbonate 800 MG TAB PO SCH ×3 (09:25→17:38)
[2019-05-05] MEDS: Saccharomyces boulardii 250 MG CAP PO SCH (09:25)
[2019-05-05] MEDS ORDERED: Heparin 10,000 UNITS/1 ML VIAL ONE (10:13)
--- NOTE | 2019-05-05 11:43 | PDOC.HOSPP ---
- Subjective Encounter Date: 05/05/19 Encounter Time: 08:10 Subjective: Patient seen and examined. No new complaints. No overnight events - Objective Vital Signs & Weight: Vital Signs (12 hours) Temp Pulse Resp BP Pulse Ox 05/05/19 11:00 97.9 F 73 16 118/71 100 05/05/19 09:23 61 05/05/19 07:18 97.7 F 61 16 121/75 100 05/05/19 03:24 97.5 F L 70 16 106/66 100 Weight Weight 182 lb 15.739 oz I&O: 05/04/19 05/05/19 05/06/19 06:59 06:59 06:59 Intake Total 350 450 Balance 350 450 Result Diagrams: 05/05/19 06:36 05/05/19 06:36 Additional Labs: Accuchecks 05/05/19 05/04/19 05/04/19 05:56 20:41 19:57 POC Glucose 338 H 206 H 172 H 05/04/19 05/04/19 15:39 11:49 POC Glucose 176 H 186 H Radiology Reviewed by me: Yes EKG Reviewed by me: Yes Hospitalist ROS - Review of Systems ENT: denies: ear pain, ear discharge, nose pain, nose discharge, nose congestion , mouth pain, mouth swelling, throat pain, throat swelling, other Respiratory: denies: cough, dry, shortness of breath, hemoptysis, SOB with excertion, pleuritic pain, sputum, wheezing, other Cardiovascular: denies: chest pain, palpitations, orthopnea, paroxysmal noc. dyspnea, edema, light headedness, other Gastrointestinal: denies: nausea, vomiting, abdominal pain, diarrhea, constipation, melena, hematochezia, other Genitourinary: denies: dysuria, frequency, incontinence, hematuria, retention, other Musculoskeletal: denies: neck pain, shoulder pain, arm pain, back pain, hand pain, leg pain, foot pain, other - Medication Medications: Active Medications Generic Name Dose Route Start Last Admin Trade Name Freq PRN Reason Stop Dose Admin Hydrocodone Bitart/Acetaminophen 1 tab 05/04/19 01:38 05/04/19 11:35 [place] 5/325 PO 1 tab Q8HR PRN Administration Severe Pain (7-10) Hydrocodone Bitart/Acetaminophen 1 tab 05/04/19 20:37 05/05/19 05:04 [place] 7.5/325 PO 1 tab Q6H PRN Administration Mild Pain (1-3) Atorvastatin Calcium 40 mg 05/04/19 21:00 05/04/19 20:59 Lipitor PO 40 mg HS ANURAG Administration Carvedilol 12.5 mg 05/04/19 08:00 05/05/19 09:24 Coreg PO 12.5 mg BID-WM ANURAG Administration Cholecalciferol 2,000 units 05/05/19 09:00 05/05/19 09:28 Vitamin D3 PO 2,000 units DAILY ANURAG Administration Clindamycin HCl 150 mg 05/04/19 06:00 05/05/19 05:05 Cleocin PO 05/10/19 22:01 150 mg Q8HR ANURAG Administration Escitalopram Oxalate 5 mg 05/04/19 09:00 05/05/19 09:24 Lexapro PO 5 mg QAM ANURAG Administration Hydralazine HCl 50 mg 05/04/19 09:00 05/05/19 09:23 Apresoline PO 50 mg TID ANURAG Administration Cefazolin Sodium/Dextrose 1 gm 50 mls @ 100 mls/hr 05/04/19 22:00 05/05/19 05 :05 / Device IVPB 05/05/19 22:29 50 mls Q8HR ANURAG Administration Insulin Human Regular 0 units 05/04/19 01:34 05/05/19 11:05 Humulin R SC 6 units .MILD SLIDING SCALE PRN Administration Mild Correctional Scale Isosorbide Mononitrate 60 mg 05/04/19 09:00 05/05/19 09:25 Imdur PO 60 mg QAM ANURAG Administration Morphine Sulfate 2 mg 05/04/19 20:39 05/04/19 20:58 Morphine SLOW IVP 2 mg Q4H PRN Administration Severe Pain (7-10) Pantoprazole Sodium 40 mg 05/04/19 09:00 05/05/19 09:24 Protonix PO 40 mg QAM ANURAG Administration Polyethylene Glycol 17 gm 05/04/19 09:00 05/05/19 09:25 Miralax PO 17 gm DAILY ANURAG Administration Saccharomyces Boulardii 250 mg 05/04/19 09:00 05/05/19 09:25 Florastor PO 250 mg DAILY ANURAG Administration Sevelamer Carbonate 800 mg 05/04/19 08:00 05/05/19 09:25 Renvela PO 800 mg TID-WM ANURAG Administration Sodium Chloride 10 ml 05/04/19 09:00 05/05/19 09:25 Flush - Normal Saline IVF 10 ml Q12HR ANURAG Administration Tramadol HCl 50 mg 05/04/19 01:39 05/04/19 20:52 Ultram PO 50 mg Q8H PRN Administration Moderate Pain (4-6) - Exam General Appearance: NAD, awake alert Eye: PERRL, anicteric sclera ENT: normocephalic atraumatic, no oropharyngeal lesions Neck: supple, symmetric, no JVD Heart: RRR, no murmur, no gallops Respiratory: CTAB, no wheezes, no rales Gastrointestinal: soft, non-tender, non-distended Extremities: no cyanosis, no clubbing Skin - other findings: decubitus ulcer stage 4 Musculoskeletal: normal tone, normal strength Psychiatric: normal affect, normal behavior Hosp A/P (1) Acute on chronic anemia Code(s): D64.9 - ANEMIA, UNSPECIFIED Status: Acute (2) Symptomatic anemia Code(s): D64.9 - ANEMIA, UNSPECIFIED Status: Acute (3) Gangrene Status: Acute (4) Secondary hyperparathyroidism of renal origin Code(s): N25.81 - SECONDARY HYPERPARATHYROIDISM OF RENAL ORIGIN Status: Chronic (5) DM2 (diabetes mellitus, type 2) Status: Chronic Qualifiers: Diabetes mellitus prison insulin use: with cover inspector use Diabetes mellitus complication status: with kidney complications Diabetes mellitus complication detail: with chronic kidney disease Chronic kidney disease stage : stage 4 (severe) Qualified Code(s): E11.22 - Type 2 diabetes mellitus with diabetic chronic kidney disease; N18.4 - Chronic kidney disease, stage 4 (severe ); 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 of 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 (6) ESRD (end stage renal disease) on dialysis Code(s): N18.6 - END STAGE RENAL DISEASE; Z99.2 - DEPENDENCE ON RENAL DIALYSIS Status: Chronic (7) HTN (hypertension) Code(s): I10 - ESSENTIAL (PRIMARY) HYPERTENSION Status: Chronic Qualifiers: Hypertension type: essential hypertension Qualified Code(s): I10 - Essential (primary) hypertension (8) Obesity (BMI 30.0-34.9) Code(s): E66.9 - OBESITY, UNSPECIFIED Status: Chronic (9) Physical deconditioning Code(s): R53.81 - OTHER MALAISE Status: Chronic - Plan old records reviewed/req, continue antibiotics 05/05/19 today plan for HD Hand surgeon to decide if any other surgery or care needed medication reviewed and continue to provide symptomatic treatment continue perioperative antibiotic wound care dc may be tomorrow if no further plan for surgery
[2019-05-05] MEDS ORDERED: EPOETIN ALFA-EPBX (ESRD) 10,000 UNIT/ML VIAL IVP SCH (13:08)
--- NOTE | 2019-05-05 13:43 | PRG ---
DATE OF SERVICE: 05/05/2019 SUBJECTIVE: Patient was seen and examined at bedside and overnight events noted. Patient denies any shortness of breath or chest pain or palpitation. No history of nausea or vomiting or diarrhea or fever or chills or cramps. OBJECTIVE: GENERAL: This is a well-built female, in no apparent distress. VITAL SIGNS: Temperature 97.9. Heart rate 73. Respiratory rate 16. Blood pressure 118/71. HEENT: Atraumatic, normocephalic. Oral mucosa is moist NECK: Supple. CARDIOVASCULAR: S1, S2 heard. Rate and rhythm regular. RESPIRATORY: Clear to auscultation. GASTROINTESTINAL: Abdomen is soft. MUSCULOSKELETAL: No tenderness. No edema. DERMATOLOGIC: No skin rash. NEUROLOGIC: Alert and awake and oriented X3. No focal neurologic deficits. Moving all the extremities. PSYCHIATRIC: Mood and affect normal. LABORATORY DATA: Potassium is 5.0, BUN is 24, and creatinine is 4.8. ASSESSMENT AND PLAN: 1. End-stage renal disease, continue on hemodialysis Friday, Friday, Friday as tolerated. 2. Edema, controlled. 3. Hypertension. 4. Anemia. 5. Peripheral vascular disease. 6. Hypoalbuminemia. Plan to continue dialysis as tolerated Friday, Friday, Friday. Job ID: [id number]
[2019-05-05] MEDS: Atorvastatin Calcium 10 MG TAB PO SCH (20:32)
[2019-05-05] MEDS: hydrALAZINE 10 MG TAB PO SCH (20:55)
[2019-05-06] MEDS: Morphine 2 MG/ML SYRINGE SLOW IVP PRN ×2 (00:10→23:56)
[2019-05-06] MEDS: HYDROcodone/Acetaminophen 7.5/325 mg Tablet PO PRN ×3 (05:30→20:31)
[2019-05-06] MEDS: Clindamycin 150 MG CAP PO SCH ×3 (05:30→21:14)
[2019-05-06] MEDS: Insulin Regular 300 UNITS/3 ML VIAL SC PRN (06:04)
[2019-05-06] MEDS: Saccharomyces boulardii 250 MG CAP PO SCH (08:45)
[2019-05-06] MEDS: Carvedilol 6.25 MG TAB PO SCH ×2 (08:45→18:10)
[2019-05-06] MEDS: Escitalopram Oxalate 10 mg Tablet PO SCH (08:45)
[2019-05-06] MEDS: Sevelamer Carbonate 800 MG TAB PO SCH ×3 (08:45→18:10)
[2019-05-06] MEDS: hydrALAZINE 10 MG TAB PO SCH ×3 (08:46→20:34)
[2019-05-06] MEDS: traMADol HCl 50 MG TAB PO PRN (08:47)
[2019-05-06] MEDS: Polyethylene Glycol 3350 17 GM Packet PO SCH (08:56)
[2019-05-06 10:34] LABS: #Eosinphils 0.1 thou/uL (0.0-0.7); #Lymphocytes 1.1 thou/uL (1.20-3.40); #Monocytes 0.7 thou/uL (0.11-0.59); #Neutrophils 5.6 thou/uL (1.40-6.50); %Basophils 0.1 % (0.0-1.0); %Eosinophils 0.9 % (0.0-10.0); %Lymphocytes 14.2 % (21.0-51.0); %Monocytes 9.4 % (0.0-10.0); %Neutrophils 75.3 % (42.0-75.0); Hemoglobin 6.6 g/dL (12.0-16.0); Mean Corpuscular HGB CONC 31.5 g/dL (32.0-36.0); Mean Corpuscular Hemoglobin 27.9 pg (27.0-31.0); Mean Corpuscular Volume 88.6 fL (78.0-98.0); Platelet Count 274 thou/uL (130-400); RBC Distribution Width 13.9 % (11.5-14.5); Red Blood Cell (RBC) Count 2.35 mill/uL (4.20-5.40); White Blood Cell (WBC) Count 7.5 thou/uL (4.8-10.8)
[2019-05-06 10:50] LABS: Albumin 2.2 g/dL (3.4-4.8); Anion Gap 12 mmol/L (10-20); BUN (Urea Nitrogen) 13 mg/dL (9.8-20.1); BUN/Creatinine Ratio 4.21; Calc. Creatinine Clearance 24 mL/min (70-130); Calcium 7.8 mg/dL (7.8-10.44); Carbon Dioxide 29 mmol/L (23-31); Chloride 98 mmol/L (98-107); Estimated GFR-MDRD 18; Glucose 298 mg/dL (80-115); Phosphorus 2.7 mg/dL (2.3-4.7); Potassium 3.6 mmol/L (3.5-5.1); Sodium 135 mmol/L (136-145)
[2019-05-06] MEDS: HumuLIN 70/30 (300 UNITS/3 ML VIAL) SC SCH ×2 (12:27→18:11)
--- NOTE | 2019-05-06 12:30 | PDOC.HOSPP ---
- Subjective Encounter Date: 05/06/19 Encounter Time: 09:00 Subjective: Patient seen and examined. No new complaints. No overnight events - Objective Vital Signs & Weight: Vital Signs (12 hours) Temp Pulse Pulse Resp BP BP BP 05/06/19 12:13 98.3 F 77 16 144/62 H 05/06/19 11:26 98.1 F 68 16 142/44 H 05/06/19 08:46 71 05/06/19 08:45 141/66 H 05/06/19 07:46 97.9 F 71 16 137/62 Pulse Ox 05/06/19 12:13 05/06/19 11:26 97 05/06/19 08:46 05/06/19 08:45 05/06/19 07:46 100 Weight Weight 182 lb 15.739 oz I&O: 05/05/19 05/06/19 05/07/19 06:59 06:59 06:59 Intake Total 910 0 Balance 910 0 Result Diagrams: 05/06/19 09:37 05/06/19 09:37 Additional Labs: Accuchecks 05/06/19 05/06/19 05/05/19 11:26 06:05 20:43 POC Glucose 258 H 361 H 188 H Hospitalist ROS - Review of Systems ENT: denies: ear pain, ear discharge, nose pain, nose discharge, nose congestion , mouth pain, mouth swelling, throat pain, throat swelling, other Respiratory: denies: cough, dry, shortness of breath, hemoptysis, SOB with excertion, pleuritic pain, sputum, wheezing, other Cardiovascular: denies: chest pain, palpitations, orthopnea, paroxysmal noc. dyspnea, edema, light headedness, other Gastrointestinal: denies: nausea, vomiting, abdominal pain, diarrhea, constipation, melena, hematochezia, other Genitourinary: denies: dysuria, frequency, incontinence, hematuria, retention, other Musculoskeletal: denies: neck pain, shoulder pain, arm pain, back pain, hand pain, leg pain, foot pain, other - Medication Medications: Active Medications Generic Name Dose Route Start Last Admin Trade Name Freq PRN Reason Stop Dose Admin Hydrocodone Bitart/Acetaminophen 1 tab 05/04/19 01:38 05/04/19 11:35 [place] 5/325 PO 1 tab Q8HR PRN Administration Severe Pain (7-10) Hydrocodone Bitart/Acetaminophen 1 tab 05/04/19 20:37 05/06/19 12:17 [place] 7.5/325 PO 1 tab Q6H PRN Administration Mild Pain (1-3) Atorvastatin Calcium 40 mg 05/04/19 21:00 05/05/19 20:32 Lipitor PO 40 mg HS ANURAG Administration Carvedilol 12.5 mg 05/04/19 08:00 05/06/19 08:45 Coreg PO 12.5 mg BID-WM ANURAG Administration Cholecalciferol 2,000 units 05/05/19 09:00 05/06/19 08:45 Vitamin D3 PO 2,000 units DAILY ANURAG Administration Clindamycin HCl 150 mg 05/04/19 06:00 05/06/19 05:30 Cleocin PO 05/10/19 22:01 150 mg Q8HR ANURAG Administration Epoetin Erich-epbx 10,000 unit 05/05/19 13:08 05/05/19 17:38 Retacrit IVP Not Given MoWeFr [facility] Escitalopram Oxalate 5 mg 05/04/19 09:00 05/06/19 08:45 Lexapro PO 5 mg QAM ANURAG Administration Hydralazine HCl 50 mg 05/05/19 21:00 05/06/19 08:46 Apresoline PO 50 mg TID ANURAG Administration Insulin Human Regular 0 units 05/04/19 01:34 05/06/19 06:04 Humulin R SC 6 units .MILD SLIDING SCALE PRN Administration Mild Correctional Scale Isosorbide Mononitrate 60 mg 05/04/19 09:00 05/06/19 08:46 Imdur PO 60 mg QAM ANURAG Administration Morphine Sulfate 2 mg 05/04/19 20:39 05/06/19 00:10 Morphine SLOW IVP 2 mg Q4H PRN Administration Severe Pain (7-10) Pantoprazole Sodium 40 mg 05/04/19 09:00 05/06/19 08:45 Protonix PO 40 mg QAM ANURAG Administration Polyethylene Glycol 17 gm 05/04/19 09:00 05/06/19 08:56 Miralax PO 17 gm DAILY ANURAG Administration Saccharomyces Boulardii 250 mg 05/04/19 09:00 05/06/19 08:45 Florastor PO 250 mg DAILY ANURAG Administration Sevelamer Carbonate 800 mg 05/04/19 08:00 05/06/19 12:18 Renvela PO 800 mg TID-WM ANURAG Administration Sodium Chloride 10 ml 05/04/19 09:00 05/06/19 08:56 Flush - Normal Saline IVF 10 ml Q12HR ANURAG Administration Tramadol HCl 50 mg 05/04/19 01:39 05/06/19 08:47 Ultram PO 50 mg Q8H PRN Administration Moderate Pain (4-6) - Exam General Appearance: NAD, awake alert Eye: PERRL, anicteric sclera ENT: normocephalic atraumatic, no oropharyngeal lesions Neck: supple, symmetric Heart: RRR, no murmur, no gallops Respiratory: CTAB, no wheezes, no rales, no ronchi Gastrointestinal: soft, non-tender, non-distended Extremities: no cyanosis, no clubbing, no edema Skin: normal turgor, no lesions Neurological: no focal deficits Musculoskeletal: normal tone, normal strength Psychiatric: normal affect, normal behavior Hosp A/P (1) Acute on chronic anemia Code(s): D64.9 - ANEMIA, UNSPECIFIED Status: Acute (2) Symptomatic anemia Code(s): D64.9 - ANEMIA, UNSPECIFIED Status: Acute (3) Gangrene Status: Acute (4) Secondary hyperparathyroidism of renal origin Code(s): N25.81 - SECONDARY HYPERPARATHYROIDISM OF RENAL ORIGIN Status: Chronic (5) DM2 (diabetes mellitus, type 2) Status: Chronic Qualifiers: Diabetes mellitus snf insulin use: with snf use Diabetes mellitus complication status: with kidney complications Diabetes mellitus complication detail: with chronic kidney disease Chronic kidney disease stage : stage 4 (severe) Qualified Code(s): E11.22 - Type 2 diabetes mellitus with diabetic chronic kidney disease; N18.4 - Chronic kidney disease, stage 4 (severe ); Z79.4 - 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 of 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 (6) ESRD (end stage renal disease) on dialysis Code(s): N18.6 - END STAGE RENAL DISEASE; Z99.2 - DEPENDENCE ON RENAL DIALYSIS Status: Chronic (7) HTN (hypertension) Code(s): I10 - ESSENTIAL (PRIMARY) HYPERTENSION Status: Chronic Qualifiers: Hypertension type: essential hypertension Qualified Code(s): I10 - Essential (primary) hypertension (8) Obesity (BMI 30.0-34.9) Code(s): E66.9 - OBESITY, UNSPECIFIED Status: Chronic (9) Physical deconditioning Code(s): R53.81 - OTHER MALAISE Status: Chronic - Plan old records reviewed/req 05/05/19 today plan for HD Hand surgeon to decide if any other surgery or care needed medication reviewed and continue to provide symptomatic treatment continue perioperative antibiotic wound care dc may be tomorrow if no further plan for surgery 05/06/19 transfuse 1 unit for low Hb, then recheck H & H and then DC to s[facility], no clinically any bleeding from any site see discharge brandie
--- NOTE | 2019-05-06 12:53 | DIS ---
DATE OF ADMISSION: 05/04/2019 DATE OF DISCHARGE: 05/06/2019 PRIMARY CARE PHYSICIAN: [facility] Call Admission. DISCHARGE DISPOSITION: [facility]. PRIMARY DISCHARGE DIAGNOSES: 1. Gangrenous finger, status post amputation. 2. Dampb-nk-juklejt symptomatic anemia status post 2 units transfusion. SECONDARY DISCHARGE DIAGNOSES: Paroxysmal atrial fibrillation, secondary hyperparathyroidism of renal origin, obesity with BMI 30, chronic physical deconditioning, anemia of renal disease, hypertension, decubitus ulcer present on admission, end stage renal disease, on hemodialysis, diabetes type 2. PRIMARY PROCEDURE/OPERATION: Maintenance hemodialysis and amputation of the finger by Dr. Ann. RADIOLOGICAL INVESTIGATION: None. SIGNIFICANT LABORATORY DATA: Hemoglobin 6.6 and after that 1 unit of blood transfusion given. Sodium 135, creatinine 3.09. DISCHARGE MEDICATION: 1. [place] 1 tablet q.8 hourly p.r.n. 2. Tramadol 50 mg q.8 hourly p.r.n. 3. Lipitor 40 mg at bedtime. 4. Vitamin D3 2000 units p.o. daily. 5. Lexapro 5 mg daily. 6. Humalog insulin as per sliding scale. 7. Hydralazine 50 mg p.o. t.i.d. 8. Imdur 60 mg daily. 9. Protonix 40 mg daily. 10. Renvela 800 mg t.i.d. 11. Clindamycin 150 mg q.8 hourly. 12. Aspirin 81 mg p.o. daily. 13. Coreg 12.5 mg p.o. twice daily. 14. Humulin 70/30 10 units subcu a.c. 15. MiraLAX 17 g p.o. daily. 16. Florastor 250 mg p.o. daily. CONTRAINDICATION: None. CODE STATUS: Full code. INPATIENT ARMY MANAGER: Dr. Barreto was doing dialysis. Dr. Ann did a surgical amputation of fingers. TEST RESULTS PENDING ON DISCHARGE: None. ALLERGIES: KEFLEX, LATEX, POTASSIUM, SULFA. DISCHARGE PLAN: Posthospital the patient will follow up with primary care physician at [facility]. HOSPITAL COURSE: This is a 64-year-old female with above-mentioned medical problem who was admitted by Dr. José Bautista. Please see his H and P for further details. The patient was sent from dialysis for anemia and the patient was given 1 unit of blood transfusion. The patient also had another unit of blood transfusion on discharge. The patient was evaluated by Nephrology for dialysis. The patient's blood sugar was out of control and that is why we added Humulin N 70/30 on discharge. Insulin will be continued as per sliding scale. The patient was evaluated by wound care team and the wound care team sign-off and advised regular dressing. Dr. Ann was consulted for gangrenous finger and he did amputation of the finger and he cleared her for discharge and he will see this patient on May 10 for a dressing change. At this point, the patient will continue previous antibiotic therapy. Once finished, then antibiotic therapy will be finished. PHYSICAL EXAMINATION: The patient is seen and examined at bedside today. VITAL SIGNS: Currently temperature 98.3, pulse 68, respiratory rate 16, saturation 97% on room air, blood pressure 144/62, weight 182 pounds. GENERAL: The patient is currently alert, awake, in no acute distress. HEAD: Normocephalic, atraumatic. EYES: Pupils round, reactive to light. Extraocular muscle intact. ENT: Oropharynx within normal limits. Moist mucous membranes. No oral lesion. No pharyngeal erythema. No exudate. NECK: Supple. No JVD. No meningeal signs of irritation. LUNGS: Clear to auscultation without any rhonchi or rales. CARDIAC: S1, S2 regular without any murmur. No gallop. No rub. ABDOMEN: Soft, bowel sounds present. Nontender, nondistended. No organomegaly. No mass. EXTREMITIES: No edema. She has a decubitus ulcer on her buttock which is present on admission. NEUROLOGIC: Nonfocal examination. We are transfusing 1 unit of blood transfusion now and after that we will repeat H and H and if it is okay, then we will consider discharging her later on today. Job ID: [id number]
--- NOTE | 2019-05-06 15:34 | PRG ---
DATE OF SERVICE: 05/06/2019 SUBJECTIVE: Patient was seen and examined at bedside and overnight events noted. Patient denies any shortness of breath or chest pain or palpitation. No history of nausea or vomiting or diarrhea or fever or chills or cramps. OBJECTIVE: GENERAL: This is a well-built female, in no apparent distress. VITAL SIGNS: Temperature 98.2. Heart rate 60. Respiratory rate 16. Blood pressure 146/66. HEENT: Atraumatic, normocephalic. Oral mucosa is moist NECK: Supple. CARDIOVASCULAR: S1, S2 heard. Rate and rhythm regular. RESPIRATORY: Clear to auscultation. GASTROINTESTINAL: Abdomen is soft. MUSCULOSKELETAL: No tenderness. No edema. DERMATOLOGIC: No skin rash. NEUROLOGIC: Alert and awake and oriented X3. No focal neurologic deficits. Moving all the extremities. PSYCHIATRIC: Mood and affect normal. LABORATORY DATA: Potassium is 3.6, BUN is 13, and creatinine is 3.09. Hemoglobin is 6.6. ASSESSMENT AND PLAN: 1. End-stage renal disease, continue hemodialysis orders. 2. Edema. 3. Hypertension. 4. Anemia. 5. Peripheral vascular disease. Plan to continue on dialysis as tolerated. Job ID: [id number]
[2019-05-06 15:53] LABS: Hemoglobin 8.3 g/dL (12.0-16.0); Platelet Count 284 thou/uL (130-400)
[2019-05-06] MEDS: Atorvastatin Calcium 10 MG TAB PO SCH (20:28)
[2019-05-07] MEDS: Clindamycin 150 MG CAP PO SCH ×2 (06:45→13:56)
[2019-05-07] MEDS: HYDROcodone/Acetaminophen 7.5/325 mg Tablet PO PRN ×2 (06:49→12:09)
[2019-05-07] MEDS: hydrALAZINE 10 MG TAB PO SCH (09:10)
[2019-05-07] MEDS: Sevelamer Carbonate 800 MG TAB PO SCH ×2 (09:10→12:08)
[2019-05-07] MEDS: Carvedilol 6.25 MG TAB PO SCH (09:11)
[2019-05-07] MEDS: HumuLIN 70/30 (300 UNITS/3 ML VIAL) SC SCH ×2 (09:12→12:54)
[2019-05-07] MEDS ORDERED: Heparin 10,000 UNITS/1 ML VIAL ONE (09:49)
[2019-05-07] MEDS: Saccharomyces boulardii 250 MG CAP PO SCH (12:08)
[2019-05-07] MEDS: Escitalopram Oxalate 10 mg Tablet PO SCH (12:08)
[2019-05-07] MEDS: Polyethylene Glycol 3350 17 GM Packet PO SCH (12:12)
--- NOTE | 2019-05-07 12:37 | PDOC.HOSPP ---
- Subjective Encounter Date: 05/07/19 Encounter Time: 12:30 Subjective: Expresses no complaint. - Objective Vital Signs & Weight: Vital Signs (12 hours) Temp Pulse Resp BP BP Pulse Ox 05/07/19 09:11 111/63 05/07/19 09:10 75 05/07/19 03:28 98 F 75 16 133/63 98 Weight Admit Weight 182 lb 15.739 oz Weight 182 lb 15.739 oz I&O: 05/06/19 05/07/19 05/08/19 06:59 06:59 06:59 Intake Total 910 350 480 Balance 910 350 480 Result Diagrams: 05/06/19 15:44 05/06/19 09:37 Additional Labs: Accuchecks 05/07/19 05/06/19 05/06/19 05:51 20:48 15:36 POC Glucose 108 159 H 212 H Hospitalist ROS - Medication Medications: Active Medications Generic Name Dose Route Start Last Admin Trade Name Freq PRN Reason Stop Dose Admin Hydrocodone Bitart/Acetaminophen 1 tab 05/04/19 01:38 05/04/19 11:35 [place] 5/325 PO 1 tab Q8HR PRN Administration Severe Pain (7-10) Hydrocodone Bitart/Acetaminophen 1 tab 05/04/19 20:37 05/07/19 12:09 [place] 7.5/325 PO 1 tab Q6H PRN Administration Mild Pain (1-3) Atorvastatin Calcium 40 mg 05/04/19 21:00 05/06/19 20:28 Lipitor PO 40 mg HS ANURAG Administration Carvedilol 12.5 mg 05/04/19 08:00 05/07/19 09:11 Coreg PO Not Given BID-WM ANURAG Cholecalciferol 2,000 units 05/05/19 09:00 05/07/19 12:08 Vitamin D3 PO 2,000 units DAILY ANURAG Administration Clindamycin HCl 150 mg 05/04/19 06:00 05/07/19 06:45 Cleocin PO 05/10/19 22:01 150 mg Q8HR ANURAG Administration Epoetin Eirch-epbx 10,000 unit 05/05/19 13:08 05/05/19 17:38 Retacrit IVP Not Given [facility] Escitalopram Oxalate 5 mg 05/04/19 09:00 05/07/19 12:08 Lexapro PO 5 mg QAM ANURAG Administration Hydralazine HCl 50 mg 05/05/19 21:00 05/07/19 09:10 Apresoline PO Not Given TID ANURAG Insulin Human Isoph/Insulin Regular 10 units 05/06/19 11:30 05/07/19 09:12 Humulin 70/30 SC Not Given AC ANURAG Insulin Human Regular 0 units 05/04/19 01:34 05/06/19 06:04 Humulin R SC 6 units .MILD SLIDING SCALE PRN Administration Mild Correctional Scale Isosorbide Mononitrate 60 mg 05/04/19 09:00 05/07/19 12:09 Imdur PO 60 mg QAM ANURAG Administration Morphine Sulfate 2 mg 05/04/19 20:39 05/06/19 23:56 Morphine SLOW IVP 2 mg Q4H PRN Administration Severe Pain (7-10) Pantoprazole Sodium 40 mg 05/04/19 09:00 05/07/19 12:08 Protonix PO 40 mg QAM ANURAG Administration Polyethylene Glycol 17 gm 05/04/19 09:00 05/07/19 12:12 Miralax PO Not Given DAILY ANURAG Saccharomyces Boulardii 250 mg 05/04/19 09:00 05/07/19 12:08 Florastor PO 250 mg DAILY ANURAG Administration Sevelamer Carbonate 800 mg 05/04/19 08:00 05/07/19 12:08 Renvela PO 800 mg TID-WM ANURAG Administration Sodium Chloride 10 ml 05/04/19 09:00 05/07/19 12:12 Flush - Normal Saline IVF 10 ml Q12HR ANURAG Administration Tramadol HCl 50 mg 05/04/19 01:39 05/06/19 08:47 Ultram PO 50 mg Q8H PRN Administration Moderate Pain (4-6) - Exam General Appearance: NAD Neck: no JVD Heart: RRR Respiratory: CTAB Gastrointestinal: soft Extremities: no edema Extremities - other findings: Dressing over left hand.. 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 To be discharged today.. For discharge summary, please see discharge summary dictated by Dr. Brown yesterday..
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
[2019-05-07 13:06] VITALS: BP 135/81; TEMP 98
--- NOTE | 2019-05-07 16:59 | PRG ---
DATE OF SERVICE: 05/07/2019 SUBJECTIVE: The patient was seen and examined at bedside and overnight events noted. The patient denies any shortness of breath or chest pain or palpitation. No history of nausea or vomiting or diarrhea or fever or chills or cramps. OBJECTIVE: GENERAL: This is a well-built female, in no apparent distress. VITAL SIGNS: Temperature 98.7. Heart rate 68. Respiratory rate 18. Blood pressure 135/81. HEENT: Atraumatic, normocephalic. Oral mucosa is moist NECK: Supple. CARDIOVASCULAR: S1, S2 heard. Rate and rhythm regular. RESPIRATORY: Clear to auscultation. GASTROINTESTINAL: Abdomen is soft. MUSCULOSKELETAL: No tenderness. No edema. DERMATOLOGIC: No skin rash. NEUROLOGIC: Alert and awake and oriented x3. No focal neurologic deficits. Moving all the extremities. PSYCHIATRIC: Mood and affect normal. LABORATORY DATA: Not done today. ASSESSMENT AND PLAN: 1. End-stage renal disease. Continue hemodialysis as tolerated. 2. Edema. 3. Hypertension. 4. Anemia. 5. Peripheral vascular disease. We will continue on dialysis as tolerated. Job ID: [id number]
== END 2019-05-07 12:15 | DRG 255 ==
LOC: ERS 18:56 → OBSVTOIN 05-04 00:45 → SURG A 05-04 00:45
PROVIDERS: ADMIT Internal Medicine; ATTEND Internal Medicine
PROC: 0X6W0Z0 Detachment at Left Little Finger, Complete, Open Approach (ICD-10-PCS; principal; 2019-05-04)
PROC: 0X6T0Z1 Detachment at Left Ring Finger, High, Open Approach (ICD-10-PCS; 2019-05-04)
PROC: 0X6R0Z1 Detachment at Left Middle Finger, High, Open Approach (ICD-10-PCS; 2019-05-04)
PROC: 30233N1 Transfusion of Nonautologous Red Blood Cells into Peripheral Vein, Percutaneous Approach (ICD-10-PCS; 2019-05-04)
PROC: 5A1D70Z Performance of Urinary Filtration, Intermittent, Less than 6 Hours Per Day (ICD-10-PCS; 2019-05-05)
DX: E11.52 Type 2 diabetes mellitus with diabetic peripheral angiopathy with gangrene (principal); N18.6 End stage renal disease; I13.2 Hypertensive heart and chronic kidney disease with heart failure and with stage 5 chronic kidney disease, or end stage renal disease; I50.42 Chronic combined systolic (congestive) and diastolic (congestive) heart failure; N25.81 Secondary hyperparathyroidism of renal origin; E44.0 Moderate protein-calorie malnutrition; I96 Gangrene, not elsewhere classified; D63.1 Anemia in chronic kidney disease; E11.22 Type 2 diabetes mellitus with diabetic chronic kidney disease; E78.5 Hyperlipidemia, unspecified; I25.10 Atherosclerotic heart disease of native coronary artery without angina pectoris; E87.6 Hypokalemia; E66.9 Obesity, unspecified; L73.2 Hidradenitis suppurativa; E11.65 Type 2 diabetes mellitus with hyperglycemia; I48.0 Paroxysmal atrial fibrillation; L89.90 Pressure ulcer of unspecified site, unspecified stage; Z89.022 Acquired absence of left finger(s); Z90.710 Acquired absence of both cervix and uterus; Z79.82 Long term (current) use of aspirin; Z79.899 Other long term (current) drug therapy; Z88.2 Allergy status to sulfonamides; Z99.2 Dependence on renal dialysis; Z86.73 Personal history of transient ischemic attack (TIA), and cerebral infarction without residual deficits; I25.2 Old myocardial infarction; Z98.51 Tubal ligation status; Z68.34 Body mass index [BMI] 34.0-34.9, adult; Z88.1 Allergy status to other antibiotic agents
CPT/HCPCS: 36415; 36416; 36430; 80048; 80053; 80069; 82728; 83540; 83550; 85014; 85018; 85025; 86850; 86900; 86901; 86922; 88305; 94760; J0690; J1100; J1644; J1815; J2001; J2270; J2405; J2704; J3010; J3490; P9016; S0020

== ENCOUNTER 2019-08-15 23:18 | Emergency (ER) | payer MEDICARE ==
[2019-08-16] MEDS ORDERED: cloNIDine 0.1 MG TAB ONE (00:34)
[2019-08-16 00:43] LABS: Hemoglobin 14.8 g/dL (12.0-16.0); Mean Corpuscular HGB CONC 31.7 g/dL (32.0-36.0); Mean Corpuscular Hemoglobin 28.5 pg (27.0-31.0); Mean Corpuscular Volume 89.8 fL (78.0-98.0); Mean Platelet Volume 10.3 fL (7.4-10.4); Platelet Count 188 thou/uL (130-400); RBC Distribution Width 16.4 % (11.5-14.5); Red Blood Cell (RBC) Count 5.19 mill/uL (4.20-5.40)
[2019-08-16 00:57] LABS: ALT (SGPT) 29 U/L (8-55); AST (SGOT) 51 U/L (5-34); Albumin 3.3 g/dL (3.4-4.8); Alkaline Phosphatase 321 U/L (40-110); Anion Gap 23 mmol/L (10-20); BUN (Urea Nitrogen) 63 mg/dL (9.8-20.1); Bilirubin, Total 0.6 mg/dL (0.2-1.2); Calc. Creatinine Clearance 0 mL/min (70-130); Calcium 9.4 mg/dL (7.8-10.44); Carbon Dioxide 18 mmol/L (23-31); Chloride 104 mmol/L (98-107); Estimated GFR-MDRD 5; Globulin 5.9 g/dL (2.4-3.5); Glucose 127 mg/dL (80-115); Protein, Total 9.2 g/dL (6.0-8.3); Sodium 140 mmol/L (136-145)
[2019-08-16 01:07] LABS: Eosinophils 6 % (0-10); Lymphocytes 19 % (21-51); MDiff Complete? YES; Monocytes 11 % (0-10); Neutrophil 64 % (42-75); Target Cells SLIGHT = 2-5 cells (100X) (0-1/hpf); White Blood Cell (WBC) Count 8.3 thou/uL (4.8-10.8)
--- NOTE | 2019-08-16 07:32 | ULT ---
PRELIMINARY REPORT/[facility]/EMERGENCY AFTER HOURS PROCEDURE: EXAM: US VENOUS DOPPLER LT UNILAT HISTORY: HX: LLE SWELLING, PAIN. SEE NOTES ON LAST IMAGE. THANKS COMPARISON: None provided. FINDINGS: All of the visualized left lower extremity deep veins are compressible, without intraluminal echogeni c material to suggest thrombus, fill with color signal on color Doppler interrogation, and demonstrat e normal venous waveforms with spectral Doppler analysis. IMPRESSION: No evidence of left lower extremity deep venous thrombosis. ELECTRONICALLY SIGNED BY: Edmund Alvarez MD Aug 16, 2019 12:32:38 AM CDT This report is intended for review by the ordering physician only, in accordance of law. If you recei ve this report in error, please call [facility] at [phone]. FINAL REPORT EMERGENCY AFTER HOURS LEFT LOWER EXTREMITY VENOUS ULTRASOUND: FINDINGS/IMPRESSION: I agree with the findings and impression given in the preliminary report per [facility] physici an. No evidence of deep venous thrombosis.
== END 2019-08-16 00:25 | disposition home or self-care (01) ==
LOC: ERS 23:18
DX: R60.9 Edema, unspecified (principal); I13.2 Hypertensive heart and chronic kidney disease with heart failure and with stage 5 chronic kidney disease, or end stage renal disease; E11.22 Type 2 diabetes mellitus with diabetic chronic kidney disease; I50.9 Heart failure, unspecified; N18.6 End stage renal disease; I25.10 Atherosclerotic heart disease of native coronary artery without angina pectoris; Z99.2 Dependence on renal dialysis
CPT/HCPCS: 36415; 80053; 85025; 93005

== ENCOUNTER 2019-11-03 18:30 | Observation (INO) | payer MEDICARE ==
[2019-11-03] MEDS ORDERED: Nitroglycerin 2% Ointment 1 INCH/1 GM Packet ONE (19:03)
[2019-11-03 19:15] LABS: #Eosinphils 0.4 thou/uL (0.0-0.7); #Lymphocytes 1.2 thou/uL (1.20-3.40); #Monocytes 0.6 thou/uL (0.11-0.59); #Neutrophils 4.9 thou/uL (1.40-6.50); %Basophils 0.5 % (0.0-1.0); %Eosinophils 5.1 % (0.0-10.0); %Lymphocytes 17.1 % (21.0-51.0); %Monocytes 8.2 % (0.0-10.0); %Neutrophils 69.1 % (42.0-75.0); Hemoglobin 12.2 g/dL (12.0-16.0); Mean Corpuscular HGB CONC 31.7 g/dL (32.0-36.0); Mean Corpuscular Hemoglobin 28.4 pg (27.0-31.0); Mean Corpuscular Volume 89.3 fL (78.0-98.0); Mean Platelet Volume 10.1 fL (7.4-10.4); Platelet Count 203 thou/uL (130-400); RBC Distribution Width 16.4 % (11.5-14.5); Red Blood Cell (RBC) Count 4.32 mill/uL (4.20-5.40); White Blood Cell (WBC) Count 7.1 thou/uL (4.8-10.8)
--- NOTE | 2019-11-03 19:19 | RAD ---
ONE VIEW CHEST: 11/03/19 COMPARISON: 03/17/19 HISTORY: Pain. FINDINGS: Redemonstration of right sided Hemosplit dialysis catheter. Atherosclerosis of the aorta. Normal ca rdiac silhouette. Pulmonary vessels and hilum are normal. Costophrenic angles are clear. No consolida tion or mass. No pneumothorax or acute osseous abnormalities. Stable stent projecting over the right axilla. IMPRESSION: Atherosclerosis. No acute cardiopulmonary process. POS: PPP
[2019-11-03 19:38] LABS: ALT (SGPT) 27 U/L (8-55); AST (SGOT) 41 U/L (5-34); Albumin 3.8 g/dL (3.4-4.8); Alkaline Phosphatase 536 U/L (40-110); Anion Gap 17 mmol/L (10-20); BUN (Urea Nitrogen) 23 mg/dL (9.8-20.1); Bilirubin, Total 0.7 mg/dL (0.2-1.2); CK (CPK) 42 U/L (29-168); Calc. Creatinine Clearance 0 mL/min (70-130); Calcium 9.3 mg/dL (7.8-10.44); Carbon Dioxide 25 mmol/L (23-31); Chloride 98 mmol/L (98-107); Estimated GFR-MDRD 13; Globulin 5.7 g/dL (2.4-3.5); Glucose 184 mg/dL (80-115); Lipase 22 U/L (8-78); Potassium 3.9 mmol/L (3.5-5.1); Protein, Total 9.5 g/dL (6.0-8.3); Sodium 136 mmol/L (136-145)
[2019-11-03 19:57] LABS: CKMB 0.9 ng/mL (0-6.6)
[2019-11-03] MEDS ORDERED: Nitroglycerin 0.4 MG TAB (25 Tab Bottle) PO PRN (20:17)
[2019-11-03] MEDS ORDERED: Acetaminophen 650 MG Suppository PR PRN (20:19)
[2019-11-03] MEDS ORDERED: Calcium Carbonate 500 MG ChewTAB PO PRN (20:19)
[2019-11-03] MEDS ORDERED: Ondansetron PF 4 MG/2 ML Vial IVP PRN (20:19)
[2019-11-03] MEDS ORDERED: Ondansetron ODT 4 MG TAB PO PRN (20:19)
[2019-11-03] MEDS ORDERED: HYDROcodone/Acetaminophen 5/325 mg Tablet PO PRN (20:19)
--- NOTE | 2019-11-03 20:26 | PDOC.HHP ---
Hospitalist HPI - History of Present Illness chest pain History of Present Illness: Case of an 64y/o female with pmhx of esrd on h/d cad dm chf and pvd who comes to hospital due to chest pain. patient refers she was on her usual state of health until today when whiles she was receiving her h/d she started with chest pain. patient states pain was 7/10 in the restrosternal area non radiating that lasted until she was given nitro at the ed. patient denies any sob palpitations or diaphoresis. Hospitalist ROS - Review of Systems All other systems reviewed; all pertinent +/- noted in HPI/Subj Hospitalist History - Past Surgical History Past Surgical History: reports: Appendectomy, Hysterectomy Other Surgical History: fistula creation - Family History Family History: reports: diabetes mellitus, hypertension - Social History Smoking Status: Never smoker Alcohol: reports: None Drugs: reports: none - Exam General Appearance: NAD, awake alert Eye: PERRL, anicteric sclera ENT: normocephalic atraumatic, no oropharyngeal lesions Neck: supple, symmetric, no JVD Heart: RRR, no murmur, no gallops, no rubs Respiratory: CTAB, no wheezes, no rales, no ronchi Gastrointestinal: soft, non-tender, non-distended, normal bowel sounds Extremities: no cyanosis, no clubbing, no edema Skin: normal turgor, no lesions, no rashes Neurological: cranial nerve grossly intact, normal sensation to touch, no weakness Musculoskeletal: normal tone, normal strength, no muscle wasting Psychiatric: normal affect, normal behavior, A&O x 3 Hospitalist Results - Labs Result Diagrams: 11/03/19 19:05 11/03/19 19:05 Lab results: WBC 7.1 thou/uL (4.8-10.8) 11/03/19 19:05 Hgb 12.2 g/dL (12.0-16.0) 11/03/19 19:05 Hct 38.6 % (36.0-47.0) 11/03/19 19:05 MCV 89.3 fL (78.0-98.0) 11/03/19 19:05 Plt Count 203 thou/uL (130-400) 11/03/19 19:05 Neutrophils % 69.1 % (42.0-75.0) 11/03/19 19:05 Sodium 136 mmol/L (136-145) 11/03/19 19:05 Potassium 3.9 mmol/L (3.5-5.1) 11/03/19 19:05 Chloride 98 mmol/L (98-107) 11/03/19 19:05 Carbon Dioxide 25 mmol/L (23-31) 11/03/19 19:05 BUN 23 mg/dL (9.8-20.1) H 11/03/19 19:05 Creatinine 4.28 mg/dL (0.6-1.1) H 11/03/19 19:05 Glucose 184 mg/dL (80-115) H 11/03/19 19:05 Calcium 9.3 mg/dL (7.8-10.44) 11/03/19 19:05 Total Bilirubin 0.7 mg/dL (0.2-1.2) 11/03/19 19:05 AST 41 U/L (5-34) H 11/03/19 19:05 ALT 27 U/L (8-55) 11/03/19 19:05 Alkaline Phosphatase 536 U/L (40-110) H 11/03/19 19:05 Creatine Kinase 42 U/L (29-168) 11/03/19 19:05 CK-MB (CK-2) 0.9 ng/mL (0-6.6) 11/03/19 19:05 Troponin I 0.053 ng/mL (< 0.028) H 11/03/19 19:05 Serum Total Protein 9.5 g/dL (6.0-8.3) H 11/03/19 19:05 Albumin 3.8 g/dL (3.4-4.8) 11/03/19 19:05 Lipase 22 U/L (8-78) 11/03/19 19:05 - EKG Interpretation EKG: no ischemic st changes Hospitalist H&P A/P - Problem (1) Chest pain Code(s): R07.9 - CHEST PAIN, UNSPECIFIED Status: Acute (2) PVD (peripheral vascular disease) Code(s): I73.9 - PERIPHERAL VASCULAR DISEASE, UNSPECIFIED Status: Acute (3) HTN (hypertension) Code(s): I10 - ESSENTIAL (PRIMARY) HYPERTENSION Status: Acute (4) ESRD (end stage renal disease) on dialysis Code(s): N18.6 - END STAGE RENAL DISEASE; Z99.2 - DEPENDENCE ON RENAL DIALYSIS Status: Chronic (5) Obesity (BMI 30.0-34.9) Code(s): E66.9 - OBESITY, UNSPECIFIED Status: Chronic (6) Uncontrolled diabetes mellitus Code(s): E11.65 - TYPE 2 DIABETES MELLITUS WITH HYPERGLYCEMIA Status: Acute (7) CAD (coronary artery disease) Code(s): I25.10 - ATHSCL HEART DISEASE OF [place] CORONARY ARTERY W/O ANG PCTRS Status: Acute - Plan Plan: 64y/o male with the stated pmhx who comes to hospital due to chest pain while receiving h/d that improved with nitro at the ED - admit as obs on telemetry - elevated troponin at .05, evaluating previous visits this values seems to be normal on her likely secondary to esrd - will send serial to evaluate trend - continue cad medication with betablocker and statin - increasing asa to 325 until acs is r/o - consult quality assurance inspector for h/d -contiue home meds for chronic conditions - ss and accu checks
[2019-11-03] MEDS ORDERED: Aspirin 325 MG TAB PO SCH (20:30)
[2019-11-03] MEDS ORDERED: Dextrose 5% in Water 1,000 ML IV PRN (20:47)
[2019-11-03] MEDS ORDERED: Dextrose 50% Abboject 50 ML SYRINGE SLOW IVP PRN (20:47)
[2019-11-03] MEDS: Acetaminophen 325 MG TAB PO PRN (22:35)
[2019-11-03] MEDS: Atorvastatin Calcium 20 MG TAB PO SCH (22:47)
[2019-11-03] MEDS: hydrALAZINE 25 MG TAB PO SCH (22:47)
[2019-11-04 01:50] LABS: Troponin I 0.043 ng/mL (< 0.028)
[2019-11-04] MEDS: Insulin Glargine 25 UNITS in Pre-Filled Syringe 1 EACH SC SCH ×3 (04:11→21:24)
[2019-11-04 05:47] LABS: Cardiac Risk 4.1 (Less than 4.5)
[2019-11-04] MEDS ORDERED: Insulin Glargine 25 UNITS in Pre-Filled Syringe 1 EACH SC SCH (06:30)
[2019-11-04 08:34] VITALS: BMI 28.2
[2019-11-04] MEDS: Aspirin 325 mg Enteric Coated Tablet PO SCH (09:05)
[2019-11-04] MEDS: Sevelamer Carbonate 800 MG TAB PO SCH ×3 (09:06→17:20)
[2019-11-04] MEDS: Carvedilol 6.25 MG TAB PO SCH ×2 (09:06→17:20)
[2019-11-04] MEDS: hydrALAZINE 25 MG TAB PO SCH ×3 (09:06→21:17)
[2019-11-04] MEDS: Enoxaparin Sodium 30 MG/0.3 ML SYRINGE SC SCH (09:08)
--- NOTE | 2019-11-04 11:41 | CON ---
DATE OF CONSULTATION: REASON FOR CONSULTATION: End-stage kidney disease for maintenance hemodialysis. HISTORY OF PRESENT ILLNESS: This is a very pleasant 64-year-old female, who presented to the hospital yesterday for chest pain. The patient denies any nausea, vomiting, or chest pain right now. The patient does dialysis Friday, Friday, Friday, and had a dialysis yesterday. PAST MEDICAL HISTORY: Significant for appendectomy, hysterectomy, end-stage renal disease, hypertension, anemia, coronary artery disease, AV fistula, and tunneled dialysis catheter. HOME MEDICATIONS: List reviewed. HOSPITAL MEDICATIONS: List reviewed. REVIEW OF SYSTEMS: 15-point review of systems was performed, negative except for positives noted above. HEENT: Eyes intact, no diplopia. Ears: No hearing loss or earache. Nose: No discharge or bleeding. CHEST: No cough or phlegm. ABDOMEN: No nausea or vomiting. GENITOURINARY: No hematuria. No Childers catheter. MUSCULOSKELETAL: No low back pain. No joint swelling or pain. NEUROLOGICAL: No syncope. No seizures. SKIN: No complaints of rash or itching. PSYCHIATRIC: No depression. CONSTITUTIONAL: No weight loss or loss of appetite. PHYSICAL EXAMINATION: GENERAL: The patient is awake and alert. VITAL SIGNS: Afebrile, pulse 75, breathing at 16, blood pressure 118/49. HEENT: Head normocephalic and atraumatic. Eyes intact, no ulcers. Nose intact, no ulcers. Ears intact, no ulcers. NECK: Supple. No JVD. CHEST: Symmetrical and clear. CARDIOVASCULAR: Shows S1 and S2, no rub, no murmur. GASTROINTESTINAL: Abdomen is soft, bowel sounds positive. EXTREMITIES: Show no edema or ulcers. SKIN: Shows no rash or petechiae. MUSCULOSKELETAL: Shows no joint swelling or stiffness. GENITOURINARY: Shows no Childers or CVA tenderness. NEUROLOGIC: Motor intact. Cranial nerves intact. LABORATORY DATA: Reviewed. ASSESSMENT AND PLAN: 1. Stage 6 chronic kidney disease, plan dialysis as per schedule. 2. Hypertension, stable. 3. Anemia, stable. Medication based on GFR appropriate. Job ID: [id number]
[2019-11-04] MEDS: HumaLOG 300 UNITS/3 ML VIAL SC PRN (12:08)
[2019-11-04] MEDS: Atorvastatin Calcium 20 MG TAB PO SCH (21:17)
[2019-11-04] MEDS: Acetaminophen 325 MG TAB PO PRN (22:54)
[2019-11-05] MEDS ORDERED: hydrALAZINE 20 MG/ML VIAL SLOW IVP PRN (05:31)
[2019-11-05] MEDS: Aspirin 325 mg Enteric Coated Tablet PO SCH (08:42)
[2019-11-05] MEDS: hydrALAZINE 25 MG TAB PO SCH ×2 (08:42→16:22)
[2019-11-05] MEDS: Sevelamer Carbonate 800 MG TAB PO SCH ×3 (08:44→17:33)
[2019-11-05] MEDS: Enoxaparin Sodium 30 MG/0.3 ML SYRINGE SC SCH (08:45)
--- NOTE | 2019-11-05 09:55 | PDOC.HOSPP ---
- Subjective Encounter Date: 11/04/19 Encounter Time: 09:45 Subjective: pt up in bed no complains - Objective Vital Signs & Weight: Vital Signs (12 hours) Temp Pulse Resp BP BP BP Pulse Ox 11/05/19 08:42 72 179/77 H 11/05/19 07:47 97.8 F 72 16 179/77 H 97 11/05/19 05:20 177/92 H 11/05/19 04:59 97.9 F 71 18 184/85 H 97 11/04/19 23:21 98.4 F 70 16 176/74 H 98 Weight Admit Weight 180 lb 1.883 oz Weight 180 lb 1.883 oz I&O: 11/04/19 11/05/19 11/06/19 06:59 06:59 06:59 Intake Total 560 750 Balance 560 750 Result Diagrams: 11/05/19 15:14 11/03/19 19:05 Additional Labs: Accuchecks 11/05/19 11/04/19 11/04/19 05:45 21:25 17:02 POC Glucose 161 H 183 H 149 H 11/04/19 11:40 POC Glucose 397 H Hospitalist ROS - Review of Systems Respiratory: denies: cough, dry, shortness of breath, hemoptysis, SOB with excertion, pleuritic pain, sputum, wheezing, other Cardiovascular: denies: chest pain, palpitations, orthopnea, paroxysmal noc. dyspnea, edema, light headedness, other Gastrointestinal: denies: nausea, vomiting, abdominal pain, diarrhea, constipation, melena, hematochezia, other - Medication Medications: Active Medications Generic Name Dose Route Start Last Admin Trade Name Flores PRN Reason Stop Dose Admin Acetaminophen 650 mg 11/03/19 20:19 11/04/19 22:54 Tylenol PO 650 mg Q4H PRN Administration Headache/Fever/Mild Pain (1-3) Aspirin 325 mg 11/04/19 09:00 11/05/19 08:42 Ecotrin PO 325 mg DAILY ANURAG Administration Atorvastatin Calcium 40 mg 11/03/19 21:00 11/04/19 21:17 Lipitor PO 40 mg HS ANURAG Administration Carvedilol 12.5 mg 11/04/19 08:00 11/04/19 17:20 Coreg PO 12.5 mg BID-WM ANURAG Administration Enoxaparin Sodium 30 mg 11/04/19 09:00 11/05/19 08:45 Lovenox SC 30 mg 0900 ANURAG Administration Hydralazine HCl 50 mg 11/03/19 21:00 11/05/19 08:42 Apresoline PO 50 mg TID ANURAG Administration Hydralazine HCl 10 mg 11/05/19 05:31 11/05/19 05:34 Apresoline SLOW IVP 10 mg Q6H PRN Administration SBP>170 Insulin Glargine 25 units/ 0.25 mls @ 0 mls/hr 11/03/19 21:00 11/04/19 21:24 Miscellaneous Medication SC 0.25 mls HS ANURAG Administration Insulin Human Lispro 0 units 11/03/19 20:47 11/04/19 12:08 Humalog SC 10 unit .MODERATE SLIDING SC PRN Administration Moderate Correctional Scale Isosorbide Mononitrate 60 mg 11/04/19 09:00 11/05/19 08:42 Imdur PO 60 mg QAM ANURAG Administration Pantoprazole Sodium 40 mg 11/04/19 09:00 11/05/19 08:44 Protonix PO 40 mg QAM ANURAG Administration Sevelamer Carbonate 800 mg 11/04/19 08:00 11/05/19 08:44 Renvela PO 800 mg TID-WM ANURAG Administration - Exam Neck: negative: supple, symmetric, no JVD, no thyromegaly, no lymphadenopathy, no carotid bruit, JVD Heart: negative: RRR, no murmur, no gallops, no rubs, normal peripheral pulses, irregular, diminshed peripheral pulses, murmur present, II/IV, III/IV Respiratory: negative: CTAB, no wheezes, no rales, no ronchi, normal chest expansion, no tachypnea, normal percussion, rales, rhonchi, tachypneic, wheezes Extremities - other findings: amputation of left fingers Hosp A/P (1) Chest pain Code(s): R07.9 - CHEST PAIN, UNSPECIFIED Status: Acute (2) HTN (hypertension) Code(s): I10 - ESSENTIAL (PRIMARY) HYPERTENSION Status: Acute (3) PVD (peripheral vascular disease) Code(s): I73.9 - PERIPHERAL VASCULAR DISEASE, UNSPECIFIED Status: Acute (4) Uncontrolled diabetes mellitus Code(s): E11.65 - TYPE 2 DIABETES MELLITUS WITH HYPERGLYCEMIA Status: Acute (5) Acute on chronic anemia Code(s): D64.9 - ANEMIA, UNSPECIFIED Status: Acute (6) ESRD (end stage renal disease) on dialysis Code(s): N18.6 - END STAGE RENAL DISEASE; Z99.2 - DEPENDENCE ON RENAL DIALYSIS Status: Chronic - Plan pt already ate breakfast. will order stress test. pt is currently chest pain free. will continue to monitor.
[2019-11-05] MEDS ORDERED: Heparin 10,000 UNITS/ 10 ML VIAL ONE (11:18)
[2019-11-05] MEDS ORDERED: ADENOSINE 60 MG/20 ML VIAL ONE (11:23)
--- NOTE | 2019-11-05 11:35 | PRG ---
DATE OF SERVICE: 11/05/2019 SUBJECTIVE: A 64-year-old female, being seen for end-stage renal disease. The patient denies any nausea, vomiting, or chest pain. PHYSICAL EXAMINATION: GENERAL: The patient is awake and alert. Vital Signs: Afebrile, pulse 71, breathing at 16, blood pressure 177/92. HEENT: Head normocephalic and atraumatic. Eyes intact, no ulcers. Nose intact, no ulcers. Ears intact, no ulcers. NECK: Supple. No JVD. CHEST: Symmetrical and clear. CARDIOVASCULAR: Shows S1 and S2, no rub, no murmur. GASTROINTESTINAL: Abdomen is soft, bowel sounds positive. EXTREMITIES: Show no edema or ulcers. SKIN: Shows no rash or petechiae. MUSCULOSKELETAL: Shows no joint swelling or stiffness. GENITOURINARY: Shows no Childers or CVA tenderness. NEUROLOGIC: Motor intact. Cranial nerves intact. LABORATORY DATA: Reviewed. ASSESSMENT AND PLAN: 1. Stage 6 chronic kidney disease, plan dialysis. 2. Hypertension, titrate home medication. 3. Anemia, stable. Medication based on GFR appropriate. Job ID: [id number]
--- NOTE | 2019-11-05 12:31 | NM ---
MYOCARDIAL PERFUSION SCAN: DATE: 11/05/2019. PROVIDED CLINICAL HISTORY: Chest pain. RADIOPHARMACEUTICAL: 30.1 mCi Technetium 99m labeled sestamibi IV stress. 32 mCi Technetium 99m labeled sestamibi IV rest. FINDINGS: There is normal, homogeneous distribution of the radiotracer throughout the left ventricular myocardi um. Gated data demonstrate normal myocardial wall motion and thickening with calculated LEVF of 59%. TID is 1.06. IMPRESSION: 1. No scintigraphic evidence for ischemia. 2. Calculated left ventricular ejection fraction 59%. POS: JAYLA
[2019-11-05] MEDS: Carvedilol 6.25 MG TAB PO SCH ×2 (12:33→17:33)
[2019-11-05 12:34] LABS: HBSAg Index 0.33 S/CO (0-0.99); Hep B Surf Ag Non-Reactive S/CO (NonReactive)
[2019-11-05] MEDS: HumaLOG 300 UNITS/3 ML VIAL SC PRN (12:34)
[2019-11-05 15:24] LABS: #Eosinphils 0.4 thou/uL (0.0-0.7); #Lymphocytes 1.2 thou/uL (1.20-3.40); #Monocytes 0.4 thou/uL (0.11-0.59); #Neutrophils 4.6 thou/uL (1.40-6.50); %Basophils 0.6 % (0.0-1.0); %Eosinophils 6.1 % (0.0-10.0); %Lymphocytes 18.1 % (21.0-51.0); %Monocytes 6.5 % (0.0-10.0); %Neutrophils 68.7 % (42.0-75.0); Hemoglobin 10.9 g/dL (12.0-16.0); Mean Corpuscular HGB CONC 31.2 g/dL (32.0-36.0); Mean Corpuscular Hemoglobin 27.9 pg (27.0-31.0); Mean Corpuscular Volume 89.5 fL (78.0-98.0); Mean Platelet Volume 9.4 fL (7.4-10.4); Platelet Count 205 thou/uL (130-400); RBC Distribution Width 16.4 % (11.5-14.5); Red Blood Cell (RBC) Count 3.92 mill/uL (4.20-5.40); White Blood Cell (WBC) Count 6.6 thou/uL (4.8-10.8)
[2019-11-05 17:34] VITALS: BP 140/68
[2019-11-05 17:39] VITALS: TEMP 98.2
[2019-11-05] MEDS ORDERED: Apixaban 2.5 MG TAB PO SCH (21:00)
--- NOTE | 2019-11-07 00:38 | DIS ---
DATE OF ADMISSION: 11/03/2019 DATE OF DISCHARGE: 11/05/2019 DISCHARGE DIAGNOSES: As of the followin. Chest pain. 2. End-stage renal disease, on dialysis. 3. Paroxysmal atrial fibrillation. 4. Uncontrolled diabetes. 5. Peripheral vascular disease. 6. Hypertension. HOSPITAL COURSE: The patient is a very pleasant 64-year-old female, who initially presented to the hospital after dialysis for chest pain. She was found to have mildly elevated troponins in the indeterminate range. At this time, she underwent a stress test, which indicated no significant evidence of ischemia, EF was number was 1.06. The patient remained chest pain free. She was then discharged home. It was noted that the patient did have paroxysmal atrial fibrillation on admission and then was in sinus rhythm. I did review her chart extensively. I had also spoke with the event attendant. The patient suffered severe anemia and patient does not recall if she has ever been worked up for anemia. I recommended her to following up with her primary to get a workup for anemia. Her hemoglobin this admission was stable. Initially, I was going to put her on Eliquis. However, when I spoke with the event attendant, he stated that she has had previous admissions for severe anemia of unknown etiology. At this time, I will only continue the aspirin. I will hold off on the anticoagulation until her anemia workup has been established. She is also not very ambulatory. DISCHARGE MEDICATIONS: Her home medications on discharge will be as of the followin. Aspirin 81 mg daily. 2. Carvedilol 12.5 twice a day. 3. Escitalopram 5 mg at bedtime. 4. Isosorbide 60 mg daily. 5. Hydralazine 50 mg t.i.d. 6. Pantoprazole 40 mg q.a.m. 7. Atorvastatin 40 mg at bedtime. 8. Renvela 800 mg t.i.d. PHYSICAL EXAMINATION: VITAL SIGNS: On discharge are as of the followin.2, 70, 16, 96% on room air, 140/68. GENERAL: She is awake, alert, and oriented x3. Does not appear in distress. CV: S1, S2 present. No murmurs, rubs, or gallops. The patient has been discharged home. She will follow up with her primary. Job ID: [id number]
== END 2019-11-05 19:35 | disposition home or self-care (01) ==
LOC: ERS 18:30 → 2SE 20:09
PROVIDERS: ADMIT Internal Medicine; ATTEND Internal Medicine
DX: R07.9 Chest pain, unspecified (principal); I12.0 Hypertensive chronic kidney disease with stage 5 chronic kidney disease or end stage renal disease; E11.22 Type 2 diabetes mellitus with diabetic chronic kidney disease; N18.6 End stage renal disease; I73.9 Peripheral vascular disease, unspecified; I25.10 Atherosclerotic heart disease of native coronary artery without angina pectoris; D64.9 Anemia, unspecified; E66.9 Obesity, unspecified; Z68.28 Body mass index [BMI] 28.0-28.9, adult; Z79.4 Long term (current) use of insulin; Z79.82 Long term (current) use of aspirin; Z79.899 Other long term (current) drug therapy; Z88.2 Allergy status to sulfonamides; Z88.1 Allergy status to other antibiotic agents; Z88.8 Allergy status to other drugs, medicaments and biological substances; Z91.040 Latex allergy status; Z99.2 Dependence on renal dialysis
CPT/HCPCS: 71045; 78452; 80053; 80061; 82550; 82553; 82962 ×2; 83690; 84484 ×3; 85025 ×2; 87340; 93005; 93017; 94760 ×2; 99285; A9500; 36415; 36416; 90935; 96372; 96374; G0257; G0378; J0153; J0360; J1644; J1650; J1815; Q0162

== ENCOUNTER 2020-01-17 13:28 | Observation (INO) | payer MEDICARE, OTHER ==
[2020-01-17 14:38] LABS: #Eosinphils 0.3 thou/uL (0.0-0.7); #Lymphocytes 1.2 thou/uL (1.20-3.40); #Monocytes 0.5 thou/uL (0.11-0.59); %Basophils 0.5 % (0.0-1.0); %Eosinophils 4.1 % (0.0-10.0); %Monocytes 6.5 % (0.0-10.0); %Neutrophils 71.9 % (42.0-75.0); Hemoglobin 14.5 g/dL (12.0-16.0); Mean Corpuscular HGB CONC 30.7 g/dL (32.0-36.0); Mean Corpuscular Hemoglobin 28.4 pg (27.0-31.0); Mean Corpuscular Volume 92.6 fL (78.0-98.0); Mean Platelet Volume 9.1 fL (7.4-10.4); Platelet Count 173 thou/uL (130-400); RBC Distribution Width 13.4 % (11.5-14.5); Red Blood Cell (RBC) Count 5.11 mill/uL (4.20-5.40); White Blood Cell (WBC) Count 6.9 thou/uL (4.8-10.8)
--- NOTE | 2020-01-17 14:38 | CT ---
CT HEAD WITHOUT CONTRAST: HISTORY: Syncope. FINDINGS: Ventricles have normal size and position. There are moderate chronic ischemic white matter changes. There is no evidence of intracranial mass or hemorrhage. No evidence of cortical infarct. Evidence of old white matter lacunar infarcts. Sinuses are clear. IMPRESSION: No acute process. POS: AH
[2020-01-17 15:49] LABS: ALT (SGPT) 20 U/L (8-55); AST (SGOT) 49 U/L (5-34); Albumin 2.5 g/dL (3.4-4.8); Alkaline Phosphatase 391 U/L (40-110); Anion Gap 15 mmol/L (10-20); BUN (Urea Nitrogen) 37 mg/dL (9.8-20.1); Bilirubin, Total 0.6 mg/dL (0.2-1.2); Calc. Creatinine Clearance 0 mL/min (70-130); Calcium 6.1 mg/dL (7.8-10.44); Carbon Dioxide 16 mmol/L (23-31); Chloride 110 mmol/L (98-107); Estimated GFR-MDRD 9; Globulin 4.6 g/dL (2.4-3.5); Glucose 89 mg/dL (80-115); Potassium 3.8 mmol/L (3.5-5.1); Protein, Total 7.1 g/dL (6.0-8.3); Sodium 137 mmol/L (136-145)
[2020-01-17] MEDS ORDERED: Aspirin 325 MG TAB ONE (15:56)
[2020-01-17 16:02] LABS: CKMB 1.5 ng/mL (0-6.6)
--- NOTE | 2020-01-17 16:37 | PDOC.HHP ---
Hospitalist HPI - History of Present Illness unresponsiveness while in hemodialysis History of Present Illness: 64-year-old female presents with unresponsiveness during dialysis. Was taking regular insulin regimen and ate regular breakfast. When when to dialysis, became unresponsive and per nurses, her blood sugar at the time was 45, so given pudding and improved immediately. Never had such an episode before. On encounter, lying comfortably in bed and has no complaints. Denies head trauma , fatigue, chest pain , palpitations, dyspnea, worsening dyspnea on exertion, worsening swelling, diarrhea, focal weakness, seizure like activity ED Course: In the ED, grossly elevated blood pressure, indeterminate troponin, and EKG showing frequent PACs. Was admitted to telemetry for further management Hospitalist ROS - Review of Systems All other systems reviewed; all pertinent +/- noted in HPI/Subj Hospitalist History - Past Medical History Source: old records (PAST MEDICAL HISTORY: 1. End-stage renal disease, on hemodialysis. 2. 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 3. Diabetes mellitus type 2. 4. Hypertension. 5. Hyperlipidemia. 6. Chronic anemia. 7. History of TIA, on aspirin. 8. Coronary artery disease, status post non-ST- elevation [place] earlier this year. 9. Chronic systolic and diastolic heart failure , ejection fraction 45% range. 10. Physical deconditioning, currently residing at [facility]. 11. Secondary hyperparathyroidism. 12. Hidradenitis suppurativa with multiple perineal abscesses. PAST SURGICAL HISTORY : 1. Recent incision and drainage as well as finger amputation as discussed above. 2. Dialysis access procedures. 3. Appendectomy. 4. Hysterectomy. 5. Eye surgery. 6. Tubal ligation. 7. Peritoneal dialysis catheter placement with subsequent removal. FAMILY HISTORY: Negative for heart disease. SOCIAL HISTORY : As discussed above she is full code, makes her own decision with the help of her family. No smoking, alcohol, or drug use. CURRENT MEDICATION: pending reconciliation Allergies: per EMR) - Past Surgical History Past Surgical History: reports: Appendectomy, Hysterectomy - Social History Alcohol: reports: None Drugs: reports: none - Exam General Appearance: NAD, awake alert Neck: no JVD Neck - other findings: right upper thorax dialysis catheter, incision c/d/i Heart: RRR, no murmur, no gallops, no rubs Heart - other findings: occasional extra beats; poor radial and dorsalis pedis pulses Respiratory: CTAB, no wheezes, no rales, no ronchi Gastrointestinal: soft, non-tender, non-distended, normal bowel sounds Extremities: no edema Extremities - other findings: multiple hyperpigmented scaly patches c/w calciphylaxis Psychiatric: normal affect, normal behavior, A&O x 3 Hospitalist Results - Labs Result Diagrams: 01/17/20 14:24 01/17/20 15:06 Lab results: WBC 6.9 thou/uL (4.8-10.8) 01/17/20 14:24 Hgb 14.5 g/dL (12.0-16.0) 01/17/20 14:24 Hct 47.3 % (36.0-47.0) H 01/17/20 14:24 MCV 92.6 fL (78.0-98.0) 01/17/20 14:24 Plt Count 173 thou/uL (130-400) 01/17/20 14:24 Neutrophils % 71.9 % (42.0-75.0) 01/17/20 14:24 Sodium 137 mmol/L (136-145) 01/17/20 15:06 Potassium 3.8 mmol/L (3.5-5.1) 01/17/20 15:06 Chloride 110 mmol/L (98-107) H 01/17/20 15:06 Carbon Dioxide 16 mmol/L (23-31) L 01/17/20 15:06 BUN 37 mg/dL (9.8-20.1) H 01/17/20 15:06 Creatinine 5.53 mg/dL (0.6-1.1) H 01/17/20 15:06 Glucose 89 mg/dL (80-115) 01/17/20 15:06 Calcium 6.1 mg/dL (7.8-10.44) L 01/17/20 15:06 Total Bilirubin 0.6 mg/dL (0.2-1.2) 01/17/20 15:06 AST 49 U/L (5-34) H 01/17/20 15:06 ALT 20 U/L (8-55) 01/17/20 15:06 Alkaline Phosphatase 391 U/L (40-110) H 01/17/20 15:06 CK-MB (CK-2) 1.5 ng/mL (0-6.6) 01/17/20 14:24 Troponin I 0.035 ng/mL (< 0.028) H 01/17/20 14:24 Serum Total Protein 7.1 g/dL (6.0-8.3) 01/17/20 15:06 Albumin 2.5 g/dL (3.4-4.8) L 01/17/20 15:06 - EKG Interpretation EKG: LAFB, PAC every third beat Hospitalist H&P A/P - Problem (1) Hypertensive urgency Code(s): I16.0 - HYPERTENSIVE URGENCY Status: Acute (2) CAD (coronary artery disease) Code(s): I25.10 - ATHSCL HEART DISEASE OF [place] CORONARY ARTERY W/O ANG PCTRS Status: Acute (3) PVD (peripheral vascular disease) Code(s): I73.9 - PERIPHERAL VASCULAR DISEASE, UNSPECIFIED Status: Acute (4) CHF (congestive heart failure) Code(s): I50.9 - HEART FAILURE, UNSPECIFIED Status: Chronic (5) CKD (chronic kidney disease) Code(s): N18.9 - CHRONIC KIDNEY DISEASE, UNSPECIFIED Status: Chronic (6) DM2 (diabetes mellitus, type 2) Status: Chronic Qualifiers: (7) Premature atrial complex Code(s): I49.1 - ATRIAL PREMATURE DEPOLARIZATION Status: Acute (8) Hypoglycemia Code(s): E16.2 - HYPOGLYCEMIA, UNSPECIFIED Status: Acute - Plan Plan: #T2DM #symptomatic hypoglycemia -May be related to alkali dialysate -per patient, followed closely by PCP and base ply hand for management of diabetes -reduce home lantus to 10qhs from 20qhs -mild correction -infectious workup -A1c, blood glucose to determine if lower glycemic targets can be set #troponinemia chronic likely due to ESRD #hypertensive urgency restart home regimen; pending HD #ESRD #calciphylaxis nephrology consulted; dialysis and treatment of calciphylaxis per nephrology -calcium, phosphate, pth, vitamin d3 Dispo/PPx full code GI PPx: resume home pantoprazole DVT PPx: lovenox
[2020-01-17 17:21] VITALS: BMI 39.6
[2020-01-17] MEDS ORDERED: HYDROcodone/Acetaminophen 7.5/325 mg Tablet PO PRN (18:38)
[2020-01-17] MEDS ORDERED: Dextrose 50% Abboject 50 ML SYRINGE SLOW IVP PRN (18:54)
[2020-01-17] MEDS ORDERED: Dextrose 5% in Water 1,000 ML IV PRN (18:54)
[2020-01-17] MEDS ORDERED: traZODone HCl 50 MG TAB PO SCH (21:00)
[2020-01-17] MEDS ORDERED: Atorvastatin Calcium 10 MG TAB PO SCH (21:00)
[2020-01-17] MEDS ORDERED: Escitalopram Oxalate 10 mg Tablet PO SCH (21:00)
[2020-01-17] MEDS ORDERED: Sevelamer Carbonate 800 MG TAB PO SCH (21:00)
[2020-01-17 21:46] LABS: Bacteria/HPF 4+ HPF (None Seen); Bilirubin Negative (Negative); Blood, Urine 3+ (Negative); Clarity Turbid (Clear); Glucose, Urine (Dipstick) Normal (Negative); Ketone, Urine Negative (Negative); Leukocyte 500 Leu/uL (Negative); Nitrite Negative (Negative); Protein, Urine (Dipstick) 200 mg/dL (Neg-Trace); RBC/HPF Greater than 50 HPF (0-3); Specific Gravity, Urine 1.015 (1.002-1.036); Squamous Epithelial 21-50 HPF (0-3); Urobilinogen Normal mg/dL (Less than 2); WBC/HPF Greater than 50 HPF (0-3)
[2020-01-17 21:49] LABS: Urine Culture Reflex No No
[2020-01-18 05:16] LABS: Phosphorus 3.7 mg/dL (2.3-4.7)
[2020-01-18 05:51] LABS: Anion Gap 16 mmol/L (10-20); BUN (Urea Nitrogen) 58 mg/dL (9.8-20.1); Calc. Creatinine Clearance 10 mL/min (70-130); Calcium 7.9 mg/dL (7.8-10.44); Carbon Dioxide 20 mmol/L (23-31); Chloride 100 mmol/L (98-107); Estimated GFR-MDRD 6; Glucose 351 mg/dL (80-115); Potassium 5.3 mmol/L (3.5-5.1); Sodium 131 mmol/L (136-145)
--- NOTE | 2020-01-18 07:22 | RAD ---
Exam: Chest one view HISTORY:Chest pain. Incompletely. Comparison: 11/03/2019 FINDINGS: Cardiac silhouette:Stable cardiomegaly. Stable left-sided HemoSplit dialysis catheter. Aorta: Atherosclerosis Pulmonary vessels: Normal Costophrenic angles: Clear LUNGS: Chronic changes. No masses or consolidation. Pneumothorax: None Osseous abnormalities: None IMPRESSION: 1. At the sclerosis 2. Chronic lung parenchymal changes.
[2020-01-18] MEDS: HumaLOG 300 UNITS/3 ML VIAL SC PRN ×2 (07:33→17:21)
[2020-01-18] MEDS: Sevelamer Carbonate 800 MG TAB PO SCH ×3 (07:41→17:21)
[2020-01-18] MEDS: Carvedilol 6.25 MG TAB PO SCH ×2 (07:41→17:20)
[2020-01-18 07:51] VITALS: TEMP 98.1
[2020-01-18] MEDS ORDERED: Polyethylene Glycol 3350 17 GM Packet PO SCH (09:00)
[2020-01-18] MEDS ORDERED: Insulin Glargine 10 UNITS in Pre-Filled Syringe 1 EACH SC SCH (09:00)
[2020-01-18] MEDS ORDERED: Saccharomyces boulardii 250 MG CAP PO SCH (09:00)
[2020-01-18] MEDS ORDERED: Enoxaparin Sodium 30 MG/0.3 ML SYRINGE SC SCH (09:00)
[2020-01-18] MEDS ORDERED: Aspirin 81 mg Enteric Coated Tablet PO SCH (09:00)
[2020-01-18] MEDS ORDERED: Cinacalcet HCl 30 MG TAB PO SCH (09:00)
[2020-01-18] MEDS ORDERED: Prevnar 13-Val Conj/PF 0.5 ML SYRINGE IM ONE (09:00)
[2020-01-18] MEDS ORDERED: Heparin 10,000 UNITS/ 10 ML VIAL ONE (09:57)
[2020-01-18 13:04] LABS: SARS-CoV-2 MS2 Positive; SARS-CoV-2 N Gene Negative; SARS-CoV-2 S Gene Negative; SARS-CoV-2 by NAA Not Detected (NotDetected); SARS-CoV-2 orf1ab Negative
[2020-01-18 17:24] VITALS: BP 114/56
--- NOTE | 2020-01-18 17:57 | CON ---
DATE OF CONSULTATION: 01/18/2020 CONSULTING PHYSICIAN: Dr. Brenner. REASON FOR CONSULTATION: End-stage renal disease evaluation and care. REASON FOR ADMISSION: Altered mentation. HISTORY OF PRESENT ILLNESS: This is a 64-year-old female with history of end-stage renal disease, type 2 diabetes, hypertension, hyperlipidemia, came to the hospital with altered mentation. Her blood sugar was 45. She was transferred to the hospital. She for last 1.5 hours. She is feeling much better today. I saw her this morning and she is going to finish her dialysis. Her potassium is high PAST MEDICAL HISTORY: Positive for; 1. End-stage renal disease. 2. Hypertension. 3. Hyperlipidemia. 4. TIA. 5. Coronary artery disease. 6. CHF. PAST SURGICAL HISTORY: 1. Finger amputation. 2. Eye surgery. 3. Tubal ligation. 4. Appendectomy. 5. Hysterectomy. HOME MEDICATIONS: Reviewed. ALLERGIES: CEPHALEXIN, LATEX, POTASSIUM, SULFA. SOCIAL HISTORY: No smoking, alcohol, or illicit drug abuse. FAMILY HISTORY: No history of kidney disease. REVIEW OF SYSTEMS: CONSTITUTIONAL: Negative for weight loss or gain, ability to conduct usual activities. SKIN: Negative for rash, itching. EYES: Negative for double vision, pain. ENT/MOUTH: Negative for nose bleeding, neck stiffness, pain, tenderness. CARDIOVASCULAR: Negative for palpitations, dyspnea on exertion, orthopnea. RESPIRATORY: Negative for shortness of breath, wheezing, cough, hemoptysis, fever or night sweats. GASTROINTESTINAL: Negative for poor appetite, abdominal pain, heartburn, nausea, vomiting, constipation, or diarrhea. GENITOURINARY: Negative for urgency, frequency, dysuria, nocturia. MUSCULOSKELETAL: Negative for pain, swelling. NEUROLOGIC/PSYCHIATRIC: Negative for anxiety, depression. ALLERGY/IMMUNOLOGIC: Negative for skin rash, bleeding tendency. PHYSICAL EXAMINATION: GENERAL: This is a well-built female, in no apparent distress. VITAL SIGNS: Temperature 98.1, pulse 64, respiratory rate 18, blood pressure 127/53. HEENT: Atraumatic and normocephalic. Oral mucosa is moist. NECK: Supple. CV: S1, S2 heard. RESPIRATORY: Clear. GASTROINTESTINAL: Abdomen is soft. MUSCULOSKELETAL: 1+ edema. DERMATOLOGIC: No skin rash. NEUROLOGIC: Alert and awake. PSYCHIATRIC: Mood and affect normal. LABORATORY DATA: Potassium is 5.3, BUN is 58, and creatinine is 8.5. ASSESSMENT AND PLAN: 1. End-stage renal disease, on hemodialysis. Plan is to have 2 hours of dialysis today, then continue dialysis on Friday, Friday, and Friday. 2. Hyperkalemia. We will have dialysis, limit potassium. 3. Hyponatremia. 4. Acidosis. 5. Edema. 6. Hypertension. 7. Moderate hypoalbuminemia. 8. Secondary hyperparathyroidism. Plan to have dialysis. Limit potassium. We will continue dialysis today for 2 hours and then Friday, Friday, Friday as tolerated. Thank you for the consult. Job ID: [id number]
--- NOTE | 2020-01-20 06:32 | DIS ---
DATE OF ADMISSION: 01/17/2020 DATE OF DISCHARGE: 01/18/2020 HOSPITAL COURSE: Ms. Earl is a 64-year-old female with medical history of end-stage renal disease and diabetes, who presented for symptomatic hypoglycemia. She was undergoing hemodialysis during which her glucose decreased to 45 and she was found to be unresponsive. During her inpatient stay, her insulin regimen was cut by half and the patient's blood glucose remained stable. The patient was discharged home with followup appointments with her primary care physician and golf sales manager for further tailoring of her insulin regimen. She was discharged home hemodynamically stable with no complaints. PHYSICAL EXAMINATION: VITAL SIGNS: Blood pressure 135/64, pulse 66, respiratory rate 18, oxygen saturation 98% on room air. GENERAL: Lying comfortably in bed. Awake and alert. HEENT: Right upper thorax dialysis catheter incision CDI. HEART: Regular rate and rhythm. No murmurs, gallops, or rubs. Occasional extra beats. Poor radial and dorsalis pedis pulses. RESPIRATORY: Clear to auscultation bilaterally. No wheezing, rales or rhonchi. GASTROINTESTINAL: Soft, nontender, nondistended. Normal bowel sounds. EXTREMITIES: No edema. 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 PSYCHIATRIC: Proper mood and affect. Alert and oriented x3. MEDICATION LIST: New medications: No new medications. Modified medications: Atorvastatin was increased from 10 to 40 mg at bedtime. Lantus was decreased from 20 units to 10 units at bedtime. Discontinued medications: No discontinued medications. Job ID: [id number]
== END 2020-01-18 19:39 | disposition home or self-care (01) ==
LOC: ERS 13:28 → 2SW 16:12
PROVIDERS: ADMIT Emergency Medicine; ATTEND Internal Medicine
DX: I13.2 Hypertensive heart and chronic kidney disease with heart failure and with stage 5 chronic kidney disease, or end stage renal disease (principal); E11.649 Type 2 diabetes mellitus with hypoglycemia without coma; E11.22 Type 2 diabetes mellitus with diabetic chronic kidney disease; N18.6 End stage renal disease; I50.40 Unspecified combined systolic (congestive) and diastolic (congestive) heart failure; D63.1 Anemia in chronic kidney disease; I16.0 Hypertensive urgency; N25.81 Secondary hyperparathyroidism of renal origin; I25.10 Atherosclerotic heart disease of native coronary artery without angina pectoris; I49.1 Atrial premature depolarization; E78.5 Hyperlipidemia, unspecified; E87.5 Hyperkalemia; E87.1 Hypo-osmolality and hyponatremia; E87.2 Acidosis; Z79.4 Long term (current) use of insulin; Z79.82 Long term (current) use of aspirin; Z79.899 Other long term (current) drug therapy; Z86.73 Personal history of transient ischemic attack (TIA), and cerebral infarction without residual deficits; Z88.1 Allergy status to other antibiotic agents; Z88.2 Allergy status to sulfonamides; Z88.8 Allergy status to other drugs, medicaments and biological substances; Z91.040 Latex allergy status; Z20.828 Contact with and (suspected) exposure to other viral communicable diseases
CPT/HCPCS: 36600; 70450; 71045; 80048; 80053; 81001; 82306; 82553; 82962 ×2; 83880; 83970; 84100; 84484 ×2; 85025; 87040; 93005; 94760; 97139 ×4; 97542; 99285; U0003; 36415; 36416; 87635; 90935; 96372; G0257; G0378; J1644; J1650; J1815